=== PATIENT | male | born 1975 | race Caucasian/White ===

== ENCOUNTER 2019-10-22 20:53 | Emergency (ER) | payer MEDICAID, SELFPAY ==
--- NOTE | 2019-10-22 20:59 | XR_ITS ---
WS: [id number] CHEST XRAY TECHNIQUE: Portable chest. CLINICAL INFORMATION: cough COMPARISON: None. FINDINGS: Heart: Normal cardiac silhouette. Lungs: Lungs are clear. No consolidation or pleural effusion. Bones: Normal visualized bony structures. XR/XR chest 1V portable [id number] IMPRESSION: Normal chest
--- NOTE | 2019-10-22 20:59 | ED_ITS ---
Entered by Nabila Sanders, acting as scribe for Juani Maurice HPI - Alcohol General: Chief Complaint: Alcohol Stated Complaint: FAST HEART RATE Time Seen by Provider: 10/22/19 20:59 Source: EMS and police Mode of arrival: EMS History of Present Illness: HPI narrative: 44 y/o male presents to the ED with complaint of ETOH withdrawls. Pt states he has a hx of DTs ( chest pain, N/V, seizure). He has never been able to successfully quit cold turkey . Pt states he has had rapid HR and chest pain since he was admitted to the nursing home at 1750. Pt states he consumes about a gallon of alcohol a day. His last drink was supposedly, 7 hours ago. MD complaint: alcohol withdrawal Last drink: Hours (ago) (7) Amount of alcohol consumed: 1/2 gallon Chronic alcohol use: Yes Previous visits for alcohol intoxication: Yes Recent trauma: No Associated symptoms: Reports nausea; Deny diaphoresis Treatments prior to arrival: none (francheskafran from EMS) Review of Systems Const: Denies: fever, chills, body aches, fatigue, malaise or diaphoresis Eyes: Denies: change in vision or blurry vision ENMT: Denies: throat pain, painful swallowing, hoarseness, ear pain, ear discharge, Change in hearing or nasal discharge Resp: Denies: shortness of breath, productive cough, non-productive cough, wheezing, coughing up blood or chest congestion GI: Reports: nausea : Denies: flank pain, difficulty urinating, painful urination, urinary frequency, urinary urgency, decreased urine ouput, urinary incontinence or blood in urine Musc: Denies: neck pain, back pain, extremity pain, extremity swelling, joint pain, joint swelling, joint warmth or joint stiffness Skin/Breast: Denies: rash, skin tenderness or yellow skin Neuro: Denies: headache, numbness in extremities, weakness in extremities, changes in sensation, lack of coordination, difficulty walking, dizziness, vertigo or confusion Endo: Denies: excessive thirst, tired all the time, cold intolerance, excessive sweating, flushing or hot flashes Kyle/Lymph: Denies: easy bruising, easy bleeding, petechiae or enlarged lymph nodes All/Imm: Denies: hives, throat swelling, tongue swelling, facial swelling or acute wheezing PFSH ED PFSH: Statuses (acute, chronic, etc) shown below reflect problem list status as previously entered and may not be historically accurate Medical History COPD (chronic obstructive pulmonary disease) (Acute) Suicidal ideations (Acute) Social History Smoking and tobacco status: current every day smoker Alcohol intake: current Physical Exam HENMT: COMMON NORMALS: normocephalic, head/scalp atraumatic, hearing grossly normal bilaterally, external ears normal, EAC's normal, external nose normal and moist oral mucous membranes HEAD & SCALP: normal to inspection, normocephalic and atraumatic FACE & SINUS: normal facial exam and face symmetric NOSE: external nose normal and nares normal EXTERNAL EAR: Yes external ears normal EXTERNAL AUDITORY CANAL: EAC's normal MOUTH: oral and palatal mucosa normal and tongue normal Eye: COMMON NORMALS: PERRL, EOMs intact bilaterally, conjunctivae normal and no scleral icterus GENERAL EYE: normal appearance of both eyes and normal light reflex CONJUNCTIVA: Yes conjunctivae normal SCLERA: sclerae normal CORNEA: Yes corneas normal PUPIL: Yes PERRL DIRECT OPHTHALMOSCOPY: Yes normal light reflex Neck/C-Spine: COMMON NORMALS: full ROM, no lymphadenopathy, supple, no meningeal signs and no JVD GENERAL: Yes normal visual inspection and Yes trachea midline CERVICAL SPINE: Yes cervical ROM normal Chest: COMMONS NORMALS: inspection of chest normal and palpation of chest normal Resp: COMMON NORMALS: normal respiratory effort, no retractions, no use of accessory muscles and clear to auscultation bilaterally EFFORT & INSPECTION: Yes able to speak in complete sentences AUSCULTATION: clear to auscultation bilaterally Cardio: COMMON NORMALS: no JVD GI: COMMON NORMALS: soft to palpation, non-tender, no hepatosplenomegaly and no masses INSPECTION: Yes normal to inspection PALPATION: Yes soft and Yes no hepatosplenomegaly : COMMON NORMALS: Yes no CVA tenderness BLADDER/KIDNEY EXAM: Yes no CVA tenderness Back/Pelvis: COMMON NORMALS: no CVA tenderness, thoracic and lumbar spine normal to inspection, no thoracic nor lumbar tenderness and thoraco-lumbar ROM normal Extremity: COMMON NORMALS: normal to inspection, full ROM, normal capillary refill, no joint enlargement, no clubbing, cyanosis or edema and no calf tender ness Neuro: COMMON NORMALS: CN's II-XII intact bilaterally, moves all extremities, no focal motor deficits and no sensory deficits noted MENINGEAL SIGNS: Yes no meningeal signs Skin: COMMON NORMALS: no rashes or lesions noted, skin turgor normal, no jaundice, no petechiae and no mottling GENERAL SKIN EXAM: no rashes or lesions noted and turgor normal Course Vital Signs: Vital signs: Vital Signs Temperature 98.3 F 10/22/19 21:02 Pulse Rate 96 10/23/19 02:05 Respiratory Rate 16 10/23/19 02:05 Blood Pressure 105/59 10/23/19 02:05 Pulse Oximetry 92 10/23/19 02:05 MDM - Alcohol MDM Narrative: Medical decision making narrative: The case was reviewed with Dr. Franco, he believes the patient will need ICU as he has had hallucinations, uncontrollable tremors and seizures in the past with his withdrawal. We have no ICU beds here. I reviewed the case in full with Dr. Good and he will accept the Pt. in transfer. Currently the patient is resting comfortably after 2 of Ativan. He is not tachycardic and shows no sign of withdrawal at this time. Lab Data: Labs: Lab Results 10/22/19 10/22/19 10/22/19 Range/Units 20:43 20:43 20:43 WBC 5.5 (4.0-10.0) 10^3/ uL RBC 4.45 (4.1-5.3) 10^6/u L Hgb 14.8 (11.7-16.6) g/dL Hct 42.6 (42.0-52.0) % MCV 95.7 H (80-94) fL MCH 33.3 (28.0-34.0) pg MCHC 34.7 (30.0-36.0) g/dL RDW 11.8 L (12.1-15.1) % Plt Count 168 (130-400) 10^3/c mm MPV 9.5 (7.4-10.4) fL Neut % (Auto) 42.1 % Lymph % (Auto) 47.0 % Coos % (Auto) 7.6 % Eos % (Auto) 2.2 % Baso % (Auto) 0.9 % Neut # (Auto) 2.3 (1.8-7.7) 10^3/u L Lymph # (Auto) 2.6 (0.8-4.8) 10^3/u L Coos # (Auto) 0.4 (0.2-0.9) 10^3/u L Eos # (Auto) 0.1 (0.0-0.8) 10^3/u L Baso # (Auto) 0.1 (0.0-0.1) 10^3/u L Nucleated RBC % (a uto) 0 % Nucleated RBCs # 0.0 /100WBC PT 13.90 H (10.5-13.3) SECO NDS INR 1.04 (0.8-1.2) Sodium 136 (136-145) mmol/L Potassium 3.6 (3.5-5.1) mmol/L Chloride 97 L (98-107) mmol/L Carbon Dioxide 22 (22-29) mmol/L Anion Gap 20.6 H (5-19) BUN 16 (6-20) mg/dL Creatinine 0.8 (0.7-1.2) mg/dL GFR Calculation 104.1 (90-130) mL/min Glucose 238 H (74-109) mg/dL Calcium 8.9 (8.6-10.0) mg/Dl Magnesium 1.8 (1.7-2.3) mg/dL Total Bilirubin 0.4 (0.15-1.2) mg/dL AST 36 (0-40) U/L ALT 22 (0-41) U/L Alkaline Phosphata se 71 (40-130) IU/L Creatine Kinase 94 (39-308) U/L Total Protein 7.2 (6.6-8.7) g/dL Albumin 4.1 (3.5-5.2) g/dL Globulin 3.1 (1.3-4.6) g/dL Lipase 35 (13-60) U/L Urine Color (Yellow) Urine Appearance (CLEAR) Urine pH (5-7) Ur Specific Gravit y (1.005-1.030) Urine Protein (Negative) Urine Glucose (UA) (Normal) Urine Ketones (Negative) Urine Occult Blood (Negative) Urine Nitrate (Negative) Urine Bilirubin (NEGATIVE) Urine Urobilinogen (Negative) mg/dL Ur Leukocyte Madie ase (Negative) Urine RBC (0-2) /hpf Urine WBC (0-5) /hpf Ur Squamous Epith Cells (0-5) Amorphous Sediment Urine Bacteria (NONE) Urine Mucus Urine Opiates Scre en (Negative) ng/mL Ur Barbiturates Sc reen (Negative) ng/mL Ur Phencyclidine S crn (Negative) ng/mL Ur Amphetamines Sc reen (Negative) ng/mL U Benzodiazepines Scrn (Negative) ng/mL Urine Cocaine Scre en (Negative) ng/mL U Marijuana (THC) Screen (Negative) ng/mL Ethyl Alcohol 249 H (0-10) mg/dL Serum Ketones (Negative) 10/22/19 10/22/19 10/22/19 Range/Units 20:43 22:22 22:22 WBC (4.0-10.0) 10^3/ uL RBC (4.1-5.3) 10^6/u L Hgb (11.7-16.6) g/dL Hct (42.0-52.0) % MCV (80-94) fL MCH (28.0-34.0) pg MCHC (30.0-36.0) g/dL RDW (12.1-15.1) % Plt Count (130-400) 10^3/c mm MPV (7.4-10.4) fL Neut % (Auto) % Lymph % (Auto) % Coos % (Auto) % Eos % (Auto) % Baso % (Auto) % Neut # (Auto) (1.8-7.7) 10^3/u L Lymph # (Auto) (0.8-4.8) 10^3/u L Coos # (Auto) (0.2-0.9) 10^3/u L Eos # (Auto) (0.0-0.8) 10^3/u L Baso # (Auto) (0.0-0.1) 10^3/u L Nucleated RBC % (a uto) % Nucleated RBCs # /100WBC PT (10.5-13.3) SECO NDS INR (0.8-1.2) Sodium (136-145) mmol/L Potassium (3.5-5.1) mmol/L Chloride (98-107) mmol/L Carbon Dioxide (22-29) mmol/L Anion Gap (5-19) BUN (6-20) mg/dL Creatinine (0.7-1.2) mg/dL GFR Calculation (90-130) mL/min Glucose (74-109) mg/dL Calcium (8.6-10.0) mg/Dl Magnesium (1.7-2.3) mg/dL Total Bilirubin (0.15-1.2) mg/dL AST (0-40) U/L ALT (0-41) U/L Alkaline Phosphata se (40-130) IU/L Creatine Kinase (39-308) U/L Total Protein (6.6-8.7) g/dL Albumin (3.5-5.2) g/dL Globulin (1.3-4.6) g/dL Lipase (13-60) U/L Urine Color Yellow (Yellow) Urine Appearance Clear (CLEAR) Urine pH 5 (5-7) Ur Specific Gravit y 1.025 (1.005-1.030) Urine Protein 1+ H (Negative) Urine Glucose (UA) 2+ (Normal) Urine Ketones 1+ H (Negative) Urine Occult Blood 2+ H (Negative) Urine Nitrate Negative (Negative) Urine Bilirubin Neg (NEGATIVE) Urine Urobilinogen Norm (Negative) mg/dL Ur Leukocyte Madie ase Negative (Negative) Urine RBC Rare (0-2) /hpf Urine WBC None (0-5) /hpf Ur Squamous Epith Cells None (0-5) Amorphous Sediment Trace Urine Bacteria Trace (NONE) Urine Mucus 2+ Urine Opiates Scre en Negative (Negative) ng/mL Ur Barbiturates Sc reen Negative (Negative) ng/mL Ur Phencyclidine S crn Negative (Negative) ng/mL Ur Amphetamines Sc reen Negative (Negative) ng/mL U Benzodiazepines Scrn Negative (Negative) ng/mL Urine Cocaine Scre en Negative (Negative) ng/mL U Marijuana (THC) Screen Negative (Negative) ng/mL Ethyl Alcohol (0-10) mg/dL Serum Ketones Negative (Negative) EKG Data^: EKG 1: EKG interpretation date: 10/22/19 EKG interpretation time: 21:07 Interpretation: Sinus tach at 110 beats a minute, normal CT interval, normal QRS duration, normal QTC, no acute ST or T wave changes. Discharge Plan Discharge Patient Disposition: Xfer Short-Term Hosp Clinical Impression: Alcoholic intoxication Qualifiers: Complication of substance-induced condition: with unspecified complication Qualified Code(s): F10.929 - Alcohol use, unspecified with intoxication, unspecified Alcohol withdrawal syndrome Qualifiers: Complication of substance-induced condition: with unspecified complication Qualified Code(s): F10.239 - Alcohol dependence with withdrawal, unspecified Condition: Stable Referrals: Ruddy Quach DO [Primary Care Provider] - Coding Level of Care Code ED Campus Recruiting Coordinator for g Fwd The documentation recorded by the Tommy polk Ashley, accurately reflects the service I personally performed and the decisions made by Kaylene estrada Eli N
[2019-10-22 21:02] VITALS: BP 107/91; PULSE 116; RESP 16; TEMP 36.8; O2SAT 93; BMI 25.0
[2019-10-22 21:27] LABS: Basophils # 0.1 10^3/uL (0.0-0.1); Basophils % 0.9 %; Eosinophils # 0.1 10^3/uL (0.0-0.8); Eosinophils % 2.2 %; Hematocrit 42.6 % (42.0-52.0); Hemoglobin 14.8 g/dL (11.7-16.6); Lymphocytes # 2.6 10^3/uL (0.8-4.8); Mean Corpuscular HGB Conc 34.7 g/dL (30.0-36.0); Mean Corpuscular Hemoglobin 33.3 pg (28.0-34.0); Mean Corpuscular Volume 95.7 fL (80-94); Mean Platelet Volume 9.5 fL (7.4-10.4); Monocytes # 0.4 10^3/uL (0.2-0.9); Monocytes % 7.6 %; Neutrophils # 2.3 10^3/uL (1.8-7.7); Neutrophils % 42.1 %; Nucleated Red Blood Cells % 0 %; Platelet Count 168 10^3/cmm (130-400); Red Blood Count 4.45 10^6/uL (4.1-5.3); Red Cell Distribution Width 11.8 % (12.1-15.1); White Blood Count 5.5 10^3/uL (4.0-10.0)
[2019-10-22 21:32] LABS: INR 1.04 (0.8-1.2)
[2019-10-22 21:37] LABS: Alanine Aminotransferase 22 U/L (0-41); Albumin Level 4.1 g/dL (3.5-5.2); Alcohol Level 249 mg/dL (0-10); Alkaline Phosphatase 71 IU/L (40-130); Anion Gap 20.6 (5-19); Aspartate Amino Transferase 36 U/L (0-40); Blood Urea Nitrogen 16 mg/dL (6-20); Calcium 8.9 mg/Dl (8.6-10.0); Carbon Dioxide 22 mmol/L (22-29); Chloride 97 mmol/L (98-107); Creatine Phosphokinase 94 U/L (39-308); Globulin 3.1 g/dL (1.3-4.6); Glomerular Filtration Rate 104.1 mL/min (90-130); Glucose 238 mg/dL (74-109); Lipase 35 U/L (13-60); Magnesium 1.8 mg/dL (1.7-2.3); Potassium 3.6 mmol/L (3.5-5.1); Sodium 136 mmol/L (136-145); Total Bilirubin 0.4 mg/dL (0.15-1.2); Total Protein 7.2 g/dL (6.6-8.7)
[2019-10-22 21:42] LABS: Ketone (Acetest) Serum Negative (Negative)
[2019-10-22 22:17] VITALS: BP 111/85; PULSE 109; RESP 17; O2SAT 95
[2019-10-22] MEDS: pantoprazole 40 mg SDV 80 MG IVP (22:19)
[2019-10-22] MEDS: sodium chloride 0.9% 1,000 ML 999 ML IV (22:20)
[2019-10-22] MEDS: ondansetron 2 mg/ML SDV 2 mL 4 MG IVP (22:20)
[2019-10-22] MEDS: LORazepam 2 mg/mL INJ 1 mL 1 MG IVP ×2 (22:21→23:12)
[2019-10-22 22:35] LABS: Amphetamines Screen Urine Negative (Negative); Barbiturates Screen Urine Negative (Negative); Benzodiazepines Screen Urine Negative (Negative); Cocaine Screen Urine Negative (Negative); Opiate Screen Urine Negative (Negative); PCP Screen Urine Negative (Negative); THC Screen Urine Negative (Negative)
[2019-10-22 22:40] LABS: Bacteria Urine TRACE; Bilirubin Urine Neg (NEGATIVE); Blood Urine 2+ (Negative); Glucose Urine UA 2+ (Normal); Ketones Urine 1+ (Negative); Leukocyte Esterase Urine Negative (Negative); Mucus Urine 2+; Nitrate Urine Negative (Negative); Protein Urine 1+ (Negative); RBC Urine RARE /hpf (0-2); Specific Gravity, Urine 1.025 (1.005-1.030); Urine Appearance Clear (CLEAR); Urine Color Yellow (Yellow); Urobilinogen Urine Norm (Negative); pH Urine 5 (5-7)
[2019-10-22 22:41] LABS: Add Urine Culture? No; Amorphous Sediment Urine TRACE
[2019-10-23] VITALS (68 sets, daily range): BP systolic 105–121; BP diastolic 58–94; PULSE 92–109; RESP 14–24; O2SAT 89–96
--- NOTE | 2019-10-23 01:06 | ECG_ITS ---
Measurements Intervals Solomon Rate: 110 P: 72 RI: 148 QRS: 73 QRSD: 84 T: 62 QT: 324 QTc: 440 SINUS TACHYCARDIA NONSPECIFIC T-WAVE ABNORMALITY ABNORMAL RHYTHM ECG Compared to ECG 09/22/2018 19:50:59 T-wave abnormality now present Sinus rhythm no longer present Electronically Signed On 10-23-2019 20:32:52 VALIDATION ENGINEER by Collin Briggs M.D. [email or web address]
[2019-10-23] MEDS: LORazepam 2 mg/mL INJ 1 mL IVP (05:48)
--- NOTE | 2019-10-23 06:00 | PC.NURSE ---
patient awake calling for nurse. patient states he is having some tremors and would like medication to help keep him calm. ed physician notified and orders put in for medication patient stating that he is hungry and would like something to drink at this time. ed physician approval for food and drink. sack lunch and coke brought to patient by this nurse.
== END 2019-10-23 07:47 | disposition short-term general hospital (02) ==
PROVIDERS: Emergency Provider Emergency Medicine; Family Provider Family Medicine; PCP Family Medicine
DX: R00.0 Tachycardia, unspecified (principal); F10.230 Alcohol dependence with withdrawal, uncomplicated; F10.220 Alcohol dependence with intoxication, uncomplicated; Y90.9 Presence of alcohol in blood, level not specified; J44.9 Chronic obstructive pulmonary disease, unspecified; F17.210 Nicotine dependence, cigarettes, uncomplicated
CPT/HCPCS: 71045; 80053; 80307; 81001; 82009; 82550; 83690; 83735; 85025; 85610; 93005; 96360; 96361; 96374; 99284; C9113; J2060; J2405; J7030

== ENCOUNTER 2019-11-07 19:14 | Emergency (ER) | payer MEDICAID, SELFPAY ==
[2019-11-07] VITALS (24 sets, daily range): BP systolic 113–192; BP diastolic 74–161; PULSE 87–96; RESP 18; TEMP 36.4; O2SAT 92–98; BMI 24.3
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
[2019-11-07 21:05] LABS: Basophils % 0.5 %; Eosinophils % 0.2 %; Hemoglobin 14.8 g/dL (11.7-16.6); Lymphocytes # 1.1 10^3/uL (0.8-4.8); Lymphocytes % 25.9 %; Mean Corpuscular HGB Conc 35.2 g/dL (30.0-36.0); Mean Corpuscular Volume 93.5 fL (80-94); Mean Platelet Volume 10.2 fL (7.4-10.4); Monocytes # 0.4 10^3/uL (0.2-0.9); Monocytes % 9.6 %; Neutrophils # 2.7 10^3/uL (1.8-7.7); Neutrophils % 63.3 %; Nucleated Red Blood Cells % 0 %; Platelet Count 86 10^3/cmm (130-400); Red Blood Count 4.49 10^6/uL (4.1-5.3); Red Cell Distribution Width 12.3 % (12.1-15.1); White Blood Count 4.3 10^3/uL (4.0-10.0)
[2019-11-07 21:12] LABS: INR 0.95 (0.8-1.2)
[2019-11-07 21:17] LABS: Alanine Aminotransferase 56 U/L (0-41); Albumin Level 4.5 g/dL (3.5-5.2); Alcohol Level 222 mg/dL (0-10); Alkaline Phosphatase 79 IU/L (40-130); Anion Gap 20.9 (5-19); Aspartate Amino Transferase 107 U/L (0-40); Blood Urea Nitrogen 7 mg/dL (6-20); Calcium 9.5 mg/dL (8.5-10.5); Carbon Dioxide 24 mmol/L (22-29); Chloride 93 mmol/L (98-107); Globulin 3.3 g/dL (1.3-4.6); Glucose 105 mg/dL (65-115); Potassium 2.9 mmol/L (3.5-5.1); Sodium 135 mmol/L (136-145); Total Bilirubin 0.9 mg/dL (0.15-1.2); Total Protein 7.8 g/dL (6.6-8.7)
[2019-11-07] MEDS: LORazepam 2 mg/mL INJ 1 mL 1 MG IVP (21:20)
--- NOTE | 2019-11-07 22:47 | PC.NURSE ---
EMS on site to assume care and transport patient.
== END 2019-11-07 23:00 | disposition other institution (70) ==
PROVIDERS: Emergency Provider Emergency Medicine; Family Provider Family Medicine; PCP Family Medicine
DX: S06.6X9A Traumatic subarachnoid hemorrhage with loss of consciousness of unspecified duration, initial encounter (principal); Y08.02XA Assault by strike by baseball bat, initial encounter; J44.9 Chronic obstructive pulmonary disease, unspecified; F17.210 Nicotine dependence, cigarettes, uncomplicated
CPT/HCPCS: 36415; 70450; 80053; 80307; 85025; 85610; 96374; 99283; J2060

== ENCOUNTER 2019-12-27 14:18 | Emergency (ER) | payer SELFPAY ==
[2019-12-27 14:30] VITALS: BP 123/104; PULSE 117; RESP 20; TEMP 36.8; O2SAT 96; BMI 23.6
--- NOTE | 2019-12-27 14:36 | ED_ITS ---
Entered by Velma Tapia, acting as scribe for Juani Maurice HPI - Alcohol General: Chief Complaint: General Medical Stated Complaint: ALCOHOL DTS Time Seen by Provider: 12/27/19 14:36 Source: patient Mode of arrival: ambulatory Limitations: no limitations History of Present Illness: HPI narrative: 44 yo male presents to ED with complaints of alcohol withdrawal. He said he had seizures but his last drink was early this morning, having had a couple of shots . He said he woke this morning and had a seizure so he decided to get some alcohol. He said he drinks every day. The last time he drank was last night prior to having a seizure this morning. He said he wants to stop drinking but he needs help to do so. MD complaint: alcohol intoxication, alcohol withdrawal and alcohol dependence Last drink: Hours (ago) Amount of alcohol consumed: 2 shots , otherwise unknown Chronic alcohol use: Yes Previous visits for alcohol intoxication: Yes Recent trauma: Yes Associated symptoms: Reports no associated symptoms; Deny abdominal pain, diaphoresis, hematemesis, melena, nausea, syncope or vomiting Treatments prior to arrival: none Review of Systems General: Reports: other (negative unless marked) Const: Denies: fever, chills, body aches, fatigue, malaise or diaphoresis Eyes: Denies: change in vision or blurry vision ENMT: Denies: throat pain, painful swallowing, hoarseness, ear pain, ear d ischarge, Change in hearing or nasal discharge Card: Denies: chest pain, palpitations, irregular heart rhythm, syncope, pre- syncope, shortness of breath on exertion or shortness of breath when lying down Resp: Denies: shortness of breath, productive cough, non-productive cough, wheezing, coughing up blood or chest congestion GI: Denies: abdominal pain, nausea, vomiting, vomiting blood, coffee grounds in vomit, diarrhea, constipation, cramping, blood in stool or black tarry stool : Denies: flank pain, difficulty urinating, painful urination, urinary frequency, urinary urgency, decreased urine ouput, urinary incontinence or blood in urine Musc: Denies: neck pain, back pain, extremity pain, extremity swelling, joint pain, joint swelling, joint warmth or joint stiffness Skin/Breast: Denies: rash, skin tenderness or yellow skin Neuro: Denies: headache, numbness in extremities, weakness in extremities, changes in sensation, lack of coordination, difficulty walking, dizziness, vertigo or confusion Endo: Denies: excessive thirst, tired all the time, cold intolerance, excessive sweating, flushing or hot flashes Kyle/Lymph: Denies: easy bruising, easy bleeding, petechiae or enlarged lymph nodes All/Imm: Denies: hives, throat swelling, tongue swelling, facial swelling or acute wheezing PFSH ED PFSH: Social History Smoking and tobacco status: current every day smoker Alcohol intake: current Physical Exam Const: COMMON NORMALS: no apparent distress, oriented x3, no limitations, healthy appearing and well nourished EXAM LIMITATIONS: no altered mental status GENERAL APPEARANCE: cooperative, well kempt and well developed ORIENTATION/CONSCIOUSNESS: Yes awake HENMT: COMMON NORMALS: normocephalic, head/scalp atraumatic, hearing grossly normal bilaterally, external ears normal, EAC's normal, external nose normal and moist oral mucous membranes HEAD & SCALP: normal to inspection, normocephalic and atraumatic FACE & SINUS: normal facial exam and face symmetric NOSE: external nose normal and nares normal EXTERNAL EAR: Yes external ears normal EXTERNAL AUDITORY CANAL: EAC's normal MOUTH: oral and palatal mucosa normal and tongue normal Eye: COMMON NORMALS: PERRL, EOMs intact bilaterally, conjunctivae normal and no scleral icterus GENERAL EYE: normal appearance of both eyes and normal light reflex CONJUNCTIVA: Yes conjunctivae normal SCLERA: sclerae normal CORNEA: Yes corneas normal PUPIL: Yes PERRL DIRECT OPHTHALMOSCOPY: Yes normal light reflex Neck/C-Spine: COMMON NORMALS: full ROM, no lymphadenopathy, supple, no meningeal signs and no JVD GENERAL: Yes normal visual inspection and Yes trachea midline CERVICAL SPINE: Yes cervical ROM normal Chest: COMMONS NORMALS: inspection of chest normal and palpation of chest normal Resp: COMMON NORMALS: normal respiratory effort, no retractions, no use of accessory muscles and clear to auscultation bilaterally EFFORT & INSPECTION: Yes able to speak in complete sentences AUSCULTATION: clear to auscultation bilaterally Cardio: COMMON NORMALS: no JVD, regular rate, regular rhythm, S1 normal heart sound, S2 normal heart sound, no gallops, no clicks, no murmurs and no rub JUGULAR VENOUS DISTENTION: no JVD RATE: regular rate RHYTHM: regular rhythm HEART SOUNDS: S1 normal and S2 normal GI: COMMON NORMALS: soft to palpation, non-tender, no hepatosplenomegaly and no masses INSPECTION: Yes normal to inspection PALPATION: Yes soft and Yes no hepatosplenomegaly : COMMON NORMALS: Yes no CVA tenderness BLADDER/KIDNEY EXAM: Yes no CVA tenderness Back/Pelvis: COMMON NORMALS: no CVA tenderness, thoracic and lumbar spine normal to inspection, no thoracic nor lumbar tenderness and thoraco-lumbar ROM normal Extremity: COMMON NORMALS: normal to inspection, full ROM, normal capillary refill, no joint enlargement, no clubbing, cyanosis or edema and no calf tenderness Neuro: COMMON NORMALS: oriented x3, CN's II-XII intact bilaterally, moves all extremities, no focal motor deficits and no sensory deficits noted MENINGEAL SIGNS: Yes no meningeal signs Psych: COMMON NORMALS: mental status grossly normal, thought process normal, cooperative, affect normal, speech normal and activity/motor behavior normal APPEARANCE: Yes well kempt SPEECH: Yes normal speech THOUGHT PROCESS: normal thought process Skin: COMMON NORMALS: no rashes or lesions noted, skin turgor normal, no jaundice, no petechiae and no mottling GENERAL SKIN EXAM: no rashes or lesions noted and turgor normal Course Vital Signs: Vital signs: Vital Signs Temperature 98.3 F 12/27/19 14:30 Pulse Rate 117 H 12/27/19 14:30 Respiratory Rate 20 H 12/27/19 14:30 Blood Pressure 123/104 12/27/19 14:30 Pulse Oximetry 96 12/27/19 14:30 MDM - Alcohol MDM Narrative: Medical decision making narrative: Discharge -Cameron is been asking for pain medicine primarily here in the ER. When asked where he has pain he claims his head. CT scan is normal. The seizures that the patient was describing were witnessed by nursing and they were not generalized tonic-clonic seizures and there was no postictal period. I believe the patient is seeking benzodiazepines and pain medications. When confronted with this he states that he really is here to get tested for the coronavirus. I have informed him that he has no indications of a coronavirus infection and I do not believe testing is necessary. He now wants to be discharged. He is calling for a friend to come pick him up and take him home. I do not believe he plans to stop drinking. The patient is alert to person, place, time and situation. He is aware of the risks of long-term alcoholism including ultimately or severe permanent disability. I see no sign of acute injury or life-threatening problem at this time. The patient does not appear clinically intoxicated. He has been up and able to ambulate without any difficulties or signs of ataxia. I believe he is competent and has the capacity to make his own decisions. He shows no signs of impairment. He has made multiple decisions based upon the information I have given him and been able to process this and merna this over in his mind. He does understand that he can return at any time and I have made certain to welcome to do so if he wanted further treatment. Lab Data: Labs: Lab Results 12/27/19 12/27/19 12/27/19 Range/Units 15:16 15:16 15:16 WBC 4.7 (4.0-10.0) 10^3/ uL RBC 4.33 (4.1-5.3) 10^6/u L Hgb 14.8 (11.7-16.6) g/dL Hct 42.6 (42.0-52.0) % MCV 98.4 H (80-94) fL MCH 34.2 H (28.0-34.0) pg MCHC 34.7 (30.0-36.0) g/dL RDW 13.5 (12.1-15.1) % Plt Count 74 L (130-400) 10^3/c mm MPV 10.2 (7.4-10.4) fL Neut % (Auto) 46.6 % Lymph % (Auto) 39.7 % Gaines % (Auto) 10.9 % Eos % (Auto) 1.7 % Baso % (Auto) 0.9 % Neut # (Auto) 2.2 (1.8-7.7) 10^3/u L Lymph # (Auto) 1.9 (0.8-4.8) 10^3/u L Gaines # (Auto) 0.5 (0.2-0.9) 10^3/u L Eos # (Auto) 0.1 (0.0-0.8) 10^3/u L Baso # (Auto) 0.0 (0.0-0.1) 10^3/u L Nucleated RBC % (a uto) 0 % Nucleated RBCs # 0.0 /100WBC PT (10.5-13.3) SECO NDS INR (0.8-1.2) Sodium 140 (136-145) mmol/L Potassium 3.2 L (3.5-5.1) mmol/L Chloride 97 L (98-107) mmol/L Carbon Dioxide 24 (22-29) mmol/L Anion Gap 22.2 H (5-19) BUN 14 (6-20) mg/dL Creatinine 0.7 (0.7-1.2) mg/dL GFR Calculation 121.4 (90-130) mL/min Glucose 105 (65-115) mg/dL Calculated Osmolal ity 287 (285-295) mOsm/k g Calcium 9.4 (8.5-10.5) mg/dL Magnesium 1.9 (1.7-2.3) mg/dL Total Bilirubin 1.0 (0.15-1.2) mg/dL AST 163 H (0-40) U/L ALT 74 H (0-41) U/L Alkaline Phosphata se 70 (40-130) IU/L Total Protein 7.4 (6.6-8.7) g/dL Albumin 4.4 (3.5-5.2) g/dL Globulin 3.0 (1.3-4.6) g/dL Ethyl Alcohol 279 H (0-10) mg/dL Serum Ketones Negative (Negative) 12/27/19 Range/Units 15:16 WBC (4.0-10.0) 10^3/ uL RBC (4.1-5.3) 10^6/u L Hgb (11.7-16.6) g/dL Hct (42.0-52.0) % MCV (80-94) fL MCH (28.0-34.0) pg MCHC (30.0-36.0) g/dL RDW (12.1-15.1) % Plt Count (130-400) 10^3/c mm MPV (7.4-10.4) fL Neut % (Auto) % Lymph % (Auto) % Gaines % (Auto) % Eos % (Auto) % Baso % (Auto) % Neut # (Auto) (1.8-7.7) 10^3/u L Lymph # (Auto) (0.8-4.8) 10^3/u L Gaines # (Auto) (0.2-0.9) 10^3/u L Eos # (Auto) (0.0-0.8) 10^3/u L Baso # (Auto) (0.0-0.1) 10^3/u L Nucleated RBC % (a uto) % Nucleated RBCs # /100WBC PT 13.10 (10.5-13.3) SECO NDS INR 0.96 (0.8-1.2) Sodium (136-145) mmol/L Potassium (3.5-5.1) mmol/L Chloride (98-107) mmol/L Carbon Dioxide (22-29) mmol/L Anion Gap (5-19) BUN (6-20) mg/dL Creatinine (0.7-1.2) mg/dL GFR Calculation (90-130) mL/min Glucose (65-115) mg/dL Calculated Osmolal ity (285-295) mOsm/k g Calcium (8.5-10.5) mg/dL Magnesium (1.7-2.3) mg/dL Total Bilirubin (0.15-1.2) mg/dL AST (0-40) U/L ALT (0-41) U/L Alkaline Phosphata se (40-130) IU/L Total Protein (6.6-8.7) g/dL Albumin (3.5-5.2) g/dL Globulin (1.3-4.6) g/dL Ethyl Alcohol (0-10) mg/dL Serum Ketones (Negative) Imaging Data^: CXR: My impression: No acute cardiopulmonary findings. Radiologist's impression: [address] [address] XRay Report Signed Patient: Balbir Smallwood #: [id number] : 1975Acct#:[id number] Age/Sex: 44 / MADM Date: 12/27/19 Loc: ERRoom/Bed: Attending Dr: Ordering Provider/Ordering MD: Jauni Maurice DO Date of Service: 12/27/19 Procedure(s): XR chest 1V portable [id number] Accession Number(s): [id number] Report Number: [id number] WS: [id number] PORTABLE CHEST HISTORY: cough COMPARISON: 10/22/2019 Lungs are clear and well expanded. No pleural effusion or pneumothorax. Cardiac size: Normal. Mediastinum/Aorta: Normal mediastinum. No osseous abnormality seen. XR/XR chest 1V portable [id number] IMPRESSION: Unremarkable portable chest. Dictated By:Niyah Phillips DO Signed By:Niyah Phillips DOSigned Date/Time:12/27/19 CT Head: Radiologist's impression: [place] [address] CT Scan Report Signed Patient: Balbir Smallwood #: [id number] : 1975Acct#:[id number] Age/Sex: 44 / MADM Date: 12/27/19 Loc: ERRoom/Bed: Attending Dr: Ordering Provider/Ordering MD: Juani Maurice DO Date of Service: 12/27/19 Procedure(s): CT head wo con* [id number] Accession Number(s): [id number] Report Number: [id number] WS: [id number] CT HEAD NONCONTRAST HISTORY: HOLLIDAY/AMS TECHNIQUE: Contiguous axial imaging performed through the brain in 2.5 mm imaging. Bone and soft tissue windows. Sagittal and coronal reformats reviewed. All CT scans at [facility] use at least one of these dose optimization techniques: automated exposure control; mA and/or kV adjustment per patient size (includes targeted exams where dose is matched to clinical indica tion); or iterative reconstruction. DLP: 797.92 mGy.cm COMPARISON: 11/07/2019 No acute intracranial hemorrhage, midline shift or mass effect. Previously described hemorrhage in the ambient cistern is no longer evident. No acute blood products. Mild atrophy and mild chronic microvascular ischemic disease. Ventricles: Normal size with no hydrocephalus. Paranasal sinuses: Mild mucoperiosteal thickening in the maxillary sinuses and ethmoid air cells. No air-fluid levels. Mastoid air cells: Well pneumatized. Calvarium and scalp: Skull is intact with no soft tissue edema or swelling. Rounded calcification in the soft tissues of the LEFT lateral skull base. This is along the course of the carotid artery. Calcification measures 12 mm. This has been present since 06/18/2018. Could potentially represent an aneurysm. No progression. CT/CT head wo con* [id number] IMPRESSION: 1. No acute intracranial hemorrhage. Previously described hemorrhage in the LEFT ambient cistern has resolved. 2. Curvilinear calcification in the soft tissues at the LEFT skull base. Present since 06/18/2018 without increase in size. Could be a calcified or thrombosed aneurysm. Etiology cannot be determined nor can the significance on this examination. No acute hemorrhage. Dictated By:Niyah Phillips DO Signed By:Niyah Phillips DOSigned Date/Time:12/27/19 EKG Data^: EKG 1: Attestation: I personally reviewed and interpreted this EKG as follows: EKG interpretation date: 12/27/19 EKG interpretation time: 15:10 Interpretation: Normal sinus rhythm at 101 beats a minute, normal axis, no blocks, normal intervals. No acute ST or T wave changes. Discharge Plan Discharge Patient Disposition: Home, Self-Care Clinical Impression: Alcohol intoxication in active alcoholic Qualifiers: Complication of substance-induced condition: uncomplicated Qualified Code(s): F10.220 - Alcohol dependence with intoxication, uncomplicated Condition: Stable Prescriptions: New Zofran 4 mg tablet 4 mg PO Q6H PRN (Reason: nausea and vomiting) Qty: 20 RF: 0 Discharge Orders: Discharge Order (Routine); Ordered 12/27/19 Ordered By: Juani Maurice Referrals: Ruddy Quach DO [Primary Care Provider] - Discharge Diet: Advance as tolerated Discharge Activity: Increase activity as tolerated Patient Instructions: Alcoholism, Alcohol Intoxication (ED), Acute Nausea and Vomiting (ED), Alcohol Withdrawal (ED) Activity Restrictions/Additional Instructions: Please return to the ER immediately for any of the signs or symptoms listed on your discharge instruction sheets, worsening/changing of your symptoms, you are not getting better as quickly as expected, or for ANY other cause or concerns. Be certain to stay with a responsible adult. You are welcome to return anytime should you change your mind and want further evaluation and care. Coding Level of Care Code ED Char House Supervisor for Chg Fwd Exam Comprehensive The documentation recorded by the kirillibRegina schwarz Valerie R, accurately reflects the service I personally performed and the decisions made by me, Juani Maurice Dec 27, 2019 14:18
--- NOTE | 2019-12-27 14:44 | ECG_ITS ---
Measurements Intervals [place] Rate: 101 P: 72 NE: 167 QRS: 76 QRSD: 89 T: 76 QT: 335 QTc: 436 SINUS TACHYCARDIA ABNORMAL RHYTHM ECG Compared to ECG 10/22/2019 21:04:22 T-wave abnormality no longer present Electronically Signed On 12-28-2019 9:38:27 CDT by Tiffanie Paris M.D. [id number]
--- NOTE | 2019-12-27 14:44 | CT_ITS ---
WS: [id number] CT HEAD NONCONTRAST HISTORY: HOLLIDAY/AMS TECHNIQUE: Contiguous axial imaging performed through the brain in 2.5 mm imaging. Bone and soft tiss ue windows. Sagittal and coronal reformats reviewed. All CT scans at [facility] use at ast one of these dose optimization techniques: automated exposure control; mA and/or kV adjustment pe r patient size (includes targeted exams where dose is matched to clinical indication); or iterative r econstruction. DLP: 797.92 mGy.cm COMPARISON: 11/07/2019 No acute intracranial hemorrhage, midline shift or mass effect. Previously described hemorrhage in th e ambient cistern is no longer evident. No acute blood products. Mild atrophy and mild chronic microvascular ischemic disease. Ventricles: Normal size with no hydrocephalus. Paranasal sinuses: Mild mucoperiosteal thickening in the maxillary sinuses and ethmoid air cells. No air-fluid levels. Mastoid air cells: Well pneumatized. Calvarium and scalp: Skull is intact with no soft tissue edema or swelling. Rounded calcification in the soft tissues of the LEFT lateral skull base. This is along the course of the carotid artery. Calcification measures 12 mm. This has been present since 06/18/2018. Could poten tially represent an aneurysm. No progression. CT/CT head wo con* [id number] IMPRESSION: 1. No acute intracranial hemorrhage. Previously described hemorrhage in the LE FT ambient cistern has resolved. 2. Curvilinear calcification in the soft tissues at the LEFT skull base. Prese nt since 06/18/2018 without increase in size. Could be a calcified or thrombosed aneurysm. Etiology cannot be determined nor can the significance on this exami nation. No acute hemorrhage.
--- NOTE | 2019-12-27 14:44 | XR_ITS ---
WS: [id number] PORTABLE CHEST HISTORY: cough COMPARISON: 10/22/2019 Lungs are clear and well expanded. No pleural effusion or pneumothorax. Cardiac size: Normal. Mediastinum/Aorta: Normal mediastinum. No osseous abnormality seen. XR/XR chest 1V portable [id number] IMPRESSION: Unremarkable portable chest.
[2019-12-27] MEDS: LORazepam 2 mg/mL INJ 1 mL 1 MG IVP (15:15)
[2019-12-27] MEDS: folic acid 1 MG, multivitamin inj 10 ML, thiamine 100 MG in sodium chloride 0.9% 1,000 ML 252.8 MG IV (15:15)
--- NOTE | 2019-12-27 15:20 | PC.NURSE ---
pt to ct scan with stretcher by tech
[2019-12-27 15:26] LABS: Basophils % 0.9 %; Eosinophils # 0.1 10^3/uL (0.0-0.8); Eosinophils % 1.7 %; Hematocrit 42.6 % (42.0-52.0); Hemoglobin 14.8 g/dL (11.7-16.6); Lymphocytes # 1.9 10^3/uL (0.8-4.8); Lymphocytes % 39.7 %; Mean Corpuscular HGB Conc 34.7 g/dL (30.0-36.0); Mean Corpuscular Hemoglobin 34.2 pg (28.0-34.0); Mean Corpuscular Volume 98.4 fL (80-94); Mean Platelet Volume 10.2 fL (7.4-10.4); Monocytes # 0.5 10^3/uL (0.2-0.9); Monocytes % 10.9 %; Neutrophils # 2.2 10^3/uL (1.8-7.7); Neutrophils % 46.6 %; Nucleated Red Blood Cells % 0 %; Platelet Count 74 10^3/cmm (130-400); Red Blood Count 4.33 10^6/uL (4.1-5.3); Red Cell Distribution Width 13.5 % (12.1-15.1); White Blood Count 4.7 10^3/uL (4.0-10.0)
[2019-12-27 15:36] LABS: INR 0.96 (0.8-1.2)
[2019-12-27 15:37] LABS: Ketone (Acetest) Serum Negative (Negative)
[2019-12-27 15:44] LABS: Alanine Aminotransferase 74 U/L (0-41); Albumin Level 4.4 g/dL (3.5-5.2); Alcohol Level 279 mg/dL (0-10); Alkaline Phosphatase 70 IU/L (40-130); Anion Gap 22.2 (5-19); Aspartate Amino Transferase 163 U/L (0-40); Blood Urea Nitrogen 14 mg/dL (6-20); Calcium 9.4 mg/dL (8.5-10.5); Carbon Dioxide 24 mmol/L (22-29); Chloride 97 mmol/L (98-107); Glomerular Filtration Rate 121.4 mL/min (90-130); Glucose 105 mg/dL (65-115); Magnesium 1.9 mg/dL (1.7-2.3); Osmolality Calculated 287 mOsm/kg (285-295); Potassium 3.2 mmol/L (3.5-5.1); Sodium 140 mmol/L (136-145); Total Protein 7.4 g/dL (6.6-8.7)
[2019-12-27 16:44] VITALS: BP 127/88; PULSE 110; O2SAT 95
[2019-12-27 17:06] LABS: Bilirubin Urine Neg (NEGATIVE); Blood Urine 2+ (Negative); Glucose Urine UA Norm (Normal); Ketones Urine 1+ (Negative); Nitrate Urine Negative (Negative); Protein Urine 1+ (Negative); Urine Appearance Clear (CLEAR); Urine Color Amber (Yellow); pH Urine 6 (5-7)
[2019-12-27 17:07] LABS: Amphetamines Screen Urine Negative (Negative); Barbiturates Screen Urine Negative (Negative); Benzodiazepines Screen Urine Positive (Negative); Cocaine Screen Urine Negative (Negative); Leukocyte Esterase Urine Negative (Negative); Opiate Screen Urine Negative (Negative); PCP Screen Urine Negative (Negative); THC Screen Urine Positive (Negative); Urobilinogen Urine 4 mg/dL (Negative)
[2019-12-27 17:19] LABS: WBC Urine 0-4 /hpf (0-5)
[2019-12-27 17:20] LABS: Add Urine Culture? No; Bacteria Urine 1+
== END 2019-12-27 16:44 | disposition home or self-care (01) ==
PROVIDERS: Emergency Provider Emergency Medicine; Family Provider Family Medicine; PCP Family Medicine
DX: F10.229 Alcohol dependence with intoxication, unspecified (principal); F17.200 Nicotine dependence, unspecified, uncomplicated
CPT/HCPCS: 12345; 70450; 71045; 80053; 80306; 80307; 81001; 82009; 83735; 85025; 85610; 93005; 96365; 96366; 96375; 99283; 99284; J2060; J3411; J3490; J7030

== ENCOUNTER 2023-07-01 15:25 | Emergency (ER) | payer OTHER, MEDICAID, SELFPAY ==
[2023-07-01 15:27] VITALS: BP 118/72; PULSE 105; RESP 18; TEMP 37; O2SAT 90; BMI 24.3
--- NOTE | 2023-07-01 15:53 | ED_ITS ---
HPI - Syncope General: Chief Complaint: Syncope Stated Complaint: SYNCOPE; CHEST PAIN Time Seen by Provider: 07/01/23 15:28 Source: patient Mode of arrival: ambulatory History of Present Illness: 48-year-old male presents emergency room states he was walking and passed out. He admits to regular use of alcohol. He is been homeless lately denies any fever sweats or chills no any chest pain or abdominal pain specifically. He d oes state he has just general aches and throughout his body. This been going on for a while. No shortness of breath. MD complaint: loss of consciousness Prodromal symptoms: none and lightheaded Context: during exertion Injuries sustained associated with event: none Associated symptoms: Deny abdominal pain, chest pain, fever(s) or nausea Treatments prior to arrival: none Review of Systems Const: Denies: fever(s), chills, fatigue or malaise ENMT: Denies: throat pain, ear or mastoid pain, nasal discharge or nasal congestion Card: Denies: chest pain, palpitations, irregular heart rhythm, edema, dyspnea on exertion or orthopnea Resp: Denies: dyspnea, productive cough or non-productive cough GI: Denies: abdominal pain, nausea, vomiting, hematemesis, coffee ground emesis, diarrhea, constipation, bloating, hematochezia or melena : Denies: flank pain, dysuria, urinary frequency or urinary urgency Skin/Breast: Denies: rash or pruritus [facility] ED PFSH: Medical History (Updated 07/01/23 @ 16:26 by Ruddy Quach DO) COPD (chronic obstructive pulmonary disease) Suicidal ideations Social History Smoking and tobacco status: current every day smoker Alcohol intake: current Physical Exam Const: GENERAL APPEARANCE: cooperative and comfortable ORIENTATION/CONSCIOUSNESS: Yes awake, Yes oriented to person, Yes oriented to place and Yes oriented to time HENMT: COMMON NORMALS: normocephalic, atraumatic and hearing grossly normal bilaterally HEAD & SCALP: normocephalic and atraumatic Resp: COMMON NORMALS: normal respiratory effort, No retractions, No use of accessory muscles and clear to auscultation bilaterally AUSCULTATION: clear to auscultation bilaterally Cardio: COMMON NORMALS: regular rate, regular rhythm and No murmurs present (Cardio) RATE: regular rate RHYTHM: regular rhythm GI: COMMON NORMALS: Soft to palpation and No hepatosplenomegaly present AUSCULTATION: Yes normoactive bowel sounds PALPATION: Yes Soft to palpation, No Tenderness to palpation present (GI), No Guarding due to palpation present (GI) and Yes No hepatosplenomegaly present Extremity: COMMON NORMALS: normal to inspection, capillary refill normal, no clubbing, cyanosis or edema, no calf tenderness and no pedal edema Neuro: SENSORIUM/ORIENTATION: Yes oriented to person, Yes oriented to place and Yes oriented to time Skin: COMMON NORMALS: no rashes or lesions noted GENERAL SKIN EXAM: no rashes or lesions noted Course Vital Signs: Vital signs: Vital Signs Temperature 98.6 F 07/01/23 15:27 Pulse Rate 105 H 07/01/23 15:27 Respiratory Rate 18 07/01/23 15:27 Blood Pressure 118/72 07/01/23 15:27 Pulse Oximetry 90 07/01/23 15:27 Oxygen Delivery Me thod Room Air 07/01/23 15:27 MDM - Syncope Medical Decision Making Shortly after seeing the patient he tried to leave the department when he found that the door was locked he became very aggravated. The charge nurse and I both separately tried to convince him to stay he is aggravated 1 cigarette. He is advised he can return at any point we will check him back in and reevaluate him. I did encourage him to stay told him he is already here it was easy for us to just complete the work-up that was started he does not wish to do that and wants to leave patient signed out AMA Medical Records I reviewed the patient's medical records. Lab Data I reviewed the patient's lab results. 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
--- NOTE | 2023-07-01 15:54 | XRR_ITS ---
PROCEDURE INFORMATION: Exam: XR Chest Exam date and time: 07/01/2023 4:05 PM Age: 48 years old Clinical indication: Pain; Chest pressure; Additional info: Dyspnea/cough TECHNIQUE: Imaging protocol: Radiologic exam of the chest. Views: 1 view. COMPARISON: CR XR chest 1V portable [id number] 12/27/2019 2:53 PM FINDINGS: Lungs: Unremarkable. No consolidation. Pleural spaces: Unremarkable. No pleural effusion. No pneumothorax. Heart/Mediastinum: Unremarkable. No cardiomegaly. Bones/joints: Unremarkable. XR/XR chest 1V portable [id number] IMPRESSION: No acute findings.
--- NOTE | 2023-07-01 15:54 | ECG_ITS ---
[facility] Test Date: 2023-07-01 Pat Name: Cameron Smallwood Department: Room: Gender: Male Service Coordinator: : 1975 Requested By: Ruddy Potter Order Number: [id number] Sofie MD: Santino Lopez M.D. Measurements Intervals [place] Rate: 106 P: 66 NH: 152 QRS: 64 QRSD: 83 T: 66 QT: 320 QTc: 426 Interpretive Statements SINUS TACHYCARDIA Compared to ECG 12/27/2019 15:10:42 No significant changes Electronically Signed On 07-02-2023 11:11:05 CDT by Santino Lopez M.D. [email or web address] medical [email or web address] township [email or web address]/[id number]
[2023-07-01 16:37] LABS: Basophils # 0.1 10^3/uL (0.0-0.1); Basophils % 1.1 %; Eosinophils # 0.2 10^3/uL (0.0-0.8); Eosinophils % 1.8 %; Hematocrit 51.3 % (37-53); Lymphocytes # 3.2 10^3/uL (0.8-4.8); Lymphocytes % 34.5 %; Mean Corpuscular HGB Conc 34.9 g/dL (30-55); Mean Corpuscular Hemoglobin 32.5 pg (27-33); Mean Corpuscular Volume 93.1 fl (82-101); Mean Platelet Volume 9.7 fL (7.4-10.4); Monocytes # 0.5 10^3/uL (0.2-0.9); Monocytes % 5.9 %; Neutrophils # 5.17 10^3/uL (1.8-7.7); Neutrophils % 55.9 %; Nucleated Red Blood Cells % 0 %; Platelet Count 265 10^3/cmm (157-399); Red Blood Count 5.51 10^6/uL (3.85-5.65); Red Cell Distribution Width 14.1 % (12.1-15.1); White Blood Count 9.23 10^3/uL (3.29-11.43)
[2023-07-01 17:09] LABS: Alanine Aminotransferase 16 U/L (0-41); Albumin Level 4.6 g/dL (3.5-5.2); Alkaline Phosphatase 77 U/L (40-130); Anion Gap 20.6 (5-19); Aspartate Amino Transferase 20 U/L (0-40); Blood Urea Nitrogen 16 mg/dL (6-20); Carbon Dioxide 19 mmol/L (22-29); Chloride 109 mmol/L (98-107); Creatine Phosphokinase 63 U/L (39-308); Globulin 3.4 g/dL (1.3-4.6); Glomerular Filtration Rate 89.3 mL/min (90-130); Glucose 91 mg/dL (65-115); Lipase 28 U/L (13-60); Osmolality Calculated 301 mOsm/kg (285-295); Potassium 3.6 mmol/L (3.5-5.1); Sodium 145 mmol/L (136-145); Total Bilirubin 0.3 mg/dL (0.15-1.2)
== END 2023-07-01 16:22 | disposition left against medical advice (07) ==
PROVIDERS: Emergency Provider Family Medicine
DX: R55 Syncope and collapse (principal); Z53.21 Procedure and treatment not carried out due to patient leaving prior to being seen by health care provider; J44.9 Chronic obstructive pulmonary disease, unspecified; F17.210 Nicotine dependence, cigarettes, uncomplicated
CPT/HCPCS: 71045; 80053; 82550; 83690; 85025; 93005; 99285

== ENCOUNTER 2023-07-04 09:50 | Emergency (ER) | payer MEDICAID, SELFPAY ==
[2023-07-04 10:24] VITALS: BP 133/85; PULSE 89; RESP 18; TEMP 36.4; O2SAT 96; BMI 25.1
[2023-07-04 10:28] VITALS: PULSE 88; RESP 18; TEMP 36.6; O2SAT 99
--- NOTE | 2023-07-04 11:33 | PC.NURSE ---
Patient wanting treatment for HEP C sent from health unit. Patient states hes had HEP C for around 4 years.
[2023-07-04 11:43] LABS: Basophils # 0.1 10^3/uL (0.0-0.1); Basophils % 1.1 %; Eosinophils # 0.2 10^3/uL (0.0-0.8); Eosinophils % 2.9 %; Hematocrit 44.3 % (37-53); Lymphocytes # 1.9 10^3/uL (0.8-4.8); Lymphocytes % 29.6 %; Mean Corpuscular HGB Conc 34.8 g/dL (30-55); Mean Corpuscular Hemoglobin 32.4 pg (27-33); Mean Corpuscular Volume 93.1 fl (82-101); Mean Platelet Volume 9.6 fL (7.4-10.4); Monocytes # 0.5 10^3/uL (0.2-0.9); Monocytes % 7.6 %; Neutrophils # 3.69 10^3/uL (1.8-7.7); Neutrophils % 58.5 %; Nucleated Red Blood Cells % 0 %; Platelet Count 182 10^3/cmm (157-399); Red Blood Count 4.76 10^6/uL (3.85-5.65); Red Cell Distribution Width 13.4 % (12.1-15.1); White Blood Count 6.31 10^3/uL (3.29-11.43)
[2023-07-04 11:54] LABS: INR 0.99 (0.8-1.2)
[2023-07-04 11:55] LABS: Partial Thromboplastin Time 29.1 SECONDS (23.9-36.7)
[2023-07-04 11:57] LABS: Glucose Point of Care 100 mg/dL (70-110)
[2023-07-04 12:01] LABS: Alanine Aminotransferase 16 U/L (0-41); Albumin Level 4.1 g/dL (3.5-5.2); Alkaline Phosphatase 67 U/L (40-130); Anion Gap 13.8 (5-19); Aspartate Amino Transferase 19 U/L (0-40); Blood Urea Nitrogen 11 mg/dL (6-20); Calcium 8.8 mg/dL (8.5-10.5); Carbon Dioxide 22 mmol/L (22-29); Chloride 104 mmol/L (98-107); Globulin 2.7 g/dL (1.3-4.6); Glomerular Filtration Rate 119.4 mL/min (90-130); Glucose 95 mg/dL (65-115); Osmolality Calculated 281 mOsm/kg (285-295); Potassium 3.8 mmol/L (3.5-5.1); Sodium 136 mmol/L (136-145); Total Bilirubin 0.6 mg/dL (0.15-1.2); Total Protein 6.8 g/dL (6.6-8.7)
--- NOTE | 2023-07-04 12:27 | ED_ITS ---
HPI - General Adult General: Chief complaint: General Medical Stated complaint: possible Hep C, would like treatment Time Seen by Provider: 07/04/23 11:16 History of Present Illness: 48-year-old male presents to the emergency department stating that he has had hepatitis C for the previous 4 to 5 years and that he was seen at the health care department to receive treatment and was advised to come to the emergency department to be evaluated for treatment. Patient states that he does not have abdominal pain and has not noticed his skin that have changed colors. He states that he cannot recall who told him he was positive for hepatitis C 5 years ago but does feel like he needs to receive treatment. He denies abdominal pain at present. He states he does drink occasionally. Associated symptoms: Deny chest pain, nausea, palpitations or vomiting Review of Systems General: Reports: 10 or more systems reviewed and unremarkable except in HPI and below Card: Denies: chest pain or palpitations GI: Reports: other (Positive for hepatitis C); Denies: abdominal pain, nausea or vomiting [facility] ED PFSH: Medical History (Updated 07/04/23 @ 12:35 by Yobani Ahumada MD) COPD (chronic obstructive pulmonary disease) Suicidal ideations Social History Smoking and tobacco status: current every day smoker Alcohol intake: current Physical Exam Const: COMMON NORMALS: no acute distress, patient oriented x3, alert and well nourished HENMT: COMMON NORMALS: normocephalic, atraumatic and hearing grossly normal bilaterally HEAD & SCALP: normocephalic and atraumatic Eye: COMMON NORMALS: Equal, round and reactive pupils present, EOMs intact bilaterally and no scleral icterus PUPIL: Yes Equal, round and reactive pupils present Neck/C-Spine: COMMON NORMALS: full ROM, no lymphadenopathy, supple, no meningeal signs and no JVD Chest: COMMONS NORMALS: normal inspection of the chest and normal palpation of entire chest wall Resp: COMMON NORMALS: normal respiratory effort, No retractions and No use of accessory muscles Cardio: COMMON NORMALS: no JVD, regular rate, regular rhythm, S1 normal heart sound present, S2 normal heart sound present and Peripheral pulses 2+ throughout RATE: regular rate RHYTHM: regular rhythm HEART SOUNDS: S1 normal heart sound present and S2 normal heart sound present PERIPHERAL PULSES: Peripheral pulses 2+ throughout GI: COMMON NORMALS: Normal to inspection, nondistended, normoactive bowel sounds present, Soft to palpation, non-tender and No hepatosplenomegaly present PALPATION: Yes Soft to palpation and Yes No hepatosplenomegaly present : COMMON NORMALS: Yes no CVA tenderness BLADDER/KIDNEY EXAM: Yes no CVA tenderness Back/Pelvis: COMMON NORMALS: no CVA tenderness and thoracic and lumbar spine normal to inspection Extremity: COMMON NORMALS: normal to inspection, full ROM and capillary refill normal Neuro: COMMON NORMALS: patient oriented x3, moves all extremities, no focal motor deficits and no sensory deficits noted SENSORIUM/ORIENTATION: Yes alert MENINGEAL SIGNS: Yes no meningeal signs Psych: COMMON NORMALS: mental status grossly normal, Normal thought process present, cooperative, normal affect, speech normal and activity/motor behavior normal SPEECH: Yes normal speech THOUGHT PROCESS: Normal thought process present Skin: COMMON NORMALS: no rashes or lesions noted, no wounds and turgor normal GENERAL SKIN EXAM: no rashes or lesions noted and turgor normal Course Vital Signs: Vital signs: Vital Signs Temperature 98 F 07/04/23 12:39 Pulse Rate 88 07/04/23 12:39 Respiratory Rate 18 07/04/23 12:39 Blood Pressure 128/76 07/04/23 12:39 Pulse Oximetry 99 07/04/23 12:39 Oxygen Delivery Me thod Room Air 07/04/23 10:28 MDM - General Adult Medical Decision Making I will obtain laboratory evaluation for initial baseline evaluation of the patient's laboratories and have discussed with him the importance of follow-up with a primary care and infectious disease physician patient verbalized understanding all information provided and states [facility] and after referred infectious disease. Differential Diagnosis Jaundice, hepatitis, liver dysfunction Medical Records I reviewed the patient's medical records. Lab Data I reviewed the patient's lab results. I reviewed all the patient's laboratory results that were obtained on this presentation 07/04/23 11:36 07/04/23 11:36 Laboratory Results WBC 6.31 10^3/uL (3.29-11.43) 07/04/23 11:36 RBC 4.76 10^6/uL (3.85-5.65) 07/04/23 11:36 Hgb 15.40 g/dL (11.27-16.99) 07/04/23 11:36 Hct 44.3 % (37-53) 07/04/23 11:36 MCV 93.1 fl (82-101) 07/04/23 11:36 MCH 32.4 pg (27-33) 07/04/23 11:36 MCHC 34.8 g/dL (30-55) 07/04/23 11:36 RDW 13.4 % (12.1-15.1) 07/04/23 11:36 Plt Count 182 10^3/cmm (157-399) 07/04/23 11:36 MPV 9.6 fL (7.4-10.4) 07/04/23 11:36 Neut % (Auto) 58.5 % 07/04/23 11:36 Lymph % (Auto) 29.6 % 07/04/23 11:36 [place] % (Auto) 7.6 % 07/04/23 11:36 Eos % (Auto) 2.9 % 07/04/23 11:36 Baso % (Auto) 1.1 % 07/04/23 11:36 Neut # (Auto) 3.69 10^3/uL (1.8-7.7) 07/04/23 11:36 Lymph # (Auto) 1.9 10^3/uL (0.8-4.8) 07/04/23 11:36 [place] # (Auto) 0.5 10^3/uL (0.2-0.9) 07/04/23 11:36 Eos # (Auto) 0.2 10^3/uL (0.0-0.8) 07/04/23 11:36 Baso # (Auto) 0.1 10^3/uL (0.0-0.1) 07/04/23 11:36 Nucleated RBC % (auto) 0 % 07/04/23 11:36 Nucleated RBCs # 0.0 /100WBC 07/04/23 11:36 PT 13.40 SECONDS (12.1-14.9) 07/04/23 11:36 INR 0.99 (0.8-1.2) 07/04/23 11:36 APTT 29.1 SECONDS (23.9-36.7) 07/04/23 11:36 Sodium 136 mmol/L (136-145) 07/04/23 11:36 Potassium 3.8 mmol/L (3.5-5.1) 07/04/23 11:36 Chloride 104 mmol/L (98-107) 07/04/23 11:36 Carbon Dioxide 22 mmol/L (22-29) 07/04/23 11:36 Anion Gap 13.8 (5-19) 07/04/23 11:36 BUN 11 mg/dL (6-20) 07/04/23 11:36 Creatinine 0.7 mg/dL (0.7-1.2) 07/04/23 11:36 GFR Calculation 119.4 mL/min (90-130) 07/04/23 11:36 Glucose 95 mg/dL (65-115) 07/04/23 11:36 POC Glucose 100 mg/dL (70-110) 07/04/23 11:37 Calculated Osmolality 281 mOsm/kg (285-295) L 07/04/23 11:36 Calcium 8.8 mg/dL (8.5-10.5) 07/04/23 11:36 Total Bilirubin 0.6 mg/dL (0.15-1.2) 07/04/23 11:36 AST 19 U/L (0-40) 07/04/23 11:36 ALT 16 U/L (0-41) 07/04/23 11:36 Alkaline Phosphatase 67 U/L (40-130) 07/04/23 11:36 Total Protein 6.8 g/dL (6.6-8.7) 07/04/23 11:36 Albumin 4.1 g/dL (3.5-5.2) 07/04/23 11:36 Globulin 2.7 g/dL (1.3-4.6) 07/04/23 11:36 All radiology interpretation(s) finalized by discharge Discharge Plan Discharge Patient Disposition: Home Clinical Impression: Hepatitis Condition: Stable Prescriptions: No Action ibuprofen 200 mg Tablet 600 mg PO Q6H PRN (Reason: Pain) Discharge Orders: Discharge ED (Routine); Ordered 07/04/23 Ordered By: Yobani Ahumada Referrals: Elizabeth Quick MD [Hospitalist] - (Evaluation for Hepatitis) Patient Instructions: Opioid Safety, Pain Management Coding Level of Care Code ED Knockout Machine Operator for Chg Rich
[2023-07-04 12:39] VITALS: BP 128/76; PULSE 88; RESP 18; TEMP 36.6; O2SAT 99
== END 2023-07-04 12:40 | disposition home or self-care (01) ==
PROVIDERS: Emergency Provider Internal Medicine
DX: B19.20 Unspecified viral hepatitis C without hepatic coma (principal); J44.9 Chronic obstructive pulmonary disease, unspecified; F17.210 Nicotine dependence, cigarettes, uncomplicated
CPT/HCPCS: 36416; 80053; 82962; 85025; 85610; 85730; 99283

== ENCOUNTER 2023-11-11 20:55 | Emergency (ER) | payer MEDICAID, SELFPAY ==
--- NOTE | 2023-11-11 | CTR_ITS ---
[facility] with Addendum Call: [phone] assistance Online chat: [email or web address] Name: ELLEN DELCID Age: 48Years M Date: 11/11/2023 SSN: -- : 1975 Study: CT HEAD WO Requesting Physician: ALLY MAGANA Images: 300 Add?l Studies: Provided Clinical History: Altered MS Addendum created by Kali Glaser MD on 11/13/2023 8:37 PM Central Time ([place] & [place]): Comparison to CT head dated 11/07/2019. Initial Report created on 11/11/2023 7:03 PM Central Time ([place] & [place]): PROCEDURE INFORMATION: Exam: CT Head Without Contrast Exam date and time: 11/11/2023 6:40 PM Age: 41 years old Clinical indication: Altered mental status/memory loss; Confusion or disorientation; Additional info: Altered ms TECHNIQUE: Imaging protocol: Computed tomography of the head without contrast. Radiation optimization: All CT scans at this facility use at least one of these dose optimization techniques: automated exposure control; mA and/or kV adjustment per patient size (includes targeted exams where dose is matched to clinical indication); or iterative reconstruction. COMPARISON: No relevant prior studies available. RADIATION DOSE METRICS: Total DLP (mGy-cm): 1072.64 FINDINGS: Brain: Normal. No hemorrhage. Unremarkable white matter. No mass effect. Cerebral ventricles: No ventriculomegaly. Paranasal sinuses: Visualized sinuses are unremarkable. No fluid levels. Mastoid air cells: Visualized mastoid air cells are well aerated. Bones/joints: Unremarkable. No acute fracture. Soft tissues: Unremarkable. IMPRESSION: No acute intracranial abnormality. Thank you for allowing us to participate in the care of your patient. Dictated and Authenticated by: Kali Glaser MD 11/11/2023 7:03 PM Central Time ([place] & [place]) MTDD
--- NOTE | 2023-11-11 18:06 | ECG_ITS ---
[facility] Test Date: 2023-11-11 Pat Name: Cameron Jimenez Department: Room: Gender: Male Drugless Doctor: : 1982-04-19 Requested By: Manish Prieto Order Number: [id number] Sofie MD: Heath Rizvi M.D. Measurements Intervals [place] Rate: 116 P: 79 UT: 160 QRS: 86 QRSD: 86 T: 65 QT: 323 QTc: 450 Interpretive Statements SINUS TACHYCARDIA ABNORMAL RHYTHM ECG No previous ECG available for comparison Electronically Signed On 11-12-2023 8:21:17 HYDROGRAPHIC ENGINEER by Heath Rizvi M.D. [id number]
[2023-11-11 18:15] LABS: Basophils # 0.1 10^3/uL (0.0-0.1); Basophils % 1.4 %; Eosinophils # 0.1 10^3/uL (0.0-0.8); Eosinophils % 0.7 %; Hematocrit 54.9 % (37-53); Lymphocytes # 3.2 10^3/uL (0.8-4.8); Lymphocytes % 44.7 %; Mean Corpuscular HGB Conc 35.3 g/dL (30-55); Mean Corpuscular Hemoglobin 33.7 pg (27-33); Mean Corpuscular Volume 95.5 fl (82-101); Mean Platelet Volume 9.4 fL (7.4-10.4); Monocytes # 0.6 10^3/uL (0.2-0.9); Monocytes % 8.1 %; Neutrophils # 3.23 10^3/uL (1.8-7.7); Neutrophils % 44.8 %; Nucleated Red Blood Cells % 0 %; Platelet Count 145 10^3/cmm (157-399); Red Blood Count 5.75 10^6/uL (3.85-5.65); Red Cell Distribution Width 12.4 % (12.1-15.1)
[2023-11-11 18:32] LABS: Alanine Aminotransferase 125 U/L (0-41); Albumin Level 4.7 g/dL (3.5-5.2); Alkaline Phosphatase 98 U/L (40-130); Anion Gap 28.9 (5-19); Aspartate Amino Transferase 204 U/L (0-40); Blood Urea Nitrogen 14 mg/dL (6-20); Calcium 8.7 mg/dL (8.5-10.5); Carbon Dioxide 22 mmol/L (22-29); Chloride 94 mmol/L (98-107); Globulin 3.8 g/dL (1.3-4.6); Glomerular Filtration Rate 105.5 mL/min (90-130); Glucose 71 mg/dL (65-115); Osmolality Calculated 291 mOsm/kg (285-295); Potassium 3.9 mmol/L (3.5-5.1); Sodium 141 mmol/L (136-145); Total Bilirubin 1.1 mg/dL (0.15-1.2); Total Protein 8.5 g/dL (6.6-8.7)
[2023-11-11 18:37] LABS: Alcohol Level 417 mg/dL (0-10)
[2023-11-11 21:07] LABS: Urine Color Orange (Yellow)
[2023-11-11 21:08] LABS: Add Urine Microscopic? YES; Bilirubin Urine Neg (Negative); Blood Urine 3+ (Negative); Glucose Urine UA Norm (Normal); Ketones Urine 2+ (Negative); Leukocyte Esterase Urine Negative (Negative); Nitrate Urine Negative (Negative); Protein Urine 1+ (Negative); Urine Appearance Hazy (CLEAR); Urobilinogen Urine 1 mg/dL (Negative); pH Urine 5 (5-7)
[2023-11-11 21:14] LABS: Amphetamines Screen Urine Negative (Negative); Bacteria Urine TRACE /hpf; Barbiturates Screen Urine Negative (Negative); Benzodiazepines Screen Urine Negative (Negative); Cocaine Screen Urine Negative (Negative); Mucus Urine 2+ /hpf; Opiate Screen Urine Positive (Negative); PCP Screen Urine Negative (Negative); Squamous Epithelial Cell Urine 0-4 /hpf (0-5); THC Screen Urine Positive (Negative); WBC Urine 0-4 /hpf (0-5)
[2023-11-11 21:15] LABS: Coarse Granular Casts Urine 0-4 /lpf
[2023-11-11 21:30] VITALS: BP 131/81; PULSE 115; RESP 18; O2SAT 90
--- NOTE | 2023-11-11 21:41 | W.ED.AMS ---
HPI - Altered Mental Status General: Chief Complaint: Altered Mental Status Stated Complaint: AMS Time Seen by Provider: 11/11/23 21:02 History of Present Illness: This patient is a 48-year-old white male brought in by his niece. His niece states that the patient had passed out at [facility] a few days ago. He was very intoxicated so they did not bring him into the emergency department at that time according to her. Today she has noticed that he has been altered. She does not think that he has been drinking that much today. He is an alcoholic and typically drinks hard liquor. The patient states he is worried about having a stroke. He has no numbness weakness or tingling in the extremities. Niece is also concerned that he may have gotten into some drugs causing his unusual mental status. Patient is on methadone. Review of Systems General: Reports: 10 or more systems reviewed and unremarkable except in HPI and below PFSH ED PFSH: Medical History (Updated 07/12/23 @ 00:01 by RANDALL Kaba) Suicidal ideations COPD (chronic obstructive pulmonary disease) Social History Smoking and tobacco/nicotine status: current every day tobacco/nicotine user Alcohol intake: current Physical Exam Const: COMMON NORMALS: patient oriented x3 GENERAL APPEARANCE: cooperative and disheveled OTHER: Smells of alcohol. HENMT: COMMON NORMALS: normocephalic, atraumatic, Normal nasal mucous membranes and turbinates present, moist oral mucous membranes and oropharynx normal HEAD & SCALP: normal to inspection, normocephalic and atraumatic FACE & SINUS: normal facial exam NOSE: Normal nasal mucous membranes and turbinates present Eye: COMMON NORMALS: Equal, round and reactive pupils present, EOMs intact bilaterally and conjunctivae normal GENERAL EYE: appearance normal, both eyes and all related structures CONJUNCTIVA: Yes conjunctivae normal PUPIL: Yes Equal, round and reactive pupils present Neck/C-Spine: COMMON NORMALS: supple and no JVD Chest: COMMONS NORMALS: normal inspection of the chest Resp: COMMON NORMALS: normal respiratory effort and clear to auscultation bilaterally AUSCULTATION: clear to auscultation bilaterally Cardio: COMMON NORMALS: no JVD, regular rate, regular rhythm, No gallops present (Cardio), No murmurs present (Cardio) and No rub (Cardio) RATE: regular rate RHYTHM: regular rhythm GI: COMMON NORMALS: Normal to inspection, nondistended, normoactive bowel sounds present, Soft to palpation and non-tender AUSCULTATION: Yes normoactive bowel sounds PALPATION: Yes Soft to palpation : COMMON NORMALS: Yes no CVA tenderness BLADDER/KIDNEY EXAM: Yes no CVA tenderness Back/Pelvis: COMMON NORMALS: no CVA tenderness and thoracic and lumbar spine normal to inspection Extremity: COMMON NORMALS: normal to inspection Neuro: COMMON NORMALS: patient oriented x3 and CN's II-XII intact bilaterally Psych: COMMON NORMALS: mental status grossly normal, Normal thought process present and cooperative THOUGHT PROCESS: Normal thought process present Skin: COMMON NORMALS: no rashes or lesions noted, turgor normal and no jaundice GENERAL SKIN EXAM: no rashes or lesions noted and turgor normal Course Vital Signs: Vital signs: Vital Signs Pulse Rate 115 H 11/11/23 21:30 Respiratory Rate 18 11/11/23 21:30 Blood Pressure 131/81 11/11/23 21:30 Pulse Oximetry 90 11/11/23 21:30 Oxygen Delivery Me thod Room Air 11/11/23 21:30 MDM - Altered Mental Status Medical Decision Making Head CT was read by the radiologist as normal. EKG revealed sinus tachycardia at 116. No ST segment abnormalities. CBC was normal. CMP revealed an elevated AST of 204 and ALT of 125. Blood alcohol level was 417. Urine drug screen was positive for opiates and marijuana. Patient was given 2 L of normal saline. Patient will be discharged. Follow-up with primary care physician. Lab Data Laboratory Results Urine Color [place] (Yellow) A 11/11/23 20:30 Urine Appearance Hazy (CLEAR) A 11/11/23 20:30 Urine pH 5 (5-7) 11/11/23 20:30 Ur Specific [place] 1.020 (1.005-1.030) 11/11/23 20:30 Urine Protein 1+ (Negative) H 11/11/23 20:30 Urine Glucose (UA) Norm (Normal) 11/11/23 20:30 Urine Ketones 2+ (Negative) H 11/11/23 20:30 Urine Blood 3+ (Negative) H 11/11/23 20:30 Urine Nitrate Negative (Negative) 11/11/23 20:30 Urine Bilirubin Neg (Negative) 11/11/23 20:30 Urine Urobilinogen 1 mg/dL (Negative) H 11/11/23 20:30 Ur Leukocyte Esterase Negative (Negative) 11/11/23 20:30 Urine RBC 5-10 /hpf (0-2) H 11/11/23 20:30 Urine WBC 0-4 /hpf (0-5) H 11/11/23 20:30 Ur Squamous Epith Cells 0-4 /hpf (0-5) H 11/11/23 20:30 Amorphous Sediment Not Reportable 11/11/23 20:30 Urine Bacteria Trace /hpf (NONE) 11/11/23 20:30 Hyaline Casts 5-10 /lpf H 11/11/23 20:30 Coarse Granular Casts 0-4 /lpf H 11/11/23 20:30 Urine Mucus 2+ /hpf 11/11/23 20:30 Urine Opiates Screen Positive ng/mL (Negative) H 11/11/23 20:30 Ur Barbiturates Screen Negative ng/mL (Negative) 11/11/23 20:30 Ur Phencyclidine Scrn Negative ng/mL (Negative) 11/11/23 20:30 Ur Amphetamines Screen Negative ng/mL (Negative) 11/11/23 20:30 U Benzodiazepines Scrn Negative ng/mL (Negative) 11/11/23 20:30 Urine Cocaine Screen Negative ng/mL (Negative) 11/11/23 20:30 U Marijuana (THC) Screen Positive ng/mL (Negative) H 11/11/23 20:30 All radiology interpretation(s) finalized by discharge Discharge Plan Discharge Prescriptions: No Action ibuprofen 200 mg Tablet 600 mg PO Q6H PRN (Reason: Pain) Discharge Orders: Discharge ED (Routine); Ordered 11/11/23 Ordered By: Manish Prieto Coding Level of Care Code ED Welder Apprentice Combination for Santy Villanueva
--- NOTE | 2023-11-11 21:55 | PC.NURSE ---
Pt's assessment done by day shift nurse charted on the wrong chart.
[2023-11-11 22:01] VITALS: PULSE 107; RESP 15; O2SAT 91
[2023-11-11 22:04] LABS: Sodium 141 mmol/L (136-145)
[2023-11-11 22:05] LABS: Alanine Aminotransferase 125 U/L (0-41); Albumin Level 4.7 g/dL (3.5-5.2); Alkaline Phosphatase 98 U/L (40-130); Anion Gap 28.9 (5-19); Aspartate Amino Transferase 204 U/L (0-40); Blood Urea Nitrogen 14 mg/dL (6-20); Calcium 8.7 mg/dL (8.5-10.5); Carbon Dioxide 22 mmol/L (22-29); Chloride 94 mmol/L (98-107); Globulin 3.8 g/dL (1.3-4.6); Glomerular Filtration Rate 102.3 mL/min (90-130); Glucose 71 mg/dL (65-115); Osmolality Calculated 291 mOsm/kg (285-295); Potassium 3.9 mmol/L (3.5-5.1); Total Bilirubin 1.1 mg/dL (0.15-1.2); Total Protein 8.5 g/dL (6.6-8.7)
[2023-11-11 22:09] LABS: Basophils # 0.1 10^3/uL (0.0-0.1); Basophils % 1.3 %; Eosinophils # 0.1 10^3/uL (0.0-0.8); Eosinophils % 0.8 %; Hematocrit 55.8 % (37-53); Lymphocytes # 3.3 10^3/uL (0.8-4.8); Lymphocytes % 46.1 %; Mean Corpuscular HGB Conc 34.6 g/dL (30-55); Mean Corpuscular Hemoglobin 33.2 pg (27-33); Mean Platelet Volume 9.7 fL (7.4-10.4); Monocytes # 0.6 10^3/uL (0.2-0.9); Neutrophils % 43.5 %; Nucleated Red Blood Cells % 0 %; Platelet Count 148 10^3/cmm (157-399); Red Blood Count 5.81 10^6/uL (3.85-5.65); Red Cell Distribution Width 12.6 % (12.1-15.1); White Blood Count 7.13 10^3/uL (3.29-11.43)
[2023-11-11 22:28] LABS: Alcohol Level 331 mg/dL (0-10)
[2023-11-11 22:38] VITALS: BP 131/81; PULSE 107; RESP 15; O2SAT 91
== END 2023-11-11 22:39 | disposition home or self-care (01) ==
PROVIDERS: Emergency Provider Emergency Medicine
DX: R41.82 Altered mental status, unspecified (principal); J44.9 Chronic obstructive pulmonary disease, unspecified; Z72.0 Tobacco use
CPT/HCPCS: 36415; 70450; 80053; 80306; 80307; 81001; 85025; 93005; 99284; J7030

== ENCOUNTER 2024-02-28 14:11 | Emergency (ER) | payer MEDICAID, SELFPAY ==
--- NOTE | 2024-02-28 14:19 | ED_ITS ---
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 They called EMS when EMS got to the scene he was adamantly denying it and they were able to talk him into coming I spoke to him he does admit that he did say that he said that he was just mad and was just saying things and is not truly suicidal he adamantly denies suicidal or homicidal history states he was angry any regrets that he said those words. Associated symptoms: Deny chest pain, dyspnea, headache(s), nausea, rash or vomiting Review of Systems Const: Denies: fever(s), chills, body aches or change in appetite ENMT: Denies: throat pain or dental pain Card: Denies: chest pain Resp: Denies: dyspnea GI: Denies: abdominal pain, nausea, vomiting or diarrhea : Denies: dysuria Musc: Denies: neck pain or back pain Skin/Breast: Denies: rash Neuro: Denies: headache(s) [facility] ED PFSH: Medical History Suicidal ideations COPD (chronic obstructive pulmonary disease) Social History Smoking and tobacco/nicotine status: current every day tobacco/nicotine user Alcohol intake: current Physical Exam Const: COMMON NORMALS: no acute distress, patient oriented x3 and healthy appearing HENMT: COMMON NORMALS: normocephalic and atraumatic HEAD & SCALP: normocephalic and atraumatic Eye: COMMON NORMALS: Equal, round and reactive pupils present PUPIL: Yes Equal, round and reactive pupils present Neck/C-Spine: COMMON NORMALS: full ROM and supple Chest: COMMONS NORMALS: normal inspection of the chest Resp: COMMON NORMALS: normal respiratory effort Cardio: COMMON NORMALS: regular rate RATE: regular rate Extremity: COMMON NORMALS: normal to inspection and full ROM Neuro: COMMON NORMALS: patient oriented x3, moves all extremities and no focal motor deficits Psych: COMMON NORMALS: mental status grossly normal, Normal thought process present and cooperative THOUGHT PROCESS: Normal thought process present Skin: COMMON NORMALS: no rashes or lesions noted and no wounds GENERAL SKIN EXAM: no rashes or lesions noted MDM - General Adult Medical Decision Making Patient presents here with alcohol intoxication he is not suicidal I do believe that he was just angry and saying that his statement not as being true suicidal I did speak to Dr. Lynch of psychiatry who agrees patient stable for discharge follow-up PCP return if worsening All radiology interpretation(s) finalized by discharge Discharge Plan Discharge Patient Disposition: Home Clinical Impression: Acute alcohol intoxication Condition: Stable Prescriptions: No Action ibuprofen 200 mg Tablet 600 mg PO Q6H PRN (Reason: Pain) Discharge Orders: Discharge ED (Routine); Ordered 02/28/24 Ordered By: Christofer Hung Discharge Diet: Advance as tolerated Discharge Activity: Resume usual activity Patient Instructions: Alcohol Intoxication (ED) Coding Level of Care Code ED Kinder Teacher for Santy Villanueva
== END 2024-02-28 14:27 | disposition home or self-care (01) ==
PROVIDERS: Emergency Provider Emergency Medicine
DX: F10.129 Alcohol abuse with intoxication, unspecified (principal); Y90.9 Presence of alcohol in blood, level not specified; J44.9 Chronic obstructive pulmonary disease, unspecified; Z72.0 Tobacco use
CPT/HCPCS: 99281

== ENCOUNTER 2024-06-15 15:11 | Emergency (ER) | payer MEDICAID, SELFPAY ==
[2024-06-15 15:12] VITALS: BP 126/75; PULSE 81; RESP 21; TEMP 36.9; O2SAT 94; BMI 23.6
--- NOTE | 2024-06-15 15:25 | XRR_ITS ---
PROCEDURE INFORMATION: Exam: XR Chest Exam date and time: 06/15/2024 4:00 PM Age: 49 years old Clinical indication: Cough TECHNIQUE: Imaging protocol: Radiologic exam of the chest. Views: 1 view. COMPARISON: CR XR chest 1V portable [id number] 07/01/2023 4:05 PM FINDINGS: Lungs: Unremarkable. No consolidation. Pleural spaces: Unremarkable. No pleural effusion. No pneumothorax. Heart/Mediastinum: Unremarkable. No cardiomegaly. Bones/joints: Unremarkable. XR/XR chest 1V portable [id number] IMPRESSION: No acute findings.
--- NOTE | 2024-06-15 15:29 | W.ED.OVERDOS ---
HPI - Overdose General: Chief Complaint: Overdose Stated Complaint: methadone ingestion Time Seen by Provider: 06/15/24 15:16 Source: patient and EMS Mode of arrival: EMS Limitations: no limitations History of Present Illness: Patient is a 49-year-old male brought into the emergency department by ambulance due to methadone ingestion prior to arrival. Patient has been on methadone for greater than a year, states he noticed after a nap that 2 of his 90 mg pills were gone, and he is worried that if he goes to sleep he will not wake up due to toxic ingestion. He has never had this happen before, and ultimately he is unsure if he took 2 pills as at this time he states he feels significantly tired and groggy. He also regularly drinks while taking methadone and so far has had 1 pint of hard liquor today. Patient is also homeless. He is not reporting any chest pain, shortness of breath, syncope, or other symptoms other than a minor cough, reports history of asthma and COPD. Currently Poison control is being consulted for further recommendation, patient's vitals do appear unremarkable at this time. He also is denying to me any intentional overdose, suicidal or homicidal ideations, or hallucinations of any kind. complaint: accidental overdose Onset (ago): hour(s) Related Data Home Medications Medication Instructions Recorded Confirmed ibuprofen 200 mg tablet 600 mg PO Q6H PRN Pain 07/04/23 07/04/23 Allergies Allergy/AdvReac Type Severity Reaction Status Date / Time tetanus immune globulin Allergy Mild ALGY-Anaphy Verified 10/23/19 05:54 laxis azithromycin Allergy ADR-Gastrointestinal Verified 10/23/19 05:54 Upset Tetanus Vaccines and Toxoid Allergy Unknown Unverified 11/11/23 18:07 Review of Systems General: Reports: 10 or more systems reviewed and unremarkable except in HPI and below Const: Reports: fatigue, malaise and other (accidental ingestion); Denies: fever(s) or chills Eyes: Denies: change in vision ENMT: Denies: throat pain, ear or mastoid pain or nasal discharge Card: Denies: chest pain, palpitations, swelling of feet/ankles or lightheadedness Resp: Reports: productive cough; Denies: dyspnea or wheezing GI: Denies: abdominal pain, nausea, vomiting, diarrhea or constipation : Denies: flank pain, difficulty urinating, dysuria or urinary frequency Musc: Denies: neck pain, back pain or joint pain Skin/Breast: Denies: rash Neuro: Denies: headache(s), numbness in extremities or weakness in extremities Psych: Denies: visual hallucinations, auditory hallucinations, tactile hallucinations, suicidal ideation or homicidal ideation PFS ED PFSH: Medical History (Updated 06/15/24 @ 18:03 by BREONNA Chairez) Suicidal ideations COPD (chronic obstructive pulmonary disease) Social History Smoking and tobacco/nicotine status: current every day tobacco/nicotine user Alcohol intake: current Physical Exam Const: COMMON NORMALS: patient oriented x3, no limitations and alert GENERAL APPEARANCE: cooperative ORIENTATION/CONSCIOUSNESS: Yes awake OTHER: Somewhat tired appearing, disheveled, smell of alcohol detected HENMT: COMMON NORMALS: normocephalic, atraumatic and moist oral mucous membranes HEAD & SCALP: normocephalic and atraumatic Eye: COMMON NORMALS: Equal, round and reactive pupils present and EOMs intact bilaterally SCLERA: scleral abnormal Laterality of scleral abnormality: positive bilateral scleral icterus PUPIL: Yes Equal, round and reactive pupils present Neck/C-Spine: COMMON NORMALS: full ROM and no meningeal signs GENERAL: Yes normal visual inspection Chest: COMMONS NORMALS: normal inspection of the chest Resp: COMMON NORMALS: normal respiratory effort, No retractions and No use of accessory muscles AUSCULTATION: no crackles, no rhonchi and wheezes scattered wheezes Cardio: COMMON NORMALS: regular rate, regular rhythm, S1 normal heart sound present, S2 normal heart sound present, No gallops present (Cardio), No murmurs present (Cardio) and No rub (Cardio) RATE: regular rate RHYTHM: regular rhythm HEART SOUNDS: S1 normal heart sound present and S2 normal heart sound present GI: COMMON NORMALS: Normal to inspection, nondistended, normoactive bowel sounds present, Soft to palpation and non-tender PALPATION: Yes Soft to palpation Extremity: COMMON NORMALS: normal to inspection and full ROM Neuro: COMMON NORMALS: patient oriented x3, moves all extremities, no focal motor deficits and no sensory deficits noted SENSORIUM/ORIENTATION: Yes alert MENINGEAL SIGNS: Yes no meningeal signs Psych: COMMON NORMALS: mental status grossly normal and Normal thought process present APPEARANCE: Yes unkempt ATTITUDE: Yes paranoid SPEECH: Yes slow MOOD & AFFECT: Yes anxious THOUGHT PROCESS: Normal thought process present THOUGHT CONTENT: Yes Normal thought content present Skin: COMMON NORMALS: no rashes or lesions noted GENERAL SKIN EXAM: no rashes or lesions noted Course Vital Signs: Vital signs: Vital Signs Temperature 98.5 F 06/15/24 15:12 Pulse Rate 76 06/15/24 17:00 Respiratory Rate 21 H 06/15/24 15:12 Blood Pressure 188/86 06/15/24 17:00 Pulse Oximetry 100 06/15/24 17:56 Oxygen Delivery Me thod Room Air 06/15/24 17:56 MDM - Overdose Medical Decision Making Patient brought in by ambulance for accidental doubling of his methadone from 90 mg to 100 mg, although this was not confirmed and patient was only going off of the fact that he was missing his Monday dose of methadone. He is homeless. Vitals normal on arrival, overall his physical exam unremarkable aside from being noticeably tired appearing and disheveled. He is a chronic alcoholic and noted to have some scleral icterus and smell of alcohol, states that he had 1 pint today. Poison control initially was called, and did recommend a monitoring. Due to the combination of methadone and alcohol, though after reviewing his labs and alcohol level states that they are not very concerned about this as his dose of methadone was not considered a lethal or toxic dose. On top of this, patient has become notably more irritable and states that he is no longer tired and wants to leave as he has to take care of his animals. Alcohol level noted to be 124, and he will leave at this time with proper return precautions given. Did discuss this patient with Dr. Thomas. Lab Data 06/15/24 17:18 06/15/24 17:18 Radiology Impressions Chest X-Ray 06/15/24 15:25 IMPRESSION: No acute findings. Laboratory Results WBC 5.13 10^3/uL (3.29-11.43) 06/15/24 17:18 RBC 4.36 10^6/uL (3.85-5.65) 06/15/24 17:18 Hgb 14.80 g/dL (11.27-16.99) 06/15/24 17:18 Hct 43.7 % (37-53) 06/15/24 17:18 MCV 100.2 fl (82-101) 06/15/24 17:18 MCH 33.9 pg (27-33) H 06/15/24 17:18 MCHC 33.9 g/dL (30-55) 06/15/24 17:18 RDW 12.9 % (12.1-15.1) 06/15/24 17:18 Plt Count 135 10^3/cmm (157-399) L 06/15/24 17:18 MPV 9.0 fL (7.4-10.4) 06/15/24 17:18 Neut % (Auto) 52.9 % 06/15/24 17:18 Lymph % (Auto) 35.7 % 06/15/24 17:18 [place] % (Auto) 8.2 % 06/15/24 17:18 Eos % (Auto) 1.4 % 06/15/24 17:18 Baso % (Auto) 1.2 % 06/15/24 17:18 Neut # (Auto) 2.72 10^3/uL (1.8-7.7) 06/15/24 17:18 Lymph # (Auto) 1.8 10^3/uL (0.8-4.8) 06/15/24 17:18 [place] # (Auto) 0.4 10^3/uL (0.2-0.9) 06/15/24 17:18 Eos # (Auto) 0.1 10^3/uL (0.0-0.8) 06/15/24 17:18 Baso # (Auto) 0.1 10^3/uL (0.0-0.1) 06/15/24 17:18 Nucleated RBC % (auto) 0 % 06/15/24 17:18 Nucleated RBCs # 0.0 /100WBC 06/15/24 17:18 Sodium 139 mmol/L (136-145) 06/15/24 17:18 Potassium 3.9 mmol/L (3.5-5.1) 06/15/24 17:18 Chloride 101 mmol/L (98-107) 06/15/24 17:18 Carbon Dioxide 25 mmol/L (22-29) 06/15/24 17:18 Anion Gap 16.9 (5-19) 06/15/24 17:18 BUN 13 mg/dL (6-20) 06/15/24 17:18 Creatinine 0.6 mg/dL (0.7-1.2) L 06/15/24 17:18 GFR Calculation 142.0 mL/min (90-130) H 06/15/24 17:18 Glucose 71 mg/dL (65-115) 06/15/24 17:18 Calculated Osmolality 287 mOsm/kg (285-295) 06/15/24 17:18 Calcium 8.0 mg/dL (8.5-10.5) L 06/15/24 17:18 Total Bilirubin 0.3 mg/dL (0.15-1.2) 06/15/24 17:18 AST 31 U/L (0-40) 06/15/24 17:18 ALT 15 U/L (0-41) 06/15/24 17:18 Alkaline Phosphatase 73 U/L (40-130) 06/15/24 17:18 Total Protein 6.9 g/dL (6.6-8.7) 06/15/24 17:18 Albumin 4.2 g/dL (3.5-5.2) 06/15/24 17:18 Globulin 2.7 g/dL (1.3-4.6) 06/15/24 17:18 Ethyl Alcohol 124 mg/dL (0-10) H 06/15/24 17:18 All radiology interpretation(s) finalized by discharge Discharge Plan Discharge Patient Disposition: Home Clinical Impression: Accidental drug ingestion Qualifiers: Encounter type: initial encounter Qualified Code(s): T50.901A - Poisoning by unspecified drugs, medicaments and biological substances, accidental (unintentional), initial encounter Condition: Stable Prescriptions: No Action ibuprofen 200 mg Tablet 600 mg PO Q6H PRN (Reason: Pain) Discharge Orders: Discharge ED (Routine); Ordered 06/15/24 Ordered By: Brian Horton Discharge Diet: Usual diet Discharge Activity: Increase activity as tolerated Patient Instructions: Opioid Safety, Pain Management Activity Restrictions/Additional Instructions: Please go back to taking your 90 mg of methadone once a day as provided. Follow-up with primary care and return with any new or worsening. Coding Level of Care Code ED Inventory Control/Shipping Receiving for Santy Villanueva
--- NOTE | 2024-06-15 15:32 | PC.NURSE ---
Poison ControlSocorro (pharmacist) states: Typically, two doses not taken at the same time would be advised to watch at home, but given the situation with alcohol intake they would recommend at least 8 hours of supportive care to watch for BEAD TRIMMER and respiratory depression. Peak: 1-7.5 hours Half life: 25 hours
[2024-06-15 15:41] VITALS: BP 118/74; PULSE 77; O2SAT 95
[2024-06-15 17:00] VITALS: BP 188/86; PULSE 76; O2SAT 98
[2024-06-15 17:24] LABS: Basophils # 0.1 10^3/uL (0.0-0.1); Basophils % 1.2 %; Eosinophils # 0.1 10^3/uL (0.0-0.8); Eosinophils % 1.4 %; Hematocrit 43.7 % (37-53); Lymphocytes # 1.8 10^3/uL (0.8-4.8); Lymphocytes % 35.7 %; Mean Corpuscular HGB Conc 33.9 g/dL (30-55); Mean Corpuscular Hemoglobin 33.9 pg (27-33); Mean Corpuscular Volume 100.2 fl (82-101); Monocytes # 0.4 10^3/uL (0.2-0.9); Monocytes % 8.2 %; Neutrophils # 2.72 10^3/uL (1.8-7.7); Neutrophils % 52.9 %; Nucleated Red Blood Cells % 0 %; Platelet Count 135 10^3/cmm (157-399); Red Blood Count 4.36 10^6/uL (3.85-5.65); Red Cell Distribution Width 12.9 % (12.1-15.1); White Blood Count 5.13 10^3/uL (3.29-11.43)
[2024-06-15 17:40] LABS: Alanine Aminotransferase 15 U/L (0-41); Albumin Level 4.2 g/dL (3.5-5.2); Alcohol Level 124 mg/dL (0-10); Alkaline Phosphatase 73 U/L (40-130); Anion Gap 16.9 (5-19); Aspartate Amino Transferase 31 U/L (0-40); Blood Urea Nitrogen 13 mg/dL (6-20); Carbon Dioxide 25 mmol/L (22-29); Chloride 101 mmol/L (98-107); Globulin 2.7 g/dL (1.3-4.6); Glucose 71 mg/dL (65-115); Osmolality Calculated 287 mOsm/kg (285-295); Potassium 3.9 mmol/L (3.5-5.1); Sodium 139 mmol/L (136-145); Total Bilirubin 0.3 mg/dL (0.15-1.2); Total Protein 6.9 g/dL (6.6-8.7)
[2024-06-15 17:56] VITALS: O2SAT 100
[2024-06-15 17:58] LABS: Creatinine Clr Calc Pharmacy 147.2002
--- NOTE | 2024-06-15 18:12 | PC.NURSE ---
pt asking to leave Sol DUARTE PA notified. ED provider at bedside to speak with pt.
--- NOTE | 2024-06-15 18:13 | PC.NURSE ---
pt ambulated to ED exit, ride set up for pt through registration.
== END 2024-06-15 18:13 | disposition home or self-care (01) ==
PROVIDERS: Emergency Provider Physician Assistant
DX: T40.3X1A Poisoning by methadone, accidental (unintentional), initial encounter (principal); J44.9 Chronic obstructive pulmonary disease, unspecified; Z72.0 Tobacco use
CPT/HCPCS: 71045; 80053; 80307; 85025; 99284

== ENCOUNTER 2024-06-20 02:50 | Emergency (ER) | payer MEDICAID, SELFPAY ==
[2024-06-20 02:51] VITALS: BP 138/104; PULSE 105; RESP 20; TEMP 37.2; O2SAT 91; BMI 23.6
--- NOTE | 2024-06-20 02:52 | ECG_ITS ---
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 Measurements Intervals [place] Rate: 97 P: 65 ID: [id number] QRS: 76 QRSD: 89 T: 49 QT: 302 QTc: 385 Interpretive Statements SINUS RHYTHM NONSPECIFIC T-WAVE ABNORMALITY Compared to ECG 11/11/2023 18:03:25 T-wave abnormality now present Sinus tachycardia no longer present Electronically Signed On 06-20-2024 14:02:47 CDT by Collin Briggs M.D. [id number]
--- NOTE | 2024-06-20 02:54 | XRR_ITS ---
PROCEDURE INFORMATION: Exam: XR Chest Exam date and time: 06/20/2024 3:33 AM Age: 49 years old Clinical indication: Shortness of breath; Additional info: Dyspnea TECHNIQUE: Imaging protocol: Radiologic exam of the chest. Views: 1 view. COMPARISON: CR (CHEST, ) 06/15/2024 4:00 PM FINDINGS: Lungs: Unremarkable. No consolidation. Pleural spaces: Unremarkable. No pleural effusion. No pneumothorax. Heart/Mediastinum: Unremarkable. No cardiomegaly. Bones/joints: Unremarkable. XR/XR chest 1V portable [id number] IMPRESSION: No acute findings.
--- NOTE | 2024-06-20 03:11 | W.ED.SOB ---
Documented by User: Jeevan Thomas DO 06/20/24 03:14 HPI - SOB/Dyspnea General: Chief Complaint: Shortness of Breath/Dyspnea Stated Complaint: sob Time Seen by Provider: 06/20/24 02:51 History of Present Illness: HPI Narrative: Patient presents to the ER by EMS from half-way complaining shortness of breath. Patient also states he been out of his methadone for several days and the last drink yesterday and is going through withdrawals. Patient has had the shakes. Patient was here couple days ago for methadone overdose. Patient also complains of cough congestion for couple weeks. Patient does smoke. Does not use home oxygen. Has some tremors at this time. However EMS administered albuterol on the way here. Related Data Home Medications Medication Instructions Recorded Confirmed ibuprofen 200 mg tablet 600 mg PO Q6H PRN Pain 07/04/23 07/04/23 Previous Rx's Medication Instructions Recorded hydroxyzine HCl 25 mg tablet 25 mg PO Q8H PRN withdrawal 06/20/24 symptoms #30 tabs Allergies Allergy/AdvReac Type Severity Reaction Status Date / Time tetanus immune globulin Allergy Mild ALGY-Anaphy Verified 10/23/19 05:54 laxis azithromycin Allergy ADR-Gastrointestinal Verified 10/23/19 05:54 Upset Tetanus Vaccines and Toxoid Allergy Unknown Unverified 11/11/23 18:07 Review of Systems General: Reports: 10 or more systems reviewed and unremarkable except in HPI and below PFSH ED PFSH: Medical History (Updated 06/20/24 @ 06:17 by Naina Macias MD) Suicidal ideations COPD (chronic obstructive pulmonary disease) Social History Smoking and tobacco/nicotine status: current every day tobacco/nicotine user Alcohol intake: current Physical Exam Const: COMMON NORMALS: no acute distress, average body habitus, patient oriented x3, no limitations, healthy appearing, alert and well nourished HENMT: COMMON NORMALS: normocephalic, atraumatic, hearing grossly normal bilaterally, external ears normal, Normal external nose present and moist oral mucous membranes HEAD & SCALP: normocephalic and atraumatic NOSE: Normal external nose present EXTERNAL EAR: Yes external ears normal Neck/C-Spine: COMMON NORMALS: full ROM, no lymphadenopathy, supple, no meningeal signs and no JVD Chest: COMMONS NORMALS: normal inspection of the chest and normal palpation of entire chest wall Resp: COMMON NORMALS: normal respiratory effort, No retractions and No use of accessory muscles; negative for clear to auscultation bilaterally (Minimal diffuse rhonchi and wheezing) AUSCULTATION: not clear to auscultation bilaterally (Minimal diffuse rhonchi and wheezing) Cardio: COMMON NORMALS: no JVD, regular rate, regular rhythm, S1 normal heart sound present, S2 normal heart sound present, No gallops present (Cardio), No clicks present (Cardio), No murmurs present (Cardio) and No rub (Cardio) RATE: regular rate RHYTHM: regular rhythm HEART SOUNDS: S1 normal heart sound present and S2 normal heart sound present GI: COMMON NORMALS: Normal to inspection, nondistended, normoactive bowel sounds present, Soft to palpation, non-tender, No hepatosplenomegaly present and no masses PALPATION: Yes Soft to palpation and Yes No hepatosplenomegaly present Neuro: COMMON NORMALS: patient oriented x3 SENSORIUM/ORIENTATION: Yes alert MENINGEAL SIGNS: Yes no meningeal signs Course Vital Signs: Vital signs: Vital Signs Temperature 98.9 F 06/20/24 02:51 Pulse Rate 102 H 06/20/24 04:30 Respiratory Rate 16 06/20/24 04:30 Blood Pressure 139/90 06/20/24 04:30 Pulse Oximetry 97 06/20/24 04:30 Oxygen Delivery Me thod Room Air 06/20/24 04:30 MDM - SOB/Dyspnea Medical Records I reviewed the patient's medical records. Lab Data I reviewed the patient's lab results. 06/20/24 03:30 06/20/24 05:37 Labs/Radiology: Radiology Impressions Chest X-Ray 06/20/24 02:54 IMPRESSION: No acute findings. Laboratory Results WBC 6.28 10^3/uL (3.29-11.43) 06/20/24 03:30 RBC 5.28 10^6/uL (3.85-5.65) 06/20/24 03:30 Hgb 18.10 g/dL (11.27-16.99) H 06/20/24 03:30 Hct 51.4 % (37-53) 06/20/24 03:30 MCV 97.3 fl (82-101) 06/20/24 03:30 MCH 34.3 pg (27-33) H 06/20/24 03:30 MCHC 35.2 g/dL (30-55) 06/20/24 03:30 RDW 13.2 % (12.1-15.1) 06/20/24 03:30 Plt Count 126 10^3/cmm (157-399) L 06/20/24 03:30 MPV 8.9 fL (7.4-10.4) 06/20/24 03:30 Neut % (Auto) 54.8 % 06/20/24 03:30 Lymph % (Auto) 29.5 % 06/20/24 03:30 [place] % (Auto) 14.2 % 06/20/24 03:30 Eos % (Auto) 0.2 % 06/20/24 03:30 Baso % (Auto) 1.0 % 06/20/24 03:30 Neut # (Auto) 3.45 10^3/uL (1.8-7.7) 06/20/24 03:30 Lymph # (Auto) 1.9 10^3/uL (0.8-4.8) 06/20/24 03:30 [place] # (Auto) 0.9 10^3/uL (0.2-0.9) 06/20/24 03:30 Eos # (Auto) 0.0 10^3/uL (0.0-0.8) 06/20/24 03:30 Baso # (Auto) 0.1 10^3/uL (0.0-0.1) 06/20/24 03:30 Nucleated RBC % (auto) 0 % 06/20/24 03:30 Nucleated RBCs # 0.0 /100WBC 06/20/24 03:30 Sodium 142 mmol/L (136-145) 06/20/24 05:37 Potassium 4.0 mmol/L (3.5-5.1) 06/20/24 05:37 Chloride 102 mmol/L (98-107) 06/20/24 05:37 Carbon Dioxide 27 mmol/L (22-29) 06/20/24 05:37 Anion Gap 17.0 (5-19) 06/20/24 05:37 BUN 14 mg/dL (6-20) 06/20/24 05:37 Creatinine 0.6 mg/dL (0.7-1.2) L 06/20/24 05:37 GFR Calculation 142.0 mL/min (90-130) H 06/20/24 05:37 Glucose 148 mg/dL (65-115) H 06/20/24 05:37 Calculated Osmolality 297 mOsm/kg (285-295) H 06/20/24 05:37 Calcium 8.6 mg/dL (8.5-10.5) 06/20/24 05:37 Phosphorus 2.2 mg/dL (2.5-4.5) L 06/20/24 05:37 Magnesium 2.0 mg/dL (1.7-2.3) 06/20/24 05:37 Total Bilirubin 0.5 mg/dL (0.15-1.2) 06/20/24 05:37 AST 54 U/L (0-40) H 06/20/24 05:37 ALT 22 U/L (0-41) 06/20/24 05:37 Alkaline Phosphatase 74 U/L (40-130) 06/20/24 05:37 Troponin T Baseline 7 ng/L (0-15) 06/20/24 05:37 Total Protein 6.9 g/dL (6.6-8.7) 06/20/24 05:37 Albumin 4.3 g/dL (3.5-5.2) 06/20/24 05:37 Globulin 2.6 g/dL (1.3-4.6) 06/20/24 05:37 Ethyl Alcohol 84 mg/dL (0-10) H 06/20/24 05:37 All radiology interpretation(s) finalized by discharge Discharge Plan Discharge Patient Disposition: Home Clinical Impression: Alcohol abuse, Opiate dependence Condition: Stable Prescriptions: New hydroxyzine HCl 25 mg tablet 25 mg PO Q8H PRN (Reason: withdrawal symptoms) Qty: 30 0RF No Action ibuprofen 200 mg Tablet 600 mg PO Q6H PRN (Reason: Pain) Discharge Orders: Discharge ED (Routine); Ordered 06/20/24 Ordered By: Naina Macias Discharge Diet: Usual diet Discharge Activity: Resume usual activity Patient Instructions: Opioid Safety, Pain Management Activity Restrictions/Additional Instructions: Thank you for choosing [facility] for your healthcare needs today. Please realize this is an emergency room and that we are providing you with a medical screening exam and this may not be complete and all inclusive of all the testing and or work up that you may need to determine your ailment or severity of your illness. You have been screened and evaluated and felt safe for discharge. Health conditions do change or evolve sometimes and as such it is important that you follow up with your Primary Doctor to be re checked, 3-5 days is a general good time frame for follow up. You are always welcome to return to the ED for re assessment if your symptoms are worsening or you have new concerns Coding Level of Care Code ED Online Marketer for Chg Fwd Documented by User: Naina Macias MD 06/20/24 06:19 HPI - SOB/Dyspnea General: Chief Complaint: Shortness of Breath/Dyspnea Stated Complaint: sob Time Seen by Provider: 06/20/24 02:51 Related Data Home Medications Medication Instructions Recorded Confirmed ibuprofen 200 mg tablet 600 mg PO Q6H PRN Pain 07/04/23 07/04/23 Previous Rx's Medication Instructions Recorded hydroxyzine HCl 25 mg tablet 25 mg PO Q8H PRN withdrawal 06/20/24 symptoms #30 tabs Allergies Allergy/AdvReac Type Severity Reaction Status Date / Time tetanus immune globulin Allergy Mild ALGY-Anaphy Verified 10/23/19 05:54 laxis azithromycin Allergy ADR-Gastrointestinal Verified 10/23/19 05:54 Upset Tetanus Vaccines and Toxoid Allergy Unknown Unverified 11/11/23 18:07 [facility] ED PFSH: Medical History (Updated 06/20/24 @ 06:17 by Naina Macias MD) Suicidal ideations COPD (chronic obstructive pulmonary disease) Social History Smoking and tobacco/nicotine status: current every day tobacco/nicotine user Alcohol intake: current Course Vital Signs: Vital signs: Vital Signs Temperature 98.9 F 06/20/24 02:51 Pulse Rate 102 H 06/20/24 04:30 Respiratory Rate 16 06/20/24 04:30 Blood Pressure 139/90 06/20/24 04:30 Pulse Oximetry 97 06/20/24 04:30 Oxygen Delivery Me thod Room Air 06/20/24 04:30 MDM - SOB/Dyspnea Medical Decision Making Patient transferred. Shift change awaiting lab work. Lab work is fairly unremarkable. Patient does have a blood alcohol level of 84. No signs of life-threatening withdrawal at this point. Lab Data 06/20/24 03:30 06/20/24 05:37 Labs/Radiology: Radiology Impressions Chest X-Ray 06/20/24 02:54 IMPRESSION: No acute findings. Laboratory Results WBC 6.28 10^3/uL (3.29-11.43) 06/20/24 03:30 RBC 5.28 10^6/uL (3.85-5.65) 06/20/24 03:30 Hgb 18.10 g/dL (11.27-16.99) H 06/20/24 03:30 Hct 51.4 % (37-53) 06/20/24 03:30 MCV 97.3 fl (82-101) 06/20/24 03:30 MCH 34.3 pg (27-33) H 06/20/24 03:30 MCHC 35.2 g/dL (30-55) 06/20/24 03:30 RDW 13.2 % (12.1-15.1) 06/20/24 03:30 Plt Count 126 10^3/cmm (157-399) L 06/20/24 03:30 MPV 8.9 fL (7.4-10.4) 06/20/24 03:30 Neut % (Auto) 54.8 % 06/20/24 03:30 Lymph % (Auto) 29.5 % 06/20/24 03:30 [place] % (Auto) 14.2 % 06/20/24 03:30 Eos % (Auto) 0.2 % 06/20/24 03:30 Baso % (Auto) 1.0 % 06/20/24 03:30 Neut # (Auto) 3.45 10^3/uL (1.8-7.7) 06/20/24 03:30 Lymph # (Auto) 1.9 10^3/uL (0.8-4.8) 06/20/24 03:30 [place] # (Auto) 0.9 10^3/uL (0.2-0.9) 06/20/24 03:30 Eos # (Auto) 0.0 10^3/uL (0.0-0.8) 06/20/24 03:30 Baso # (Auto) 0.1 10^3/uL (0.0-0.1) 06/20/24 03:30 Nucleated RBC % (auto) 0 % 06/20/24 03:30 Nucleated RBCs # 0.0 /100WBC 06/20/24 03:30 Sodium 142 mmol/L (136-145) 06/20/24 05:37 Potassium 4.0 mmol/L (3.5-5.1) 06/20/24 05:37 Chloride 102 mmol/L (98-107) 06/20/24 05:37 Carbon Dioxide 27 mmol/L (22-29) 06/20/24 05:37 Anion Gap 17.0 (5-19) 06/20/24 05:37 BUN 14 mg/dL (6-20) 06/20/24 05:37 Creatinine 0.6 mg/dL (0.7-1.2) L 06/20/24 05:37 GFR Calculation 142.0 mL/min (90-130) H 06/20/24 05:37 Glucose 148 mg/dL (65-115) H 06/20/24 05:37 Calculated Osmolality 297 mOsm/kg (285-295) H 06/20/24 05:37 Calcium 8.6 mg/dL (8.5-10.5) 06/20/24 05:37 Phosphorus 2.2 mg/dL (2.5-4.5) L 06/20/24 05:37 Magnesium 2.0 mg/dL (1.7-2.3) 06/20/24 05:37 Total Bilirubin 0.5 mg/dL (0.15-1.2) 06/20/24 05:37 AST 54 U/L (0-40) H 06/20/24 05:37 ALT 22 U/L (0-41) 06/20/24 05:37 Alkaline Phosphatase 74 U/L (40-130) 06/20/24 05:37 Troponin T Baseline 7 ng/L (0-15) 06/20/24 05:37 Total Protein 6.9 g/dL (6.6-8.7) 06/20/24 05:37 Albumin 4.3 g/dL (3.5-5.2) 06/20/24 05:37 Globulin 2.6 g/dL (1.3-4.6) 06/20/24 05:37 Ethyl Alcohol 84 mg/dL (0-10) H 06/20/24 05:37 Discharge Plan Discharge Patient Disposition: Home Clinical Impression: Alcohol abuse, Opiate dependence Condition: Stable Prescriptions: New hydroxyzine HCl 25 mg tablet 25 mg PO Q8H PRN (Reason: withdrawal symptoms) Qty: 30 0RF No Action ibuprofen 200 mg Tablet 600 mg PO Q6H PRN (Reason: Pain) Discharge Orders: Discharge ED (Routine); Ordered 06/20/24 Ordered By: Naina Macias Discharge Diet: Usual diet Discharge Activity: Resume usual activity Patient Instructions: Opioid Safety, Pain Management Activity Restrictions/Additional Instructions: Thank you for choosing [facility] for your healthcare needs today. Please realize this is an emergency room and that we are providing you with a medical screening exam and this may not be complete and all inclusive of all the testing and or work up that you may need to determine your ailment or severity of your illness. You have been screened and evaluated and felt safe for discharge. Health conditions do change or evolve sometimes and as such it is important that you follow up with your Primary Doctor to be re checked, 3-5 days is a general good time frame for follow up. You are always welcome to return to the ED for re assessment if your symptoms are worsening or you have new concerns Coding Level of Care Code ED Online Marketer for Santy Villanueva
[2024-06-20] MEDS: LORazepam 2 mg/mL INJ 1 mL IVP (03:29)
[2024-06-20 03:38] LABS: Basophils # 0.1 10^3/uL (0.0-0.1); Eosinophils % 0.2 %; Hematocrit 51.4 % (37-53); Lymphocytes # 1.9 10^3/uL (0.8-4.8); Lymphocytes % 29.5 %; Mean Corpuscular HGB Conc 35.2 g/dL (30-55); Mean Corpuscular Hemoglobin 34.3 pg (27-33); Mean Corpuscular Volume 97.3 fl (82-101); Mean Platelet Volume 8.9 fL (7.4-10.4); Monocytes # 0.9 10^3/uL (0.2-0.9); Monocytes % 14.2 %; Neutrophils # 3.45 10^3/uL (1.8-7.7); Neutrophils % 54.8 %; Nucleated Red Blood Cells % 0 %; Platelet Count 126 10^3/cmm (157-399); Red Blood Count 5.28 10^6/uL (3.85-5.65); Red Cell Distribution Width 13.2 % (12.1-15.1); White Blood Count 6.28 10^3/uL (3.29-11.43)
[2024-06-20 03:46] VITALS: PULSE 105; RESP 18; O2SAT 96
[2024-06-20 04:00] VITALS: BP 130/84; PULSE 101; RESP 16; O2SAT 93
[2024-06-20 04:30] VITALS: BP 139/90; PULSE 102; RESP 16; O2SAT 97
--- NOTE | 2024-06-20 04:56 | ECG_ITS ---
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 Measurements Intervals [place] Rate: 100 P: 73 ND: 163 QRS: 83 QRSD: 81 T: 65 QT: 353 QTc: 456 Interpretive Statements SINUS TACHYCARDIA NONSPECIFIC T-WAVE ABNORMALITY ABNORMAL RHYTHM ECG Compared to ECG 06/20/2024 02:52:42 Sinus rhythm no longer present T-wave abnormality still present Electronically Signed On 06-20-2024 22:27:32 CDT by Collin Briggs M.D. [id number]
[2024-06-20 06:13] LABS: Alanine Aminotransferase 22 U/L (0-41); Albumin Level 4.3 g/dL (3.5-5.2); Alcohol Level 84 mg/dL (0-10); Alkaline Phosphatase 74 U/L (40-130); Aspartate Amino Transferase 54 U/L (0-40); Blood Urea Nitrogen 14 mg/dL (6-20); Calcium 8.6 mg/dL (8.5-10.5); Carbon Dioxide 27 mmol/L (22-29); Chloride 102 mmol/L (98-107); Creatinine Clr Calc Pharmacy 151.9123; Globulin 2.6 g/dL (1.3-4.6); Glucose 148 mg/dL (65-115); Osmolality Calculated 297 mOsm/kg (285-295); Phosphorus 2.2 mg/dL (2.5-4.5); Sodium 142 mmol/L (136-145); Total Bilirubin 0.5 mg/dL (0.15-1.2); Total Protein 6.9 g/dL (6.6-8.7); Troponin(5th) Baseline 7 ng/L (0-15)
[2024-06-20] MEDS: folic acid 1 MG, multivitamin inj 10 ML, thiamine 100 MG in sodium chloride 0.9% 1,000 ML 252.8 MG IV (06:59)
--- NOTE | 2024-06-20 07:06 | PC.NURSE ---
Fluids delayed due to no pharmacy available during the night to mix bag.
[2024-06-20 08:06] LABS: Troponin 5 2HR 7.13 ng/L (0-15); Troponin 5 2HR Delta 0.13 ABS# (0-10)
--- NOTE | 2024-06-20 09:22 | ECG_ITS ---
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 Measurements Intervals [place] Rate: 104 P: 66 DC: 157 QRS: 78 QRSD: 81 T: -7 QT: 329 QTc: 434 Interpretive Statements SINUS TACHYCARDIA NONSPECIFIC ST & T-WAVE ABNORMALITY Compared to ECG 06/20/2024 05:44:15 No significant changes Electronically Signed On 06-20-2024 22:26:17 CDT by Collin Briggs M.D. [id number]
[2024-06-20 11:18] VITALS: BP 150/90; PULSE 91; O2SAT 92
== END 2024-06-20 11:21 | disposition home or self-care (01) ==
PROVIDERS: Emergency Medicine; Emergency Provider Emergency Medicine
DX: F10.10 Alcohol abuse, uncomplicated (principal); Y90.4 Blood alcohol level of 80-99 mg/100 ml; F11.20 Opioid dependence, uncomplicated; J44.9 Chronic obstructive pulmonary disease, unspecified; Z72.0 Tobacco use
CPT/HCPCS: 36415; 71045; 80053; 80307; 83735; 84100; 84484; 85025; 93005; 96374; 99285; J2060; J3411; J3490; J7030

== ENCOUNTER 2024-09-15 16:34 | Emergency (ER) | payer MEDICAID, SELFPAY ==
[2024-09-15 16:57] VITALS: BP 123/70; PULSE 106; RESP 16; TEMP 37.1; O2SAT 92
--- NOTE | 2024-09-15 17:05 | ECG_ITS ---
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 Measurements Intervals [place] Rate: 103 P: 61 [place]: 153 QRS: 81 QRSD: 86 T: 99 QT: 346 QTc: 454 Interpretive Statements SINUS TACHYCARDIA NONSPECIFIC T-WAVE ABNORMALITY ABNORMAL RHYTHM ECG Compared to ECG 06/20/2024 09:22:46 No significant changes Electronically Signed On 09-15-2024 22:29:45 HEAD OF STORE OPERATIONS by Collin Briggs M.D. [id number]
[2024-09-15 17:37] LABS: Basophils # 0.1 10^3/uL (0.0-0.1); Basophils % 1.4 %; Eosinophils % 0.2 %; Hematocrit 44.6 % (37-53); Lymphocytes # 1.5 10^3/uL (0.8-4.8); Lymphocytes % 29.7 %; Mean Corpuscular HGB Conc 34.1 g/dL (30-55); Mean Corpuscular Hemoglobin 35.8 pg (27-33); Mean Corpuscular Volume 104.9 fl (82-101); Mean Platelet Volume 9.5 fL (7.4-10.4); Monocytes # 0.7 10^3/uL (0.2-0.9); Monocytes % 13.2 %; Neutrophils # 2.72 10^3/uL (1.8-7.7); Neutrophils % 55.3 %; Nucleated Red Blood Cells % 0 %; Platelet Count 82 10^3/cmm (157-399); Red Blood Count 4.25 10^6/uL (3.85-5.65); Red Cell Distribution Width 12.3 % (12.1-15.1); White Blood Count 4.92 10^3/uL (3.29-11.43)
[2024-09-15 17:52] LABS: Alanine Aminotransferase 96 U/L (0-41); Albumin Level 4.2 g/dL (3.5-5.2); Alkaline Phosphatase 69 U/L (40-130); Anion Gap 22.9 (5-19); Aspartate Amino Transferase 224 U/L (0-40); Blood Urea Nitrogen 8 mg/dL (6-20); Calcium 8.7 mg/dL (8.5-10.5); Carbon Dioxide 22 mmol/L (22-29); Chloride 102 mmol/L (98-107); Creatinine Clr Calc Pharmacy 159.3883; Globulin 3.2 g/dL (1.3-4.6); Glucose 102 mg/dL (65-115); Osmolality Calculated 295 mOsm/kg (285-295); Potassium 3.9 mmol/L (3.5-5.1); Sodium 143 mmol/L (136-145); Total Bilirubin 0.9 mg/dL (0.15-1.2); Total Protein 7.4 g/dL (6.6-8.7)
== END 2024-09-15 22:35 | disposition left against medical advice (07) ==
PROVIDERS: Emergency Medicine; Emergency Provider Family Medicine
DX: Z53.21 Procedure and treatment not carried out due to patient leaving prior to being seen by health care provider (principal)
CPT/HCPCS: 80053; 85025; 93005

== ENCOUNTER 2024-09-16 11:27 | Emergency (ER) | payer MEDICAID, SELFPAY ==
[2024-09-16 12:17] VITALS: BP 129/86; PULSE 116; RESP 18; TEMP 36.9; O2SAT 95; BMI 24.3
[2024-09-16 13:34] LABS: Glucose Point of Care 125 mg/dL (70-110)
[2024-09-16 13:45] LABS: Basophils # 0.1 10^3/uL (0.0-0.1); Basophils % 0.8 %; Eosinophils % 0.2 %; Hematocrit 43.2 % (37-53); Lymphocytes # 0.9 10^3/uL (0.8-4.8); Lymphocytes % 14.6 %; Mean Corpuscular HGB Conc 34.3 g/dL (30-55); Mean Corpuscular Hemoglobin 35.8 pg (27-33); Mean Corpuscular Volume 104.6 fl (82-101); Mean Platelet Volume 10.3 fL (7.4-10.4); Monocytes # 0.6 10^3/uL (0.2-0.9); Monocytes % 9.8 %; Neutrophils # 4.49 10^3/uL (1.8-7.7); Neutrophils % 74.4 %; Nucleated Red Blood Cells % 0 %; Platelet Count 69 10^3/cmm (157-399); Red Blood Count 4.13 10^6/uL (3.85-5.65); Red Cell Distribution Width 12.2 % (12.1-15.1); White Blood Count 6.03 10^3/uL (3.29-11.43)
[2024-09-16 14:06] LABS: Alanine Aminotransferase 97 U/L (0-41); Albumin Level 4.1 g/dL (3.5-5.2); Alkaline Phosphatase 70 U/L (40-130); Aspartate Amino Transferase 231 U/L (0-40); Blood Urea Nitrogen 10 mg/dL (6-20); Calcium 8.8 mg/dL (8.5-10.5); Carbon Dioxide 21 mmol/L (22-29); Chloride 99 mmol/L (98-107); Creatinine Clr Calc Pharmacy 149.0692; Globulin 2.8 g/dL (1.3-4.6); Glucose 101 mg/dL (65-115); Lipase 51 U/L (13-60); Osmolality Calculated 281 mOsm/kg (285-295); Sodium 136 mmol/L (136-145); Total Bilirubin 1.5 mg/dL (0.15-1.2); Total Protein 6.9 g/dL (6.6-8.7)
--- NOTE | 2024-09-16 14:13 | CTR_ITS ---
PROCEDURE INFORMATION: Exam: CT Abdomen And Pelvis Without Contrast Exam date and time: 09/16/2024 5:58 PM Age: 49 years old Clinical indication: Pain; Other: Bilat flank; Additional info: Flank pain TECHNIQUE: Imaging protocol: Computed tomography of the abdomen and pelvis without contrast. Radiation optimization: All CT scans at this facility use at least one of these dose optimization techniques: automated exposure control; mA and/or kV adjustment per patient size (includes targeted exams where dose is matched to clinical indication); or iterative reconstruction. COMPARISON: [place] [id number] 06/18/2018 9:01 PM RADIATION DOSE METRICS: Total DLP (mGy-cm): 421.19 FINDINGS: Lungs: New bibasilar pulmonary nodules measuring up to 7 mm in the right lower lobe and 9 mm in the left lower lobe. There is also a new 6 mm nodule in the posterior aspect of the left lower lobe. The right lower lobe pulmonary nodule has an area of central lucency, as well as distal lung lucency. There is new focal bronchiectasis within the posterolateral left lower lobe. Scattered areas of bronchiolitis in the visualized right middle lobe. Liver: There is a diffuse decrease in hepatic parenchymal density, consistent with severe fatty infiltration. Gallbladder and biliary ducts: The gallbladder is unremarkable. No biliary dilation. Pancreas: The pancreas is unremarkable. Spleen: The spleen is unremarkable. Adrenal glands: The adrenal glands are unremarkable. Kidneys and ureters: The kidneys are unremarkable. Stomach and bowel: There is no bowel wall thickening. No bowel obstruction. Diffuse submucosal fatty infiltration of the hope of the colon, which may be due to chronic/prior inflammation. Appendix: A normal appendix is identified. Intraperitoneal space: No significant peritoneal free fluid. No free peritoneal air. Vasculature: The vasculature demonstrates diffuse moderate atherosclerotic calcification. No aneurysm. Lymph nodes: No enlarged lymph nodes by size criteria. Urinary bladder: The bladder is unremarkable. Reproductive: The prostate demonstrates nonspecific parenchymal calcifications. Bones/joints: The spine demonstrates mild degenerative changes at multiple levels. Stigmata of prior bilateral femoral hardware is noted. Soft tissues: Soft tissues are unremarkable as visualized. CT/CT kidney stone [id number] IMPRESSION: 1. No acute findings. 2. New bibasilar pulmonary nodules measuring up 9 mm in the left lower lobe with scattered areas of central cavitation or bronchiolectasis. For patients at low risk (minimal or absent history of smoking and of other known risk factors), recommend CT Chest at 3-6 months, then consider CT Chest at 18-24 months. For patients at high risk (history of smoking or of other known risk factors), recommend CT Chest at 3-6 months, then CT Chest at 18-24 months. (Reference: Daya) 3. Scattered areas of bronchiolitis in the visualized right middle lobe. 4. Diffuse severe fatty infiltration of the liver. 5. Diffuse submucosal fatty infiltration of the hope of the colon, which may be due to chronic/prior inflammation. REFERENCES: Daya Valentino, et al. Guidelines for Management of Incidental Pulmonary Nodules Detected on CT Images: From the Fleischner Society 2017. Radiology. 2017;284(1):228-243.
--- NOTE | 2024-09-16 14:16 | W.ED.MALEGU ---
Documented by User: Ruddy Quach DO 09/17/24 06:10 HPI - Male Genitourinary General: Chief complaint: Urogenital-Male Stated complaint: kidney pain Time Seen by Provider: 09/16/24 14:01 History of Present Illness: 49-year-old male presents to the emergency room with complaints of flank pain. He states he has not been urinating regularly for the last 2 days he is also noticed he has had hematuria. Patient is tremulous. He states they cut him off of from his methadone because he tested positive for alcohol at a clinic visit. He admits to drinking 1/5 of alcohol per day but states he is not drinking for at least a day or 2 now. He has had problems with withdrawal in the past and tells me he had seizures at 1 point in the past. He denies any fever sweats or chills at this time. Associated symptoms: Reports dysuria and hematuria Related Data Home Medications Medication Instructions Recorded Confirmed ibuprofen 200 mg tablet 600 mg PO Q6H PRN Pain 07/04/23 06/20/24 Previous Rx's Medication Instructions Recorded hydroxyzine HCl 25 mg tablet 25 mg PO Q8H PRN withdrawal 06/20/24 symptoms #30 tabs cephalexin 500 mg capsule 500 mg PO BID 5 days #10 caps 09/16/24 Allergies Allergy/AdvReac Type Severity Reaction Status Date / Time tetanus immune globulin Allergy Mild ALGY-Anaphy Verified 09/15/24 17:02 laxis azithromycin Allergy ADR-Gastrointestinal Verified 09/15/24 17:02 Upset Tetanus Vaccines and Toxoid Allergy Unknown Verified 09/15/24 17:02 Review of Systems Const: Denies: fever(s) or chills Card: Denies: chest pain Resp: Denies: dyspnea GI: Denies: abdominal pain : Reports: flank pain, dysuria, urinary frequency, urinary urgency and hematuria Musc: Denies: neck pain or back pain Skin/Breast: Denies: rash PFSH ED PFSH: Medical History (Updated 09/16/24 @ 19:55 by Naina Macias MD) Suicidal ideations COPD (chronic obstructive pulmonary disease) Social History Smoking and tobacco/nicotine status: current every day tobacco/nicotine user Alcohol intake: current Physical Exam Const: ORIENTATION/CONSCIOUSNESS: Yes awake, Yes oriented to person, Yes oriented to place and Yes oriented to time HENMT: COMMON NORMALS: normocephalic, atraumatic and hearing grossly normal bilaterally HEAD & SCALP: normocephalic and atraumatic Resp: COMMON NORMALS: normal respiratory effort, No retractions, No use of accessory muscles and clear to auscultation bilaterally AUSCULTATION: clear to auscultation bilaterally Cardio: COMMON NORMALS: regular rate, regular rhythm and No murmurs present (Cardio) RATE: regular rate RHYTHM: regular rhythm GI: COMMON NORMALS: Soft to palpation and No hepatosplenomegaly present AUSCULTATION: Yes normoactive bowel sounds PALPATION: Yes Soft to palpation, No Tenderness to palpation present (GI), No Guarding due to palpation present (GI) and Yes No hepatosplenomegaly present Extremity: COMMON NORMALS: normal to inspection, capillary refill normal, no clubbing, cyanosis or edema, no calf tenderness and no pedal edema Neuro: SENSORIUM/ORIENTATION: Yes oriented to person, Yes oriented to place and Yes oriented to time OTHER: Tremulous Skin: COMMON NORMALS: no rashes or lesions noted GENERAL SKIN EXAM: no rashes or lesions noted Course Vital Signs: Vital signs: Vital Signs Temperature 98.4 F 09/16/24 12:17 Pulse Rate 120 H 09/16/24 20:21 Respiratory Rate 20 H 09/16/24 20:21 Blood Pressure 150/86 09/16/24 20:21 Pulse Oximetry 97 09/16/24 20:21 Oxygen Delivery Ms thod Room Air 09/16/24 19:00 MDM - Male Medical Decision Making Care signed out to Dr. Macias at change of shift. See final notes for diagnosis and disposition. Patient care was transitioned to vt at shift change. Awaiting CT scan results. Patient has some hematuria. Possibly some mild alcohol withdrawal. I have given him Ativan and Rocephin. CT shows no acute findings. He does have pulmonary nodules. He is instructed to follow-up with his PCP concerning these. Lab Data 09/16/24 13:18 09/16/24 13:18 Radiology Impressions Abdomen/Pelvis CT 09/16/24 14:13 IMPRESSION: 1. No acute findings. 2. New bibasilar pulmonary nodules measuring up 9 mm in the left lower lobe with scattered areas of central cavitation or bronchiolectasis. For patients at low risk (minimal or absent history of smoking and of other known risk factors), recommend CT Chest at 3-6 months, then consider CT Chest at 18-24 months. For patients at high risk (history of smoking or of other known risk factors), recommend CT Chest at 3-6 months, then CT Chest at 18-24 months. (Reference: Daya) 3. Scattered areas of bronchiolitis in the visualized right middle lobe. 4. Diffuse severe fatty infiltration of the liver. 5. Diffuse submucosal fatty infiltration of the hope of the colon, which may be due to chronic/prior inflammation. REFERENCES: Daya Valentino, et al. Guidelines for Management of Incidental Pulmonary Nodules Detected on CT Images: From the Fleischner Society 2017. Radiology. 2017;284(1):228-243. Laboratory Results WBC 6.03 10^3/uL (3.29-11.43) 09/16/24 13:18 RBC 4.13 10^6/uL (3.85-5.65) 09/16/24 13:18 Hgb 14.80 g/dL (11.27-16.99) 09/16/24 13:18 Hct 43.2 % (37-53) 09/16/24 13:18 MCV 104.6 fl (82-101) H 09/16/24 13:18 MCH 35.8 pg (27-33) H 09/16/24 13:18 MCHC 34.3 g/dL (30-55) 09/16/24 13:18 RDW 12.2 % (12.1-15.1) 09/16/24 13:18 Plt Count 69 10^3/cmm (157-399) L 09/16/24 13:18 MPV 10.3 fL (7.4-10.4) 09/16/24 13:18 Neut % (Auto) 74.4 % 09/16/24 13:18 Lymph % (Auto) 14.6 % 09/16/24 13:18 Barron % (Auto) 9.8 % 09/16/24 13:18 Eos % (Auto) 0.2 % 09/16/24 13:18 Baso % (Auto) 0.8 % 09/16/24 13:18 Neut # (Auto) 4.49 10^3/uL (1.8-7.7) 09/16/24 13:18 Lymph # (Auto) 0.9 10^3/uL (0.8-4.8) 09/16/24 13:18 Barron # (Auto) 0.6 10^3/uL (0.2-0.9) 09/16/24 13:18 Eos # (Auto) 0.0 10^3/uL (0.0-0.8) 09/16/24 13:18 Baso # (Auto) 0.1 10^3/uL (0.0-0.1) 09/16/24 13:18 Nucleated RBC % (auto) 0 % 09/16/24 13:18 Nucleated RBCs # 0.0 /100WBC 09/16/24 13:18 Sodium 136 mmol/L (136-145) 09/16/24 13:18 Potassium 4.0 mmol/L (3.5-5.1) 09/16/24 13:18 Chloride 99 mmol/L (98-107) 09/16/24 13:18 Carbon Dioxide 21 mmol/L (22-29) L 09/16/24 13:18 Anion Gap 20.0 (5-19) H 09/16/24 13:18 BUN 10 mg/dL (6-20) 09/16/24 13:18 Creatinine 0.6 mg/dL (0.7-1.2) L 09/16/24 13:18 GFR Calculation 142.0 mL/min (90-130) H 09/16/24 13:18 Glucose 101 mg/dL (65-115) 09/16/24 13:18 POC Glucose 125 mg/dL (70-110) H 09/16/24 13:31 Calculated Osmolality 281 mOsm/kg (285-295) L 09/16/24 13:18 Calcium 8.8 mg/dL (8.5-10.5) 09/16/24 13:18 Total Bilirubin 1.5 mg/dL (0.15-1.2) H 09/16/24 13:18 AST 231 U/L (0-40) H 09/16/24 13:18 ALT 97 U/L (0-41) H 09/16/24 13:18 Alkaline Phosphatase 70 U/L (40-130) 09/16/24 13:18 Total Protein 6.9 g/dL (6.6-8.7) 09/16/24 13:18 Albumin 4.1 g/dL (3.5-5.2) 09/16/24 13:18 Globulin 2.8 g/dL (1.3-4.6) 09/16/24 13:18 Lipase 51 U/L (13-60) 09/16/24 13:18 Urine Color [place] (Yellow) A 09/16/24 14: Urine Appearance Clear (CLEAR) 09/16/24 14:28 Urine pH 6.0 (5-7) 09/16/24 14:28 Ur Specific [place] 1.027 (1.005-1.030) 09/16/24 14: Urine Protein 2+ (Negative) A 09/16/24 14: Urine Glucose (UA) Negative (Normal) 09/16/24 14: Urine Ketones Trace (Negative) 09/16/24 14: Urine Blood 2+ (Negative) A 09/16/24 14: Urine Nitrate Negative (Negative) 09/16/24 14: Urine Bilirubin 1+ (Negative) H 09/16/24 14:28 Urine Urobilinogen 1.0 mg/dL (Negative) 09/16/24 14:28 Ur Leukocyte Esterase Trace (Negative) A 09/16/24 14: Urine RBC 11-20 /hpf (0-2) H 09/16/24 14:28 Urine WBC 6-10 /hpf (0-5) 09/16/24 14:28 Ur Squamous Epith Cells 0-5 /hpf (0-5) 09/16/24 14:28 Amorphous Sediment Not Reportable 09/16/24 14:28 Urine Bacteria None seen /hpf (NONE) 09/16/24 14:28 Hyaline Casts 4.52 /lpf 09/16/24 14:28 Urine Sperm 2+ /hpf 09/16/24 14:28 Urine Opiates Screen Negative ng/mL (Negative) 09/16/24 14:28 Ur Barbiturates Screen Negative ng/mL (Negative) 09/16/24 14:28 Ur Phencyclidine Scrn Negative ng/mL (Negative) 09/16/24 14:28 Ur Amphetamines Screen Negative ng/mL (Negative) 09/16/24 14:28 U Benzodiazepines Scrn Negative ng/mL (Negative) 09/16/24 14:28 Urine Cocaine Screen Negative ng/mL (Negative) 09/16/24 14:28 U Marijuana (THC) Screen Positive ng/mL (Negative) H 09/16/24 14:28 Ethyl Alcohol 121 mg/dL (0-10) H 09/16/24 13:18 Discharge Plan Discharge Patient Disposition: Home Clinical Impression: Hematuria, Incidental pulmonary nodule, Alcohol intoxication Condition: Stable Prescriptions: New cephalexin 500 mg capsule 500 mg PO BID 5 Days Qty: 10 0RF No Action ibuprofen 200 mg Tablet 600 mg PO Q6H PRN (Reason: Pain) hydroxyzine HCl 25 mg tablet 25 mg PO Q8H PRN (Reason: withdrawal symptoms) Qty: 30 0RF Discharge Orders: Discharge ED (Routine); Ordered 09/16/24 Ordered By: Naina Macias Discharge Diet: Usual diet Discharge Activity: Increase activity as tolerated Patient Instructions: Hematuria (ED), Pulmonary Nodules (ED), Opioid Safety, Pain Management Activity Restrictions/Additional Instructions: A pulmonary nodule was seen on imaging. This will need follow up imaging with your primary provider. Please schedule an appointment concerning this. Thank you for choosing [facility] for your healthcare needs today. Please realize this is an emergency room and that we are providing you with a medical screening exam and this may not be complete and all inclusive of all the testing and or work up that you may need to determine your ailment or severity of your illness. You have been screened and evaluated and felt safe for discharge. Health conditions do change or evolve sometimes and as such it is important that you follow up with your Primary Doctor to be re checked, 3-5 days is a general good time frame for follow up. You are always welcome to return to the ED for re assessment if your symptoms are worsening or you have new concerns Coding Level of Care Code ED Air Quality Manager for Chg Fwd Documented by User: Naina Macias MD 09/16/24 19:58 HPI - Male Genitourinary General: Chief complaint: Urogenital-Male Stated complaint: kidney pain Time Seen by Provider: 09/16/24 14:01 Related Data Home Medications Medication Instructions Recorded Confirmed ibuprofen 200 mg tablet 600 mg PO Q6H PRN Pain 07/04/23 06/20/24 Previous Rx's Medication Instructions Recorded hydroxyzine HCl 25 mg tablet 25 mg PO Q8H PRN withdrawal 06/20/24 symptoms #30 tabs cephalexin 500 mg capsule 500 mg PO BID 5 days #10 caps 09/16/24 Allergies Allergy/AdvReac Type Severity Reaction Status Date / Time tetanus immune globulin Allergy Mild ALGY-Anaphy Verified 09/15/24 17:02 laxis azithromycin Allergy ADR-Gastrointestinal Verified 09/15/24 17:02 Upset Tetanus Vaccines and Toxoid Allergy Unknown Verified 09/15/24 17:02 [facility] ED PFS: Medical History (Updated 09/16/24 @ 19:55 by Naina Macias MD) Suicidal ideations COPD (chronic obstructive pulmonary disease) Social History Smoking and tobacco/nicotine status: current every day tobacco/nicotine user Alcohol intake: current Course Vital Signs: Vital signs: Vital Signs Temperature 98.4 F 09/16/24 12:17 Pulse Rate 120 H 09/16/24 20:21 Respiratory Rate 20 H 09/16/24 20:21 Blood Pressure 150/86 09/16/24 20:21 Pulse Oximetry 97 09/16/24 20:21 Oxygen Delivery Ms thod Room Air 09/16/24 19:00 MDM - Male Medical Decision Making Patient care was transitioned to vt at shift change. Awaiting CT scan results. Patient has some hematuria. Possibly some mild alcohol withdrawal. I have given him Ativan and Rocephin. CT shows no acute findings. He does have pulmonary nodules. He is instructed to follow-up with his PCP concerning these. Lab Data 09/16/24 13:18 09/16/24 13:18 Radiology Impressions Abdomen/Pelvis CT 09/16/24 14:13 IMPRESSION: 1. No acute findings. 2. New bibasilar pulmonary nodules measuring up 9 mm in the left lower lobe with scattered areas of central cavitation or bronchiolectasis. For patients at low risk (minimal or absent history of smoking and of other known risk factors), recommend CT Chest at 3-6 months, then consider CT Chest at 18-24 months. For patients at high risk (history of smoking or of other known risk factors), recommend CT Chest at 3-6 months, then CT Chest at 18-24 months. (Reference: Daya) 3. Scattered areas of bronchiolitis in the visualized right middle lobe. 4. Diffuse severe fatty infiltration of the liver. 5. Diffuse submucosal fatty infiltration of the hope of the colon, which may be due to chronic/prior inflammation. REFERENCES: Daya Valentino et al. Guidelines for Management of Incidental Pulmonary Nodules Detected on CT Images: From the Fleischner Society 2017. Radiology. 2017;284(1):228-243. Laboratory Results WBC 6.03 10^3/uL (3.29-11.43) 09/16/24 13:18 RBC 4.13 10^6/uL (3.85-5.65) 09/16/24 13:18 Hgb 14.80 g/dL (11.27-16.99) 09/16/24 13:18 Hct 43.2 % (37-53) 09/16/24 13:18 MCV 104.6 fl (82-101) H 09/16/24 13:18 MCH 35.8 pg (27-33) H 09/16/24 13:18 MCHC 34.3 g/dL (30-55) 09/16/24 13:18 RDW 12.2 % (12.1-15.1) 09/16/24 13:18 Plt Count 69 10^3/cmm (157-399) L 09/16/24 13:18 MPV 10.3 fL (7.4-10.4) 09/16/24 13:18 Neut % (Auto) 74.4 % 09/16/24 13:18 Lymph % (Auto) 14.6 % 09/16/24 13:18 Barron % (Auto) 9.8 % 09/16/24 13:18 Eos % (Auto) 0.2 % 09/16/24 13:18 Baso % (Auto) 0.8 % 09/16/24 13:18 Neut # (Auto) 4.49 10^3/uL (1.8-7.7) 09/16/24 13:18 Lymph # (Auto) 0.9 10^3/uL (0.8-4.8) 09/16/24 13:18 [place] # (Auto) 0.6 10^3/uL (0.2-0.9) 09/16/24 13:18 Eos # (Auto) 0.0 10^3/uL (0.0-0.8) 09/16/24 13:18 Baso # (Auto) 0.1 10^3/uL (0.0-0.1) 09/16/24 13:18 Nucleated RBC % (auto) 0 % 09/16/24 13:18 Nucleated RBCs # 0.0 /100WBC 09/16/24 13:18 Sodium 136 mmol/L (136-145) 09/16/24 13:18 Potassium 4.0 mmol/L (3.5-5.1) 09/16/24 13:18 Chloride 99 mmol/L (98-107) 09/16/24 13:18 Carbon Dioxide 21 mmol/L (22-29) L 09/16/24 13:18 Anion Gap 20.0 (5-19) H 09/16/24 13:18 BUN 10 mg/dL (6-20) 09/16/24 13:18 Creatinine 0.6 mg/dL (0.7-1.2) L 09/16/24 13:18 GFR Calculation 142.0 mL/min (90-130) H 09/16/24 13:18 Glucose 101 mg/dL (65-115) 09/16/24 13:18 POC Glucose 125 mg/dL (70-110) H 09/16/24 13:31 Calculated Osmolality 281 mOsm/kg (285-295) L 09/16/24 13:18 Calcium 8.8 mg/dL (8.5-10.5) 09/16/24 13:18 Total Bilirubin 1.5 mg/dL (0.15-1.2) H 09/16/24 13:18 AST 231 U/L (0-40) H 09/16/24 13:18 ALT 97 U/L (0-41) H 09/16/24 13:18 Alkaline Phosphatase 70 U/L (40-130) 09/16/24 13:18 Total Protein 6.9 g/dL (6.6-8.7) 09/16/24 13:18 Albumin 4.1 g/dL (3.5-5.2) 09/16/24 13:18 Globulin 2.8 g/dL (1.3-4.6) 09/16/24 13:18 Lipase 51 U/L (13-60) 09/16/24 13:18 Urine Color [place] (Yellow) A 09/16/24 14: Urine Appearance Clear (CLEAR) 09/16/24 14:28 Urine pH 6.0 (5-7) 09/16/24 14:28 Ur Specific [place] 1.027 (1.005-1.030) 09/16/24 14: Urine Protein 2+ (Negative) A 09/16/24 14: Urine Glucose (UA) Negative (Normal) 09/16/24 14: Urine Ketones Trace (Negative) 09/16/24 14: Urine Blood 2+ (Negative) A 09/16/24 14: Urine Nitrate Negative (Negative) 09/16/24 14: Urine Bilirubin 1+ (Negative) H 09/16/24 14:28 Urine Urobilinogen 1.0 mg/dL (Negative) 09/16/24 14:28 Ur Leukocyte Esterase Trace (Negative) A 09/16/24 14: Urine RBC 11-20 /hpf (0-2) H 09/16/24 14:28 Urine WBC 6-10 /hpf (0-5) 09/16/24 14:28 Ur Squamous Epith Cells 0-5 /hpf (0-5) 09/16/24 14: Amorphous Sediment Not Reportable 09/16/24 14:28 Urine Bacteria None seen /hpf (NONE) 09/16/24 14:28 Hyaline Casts 4.52 /lpf 09/16/24 14:28 Urine Sperm 2+ /hpf 09/16/24 14:28 Urine Opiates Screen Negative ng/mL (Negative) 09/16/24 14:28 Ur Barbiturates Screen Negative ng/mL (Negative) 09/16/24 14:28 Ur Phencyclidine Scrn Negative ng/mL (Negative) 09/16/24 14:28 Ur Amphetamines Screen Negative ng/mL (Negative) 09/16/24 14:28 U Benzodiazepines Scrn Negative ng/mL (Negative) 09/16/24 14:28 Urine Cocaine Screen Negative ng/mL (Negative) 09/16/24 14:28 U Marijuana (THC) Screen Positive ng/mL (Negative) H 09/16/24 14:28 Ethyl Alcohol 121 mg/dL (0-10) H 09/16/24 13:18 All radiology interpretation(s) finalized by discharge Discharge Plan Discharge Patient Disposition: Home Clinical Impression: Hematuria, Incidental pulmonary nodule, Alcohol intoxication Condition: Stable Prescriptions: New cephalexin 500 mg capsule 500 mg PO BID 5 Days Qty: 10 0RF No Action ibuprofen 200 mg Tablet 600 mg PO Q6H PRN (Reason: Pain) hydroxyzine HCl 25 mg tablet 25 mg PO Q8H PRN (Reason: withdrawal symptoms) Qty: 30 0RF Discharge Orders: Discharge ED (Routine); Ordered 09/16/24 Ordered By: Naina Macias Discharge Diet: Usual diet Discharge Activity: Increase activity as tolerated Patient Instructions: Hematuria (ED), Pulmonary Nodules (ED), Opioid Safety, Pain Management Activity Restrictions/Additional Instructions: A pulmonary nodule was seen on imaging. This will need follow up imaging with your primary provider. Please schedule an appointment concerning this. Thank you for choosing [facility] for your healthcare needs today. Please realize this is an emergency room and that we are providing you with a medical screening exam and this may not be complete and all inclusive of all the testing and or work up that you may need to determine your ailment or severity of your illness. You have been screened and evaluated and felt safe for discharge. Health conditions do change or evolve sometimes and as such it is important that you follow up with your Primary Doctor to be re checked, 3-5 days is a general good time frame for follow up. You are always welcome to return to the ED for re assessment if your symptoms are worsening or you have new concerns Coding Level of Care Code ED Air Quality Manager for Santy Villanueva
[2024-09-16] MEDS: ketorolac 30 mg/mL INJ IVP (14:32)
[2024-09-16] MEDS: LORazepam 2 mg Tablet PO (14:32)
[2024-09-16 14:40] LABS: Bilirubin Urine 1+ (Negative); Blood Urine 2+ (Negative); Glucose Urine UA Negative (Normal); Ketones Urine Trace (Negative); Leukocyte Esterase Urine Trace (Negative); Nitrate Urine Negative (Negative); Protein Urine 2+ (Negative); Specific Gravity, Urine 1.027 (1.005-1.030); Urine Appearance Clear (CLEAR)
[2024-09-16 14:43] LABS: Add Urine Microscopic? YES; Bacteria Urine None Seen /hpf; Hyaline Casts Urine 4.52 /lpf; Squamous Epithelial Cell Urine 0-5 /hpf (0-5)
[2024-09-16 14:48] LABS: Amphetamines Screen Urine Negative (Negative); Barbiturates Screen Urine Negative (Negative); Benzodiazepines Screen Urine Negative (Negative); Cocaine Screen Urine Negative (Negative); Opiate Screen Urine Negative (Negative); PCP Screen Urine Negative (Negative); THC Screen Urine Positive (Negative)
[2024-09-16 14:53] LABS: Alcohol Level 121 mg/dL (0-10)
[2024-09-16 15:03] LABS: Urine Color Orange (Yellow)
[2024-09-16 15:09] LABS: Add Urine Culture? Yes; Sperm Urine 2+ /hpf
[2024-09-16 19:00] VITALS: BP 131/76; PULSE 115; RESP 18; O2SAT 98
[2024-09-16] MEDS: LORazepam 2 mg/mL INJ 1 mL 1 MG IVP (20:19)
[2024-09-16] MEDS: cefTRIAXone 1,000 mg SDV 1000 MG IVP (20:19)
[2024-09-16 20:21] VITALS: BP 150/86; PULSE 120; RESP 20; O2SAT 97
== END 2024-09-16 20:22 | disposition home or self-care (01) ==
PROVIDERS: Emergency Medicine; Family Medicine; Emergency Provider Emergency Medicine
DX: R31.9 Hematuria, unspecified (principal); R91.1 Solitary pulmonary nodule; F10.129 Alcohol abuse with intoxication, unspecified; Y90.6 Blood alcohol level of 120-199 mg/100 ml; J44.9 Chronic obstructive pulmonary disease, unspecified; Z72.0 Tobacco use
CPT/HCPCS: 36415; 36416; 74176; 80053; 80306; 80307; 81001; 82962; 83690; 85025; 87040; 87086; 96374; 96375; 99285; J0696; J1885; J2060

== ENCOUNTER 2024-10-31 23:04 | Inpatient (IN) | payer MEDICAID, SELFPAY ==
[2024-10-31 23:06] VITALS: BP 115/81; PULSE 103; RESP 18; TEMP 37; O2SAT 90; BMI 25.4
--- NOTE | 2024-10-31 23:13 | W.ED.GENADLT ---
Documented by User: Jeevan Thomas DO 11/01/24 04:03 HPI - General Adult General: Chief complaint: Altered Mental Status Stated complaint: Found in Ditch Passed out Time Seen by Provider: 10/31/24 23:08 History of Present Illness: Patient brought in by EMS after patient was found drunk passed out in a ditch. Patient is soaking wet cold and complaining of going through alcohol withdrawals and aching pain all over. Patient does admit to drinking today. Patient is alert oriented can answer all questions coherently. Related Data Home Medications Medication Instructions Recorded Confirmed methadone 10 mg tablet 50 mg PO DAILY 11/01/24 11/01/24 Allergies Allergy/AdvReac Type Severity Reaction Status Date / Time tetanus immune globulin Allergy Mild ALGY-Anaphy Verified 09/19/24 18:53 laxis azithromycin Allergy ADR-Gastrointestinal Verified 09/19/24 18:53 Upset Tetanus Vaccines and Toxoid Allergy Unknown Verified 09/19/24 18:53 Review of Systems General: Reports: 10 or more systems reviewed and unremarkable except in HPI and below PFSH ED PFSH: Medical History (Updated 11/01/24 @ 04:01 by Jeevan Thomas DO) Suicidal ideations COPD (chronic obstructive pulmonary disease) Social History Smoking and tobacco/nicotine status: heavy tobacco/nicotine user (no) Alcohol intake: current Physical Exam Const: COMMON NORMALS: no acute distress, average body habitus, patient oriented x3, no limitations, healthy appearing, alert and well nourished HENMT: COMMON NORMALS: normocephalic, atraumatic, hearing grossly normal bilaterally, external ears normal, Normal external nose present and moist oral mucous membranes HEAD & SCALP: normocephalic and atraumatic NOSE: Normal external nose present EXTERNAL EAR: Yes external ears normal Eye: COMMON NORMALS: Equal, round and reactive pupils present, EOMs intact bilaterally, conjunctivae normal and no scleral icterus CONJUNCTIVA: Yes conjunctivae normal PUPIL: Yes Equal, round and reactive pupils present Neck/C-Spine: COMMON NORMALS: full ROM, no lymphadenopathy, supple, no meningeal signs, no JVD and Thyroid normal THYROID: Thyroid normal Chest: COMMONS NORMALS: normal inspection of the chest and normal palpation of entire chest wall Resp: COMMON NORMALS: normal respiratory effort, No retractions, No use of accessory muscles and clear to auscultation bilaterally AUSCULTATION: clear to auscultation bilaterally Cardio: COMMON NORMALS: no JVD, regular rate, regular rhythm, S1 normal heart sound present, S2 normal heart sound present, No gallops present (Cardio), No clicks present (Cardio), No murmurs present (Cardio) and No rub (Cardio) RATE: regular rate RHYTHM: regular rhythm HEART SOUNDS: S1 normal heart sound present and S2 normal heart sound present GI: COMMON NORMALS: Normal to inspection, nondistended, normoactive bowel sounds present, Soft to palpation, non-tender, No hepatosplenomegaly present and no masses PALPATION: Yes Soft to palpation and Yes No hepatosplenomegaly present Neuro: COMMON NORMALS: patient oriented x3 SENSORIUM/ORIENTATION: Yes alert MENINGEAL SIGNS: Yes no meningeal signs Course Vital Signs: Vital signs: Vital Signs Temperature 98.8 F 11/01/24 16:12 Pulse Rate 113 H 11/01/24 16:12 Respiratory Rate 20 H 11/01/24 16:12 Blood Pressure 149/98 11/01/24 16:12 Pulse Oximetry 94 11/01/24 16:12 Oxygen Delivery Me thod Room Air 11/01/24 16:12 MDM - General Adult Medical Decision Making Lab work was obtained. Alcohol was rechecked it is decreasing. Patient still continues to coherent as well as belligerent. Patient be discharged to the waiting room. Patient is being discharged to the waiting room he made multiple comments they did not want to leave and that he was going to walk out of traffic and kill himself. He was given multiple opportunities to resend these comments and told we will put him on a 96-hour hold for these comments if he did not resend them. He said he has nowhere else to go, he is homeless and he has nothing to live for and when he leaves here he is got a walk on for a traffic. Patient be placed on 96-hour hold. Medical Records I reviewed the patient's medical records. Lab Data I reviewed the patient's lab results. 10/31/24 23:45 10/31/24 23:45 Laboratory Results WBC 4.76 10^3/uL (3.29-11.43) 10/31/24 23:45 RBC 5.11 10^6/uL (3.85-5.65) 10/31/24 23:45 Hgb 18.20 g/dL (11.27-16.99) H 10/31/24 23:45 Hct 52.3 % (37-53) 10/31/24 23:45 MCV 102.3 fl (82-101) H 10/31/24 23:45 MCH 35.6 pg (27-33) H 10/31/24 23:45 MCHC 34.8 g/dL (30-55) 10/31/24 23:45 RDW 12.9 % (12.1-15.1) 10/31/24 23:45 Plt Count 103 10^3/cmm (157-399) L 10/31/24 23:45 MPV 10.1 fL (7.4-10.4) 10/31/24 23:45 Neut % (Auto) 54.6 % 10/31/24 23:45 Lymph % (Auto) 30.9 % 10/31/24 23:45 [place] % (Auto) 10.5 % 10/31/24 23:45 Eos % (Auto) 2.1 % 10/31/24 23:45 Baso % (Auto) 1.5 % 10/31/24 23:45 Neut # (Auto) 2.60 10^3/uL (1.8-7.7) 10/31/24 23:45 Lymph # (Auto) 1.5 10^3/uL (0.8-4.8) 10/31/24 23:45 [place] # (Auto) 0.5 10^3/uL (0.2-0.9) 10/31/24 23:45 Eos # (Auto) 0.1 10^3/uL (0.0-0.8) 10/31/24 23:45 Baso # (Auto) 0.1 10^3/uL (0.0-0.1) 10/31/24 23:45 Nucleated RBC % (auto) 0 % 10/31/24 23:45 Nucleated RBCs # 0.0 /100WBC 10/31/24 23:45 PT 12.60 SECONDS (12.1-14.9) 10/31/24 23:45 INR 0.88 (0.8-1.2) 10/31/24 23:45 Sodium 141 mmol/L (136-145) 10/31/24 23:45 Potassium 4.4 mmol/L (3.5-5.1) 10/31/24 23:45 Chloride 95 mmol/L (98-107) L 10/31/24 23:45 Carbon Dioxide 23 mmol/L (22-29) 10/31/24 23:45 Anion Gap 27.4 (5-19) H 10/31/24 23:45 BUN 16 mg/dL (6-20) 10/31/24 23:45 Creatinine 0.7 mg/dL (0.7-1.2) 10/31/24 23:45 GFR Calculation 118.9 mL/min (90-130) 10/31/24 23:45 Glucose 100 mg/dL (65-115) 10/31/24 23:45 Calculated Osmolality 293 mOsm/kg (285-295) 10/31/24 23:45 Calcium 8.4 mg/dL (8.5-10.5) L 10/31/24 23:45 Total Bilirubin 1.1 mg/dL (0.15-1.2) 10/31/24 23:45 AST 598 U/L (0-40) H 10/31/24 23:45 ALT 179 U/L (0-41) H 10/31/24 23:45 Alkaline Phosphatase 90 U/L (40-130) 10/31/24 23:45 Total Protein 7.9 g/dL (6.6-8.7) 10/31/24 23:45 Albumin 4.7 g/dL (3.5-5.2) 10/31/24 23:45 Globulin 3.2 g/dL (1.3-4.6) 10/31/24 23:45 Urine Color Yellow (Yellow) 10/31/24:31 Urine Appearance Clear (CLEAR) 10/31/24: Urine pH 5.5 (5-7) 10/31/24: Ur Specific [place] 1.014 (1.005-1.030) 10/31/24: Urine Protein 2+ (Negative) A 10/31/24: Urine Glucose (UA) Negative (Normal) 10/31/24 Urine Ketones Trace (Negative) 01/30/25 23:31 Urine Blood 1+ (Negative) A 10/31/24 23:31 Urine Nitrate Negative (Negative) 10/31/24 23:31 Urine Bilirubin Negative (Negative) 10/31/24 23:31 Urine Urobilinogen 1.0 mg/dL (Negative) 10/31/24 23:31 Ur Leukocyte Esterase Negative (Negative) 10/31/24 23:31 Urine RBC 0-2 /hpf (0-2) 10/31/24 23:31 Urine WBC 0-5 /hpf (0-5) 10/31/24 23:31 Ur Squamous Epith Cells 0-5 /hpf (0-5) 10/31/24 23:31 Amorphous Sediment Not Reportable 10/31/24 23: Urine Bacteria None seen /hpf (NONE) 10/31/24 23: Hyaline Casts 11.16 /lpf 10/31/24 23:31 Salicylates < 0.3 mg/dL (3-10) L 11/01/24 02:58 Urine Opiates Screen Negative ng/mL (Negative) 10/31/24 23: Acetaminophen < 5.0 ug/mL (10-30) L 11/01/24 02:58 Ur Barbiturates Screen Negative ng/mL (Negative) 10/31/24 23:31 Ur Phencyclidine Scrn Negative ng/mL (Negative) 10/31/24 23:31 Ur Amphetamines Screen Negative ng/mL (Negative) 10/31/24 23:31 U Benzodiazepines Scrn Negative ng/mL (Negative) 10/31/24 23:31 Urine Cocaine Screen Negative ng/mL (Negative) 10/31/24 23:31 U Marijuana (THC) Screen Positive ng/mL (Negative) H 10/31/24 23:31 Ethyl Alcohol 371 mg/dL (0-10) H* 11/01/24 02:58 No radiology studies performed this visit Discharge Plan Discharge Admit Provider: Tobin Lynch Clinical Impression: Alcohol intoxication, Suicidal ideation Condition: Stable Coding Level of Care Code ED Health And Wellness Advisor for Santy Fwd Documented by User: Christofer Hung MD 11/01/24 17:31 HPI - General Adult General: Chief complaint: Altered Mental Status Stated complaint: Found in Ditch Passed out Time Seen by Provider: 10/31/24 23:08 Related Data Home Medications Medication Instructions Recorded Confirmed methadone 10 mg tablet 50 mg PO DAILY 11/01/24 11/01/24 Allergies Allergy/AdvReac Type Severity Reaction Status Date / Time tetanus immune globulin Allergy Mild ALGY-Anaphy Verified 09/19/24 18:53 laxis azithromycin Allergy ADR-Gastrointestinal Verified 09/19/24 18:53 Upset Tetanus Vaccines and Toxoid Allergy Unknown Verified 09/19/24 18:53 [facility] ED PFSH: Medical History (Updated 11/01/24 @ 04:01 by Jeevan Thomas DO) Suicidal ideations COPD (chronic obstructive pulmonary disease) Social History Smoking and tobacco/nicotine status: heavy tobacco/nicotine user (no) Alcohol intake: current Course Vital Signs: Vital signs: Vital Signs Temperature 98.8 F 11/01/24 16:12 Pulse Rate 113 H 11/01/24 16:12 Respiratory Rate 20 H 11/01/24 16:12 Blood Pressure 149/98 11/01/24 16:12 Pulse Oximetry 94 11/01/24 16:12 Oxygen Delivery Me thod Room Air 11/01/24 16:12 MDM - General Adult Medical Decision Making Lab work was obtained. Alcohol was rechecked it is decreasing. Patient still continues to coherent as well as belligerent. Patient be discharged to the waiting room. Patient is being discharged to the waiting room he made multiple comments they did not want to leave and that he was going to walk out of traffic and kill himself. He was given multiple opportunities to resend these comments and told we will put him on a 96-hour hold for these comments if he did not resend them. He said he has nowhere else to go, he is homeless and he has nothing to live for and when he leaves here he is got a walk on for a traffic. Patient be placed on 96-hour hold. Patient is medically cleared he has been on the CIWA protocol here will be admitted to the psych morris here. Lab Data 10/31/24 23:45 10/31/24 23:45 Laboratory Results WBC 4.76 10^3/uL (3.29-11.43) 10/31/24 23:45 RBC 5.11 10^6/uL (3.85-5.65) 10/31/24 23:45 Hgb 18.20 g/dL (11.27-16.99) H 10/31/24 23:45 Hct 52.3 % (37-53) 10/31/24 23:45 MCV 102.3 fl (82-101) H 10/31/24 23:45 MCH 35.6 pg (27-33) H 10/31/24 23:45 MCHC 34.8 g/dL (30-55) 10/31/24 23:45 RDW 12.9 % (12.1-15.1) 10/31/24 23:45 Plt Count 103 10^3/cmm (157-399) L 10/31/24 23:45 MPV 10.1 fL (7.4-10.4) 10/31/24 23:45 Neut % (Auto) 54.6 % 10/31/24 23:45 Lymph % (Auto) 30.9 % 10/31/24 23:45 [place] % (Auto) 10.5 % 10/31/24 23:45 Eos % (Auto) 2.1 % 10/31/24 23:45 Baso % (Auto) 1.5 % 10/31/24 23:45 Neut # (Auto) 2.60 10^3/uL (1.8-7.7) 10/31/24 23:45 Lymph # (Auto) 1.5 10^3/uL (0.8-4.8) 10/31/24 23:45 [place] # (Auto) 0.5 10^3/uL (0.2-0.9) 10/31/24 23:45 Eos # (Auto) 0.1 10^3/uL (0.0-0.8) 10/31/24 23:45 Baso # (Auto) 0.1 10^3/uL (0.0-0.1) 10/31/24 23:45 Nucleated RBC % (auto) 0 % 10/31/24 23:45 Nucleated RBCs # 0.0 /100WBC 10/31/24 23:45 PT 12.60 SECONDS (12.1-14.9) 10/31/24 23:45 INR 0.88 (0.8-1.2) 10/31/24 23:45 Sodium 141 mmol/L (136-145) 10/31/24 23:45 Potassium 4.4 mmol/L (3.5-5.1) 10/31/24 23:45 Chloride 95 mmol/L (98-107) L 10/31/24 23:45 Carbon Dioxide 23 mmol/L (22-29) 10/31/24 23:45 Anion Gap 27.4 (5-19) H 10/31/24 23:45 BUN 16 mg/dL (6-20) 10/31/24 23:45 Creatinine 0.7 mg/dL (0.7-1.2) 10/31/24 23:45 GFR Calculation 118.9 mL/min (90-130) 10/31/24 23:45 Glucose 100 mg/dL (65-115) 10/31/24 23:45 Calculated Osmolality 293 mOsm/kg (285-295) 10/31/24 23:45 Calcium 8.4 mg/dL (8.5-10.5) L 10/31/24 23:45 Total Bilirubin 1.1 mg/dL (0.15-1.2) 10/31/24 23:45 AST 598 U/L (0-40) H 10/31/24 23:45 ALT 179 U/L (0-41) H 10/31/24 23:45 Alkaline Phosphatase 90 U/L (40-130) 10/31/24 23:45 Total Protein 7.9 g/dL (6.6-8.7) 10/31/24 23:45 Albumin 4.7 g/dL (3.5-5.2) 10/31/24 23:45 Globulin 3.2 g/dL (1.3-4.6) 10/31/24 23:45 Urine Color Yellow (Yellow) 10/31/24 23:31 Urine Appearance Clear (CLEAR) 10/31/24 23:31 Urine pH 5.5 (5-7) 10/31/24 23:31 Ur Specific [place] 1.014 (1.005-1.030) 10/31/24 23:31 Urine Protein 2+ (Negative) A 10/31/24 23:31 Urine Glucose (UA) Negative (Normal) 10/31/24 23: Urine Ketones Trace (Negative) 10/31/24 23: Urine Blood 1+ (Negative) A 10/31/24 23:31 Urine Nitrate Negative (Negative) 10/31/24 23:31 Urine Bilirubin Negative (Negative) 10/31/24 23: Urine Urobilinogen 1.0 mg/dL (Negative) 10/31/24 23:31 Ur Leukocyte Esterase Negative (Negative) 10/31/24 23: Urine RBC 0-2 /hpf (0-2) 10/31/24 23: Urine WBC 0-5 /hpf (0-5) 10/31/24 23: Ur Squamous Epith Cells 0-5 /hpf (0-5) 10/31/24 23: Amorphous Sediment Not Reportable 10/31/24 23: Urine Bacteria None seen /hpf (NONE) 10/31/24 23: Hyaline Casts 11.16 /lpf 10/31/24 23: Salicylates < 0.3 mg/dL (3-10) L 11/01/24 02:58 Urine Opiates Screen Negative ng/mL (Negative) 10/31/24 23: Acetaminophen < 5.0 ug/mL (10-30) L 11/01/24 02:58 Ur Barbiturates Screen Negative ng/mL (Negative) 10/31/24 23:31 Ur Phencyclidine Scrn Negative ng/mL (Negative) 10/31/24 23:31 Ur Amphetamines Screen Negative ng/mL (Negative) 10/31/24 23:31 U Benzodiazepines Scrn Negative ng/mL (Negative) 10/31/24 23:31 Urine Cocaine Screen Negative ng/mL (Negative) 10/31/24 23:31 U Marijuana (THC) Screen Positive ng/mL (Negative) H 10/31/24 23:31 Ethyl Alcohol 371 mg/dL (0-10) H* 11/01/24 02:58 Discharge Plan Discharge Admit Provider: Tobin Lynch Clinical Impression: Alcohol intoxication, Suicidal ideation Condition: Stable Coding Level of Care Code ED Health And Wellness Advisor for Santy Villanueva
[2024-10-31 23:39] LABS: Bilirubin Urine Negative (Negative); Blood Urine 1+ (Negative); Glucose Urine UA Negative (Normal); Ketones Urine Trace (Negative); Leukocyte Esterase Urine Negative (Negative); Nitrate Urine Negative (Negative); Protein Urine 2+ (Negative); Specific Gravity, Urine 1.014 (1.005-1.030); Urine Appearance Clear (CLEAR); Urine Color Yellow (Yellow); pH Urine 5.5 (5-7)
[2024-10-31 23:45] LABS: Add Urine Microscopic? YES; Bacteria Urine None Seen /hpf; Hyaline Casts Urine 11.16 /lpf; RBC Urine 0-2 /hpf (0-2); Squamous Epithelial Cell Urine 0-5 /hpf (0-5); WBC Urine 0-5 /hpf (0-5)
[2024-10-31 23:49] LABS: Amphetamines Screen Urine Negative (Negative); Barbiturates Screen Urine Negative (Negative); Benzodiazepines Screen Urine Negative (Negative); Cocaine Screen Urine Negative (Negative); Opiate Screen Urine Negative (Negative); PCP Screen Urine Negative (Negative); THC Screen Urine Positive (Negative)
[2024-10-31 23:55] LABS: Basophils # 0.1 10^3/uL (0.0-0.1); Basophils % 1.5 %; Eosinophils # 0.1 10^3/uL (0.0-0.8); Eosinophils % 2.1 %; Hematocrit 52.3 % (37-53); Lymphocytes # 1.5 10^3/uL (0.8-4.8); Lymphocytes % 30.9 %; Mean Corpuscular HGB Conc 34.8 g/dL (30-55); Mean Corpuscular Hemoglobin 35.6 pg (27-33); Mean Corpuscular Volume 102.3 fl (82-101); Mean Platelet Volume 10.1 fL (7.4-10.4); Monocytes # 0.5 10^3/uL (0.2-0.9); Monocytes % 10.5 %; Neutrophils % 54.6 %; Nucleated Red Blood Cells % 0 %; Platelet Count 103 10^3/cmm (157-399); Red Blood Count 5.11 10^6/uL (3.85-5.65); Red Cell Distribution Width 12.9 % (12.1-15.1); White Blood Count 4.76 10^3/uL (3.29-11.43)
[2024-10-31] MEDS: ketorolac 30 mg/mL INJ IVP (23:57)
--- NOTE | 2024-10-31 23:59 | PC.NURSE ---
PT IS REFUSING VS AT THIS TIME AND WILL NOT KEEP ON BP CUFF AND PULSE OX
[2024-11-01] VITALS (12 sets, daily range): BP systolic 125–153; BP diastolic 76–99; PULSE 90–137; RESP 16–20; TEMP 36.5–37.3; O2SAT 92–99
[2024-11-01] LABS: UA Slide Review UA Slide Review Perf
[2024-11-01 00:19] LABS: Alanine Aminotransferase 179 U/L (0-41); Albumin Level 4.7 g/dL (3.5-5.2); Alkaline Phosphatase 90 U/L (40-130); Anion Gap 27.4 (5-19); Aspartate Amino Transferase 598 U/L (0-40); Blood Urea Nitrogen 16 mg/dL (6-20); Calcium 8.4 mg/dL (8.5-10.5); Carbon Dioxide 23 mmol/L (22-29); Chloride 95 mmol/L (98-107); Creatinine Clr Calc Pharmacy 138.0941; Globulin 3.2 g/dL (1.3-4.6); Glomerular Filtration Rate 118.9 mL/min (90-130); Glucose 100 mg/dL (65-115); Osmolality Calculated 293 mOsm/kg (285-295); Potassium 4.4 mmol/L (3.5-5.1); Sodium 141 mmol/L (136-145); Total Bilirubin 1.1 mg/dL (0.15-1.2); Total Protein 7.9 g/dL (6.6-8.7)
[2024-11-01 00:21] LABS: Alcohol Level 478 mg/dL (0-10)
[2024-11-01 00:42] LABS: INR 0.88 (0.8-1.2)
--- NOTE | 2024-11-01 03:07 | PC.NURSE ---
Pt. given 3 sandwiches and 3 glasses of water. Pt. asked to have breakfast tray ordered in the morning. I told patient that i would if he was still here but was likely to get discharged before then. pt. states that he will go into withdraw from alcohol soon. I have explained to the patient that his alcohol level is still high.
--- NOTE | 2024-11-01 03:18 | PC.NURSE ---
Pt. able to walk to the restroom with no assistance , but has asked the female nurses to hold his urinal.
[2024-11-01 03:30] LABS: Alcohol Level 371 mg/dL (0-10)
--- NOTE | 2024-11-01 04:11 | PC.NURSE ---
Discharge orders given for patient. When I went in the room to discharge the patient , he started yelling that would just jump in front of a car or something , because he did not have long anyway. He then yelled do you hear me , I am going to kill myself . I spoke with Dr. Thomas who then spoke to the patient and then placed him on suicide precautions.
--- NOTE | 2024-11-01 04:15 | PC.NURSE ---
Pt. placed in paper scrubs and belongings placed in locker outside of the room. Pt. moved from room 13 to room 7, Sitter placed outside the door.
[2024-11-01 04:23] LABS: Acetaminophen < 5.0 ug/mL (10-30); Salicylate < 0.3 mg/dL (3-10)
--- NOTE | 2024-11-01 05:46 | PC.NURSE ---
This RN and private security guard Sriram Garcia read 96 hr rights to pt at [id number]. copy of rights handed to pt. no further questions from pt at this time. pt verbalized understanding, calm and cooperative.
[2024-11-01] MEDS: nicotine 14 mg Patch 1 PATCH TRANSDERMA (05:51)
[2024-11-01] MEDS: albuterol 2.5 mg/3 mL Neb INHALATION (06:02)
[2024-11-01] MEDS: LORazepam 2 mg/mL INJ 1 mL IM ×6 (06:40→23:37)
--- NOTE | 2024-11-01 07:35 | PC.PHAR ---
Addendum entered by Ines Marin 11/01/24 08:10: [facility] would like updates on patient if possible to update their charts Original Note: patient states he gets methadone daily from [facility], waiting for them to open up in order to confirm
--- NOTE | 2024-11-01 08:14 | PC.PHAR ---
patient is from [facility], called them and confirmed dosing. Patient is to go daily to get 50mg of methadone. patient has missed last 4 doses and the doctor would like future updates on the patient if at all possible to keep the records up to date
--- NOTE | 2024-11-01 10:59 | PC.NURSE ---
PER [facility] WILL ADMINISTER ATIVAN 2MG IVP ONCE. PROVIDER NOTIFIED.
[2024-11-01] MEDS: methadone 10 mg Tablet PO ×2 (13:28→16:11)
[2024-11-01] MEDS: acetaminophen 325 mg Tablet 650 MG PO (21:39)
[2024-11-01] MEDS: methadone 10 mg Tablet 20 MG PO (21:39)
[2024-11-01] MEDS: trazodone 50 mg Tablet PO ×2 (21:40→23:37)
[2024-11-01] MEDS: hyDROXYzine 25 mg Capsule 50 MG PO (21:40)
[2024-11-01] MEDS: ondansetron 4 MG Tablet PO (21:41)
[2024-11-01] MEDS: nicotine 4 mg lozenge MUCOUS MEM (21:41)
[2024-11-01] MEDS: OLANZapine 5 mg ODT PO (23:37)
--- NOTE | 2024-11-01 23:43 | PC.NURSE ---
2mg Ativan IM given for CIWA score of 15.
[2024-11-02] VITALS (7 sets, daily range): BP systolic 119–160; BP diastolic 84–106; PULSE 97–131; RESP 16–20; TEMP 36.6–37.1; O2SAT 92–97
[2024-11-02] MEDS: acetaminophen 325 mg Tablet 650 MG PO ×3 (05:41→22:25)
[2024-11-02] MEDS: ondansetron 4 MG Tablet PO (05:42)
--- NOTE | 2024-11-02 06:11 | PC.NURSE ---
Patient sitting on side of bed with head in hands rocking back and forth. Offered Ativan but patient refused. He was C/O a head ache (03/11)and nausea. Tylenol and Zofran given. Will reassess shortly.
[2024-11-02] MEDS: flu vacc pf 24-25 (6 mos+) SYRINGE 45 MCG IM (08:59)
[2024-11-02] MEDS: thiamine 100 mg Tablet PO (09:01)
[2024-11-02] MEDS: folic acid 1 mg Tablet PO (09:01)
[2024-11-02] MEDS: multivitamin therapeutic Tablet 1 TAB PO (09:01)
--- NOTE | 2024-11-02 09:19 | PC.NURSE ---
Patient scored 11 on CIWA scale. Per protocol, administered 2mg ativan PO.
[2024-11-02] MEDS: nicotine 2 mg Gum BUCCAL ×3 (09:20→22:27)
[2024-11-02] MEDS: LORazepam 2 mg Tablet PO ×2 (09:20→22:27)
--- NOTE | 2024-11-02 10:11 | PC.NURSE ---
This nurse talked with the on-call staff from [facility]. Per staff, patient is on methadone, 50mg PO daily.
[2024-11-02] MEDS: methadone 10 mg Tablet 50 MG PO (10:24)
[2024-11-02] MEDS: nicotine 21 mg Patch 1 PATCH TRANSDERMA (12:43)
--- NOTE | 2024-11-02 14:25 | PC.NURSE ---
Hematuria This nurse notified that patient is urinating blood. This nurse observes orange-red colored urine in and around patient's toilet. Patient said that this has been happening intermittently for the past month and that he has dysuria. Patient given a cup for a urinalysis. Dr. Lynch notified in person.
--- NOTE | 2024-11-02 14:33 | PC.NURSE ---
Patient is visibly tremulous, patient endorses auditory, visual, and tactile hallucinations. Per CIWA protocol, administered ativan 2mg PO. Will continue to monitor.
--- NOTE | 2024-11-02 15:43 | PC.NURSE ---
Recheck of VS approximately one hour after adminstration of ativan, and follow-up CIWA scoring: patient scored 8.
--- NOTE | 2024-11-02 16:23 | P.NPUHP_ITS ---
Providers/Chief Complaint 2 Admitting Physician: Tobin Lynch MD Chief Complaint: Found in Ditch Passed out HPI NPU History of Present Illness Cameron Smallwood is a 49 year old male who presented to the emergency department with the following report: Chief complaint: Altered Mental Status Stated complaint: Found in Ditch Passed out Time Seen by Provider: 10/31/24 23:08 History of Present Illness: Patient brought in by EMS after patient was found drunk passed out in a ditch. Patient is soaking wet cold and complaining of going through alcohol withdrawals and aching pain all over. Patient does admit to drinking today. Patient is alert oriented can answer all questions coherently. He was admitted to the neuropsychiatric unit for definitive treatment of those issues. He is known to [facility] through inpatient and outpatient services though most of his inpatient services were [id number] with none since then. There have been multiple emergency room and hospital visits and admissions that have been alcohol-related/drug related he presented to the emergency department after being found in a ditch and his blood alcohol was 478. They report he continued to be communicative even in those times that his numbers were high. He had altered mental status and concerns for safety including suicidal concerns. 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 He presented today reporting that he is doing okay. He was a limited historian as he at times nodded off during the interview. We discussed the fact that we had information on his overall story from records suggesting that he has had challenges with his drinking going way back. He acknowledges that drinking has been a problem off and on. He reports that he has had a couple of stents in rehab 1 fairly recently. He endorsed that he has had a couple DUIs. He reports that his drinking has been significant recently and denied any clear sense of why. We discussed the fact that he has had withdrawal seizures in the past and so we wanted to make sure he was acknowledging to the staff that he was feeling significant withdrawal symptoms. We discussed him being on the CIWA protocol and how that worked. We discussed his opioid addiction and the fact that he is on the methadone but he reports that ultimately he is trying to get off the methadone. We discussed having to do this with caution because this creative writer has never seen an individual who was not stable on 30 mg of methadone or less that was able to safely detox outside of a controlled environment like intermediate. We discussed that his blood alcohol 478 was close to the number where 50% of people who get that number . 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 Then he went to a place called [employer] where he was working but that he has not been working for the last couple months and during that time his drinking had escalated again. He endorses that he has dealt with some depression and suicidal ideation. We discussed considering a medication for depression prior to discharge. He endorses that he has been homeless recently. We reviewed some of the psychosocial history as best we could while he was only capable at times of yes no answers. He denies any current legal challenges. He denies any current or significant medical problems. We discussed the risks, benefits and alternatives of making sure he makes it through the withdrawal process and then introducing antidepressant and he understood and agreed to proceed as documented in this note. Meds NPU Home Medications Medication Instructions Recorded Confirmed Last Taken Type methadone 10 mg tablet 50 mg PO DAILY 11/01/24 11/01/24 10/27/24 History Allergies Allergy/AdvReac Type Severity Reaction Status Date / Time tetanus immune globulin Allergy Mild ALGY-Anaphy Verified 09/19/24 18:53 laxis azithromycin Allergy ADR-Gastrointestinal Verified 09/19/24 18:53 Upset Tetanus Vaccines and Toxoid Allergy Unknown Verified 09/19/24 18:53 PFS NPU 2 PFSH: Medical History (Updated 11/02/24 @ 18:03 by Tobin Lynch MD) Suicidal ideations COPD (chronic obstructive pulmonary disease) Social History Smoking and tobacco/nicotine status: heavy tobacco/nicotine user (no) Alcohol intake: current Mental Status Exam 2 MSE Comments: This is a well-nourished well-developed white male in hospital scrubs with poor grooming and intermittent eye contact looking much older than his stated age. No abnormal movements were appreciated except for moderate psychomotor agitation and tremulousness. He was mostly cooperative with exam in mild to moderate distress. Speech was decreased rate and volume. Mood described as depressed. His affect was flat and mood congruent. Thought process was linear and organized. Thought contact: Patient denied suicidal or homicidal ideation, there were no delusions reported or noted, patient denied auditory or visual hallucinations. Attention and concentration appeared intact and memory appeared mostly reliable but none were formally tested. Patient is alert and oriented to person, place time and situation. Insight was poor. Judgment and impulse control appears impaired. Vitals/I&O/Wt Last Vital Signs Temp 98 F 11/02/24 12:00 Pulse 110 H 11/02/24 12:00 Resp 18 11/02/24 12:00 BP 160/103 11/02/24 12:00 Pulse Ox 97 11/02/24 12:00 O2 Del Method Room Air 11/02/24 04:00 Weight last 48 hrs Weight 82.554 kg Data NPU 10/31/24 23:45 10/31/24 23:45 A&P Assessment and plan (1) Suicidal ideations: (2) Alcohol intoxication: Qualifiers: Complication of substance-induced condition: uncomplicated Qualified Code(s): F10.920 - Alcohol use, unspecified with intoxication, uncomplicated (3) History of seizure due to alcohol withdrawal: (4) Alcohol withdrawal syndrome: Qualifiers: Complication of substance-induced condition: with unspecified complication Qualified Code(s): F10.239 - Alcohol dependence with withdrawal, unspecified (5) Opioid dependence on maintenance agonist therapy, no symptoms: (6) Depression: Plan This is a 3-year-old male known through past hospitalizations with depression, anxiety, and significant addiction with opioid and alcohol dependence admitted for the first time in many years on methadone maintenance with an initial blood alcohol of 478 and a history of withdrawal seizures. 1. Review his medication and consider which ones to restart at what doses versus consider a new medication. We discussed considering acamprosate or other medication to assist with alcohol use. 2. Continue every 15 minute checks for safety. 3. Encourage individual, group and milieu therapies. 4. Encourage sober living treatment after discharge at the highest level of care to which he is willing to commit. 5. CIWA protocol with significant attention to the fact that he has a history of withdrawal seizures. Involuntary Hold Information 2 96 Hour Hold: 96 Hour Involuntary Admission: Yes 96 Hour Hold Ending Date: 11/07/24 96 Hour Hold Ending Time: 05:58 Other Hold: Hold End Date: 11/07/24 Attestations NPU 2 Medical Necessity Statement*: Inpatient hospitalization is medically necessary and?the clinically appropriate intervention at this time.? We will monitor/initiate medications and make changes as indicated.? The patient will be in the hospital for over 2 midnights.? The patient?s likely length of stay is 4-6 days. Coding Level of Care Code Acute Code for [facility] Fwd Diagnoses Suicidal ideations R45.851 Alcohol intoxication F10.920 Complication of substance-induced condition: uncomplicated History of seizure due to alcohol withdrawal Z87.898; Z86.59 Alcohol withdrawal syndrome F10.239 Complication of substance-induced condition: with unspecified complication Opioid dependence on maintenance agonist therapy, no symptoms F11.20 Depression F32.A
[2024-11-02] MEDS: nicotine 4 mg lozenge MUCOUS MEM (18:45)
[2024-11-02] MEDS: trazodone 50 mg Tablet PO (22:27)
[2024-11-02] MEDS: OLANZapine 5 mg ODT PO (22:27)
[2024-11-03 03:51] VITALS: RESP 18
--- NOTE | 2024-11-03 03:52 | PC.NURSE ---
Patient refused vital signs.
[2024-11-03 06:00] VITALS: BMI 20.5
[2024-11-03 08:00] VITALS: BP 134/83; PULSE 103; RESP 20; O2SAT 95
--- NOTE | 2024-11-03 08:09 | P.NPUPN_ITS ---
Subjective NPU 2 Subjective: Patient presented today reporting that things were going okay. We discussed his hematuria and the risks, benefits and alternatives of getting a hospitalist consult and he understood and agreed to proceed as is documented in this note. Additionally we had a long discussion about what comes next and how he was going to avoid staying in his right. He had endorsed being on a heavy drinking binge for the past couple of months and had no clear plan for how this was going to change. Additionally we discussed him being found in a ditch and ultimately having a 478 BAL and how this pattern is not conducive with life getting that close to the toxic level of alcohol. Mental Status Exam 2 MSE Comments: This is a well-nourished well-developed white male in hospital scrubs with poor grooming and improving eye contact looking much older than his stated age. No abnormal movements were appreciated except for moderate psychomotor agitation and tremulousness. He was mostly cooperative with exam in mild distress. Speech was decreased rate and volume. Mood described as depressed. His affect was flat and mood congruent. Thought process was linear and organized. Thought contact: Patient denied suicidal or homicidal ideation, there were no delusions reported or noted, patient denied auditory or visual hallucinations. Attention and concentration appeared intact and memory appeared mostly reliable but none were formally tested. Patient is alert and oriented to person, place time and situation. Insight was poor. Judgment and impulse control appears impaired. Vitals/I&O/Wt Last Vital Signs Temp 98 F 11/02/24 23:58 Pulse 99 11/02/24 23:58 Resp 18 11/03/24 03:51 BP 125/84 11/02/24 23:58 Pulse Ox 96 11/02/24 23:58 O2 Del Method Room Air 11/02/24 23:58 Weight last 48 hrs Weight 66.905 kg Data NPU 10/31/24 23:45 10/31/24 23:45 A&P Assessment and plan (1) Suicidal ideations: (2) Alcohol intoxication: Qualifiers: Complication of substance-induced condition: uncomplicated Qualified Code(s): F10.920 - Alcohol use, unspecified with intoxication, uncomplicated (3) History of seizure due to alcohol withdrawal: (4) Alcohol withdrawal syndrome: Qualifiers: Complication of substance-induced condition: with unspecified complication Qualified Code(s): F10.239 - Alcohol dependence with withdrawal, unspecified (5) Opioid dependence on maintenance agonist therapy, no symptoms: (6) Depression: Plan This is a 3-year-old male known through past hospitalizations with depression, anxiety, and significant addiction with opioid and alcohol dependence admitted for the first time in many years on methadone maintenance with an initial blood alcohol of 478 and a history of withdrawal seizures. 1. Review his medication and consider which ones to restart at what doses versus consider a new medication. We discussed considering acamprosate or other medication to assist with alcohol use. 2. Continue every 15 minute checks for safety. 3. Encourage individual, group and milieu therapies. 4. Encourage sober living treatment after discharge at the highest level of care to which he is willing to commit. 5. CIWA protocol with significant attention to the fact that he has a history of withdrawal seizures. 6. Obtain hospitalist consult for the hematuria and will follow recommendations as indicated. Involuntary Hold Information 2 96 Hour Hold: 96 Hour Involuntary Admission: Yes 96 Hour Hold Ending Date: 11/07/24 96 Hour Hold Ending Time: 05:58 Other Hold: Hold End Date: 11/07/24 Attestations NPU 2 Medical Necessity Statement*: Inpatient hospitalization is medically necessary and?the clinically appropriate intervention at this time.? We will monitor/initiate medications and make changes as indicated.? The patient?s likely length of stay is 3-5 days. Coding Level of Care Code Acute Code for [facility] Fwd Diagnoses Suicidal ideations R45.851 Alcohol intoxication F10.920 Complication of substance-induced condition: uncomplicated History of seizure due to alcohol withdrawal Z87.898; Z86.59 Alcohol withdrawal syndrome F10.239 Complication of substance-induced condition: with unspecified complication Opioid dependence on maintenance agonist therapy, no symptoms F11.20 Depression F32.A
[2024-11-03 08:21] VITALS: RESP 16
[2024-11-03] MEDS: methadone 10 mg Tablet 50 MG PO (08:21)
[2024-11-03] MEDS: LORazepam 2 mg Tablet PO ×2 (08:21→23:54)
[2024-11-03] MEDS: folic acid 1 mg Tablet PO (08:21)
[2024-11-03] MEDS: multivitamin therapeutic Tablet 1 TAB PO (08:22)
[2024-11-03] MEDS: thiamine 100 mg Tablet PO (08:22)
[2024-11-03] MEDS: nicotine 21 mg Patch 1 PATCH TRANSDERMA (08:48)
--- NOTE | 2024-11-03 09:31 | PC.NURSE ---
morning assessment During morning assessment, patient reports that he feels like crap . This nurse scored patient 10 on CIWA scale and administered ativan 2mg PO. Patient tremulous with an abundance of sweat. Patient has an unsteady gait. Patient said that his urine is currently normal colored, no longer reddish. Patient understands that we still need a urine sample.
[2024-11-03 11:11] LABS: Bilirubin Urine 1+ (Negative); Blood Urine Non-haemolysed trace (Negative); Glucose Urine UA Negative (Normal); Ketones Urine Trace (Negative); Leukocyte Esterase Urine Trace (Negative); Nitrate Urine Negative (Negative); Protein Urine 1+ (Negative); Specific Gravity, Urine 1.025 (1.005-1.030); Urine Appearance Clear (CLEAR)
[2024-11-03 11:14] LABS: Bacteria Urine None Seen /hpf; Squamous Epithelial Cell Urine 0-5 /hpf (0-5); WBC Urine 0-5 /hpf (0-5)
[2024-11-03 11:15] LABS: Urine Color Orange (Yellow)
[2024-11-03 11:41] VITALS: BP 103/78; PULSE 116; RESP 18; TEMP 36.4; O2SAT 94
[2024-11-03] MEDS: acetaminophen 325 mg Tablet 650 MG PO (11:50)
[2024-11-03 16:00] VITALS: BP 148/96; PULSE 114; RESP 20; O2SAT 96
--- NOTE | 2024-11-03 17:05 | P.CONIM_ITS ---
Providers/Reason For Consult 2 Consulting Physician/Specialty*: Internal medicine Reason for Consult*: Evaluate for hematuria Attending Physician: Tobin Lynch MD History of Present Illness History of Present Illness Cameron Smallwood is a 49 year old male with a past medical history significant for alcohol use disorder with abuse, untreated hepatitis C virus, opioid use disorder on methadone, tobacco use disorder, COPD, and multiple other comorbidities who is currently admitted to the neuropsychiatric unit for suicide ideation and alcohol intoxication. He initially presented emergency department on October 31 and was subsequently admitted. Patient reports gross hematuria since admission. He reports a prior history of kidney stones but states he has had no flank or inguinal pain like he did when he had his kidney stone previously. States he showed the staff his urine and they took a sample today. Urinalysis from earlier today showed orange-colored urine clear neck appearance. Normal pH and specific gravity. 1+ protein. No glucose and trace ketones. There was only trace microscopic evidence of blood with RBCs 3-5. This would not produce color changes to the naked eye. Urine was +1 bilirubin as well as 2.0 urobilinogen. There are no bacteria seen. No significant squamous or WBCs. Patient reports a history of alcohol use with abuse. He endorses tremors and alcohol withdrawal currently. States he is trying to get healthier. He endorses anxiety regarding his urine color. Reports that he has been trying to drink but notes he has not drinking a whole lot today. States that he did usually drinks tea and soda. He also endorses anxiety over his general health. He states he does not have a primary care physician. He discussed he really like to get 1. I did discuss that case management can likely help with these resources tomorrow. He expresses concern about his incidentally found pulmonary nodule. Discussed appropriate outpatient follow-up for his pulmonary nodule. Discussed recommendation for alcohol and tobacco cessation. He understands that he will get treated for hepatitis C until his alcoholism is under control. We discussed his CT scan results from September showing diffuse and severe fatty infiltrate of his liver consistent with underlying liver disease. Review of Systems 2 Narrative: A complete review of systems was obtained and is negative except as stated in HPI. Medications/Allergies Home Medications Medication Instructions Recorded Confirmed Last Taken Type methadone 10 mg tablet 50 mg PO DAILY 11/01/24 11/01/24 10/27/24 History Allergies Allergy/AdvReac Type Severity Reaction Status Date / Time tetanus immune globulin Allergy Mild ALGY-Anaphy Verified 09/19/24 18:53 laxis azithromycin Allergy ADR-Gastrointestinal Verified 09/19/24 18:53 Upset Tetanus Vaccines and Toxoid Allergy Unknown Verified 09/19/24 18:53 Current Medications Generic Name Dose Route Start Last Admin Trade Name Freq PRN Reason Stop Dose Admin Acetaminophen 650 mg 11/01/24 10:54 11/03/24 11:50 Acetaminophen 325 Mg Tablet PO 650 mg Q4H PRN Administration MILD PAIN Folic Acid 1 mg 11/02/24 09:00 11/03/24 08:21 Folic Acid 1 Mg Tablet PO 1 mg DAILY GALA Administration Hydroxyzine Pamoate 50 mg 11/01/24 10:54 11/01/24 21:40 Hydroxyzine 25 Mg Capsule PO 50 mg Q6H PRN Administration ANXIETY Lorazepam 2 mg 11/01/24 10:54 11/01/24 23:37 Lorazepam 2 Mg/Ml Inj 1 Ml IM 2 mg Q4H PRN Administration Severe Aggression Lorazepam 2 mg 11/01/24 20:22 11/03/24 08:21 Lorazepam 2 Mg Tablet PO 2 mg PROTOCOL PRN Administration WITHDRAWAL Protocol Methadone HCl 50 mg 11/02/24 10:10 11/03/24 08:21 Methadone 10 Mg Tablet PO 50 mg DAILY GALA Administration Multivitamins Therapeutic 1 tab 11/02/24 09:00 11/03/24 08:22 Multivitamin Therapeutic Tablet PO 1 tab DAILY GALA Administration Nicotine 1 patch 11/01/24 10:54 11/03/24 08:48 Nicotine 21 Mg Patch TRANSDERMA 1 patch DAILY PRN Administration NICOTINE WITHDRAWAL Nicotine Polacrilex 2 mg 11/01/24 10:54 11/02/24 22:27 Nicotine 2 Mg Gum BUCCAL 2 mg Q2H PRN Administration NICOTINE WITHDRAWAL Nicotine Polacrilex 4 mg 11/01/24 20:44 11/02/24 18:45 Nicotine 4 Mg Lozenge MUCOUS MEM 4 mg Q2H PRN Administration NICOTINE CRAVINGS Olanzapine 5 mg 11/01/24 10:54 11/02/24 22:27 Olanzapine 5 Mg Odt PO 5 mg Q4H PRN Administration Agitation/Psychosis Ondansetron HCl 4 mg 11/01/24 10:54 11/02/24 05:42 Ondansetron 4 Mg Tablet PO 4 mg Q6H PRN Administration NAUSEA AND VOMITING Thiamine Mononitrate 100 mg 02/01/25 09:00 11/03/24 08:22 Thiamine 100 Mg Tablet PO 100 mg DAILY GALA Administration Trazodone HCl 50 mg 11/01/24 10:54 11/02/24 22:27 Trazodone 50 Mg Tablet PO 50 mg BEDTIME PRN Administration SLEEP PFSH Acute 2 PFSH: Medical History (Updated 11/03/24 @ 17:48 by Young Low MD) Suicidal ideations COPD (chronic obstructive pulmonary disease) Social History Smoking and tobacco/nicotine status: heavy tobacco/nicotine user (no) Alcohol intake: current Vitals/I&O/Wt Last Vital Signs Temp 97.6 F 11/03/24 11:41 Pulse 116 H 11/03/24 11:41 Resp 18 11/03/24 11:41 BP 103/78 11/03/24 11:41 Pulse Ox 94 11/03/24 11:41 O2 Del Method Room Air 11/03/24 11:41 Weight last 48 hrs Weight 66.905 kg Physical Exam 2 Narrative: General: Patient is awake. Very tremulous. Appears to be in withdrawals. Head: Normocephalic. Neck: No JVD. Cardiovascular: No gallops. No murmurs. Tachycardic. Rhythm is regular. Lungs: Clear to auscultation, no use of accessory muscles, no crackles or wheezes. Skin: No jaundice. No rashes. Abdomen: Normal bowel sounds, abdomen soft and nontender. Extremities: No cyanosis or clubbing. Musculoskeletal:No swollen or erythematous joints. Neurological: Moves all 4 extremities. No myoclonus. Data 10/31/24 23:45 10/31/24 23:45 A&P Assessment and plan (1) [place]-colored urine: Urinalysis from today reviewed, notable for urine color orange, 1+ protein, 1+ bilirubin, and 2 urobilinogen, trace LE Chart reviewed Labs reviewed, notable for transaminitis consistent with alcoholism Imaging reviewed, CAT scan from September shows severe diffuse fatty infiltrates of the liver consistent with underlying liver disease Urinalysis likely sequela from underlying liver disease compounded by dehydration Recommend increasing fluid intake which is expected to improve urinalysis findings No further inpatient workup is recommended at this time for this finding If there is further concern for gross hematuria, could again repeat urinalysis Encourage increased fluid intake and avoidance of caffeine (2) Case management patient: Patient reports he has no PCP, would like assistance Hopefully case management can assist with this tomorrow or least prior to discharge (3) History of kidney stones: Patient endorses history of kidney stones He has no flank or inguinal pain There is no RBCs in the urinalysis to suggest nephrolithiasis currently Encourage fluid intake (4) Liver disease: Patient has underlying liver disease likely secondary to 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 Consult Attestations 2 Medical Necessity Statement: Per primary Coding Level of Care Code Acute Code for [facility] Fwd Diagnoses [place]-colored urine R82.998 Case management patient History of kidney stones Z87.442 Liver disease K76.9 Hepatitis C B19.20 Pulmonary nodule R91.1 Suicidal ideations R45.851 Opioid dependence on maintenance agonist therapy, no symptoms F11.20
[2024-11-03] MEDS: OLANZapine 5 mg ODT PO (17:09)
[2024-11-03] MEDS: nicotine 4 mg lozenge MUCOUS MEM ×2 (19:23→23:27)
[2024-11-03 20:00] VITALS: BP 128/85; PULSE 108; RESP 18; TEMP 36.3; O2SAT 96
[2024-11-04] VITALS (7 sets, daily range): BP systolic 107–153; BP diastolic 72–88; PULSE 103–116; RESP 17–19; TEMP 36.3–36.9; O2SAT 94–98
[2024-11-04] MEDS: nicotine 21 mg Patch 1 PATCH TRANSDERMA (08:44)
[2024-11-04] MEDS: methadone 10 mg Tablet 50 MG PO (08:44)
[2024-11-04] MEDS: hyDROXYzine 25 mg Capsule 50 MG PO ×2 (08:45→21:15)
[2024-11-04] MEDS: thiamine 100 mg Tablet PO (08:45)
[2024-11-04] MEDS: multivitamin therapeutic Tablet 1 TAB PO (08:45)
[2024-11-04] MEDS: folic acid 1 mg Tablet PO (08:45)
[2024-11-04] MEDS: nicotine 4 mg lozenge MUCOUS MEM ×3 (11:39→21:15)
--- NOTE | 2024-11-04 15:55 | W.PM.NPUPNS ---
Subjective NPU Subjective: Patient presented today reporting that things were going fine. He identified that he was feeling better and discussed being hopeful that he would be able to maintain his sobriety. We discussed importance of us having appropriate aftercare to support this plan. He denied any side effects to the medication at this point. Mental Status Exam MSE Comments: This is a well-nourished well-developed white male in hospital scrubs with poor grooming and improving eye contact looking much older than his stated age. No abnormal movements were appreciated except for moderate psychomotor agitation and tremulousness. He was mostly cooperative with exam in mild distress. Speech was decreased rate and volume. Mood described as better. His affect was congruent but slightly subdued and still tremulous. Thought process was linear and organized. Thought contact: Patient denied suicidal or homicidal ideation, there were no delusions reported or noted, patient denied auditory or visual hallucinations. Attention and concentration appeared intact and memory appeared mostly reliable but none were formally tested. Patient is alert and oriented to person, place time and situation. Insight was poor. Judgment and impulse control appears impaired. Vitals/I&O/Wt Last Vital Signs Temp 98.0 F 11/04/24 12:00 Pulse 107 H 11/04/24 12:00 Resp 19 H 11/04/24 12:00 BP 153/72 11/04/24 12:00 Pulse Ox 94 11/04/24 12:00 O2 Del Method Room Air 11/04/24 12:00 Weight last 48 hrs Weight 66.905 kg Data NPU 10/31/24 23:45 10/31/24 23:45 A&P Assessment and plan (1) Suicidal ideations: (2) Alcohol intoxication: Qualifiers: Complication of substance-induced condition: uncomplicated Qualified Code(s): F10.920 - Alcohol use, unspecified with intoxication, uncomplicated (3) History of seizure due to alcohol withdrawal: (4) Alcohol withdrawal syndrome: Qualifiers: Complication of substance-induced condition: with unspecified complication Qualified Code(s): F10.239 - Alcohol dependence with withdrawal, unspecified (5) Opioid dependence on maintenance agonist therapy, no symptoms: (6) Depression: Plan This is a 3-year-old male known through past hospitalizations with depression, anxiety, and significant addiction with opioid and alcohol dependence admitted for the first time in many years on methadone maintenance with an initial blood alcohol of 478 and a history of withdrawal seizures. 1. Review his medication and consider which ones to restart at what doses versus consider a new medication. We discussed considering acamprosate or other medication to assist with alcohol use. 2. Continue every 15 minute checks for safety. 3. Encourage individual, group and milieu therapies. 4. Encourage sober living treatment after discharge at the highest level of care to which he is willing to commit. 5. CIWA protocol with significant attention to the fact that he has a history of withdrawal seizures. 6. Appreciate hospitalist consult for the hematuria and will follow recommendations as indicated. Involuntary Hold Information 96 Hour Hold: 96 Hour Involuntary Admission: Yes 96 Hour Hold Ending Date: 11/07/24 96 Hour Hold Ending Time: 05:58 Other Hold: Hold End Date: 11/07/24 Attestations NPU Medical Necessity Statement*: Inpatient hospitalization is medically necessary and?the clinically appropriate intervention at this time.? We will monitor/initiate medications and make changes as indicated.? The patient?s likely length of stay is 3-5 days. Coding Level [facility] Suicidal ideations R45.851 Alcohol intoxication F10.920 Complication of substance-induced condition: uncomplicated History of seizure due to alcohol withdrawal Z87.898; Z86.59 Alcohol withdrawal syndrome F10.239 Complication of substance-induced condition: with unspecified complication Opioid dependence on maintenance agonist therapy, no symptoms F11.20 Depression F32.A
[2024-11-04] MEDS: cetylpyridinium Lozenge 1 EACH MUCOUS MEM (16:24)
[2024-11-04] MEDS: nicotine 2 mg Gum BUCCAL ×2 (18:33→22:05)
[2024-11-04] MEDS: acetaminophen 325 mg Tablet 650 MG PO (21:18)
[2024-11-04] MEDS: diphenhydrAMINE 50 mg Capsule PO (21:24)
[2024-11-04] MEDS: cetirizine 10 mg Tablet PO (23:38)
[2024-11-04] MEDS: trazodone 50 mg Tablet PO (23:38)
[2024-11-05] VITALS (7 sets, daily range): BP systolic 121–155; BP diastolic 80–95; PULSE 93–113; RESP 16–18; TEMP 36.5–36.9; O2SAT 94–96
--- NOTE | 2024-11-05 00:20 | PC.NURSE ---
patient refused nurse notified.
[2024-11-05] MEDS: nicotine 4 mg lozenge MUCOUS MEM ×4 (04:54→23:56)
[2024-11-05] MEDS: methadone 10 mg Tablet 50 MG PO (08:03)
[2024-11-05] MEDS: multivitamin therapeutic Tablet 1 TAB PO (08:04)
[2024-11-05] MEDS: folic acid 1 mg Tablet PO (08:04)
[2024-11-05] MEDS: nicotine 21 mg Patch 1 PATCH TRANSDERMA (08:04)
[2024-11-05] MEDS: hyDROXYzine 25 mg Capsule 50 MG PO ×2 (08:04→23:47)
[2024-11-05] MEDS: thiamine 100 mg Tablet PO (08:04)
[2024-11-05] MEDS: cetirizine 10 mg Tablet PO (08:04)
[2024-11-05] MEDS: diphenhydrAMINE 50 mg Capsule PO (16:11)
--- NOTE | 2024-11-05 16:15 | P.NPUPN_ITS ---
Subjective NPU 2 Subjective: Patient presents today reporting that he is interested in leaving soon because he thinks he is better. He was not happy when we discussed the fact that he continue to seem in withdrawal and likely needed some more time with the medication. We discussed the possibility of a Librium taper for few days but wanted to still see him be more functional and less unstable and tremulous prior to discharge. He denied any side effects to medications. Mental Status Exam 2 MSE Comments: This is a well-nourished well-developed white male in hospital scrubs with poor grooming and improving eye contact looking much older than his stated age. No abnormal movements were appreciated except for moderate psychomotor agitation and tremulousness. He was mostly cooperative with exam in mild distress. Speech was decreased rate and volume. Mood described as better. His affect was congruent but slightly subdued and still tremulous. Thought process was linear and organized. Thought contact: Patient denied suicidal or homicidal ideation, there were no delusions reported or noted, patient denied auditory or visual hallucinations. Attention and concentration appeared intact and memory appeared mostly reliable but none were formally tested. Patient is alert and oriented to person, place time and situation. Insight was poor. Judgment and impulse control appears impaired. Vitals/I&O/Wt Last Vital Signs Temp 97.7 F 11/05/24 08:00 Pulse 99 11/05/24 12:00 Resp 17 11/05/24 12:00 BP 155/91 11/05/24 12:00 Pulse Ox 94 11/05/24 12:00 O2 Del Method Room Air 11/05/24 04:00 Data NPU 10/31/24 23:45 10/31/24 23:45 A&P Assessment and plan (1) Suicidal ideations: (2) Alcohol intoxication: Qualifiers: Complication of substance-induced condition: uncomplicated Qualified Code(s): F10.920 - Alcohol use, unspecified with intoxication, uncomplicated (3) History of seizure due to alcohol withdrawal: (4) Alcohol withdrawal syndrome: Qualifiers: Complication of substance-induced condition: with unspecified complication Qualified Code(s): F10.239 - Alcohol dependence with withdrawal, unspecified (5) Opioid dependence on maintenance agonist therapy, no symptoms: (6) Depression: Plan This is a 3-year-old male known through past hospitalizations with depression, anxiety, and significant addiction with opioid and alcohol dependence admitted for the first time in many years on methadone maintenance with an initial blood alcohol of 478 and a history of withdrawal seizures. 1. Review his medication and consider which ones to restart at what doses versus consider a new medication. We discussed considering acamprosate or other medication to assist with alcohol use. 2. Continue every 15 minute checks for safety. 3. Encourage individual, group and milieu therapies. 4. Encourage sober living treatment after discharge at the highest level of care to which he is willing to commit. 5. CIWA protocol with significant attention to the fact that he has a history of withdrawal seizures. 6. Appreciate hospitalist consult for the hematuria and will follow recommendations as indicated. 7. Patient on a 96-hour hold and will consider an extension given his continued withdrawal issues and poor insight regarding safety for discharge. PDMP PDMP Reviewed: Not Reviewed Involuntary Hold Information 2 96 Hour Hold: 96 Hour Involuntary Admission: Yes 96 Hour Hold Ending Date: 11/07/24 96 Hour Hold Ending Time: 05:58 Other Hold: Hold End Date: 11/07/24 Attestations NPU 2 Medical Necessity Statement*: Inpatient hospitalization is medically necessary and?the clinically appropriate intervention at this time.? We will monitor/initiate medications and make changes as indicated.? The patient?s likely length of stay is 3-5 days. Coding Level of Care Code Acute Code for [facility] Fwd Diagnoses Suicidal ideations R45.851 Alcohol intoxication F10.920 Complication of substance-induced condition: uncomplicated History of seizure due to alcohol withdrawal Z87.898; Z86.59 Alcohol withdrawal syndrome F10.239 Complication of substance-induced condition: with unspecified complication Opioid dependence on maintenance agonist therapy, no symptoms F11.20 Depression F32.A
[2024-11-05 18:00] LABS: Glucose Point of Care 128 mg/dL (70-110)
[2024-11-05] MEDS: LORazepam 2 mg/mL INJ 1 mL IM (18:20)
--- NOTE | 2024-11-05 19:14 | PC.NURSE ---
At approximately 1738, this nurse was alerted by patients that another nurse was needed down in the dayroom. This nurse alerted Aracely Dahl while rushing to the dayroom. RACHAEL Warren was holding a patient up against the wall. Patient was seizing. Patient was helped to the floor while this nurse ran to notify Dr. Lynch and pull 2mg IM. Rapid response was called at 1740. Patient was provided with pillow for underneath his head while laying on the floor. Patient's VS were quickly obtained: 98.4, HR 113, RR 17, BP 149/95. BG was 128. The seizure last approximately 2.5 minutes. During the episode, staff was present. Patient did not hit his head. Patient was not alert and oriented, initially. Patient's pupils were assessed by ARACELY salgado. This sql report writer administered 2mg ativan IM into patient's right deltoid muscle. Staff from the hospital, including assistant warehouse manager ARACELY Hopper were present Dr. Lynch present. Patient was wheeled to his room and aided to his bed. Patient's VS were obtained again. Patient tearful and confused. Patient able to state his name, , and year at this time. Patient unable to name current president. Shortly thereafter, staff decided to move patient to 150 so that he will be in site of the nurses' station. Patient was wheeled to his room, fall mat placed, and patient assisted to his bed. At 1902, patient alert and oriented times 4. Patient states that he doesn't remember what had occurred. Patient does not appear to be in any distress. RACHAEL Warren stated that prior to seizing, the patient was spinning around in a hughes with a look of fear on his face. Patient was looking up in the air, like something was swooping down. Briana states that she kept yelling Cameron! but patient did not respond to verbal stimuli. Dr. Lynch was aware of the situation because he was present. ARACELY [place] traffic manager was notified of rapid response via telephone at 1743.
[2024-11-05] MEDS: guaiFENesin 600 mg Tablet PO (23:47)
[2024-11-05] MEDS: trazodone 50 mg Tablet PO (23:47)
[2024-11-06] VITALS (8 sets, daily range): BP systolic 89–151; BP diastolic 59–90; PULSE 82–100; RESP 15–19; TEMP 36.6–37.1; O2SAT 93–98
[2024-11-06] MEDS: multivitamin therapeutic Tablet 1 TAB PO (08:49)
[2024-11-06] MEDS: LORazepam 2 mg Tablet PO ×2 (08:49→11:59)
[2024-11-06] MEDS: methadone 10 mg Tablet 50 MG PO (08:49)
[2024-11-06] MEDS: folic acid 1 mg Tablet PO (08:49)
[2024-11-06] MEDS: cetirizine 10 mg Tablet PO (08:49)
[2024-11-06] MEDS: thiamine 100 mg Tablet PO (08:49)
[2024-11-06] MEDS: nicotine 2 mg Gum BUCCAL ×3 (08:53→22:17)
[2024-11-06] MEDS: acetaminophen 325 mg Tablet 650 MG PO (11:58)
[2024-11-06] MEDS: nicotine 4 mg lozenge MUCOUS MEM ×2 (13:55→16:16)
--- NOTE | 2024-11-06 18:07 | P.NPUPN_ITS ---
Subjective NPU 2 Subjective: Patient presented today reporting that he is doing okay. He continues to be somewhat frustrated with the fact that he is still here but also cannot articulate a reason why it is not the correct choice given his continued physiologic instability and lack of safe discharge plan. We discussed the importance of him considering possibly Campral given that naltrexone would be problematic with his methadone. Otherwise we continue to discuss the possibility of an antidepressant as well as drug and alcohol treatment after discharge today. Mental Status Exam 2 MSE Comments: This is a well-nourished well-developed white male in hospital scrubs with poor grooming and improving eye contact looking much older than his stated age. No abnormal movements were appreciated except for moderate psychomotor agitation and tremulousness. He was mostly cooperative with exam in mild distress. Speech was decreased rate and volume. Mood described as better. His affect was congruent but slightly subdued and still tremulous. Thought process was linear and organized. Thought contact: Patient denied suicidal or homicidal ideation, there were no delusions reported or noted, patient denied auditory or visual hallucinations. Attention and concentration appeared intact and memory appeared mostly reliable but none were formally tested. Patient is alert and oriented to person, place time and situation. Insight was poor. Judgment and impulse control appears impaired. Vitals/I&O/Wt Last Vital Signs Temp 98.1 F 11/06/24 16:00 Pulse 82 11/06/24 16:00 Resp 18 11/06/24 16:00 BP 89/59 11/06/24 16:00 Pulse Ox 93 11/06/24 16:00 O2 Del Method Room Air 11/06/24 16:00 Data NPU 10/31/24 23:45 10/31/24 23:45 A&P Assessment and plan (1) Suicidal ideations: (2) Alcohol intoxication: Qualifiers: Complication of substance-induced condition: uncomplicated Qualified Code(s): F10.920 - Alcohol use, unspecified with intoxication, uncomplicated (3) History of seizure due to alcohol withdrawal: (4) Alcohol withdrawal syndrome: Qualifiers: Complication of substance-induced condition: with unspecified complication Qualified Code(s): F10.239 - Alcohol dependence with withdrawal, unspecified (5) Opioid dependence on maintenance agonist therapy, no symptoms: (6) Depression: Plan This is a 3-year-old male known through past hospitalizations with depression, anxiety, and significant addiction with opioid and alcohol dependence admitted for the first time in many years on methadone maintenance with an initial blood alcohol of 478 and a history of withdrawal seizures. 1. Review his medication and consider which ones to restart at what doses versus consider a new medication. We discussed considering acamprosate or other medication to assist with alcohol use. 2. Continue every 15 minute checks for safety. 3. Encourage individual, group and milieu therapies. 4. Encourage sober living treatment after discharge at the highest level of care to which he is willing to commit. 5. CIWA protocol with significant attention to the fact that he has a history of withdrawal seizures. 6. Appreciate hospitalist consult for the hematuria and will follow recommendations as indicated. 7. Patient on a 96-hour hold and will consider an extension given his continued withdrawal issues and poor insight regarding safety for discharge. After seizure and continued instability file for 21-day hold. PDMP PDMP Reviewed: Not Reviewed Involuntary Hold Information 2 96 Hour Hold: 96 Hour Involuntary Admission: Yes 96 Hour Hold Ending Date: 11/07/24 96 Hour Hold Ending Time: 05:58 Other Hold: Hold End Date: 11/07/24 Attestations NPU 2 Medical Necessity Statement*: Inpatient hospitalization is medically necessary and?the clinically appropriate intervention at this time.? We will monitor/initiate medications and make changes as indicated.? The patient?s likely length of stay is 3-5 days. Coding Level of Care Code Acute Code for [facility] Fwd Diagnoses Suicidal ideations R45.851 Alcohol intoxication F10.920 Complication of substance-induced condition: uncomplicated History of seizure due to alcohol withdrawal Z87.898; Z86.59 Alcohol withdrawal syndrome F10.239 Complication of substance-induced condition: with unspecified complication Opioid dependence on maintenance agonist therapy, no symptoms F11.20 Depression F32.A
[2024-11-06] MEDS: nicotine 21 mg Patch 1 PATCH TRANSDERMA (18:32)
--- NOTE | 2024-11-06 18:57 | PC.NURSE ---
NEW ORDER RECEIVED FROM DR. BARTLETT THAT PT CAN HAVE DOUBLE NICOTINE, MAY WEAR PATCH AND TAKE GUM 2 MG Q 2 HOURS.
[2024-11-06] MEDS: ibuprofen 600 mg Tablet PO (22:02)
[2024-11-07] MEDS: trazodone 50 mg Tablet PO ×2 (00:05→21:36)
[2024-11-07] MEDS: hyDROXYzine 25 mg Capsule 50 MG PO ×2 (00:05→13:11)
[2024-11-07 04:00] VITALS: BP 126/86; PULSE 92; RESP 17; TEMP 36.4; O2SAT 96
[2024-11-07 07:22] VITALS: BP 130/82; PULSE 84; RESP 18; TEMP 36.7; O2SAT 97
[2024-11-07 08:25] VITALS: RESP 18; O2SAT 97
[2024-11-07] MEDS: OLANZapine 5 mg ODT PO ×2 (08:25→21:36)
[2024-11-07] MEDS: cetirizine 10 mg Tablet PO (08:25)
[2024-11-07] MEDS: methadone 10 mg Tablet 50 MG PO (08:25)
[2024-11-07] MEDS: folic acid 1 mg Tablet PO (08:25)
[2024-11-07] MEDS: nicotine 2 mg Gum BUCCAL ×3 (08:25→21:38)
[2024-11-07] MEDS: multivitamin therapeutic Tablet 1 TAB PO (08:25)
[2024-11-07] MEDS: thiamine 100 mg Tablet PO (08:26)
[2024-11-07 12:00] VITALS: BP 126/80; PULSE 96; RESP 18; TEMP 36.6; O2SAT 94
[2024-11-07] MEDS: nicotine 21 mg Patch 1 PATCH TRANSDERMA (12:49)
[2024-11-07] MEDS: ibuprofen 600 mg Tablet PO (13:11)
[2024-11-07] MEDS: guaiFENesin 600 mg Tablet PO (13:11)
[2024-11-07 15:55] VITALS: BP 122/80; PULSE 86; RESP 18; TEMP 36.9; O2SAT 98
--- NOTE | 2024-11-07 17:50 | P.NPUPN_ITS ---
Subjective NPU 2 Subjective: Patient presented today reporting that he is not happy. He received his notice of the 21-day hold petition and is reporting that the things on the ayala lives. We went through each item one by one and he ultimately had technologies that there were no discrepancies in the paperwork. We continue to discussed the importance of him being actually well enough to discharge and not in a position that he would have another seizure. He continues to be quite ambivalent about active sober living treatment. Mental Status Exam 2 MSE Comments: This is a well-nourished well-developed white male in hospital scrubs with poor grooming and improving eye contact looking much older than his stated age. No abnormal movements were appreciated except for moderate psychomotor agitation and tremulousness. He was mostly cooperative with exam in mild distress. Speech was decreased rate and volume. Mood described as better. His affect was congruent but slightly subdued and still tremulous. Thought process was linear and organized. Thought contact: Patient denied suicidal or homicidal ideation, there were no delusions reported or noted, patient denied auditory or visual hallucinations. Attention and concentration appeared intact and memory appeared mostly reliable but none were formally tested. Patient is alert and oriented to person, place time and situation. Insight was poor. Judgment and impulse control appears impaired. Vitals/I&O/Wt Last Vital Signs Temp 98.3 F 11/07/24 20:00 Pulse 98 11/07/24 20:00 Resp 18 11/07/24 20:00 BP 159/93 11/07/24 20:00 Pulse Ox 98 11/07/24 20:00 O2 Del Method Room Air 11/07/24 20:00 Data NPU 10/31/24 23:45 10/31/24 23:45 A&P Assessment and plan (1) Suicidal ideations: (2) Alcohol intoxication: Qualifiers: Complication of substance-induced condition: uncomplicated Qualified Code(s): F10.920 - Alcohol use, unspecified with intoxication, uncomplicated (3) History of seizure due to alcohol withdrawal: (4) Alcohol withdrawal syndrome: Qualifiers: Complication of substance-induced condition: with unspecified complication Qualified Code(s): F10.239 - Alcohol dependence with withdrawal, unspecified (5) Opioid dependence on maintenance agonist therapy, no symptoms: (6) Depression: Plan This is a 3-year-old male known through past hospitalizations with depression, anxiety, and significant addiction with opioid and alcohol dependence admitted for the first time in many years on methadone maintenance with an initial blood alcohol of 478 and a history of withdrawal seizures. 1. Review his medication and consider which ones to restart at what doses versus consider a new medication. We discussed considering acamprosate or other medication to assist with alcohol use. 2. Continue every 15 minute checks for safety. 3. Encourage individual, group and milieu therapies. 4. Encourage sober living treatment after discharge at the highest level of care to which he is willing to commit. 5. CIWA protocol with significant attention to the fact that he has a history of withdrawal seizures. 6. Appreciate hospitalist consult for the hematuria and will follow recommendations as indicated. 7. Patient on a 96-hour hold and will consider an extension given his continued withdrawal issues and poor insight regarding safety for discharge. After seizure and continued instability file for 21-day hold. 21-day hold paperwork filed hearing likely on 11/11/2024 PDMP PDMP Reviewed: Not Reviewed Involuntary Hold Information 2 96 Hour Hold: 96 Hour Involuntary Admission: Yes 96 Hour Hold Ending Date: 11/07/24 96 Hour Hold Ending Time: 05:58 Other Hold: Hold End Date: 11/07/24 Attestations NPU 2 Medical Necessity Statement*: Inpatient hospitalization is medically necessary and?the clinically appropriate intervention at this time.? We will monitor/initiate medications and make changes as indicated.? The patient?s likely length of stay is 3-5 days. Coding Level of Care Code Acute Code for [facility] Fwd Diagnoses Suicidal ideations R45.851 Alcohol intoxication F10.920 Complication of substance-induced condition: uncomplicated History of seizure due to alcohol withdrawal Z87.898; Z86.59 Alcohol withdrawal syndrome F10.239 Complication of substance-induced condition: with unspecified complication Opioid dependence on maintenance agonist therapy, no symptoms F11.20 Depression F32.A
[2024-11-07] MEDS: nicotine 4 mg lozenge MUCOUS MEM (19:24)
[2024-11-07 20:00] VITALS: BP 159/93; PULSE 98; RESP 18; TEMP 36.8; O2SAT 98
[2024-11-07] MEDS: diphenhydrAMINE 50 mg Capsule PO (21:36)
--- NOTE | 2024-11-08 01:20 | PC.NURSE ---
Patient just fell asleep and refused vs, resp 17
[2024-11-08 04:00] VITALS: BP 120/74; PULSE 85; RESP 16; TEMP 37.2; O2SAT 95
[2024-11-08 07:36] VITALS: BP 125/75; PULSE 79; RESP 18; TEMP 37.2; O2SAT 95
[2024-11-08] MEDS: multivitamin therapeutic Tablet 1 TAB PO (08:31)
[2024-11-08] MEDS: folic acid 1 mg Tablet PO (08:32)
[2024-11-08] MEDS: thiamine 100 mg Tablet PO (08:32)
[2024-11-08] MEDS: methadone 10 mg Tablet 50 MG PO (08:32)
[2024-11-08] MEDS: nicotine 4 mg lozenge MUCOUS MEM ×5 (11:16→22:01)
[2024-11-08 12:00] VITALS: BP 95/48; PULSE 86; RESP 18; TEMP 36.6; O2SAT 98
--- NOTE | 2024-11-08 13:23 | P.NPUPN_ITS ---
Subjective NPU 2 Subjective: Patient presented today reporting that he is trying to manage here. We continue to have discussions about concerns of his lack of willingness to address his addiction and the impact that we will have given how significant his drinking has become. He continues to be resistant to being completely honest and transparent about his living situation which is essentially homeless but he is speaking to the fact that he has somewhat of a structure and access to electricity. He denied any side effects to medication and we continue to discuss the need for an antidepressant. Mental Status Exam 2 MSE Comments: This is a well-nourished well-developed white male in hospital scrubs with poor grooming and improving eye contact looking much older than his stated age. No abnormal movements were appreciated except for mild psychomotor agitation and decreasing tremulousness. He was mostly cooperative with exam in mild distress. Speech was decreased rate and volume. Mood described as better. His affect was congruent but slightly subdued and still tremulous. Thought process was linear and organized. Thought contact: Patient denied suicidal or homicidal ideation, there were no delusions reported or noted, patient denied auditory or visual hallucinations. Attention and concentration appeared intact and memory appeared mostly reliable but none were formally tested. Patient is alert and oriented to person, place time and situation. Insight was poor. Judgment and impulse control appears impaired. Vitals/I&O/Wt Last Vital Signs Temp 99 F 11/08/24 07:36 Pulse 79 11/08/24 07:36 Resp 18 11/08/24 07:36 BP 125/75 11/08/24 07:36 Pulse Ox 95 11/08/24 07:36 O2 Del Method Room Air 11/08/24 04:00 Data NPU 10/31/24 23:45 10/31/24 23:45 A&P Assessment and plan (1) Suicidal ideations: (2) Alcohol intoxication: Qualifiers: Complication of substance-induced condition: uncomplicated Qualified Code(s): F10.920 - Alcohol use, unspecified with intoxication, uncomplicated (3) History of seizure due to alcohol withdrawal: (4) Alcohol withdrawal syndrome: Qualifiers: Complication of substance-induced condition: with unspecified complication Qualified Code(s): F10.239 - Alcohol dependence with withdrawal, unspecified (5) Opioid dependence on maintenance agonist therapy, no symptoms: (6) Depression: Plan This is a 3-year-old male known through past hospitalizations with depression, anxiety, and significant addiction with opioid and alcohol dependence admitted for the first time in many years on methadone maintenance with an initial blood alcohol of 478 and a history of withdrawal seizures. 1. Review his medication and consider which ones to restart at what doses versus consider a new medication. We discussed considering acamprosate or other medication to assist with alcohol use. 2. Continue every 15 minute checks for safety. 3. Encourage individual, group and milieu therapies. 4. Encourage sober living treatment after discharge at the highest level of care to which he is willing to commit. 5. CIWA protocol with significant attention to the fact that he has a history of withdrawal seizures. 6. Appreciate hospitalist consult for the hematuria and will follow recommendations as indicated. 7. Patient on a 96-hour hold and will consider an extension given his continued withdrawal issues and poor insight regarding safety for discharge. After seizure and continued instability file for 21-day hold. 21-day hold paperwork filed hearing on 11/11/2024 PDMP PDMP Reviewed: Not Reviewed Involuntary Hold Information 2 96 Hour Hold: 96 Hour Involuntary Admission: Yes 96 Hour Hold Ending Date: 11/07/24 96 Hour Hold Ending Time: 05:58 Other Hold: Hold End Date: 11/07/24 Attestations NPU 2 Medical Necessity Statement*: Inpatient hospitalization is medically necessary and?the clinically appropriate intervention at this time.? We will monitor/initiate medications and make changes as indicated.? The patient?s likely length of stay is 3-5 days. Coding Level of Care Code Acute Code for [facility] Fwd Diagnoses Suicidal ideations R45.851 Alcohol intoxication F10.920 Complication of substance-induced condition: uncomplicated History of seizure due to alcohol withdrawal Z87.898; Z86.59 Alcohol withdrawal syndrome F10.239 Complication of substance-induced condition: with unspecified complication Opioid dependence on maintenance agonist therapy, no symptoms F11.20 Depression F32.A
[2024-11-08] MEDS: nicotine 2 mg Gum BUCCAL (14:41)
[2024-11-08 16:00] VITALS: BP 106/69; PULSE 98; RESP 18; TEMP 36.6; O2SAT 95
[2024-11-08] MEDS: nicotine 21 mg Patch 1 PATCH TRANSDERMA (19:30)
[2024-11-08 20:00] VITALS: BP 119/77; PULSE 81; RESP 18; TEMP 36.7; O2SAT 97
[2024-11-09] VITALS (8 sets, daily range): BP systolic 110–152; BP diastolic 75–95; PULSE 79–96; RESP 16–18; TEMP 36.5–37.1; O2SAT 93–99
[2024-11-09] MEDS: acetaminophen 325 mg Tablet 650 MG PO ×2 (00:07→19:49)
[2024-11-09] MEDS: LORazepam 2 mg Tablet PO (00:08)
[2024-11-09] MEDS: diphenhydrAMINE 50 mg Capsule PO ×2 (00:08→22:17)
[2024-11-09] MEDS: ondansetron 4 MG Tablet PO (00:09)
[2024-11-09] MEDS: OLANZapine 5 mg ODT PO ×2 (00:09→22:17)
[2024-11-09] MEDS: nicotine 2 mg Gum BUCCAL ×3 (00:10→16:35)
--- NOTE | 2024-11-09 07:52 | P.NPUPN_ITS ---
Subjective NPU 2 Subjective: Patient presented today reporting that he is doing okay but continues to focus on discharge. We continue to discussed the fact that he seems depressed as well. We discussed the risks, benefits and alternatives of considering a trial of an antidepressant and he understood and agreed to proceed as is documented in this note. We agreed that this sba underwriter will look through his chart and see what medications he has been on before. We also discussed that any problems with medications probably were impacted by his significant alcohol addiction and regular use. Mental Status Exam 2 MSE Comments: This is a well-nourished well-developed white male in hospital scrubs with poor grooming and improving eye contact looking much older than his stated age. No abnormal movements were appreciated except for mild psychomotor agitation and decreasing tremulousness. He was mostly cooperative with exam in mild distress. Speech was decreased rate and volume. Mood described as better. His affect was congruent but slightly subdued and still tremulous. Thought process was linear and organized. Thought contact: Patient denied suicidal or homicidal ideation, there were no delusions reported or noted, patient denied auditory or visual hallucinations. Attention and concentration appeared intact and memory appeared mostly reliable but none were formally tested. Patient is alert and oriented to person, place time and situation. Insight was poor. Judgment and impulse control appears impaired. Vitals/I&O/Wt Last Vital Signs Temp 97.7 F 11/09/24 04:00 Pulse 85 11/09/24 04:00 Resp 17 11/09/24 04:00 BP 152/95 11/09/24 04:00 Pulse Ox 97 11/09/24 04:00 O2 Del Method Room Air 11/08/24 04:00 Data NPU 10/31/24 23:45 10/31/24 23:45 A&P Assessment and plan (1) Suicidal ideations: (2) Alcohol intoxication: Qualifiers: Complication of substance-induced condition: uncomplicated Qualified Code(s): F10.920 - Alcohol use, unspecified with intoxication, uncomplicated (3) History of seizure due to alcohol withdrawal: (4) Alcohol withdrawal syndrome: Qualifiers: Complication of substance-induced condition: with unspecified complication Qualified Code(s): F10.239 - Alcohol dependence with withdrawal, unspecified (5) Opioid dependence on maintenance agonist therapy, no symptoms: (6) Depression: Plan This is a 49-year-old male known through past hospitalizations with depression, anxiety, and significant addiction with opioid and alcohol dependence admitted for the first time in many years on methadone maintenance with an initial blood alcohol of 478 and a history of withdrawal seizures. 1. Review his medication and consider which ones to restart at what doses versus consider a new medication. We discussed considering acamprosate or other medication to assist with alcohol use. Consider starting Prozac 20 mg p.o. daily. 2. Continue every 15 minute checks for safety. 3. Encourage individual, group and milieu therapies. 4. Encourage sober living treatment after discharge at the highest level of care to which he is willing to commit. 5. CIWA protocol with significant attention to the fact that he has a history of withdrawal seizures. 6. Appreciate hospitalist consult for the hematuria and will follow recommendations as indicated. 7. Patient on a 96-hour hold and will consider an extension given his continued withdrawal issues and poor insight regarding safety for discharge. After seizure and continued instability file for 21-day hold. 21-day hold paperwork filed hearing on 11/11/2024 PDMP PDMP Reviewed: Not Reviewed Involuntary Hold Information 2 96 Hour Hold: 96 Hour Involuntary Admission: Yes 96 Hour Hold Ending Date: 11/07/24 96 Hour Hold Ending Time: 05:58 Other Hold: Hold End Date: 11/07/24 Attestations NPU 2 Medical Necessity Statement*: Inpatient hospitalization is medically necessary and?the clinically appropriate intervention at this time.? We will monitor/initiate medications and make changes as indicated.? The patient?s likely length of stay is 3-5 days. Coding Level of Care Code Acute Code for [facility] Diagnoses Suicidal ideations R45.851 Alcohol intoxication F10.920 Complication of substance-induced condition: uncomplicated History of seizure due to alcohol withdrawal Z87.898; Z86.59 Alcohol withdrawal syndrome F10.239 Complication of substance-induced condition: with unspecified complication Opioid dependence on maintenance agonist therapy, no symptoms F11.20 Depression F32.A
[2024-11-09] MEDS: folic acid 1 mg Tablet PO (09:31)
[2024-11-09] MEDS: thiamine 100 mg Tablet PO (09:31)
[2024-11-09] MEDS: methadone 10 mg Tablet 50 MG PO (09:31)
[2024-11-09] MEDS: multivitamin therapeutic Tablet 1 TAB PO (09:31)
[2024-11-09] MEDS: nicotine 4 mg lozenge MUCOUS MEM ×3 (11:55→21:42)
[2024-11-09] MEDS: nicotine 21 mg Patch 1 PATCH TRANSDERMA (13:41)
[2024-11-09] MEDS: trazodone 50 mg Tablet PO (22:17)
[2024-11-10] VITALS (7 sets, daily range): BP systolic 101–134; BP diastolic 69–84; PULSE 80–101; RESP 16–18; TEMP 36.6–36.7; O2SAT 96–98; BMI 22.6
[2024-11-10] MEDS: cetirizine 10 mg Tablet PO ×2 (00:15→08:42)
[2024-11-10] MEDS: trazodone 50 mg Tablet PO ×2 (00:15→21:30)
[2024-11-10] MEDS: nicotine 4 mg lozenge MUCOUS MEM ×5 (00:45→23:49)
[2024-11-10] MEDS: methadone 10 mg Tablet 50 MG PO (08:37)
[2024-11-10] MEDS: thiamine 100 mg Tablet PO (08:38)
[2024-11-10] MEDS: folic acid 1 mg Tablet PO (08:38)
[2024-11-10] MEDS: multivitamin therapeutic Tablet 1 TAB PO (08:38)
[2024-11-10] MEDS: nicotine 21 mg Patch 1 PATCH TRANSDERMA (08:41)
[2024-11-10] MEDS: fluoxetine 20 mg Capsule PO (10:58)
--- NOTE | 2024-11-10 13:34 | PC.NURSE ---
Invega 234mg/1.5ml Administered invega sustena into patient's right deltoid muscle. No issues. EXP: Nov 2025 Lot: [id number]
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
[2024-11-10] MEDS: OLANZapine 5 mg ODT PO (21:30)
[2024-11-11 04:00] VITALS: BP 137/88; PULSE 108; RESP 18; TEMP 36.6; O2SAT 97
[2024-11-11 08:00] VITALS: BP 118/83; PULSE 99; RESP 17; O2SAT 98
[2024-11-11 08:41] VITALS: RESP 16; O2SAT 98
[2024-11-11] MEDS: cetirizine 10 mg Tablet PO (08:41)
[2024-11-11] MEDS: fluoxetine 20 mg Capsule PO (08:41)
[2024-11-11] MEDS: folic acid 1 mg Tablet PO (08:41)
[2024-11-11] MEDS: methadone 10 mg Tablet 50 MG PO (08:41)
[2024-11-11] MEDS: thiamine 100 mg Tablet PO (08:42)
[2024-11-11] MEDS: nicotine 21 mg Patch 1 PATCH TRANSDERMA (08:42)
[2024-11-11] MEDS: OLANZapine 5 mg ODT PO (08:42)
[2024-11-11] MEDS: multivitamin therapeutic Tablet 1 TAB PO (08:42)
[2024-11-11] MEDS: nicotine 4 mg lozenge MUCOUS MEM ×4 (08:42→22:46)
--- NOTE | 2024-11-11 09:20 | PC.NURSE ---
PT CONTINUES TO MAKE STATEMENTS ABOUT I'M DISCHARGING TODAY SO THAT BETTER GET HERE AND RELEASE ME. PT WAS EDUCATED ON 21 DAY HOLD PROCESS. PT DISMISSED WHAT THIS RN INFORMED HIM OF AND BECAME AGITATED. WAS ABLE TO BE REDIRECTED. ZYDIS 5 MG GIVEN ORDERED FOR INCREASED ANXIETY. DENIES PAIN. DENIES SI/HI AND AVH AT THIS TIME. SUPPORT VOICED.
[2024-11-11 12:54] VITALS: RESP 17
[2024-11-11] MEDS: bisacodyl 5 mg Tablet 10 MG PO (13:08)
[2024-11-11 14:00] VITALS: BP 104/69; PULSE 80; RESP 16; TEMP 36.3; O2SAT 95
--- NOTE | 2024-11-11 16:32 | P.NPUPN_ITS ---
Subjective NPU 2 Subjective: 49-year-old male with a history of opiat e dependence and alcohol dependence along with hepatitis C currently admitted after presenting with a blood alcohol level of 478. The patient had continued to report depression. He had been informed that he was not a candidate for Vivitrol given the fact that he was on methadone for opiate dependence. He had reported limited desire to consider inpatient substance abuse treatment despite adverse consequences associated with his drinking including medical issues. He was compliant on the milieu but appeared minimally engaged in treatment. Mental Status Exam 2 MSE Comments: This is a well-nourished well-developed white male in hospital scrubs with poor grooming and improving eye contact looking much older than his stated age. No abnormal movements were appreciated except for mild psychomotor agitation and no tremulousness. He was mostly cooperative with exam in mild distress. Speech was normal in rate and volume. Mood described as okay. His affect was restricted in range and mood incongruent. Thought process was linear and organized. Thought contact: Patient denied suicidal or homicidal ideation, there were no delusions reported or noted, patient denied auditory or visual hallucinations. Attention and concentration appeared intact and memory appeared mostly reliable but none were formally tested. Patient is alert and oriented to person, place,time and situation. Insight remained feeble. Judgment and impulse control appears limited. Vitals/I&O/Wt Last Vital Signs Temp 97.4 F L 11/11/24 14:00 Pulse 80 11/11/24 14:00 Resp 16 11/11/24 14:00 BP 104/69 11/11/24 14:00 Pulse Ox 95 11/11/24 14:00 O2 Del Method Room Air 11/11/24 04:00 Weight last 48 hrs Weight 73.652 kg Data NPU 10/31/24 23:45 10/31/24 23:45 A&P Assessment and plan (1) Suicidal ideations: (2) Alcohol intoxication: Qualifiers: Complication of substance-induced condition: uncomplicated Qualified Code(s): F10.920 - Alcohol use, unspecified with intoxication, uncomplicated (3) History of seizure due to alcohol withdrawal: (4) Alcohol withdrawal syndrome: Qualifiers: Complication of substance-induced condition: with unspecified complication Qualified Code(s): F10.239 - Alcohol dependence with withdrawal, unspecified (5) Opioid dependence on maintenance agonist therapy, no symptoms: (6) Depression: Plan This is a 49-year-old male known through past hospitalizations with depression, anxiety, and significant addiction with opioid and alcohol dependence admitted for the first time in many years on methadone maintenance with an initial blood alcohol of 478 and a history of withdrawal seizures. 1. Review his medication and consider which ones to restart at what doses versus consider a new medication. We discussed considering acamprosate or other medication to assist with alcohol use. Increase prozac 30mg in am. 2. Continue every 15 minute checks for safety. 3. Encourage individual, group and milieu therapies. 4. Encourage sober living treatment after discharge at the highest level of care to which he is willing to commit. 5. CIWA protocol with significant attention to the fact that he has a history of withdrawal seizures. 6. Appreciate hospitalist consult for the hematuria and will follow recommendations as indicated. 7. Patient on a 96-hour hold and will consider an extension given his continued withdrawal issues and poor insight regarding safety for discharge. After seizure and continued instability file for 21-day hold. 21-day hold paperwork filed hearing on 11/11/2024 PDMP PDMP Reviewed: Not Reviewed Involuntary Hold Information 2 96 Hour Hold: 96 Hour Involuntary Admission: Yes 96 Hour Hold Ending Date: 11/07/24 96 Hour Hold Ending Time: 05:58 Attestations NPU 2 Medical Necessity Statement*: Inpatient hospitalization is medically necessary and?the clinically appropriate intervention at this time.? We will monitor/initiate medications and make changes as indicated.? The patient?s likely length of stay is 3-5 days. Coding Level of Care Code Acute Code for [facility] Diagnoses Suicidal ideations R45.851 Alcohol intoxication F10.920 Complication of substance-induced condition: uncomplicated History of seizure due to alcohol withdrawal Z87.898; Z86.59 Alcohol withdrawal syndrome F10.239 Complication of substance-induced condition: with unspecified complication Opioid dependence on maintenance agonist therapy, no symptoms F11.20 Depression F32.A
[2024-11-11 19:53] VITALS: BP 109/74; PULSE 81; RESP 18; TEMP 36.3; O2SAT 95
[2024-11-11] MEDS: trazodone 50 mg Tablet PO (21:39)
[2024-11-11] MEDS: hyDROXYzine 25 mg Capsule 50 MG PO (21:39)
[2024-11-12] MEDS: OLANZapine 5 mg ODT PO (00:21)
[2024-11-12] MEDS: trazodone 50 mg Tablet PO (00:21)
[2024-11-12] MEDS: nicotine 4 mg lozenge MUCOUS MEM ×3 (01:06→15:15)
[2024-11-12 06:00] VITALS: BP 131/85; PULSE 89; RESP 16; TEMP 36.8; O2SAT 93
[2024-11-12 09:14] VITALS: RESP 16
[2024-11-12] MEDS: methadone 10 mg Tablet 50 MG PO (09:14)
[2024-11-12] MEDS: fluoxetine 10 mg Capsule 30 MG PO (09:15)
[2024-11-12] MEDS: folic acid 1 mg Tablet PO (09:15)
[2024-11-12] MEDS: multivitamin therapeutic Tablet 1 TAB PO (09:15)
[2024-11-12] MEDS: thiamine 100 mg Tablet PO (09:15)
[2024-11-12] MEDS: nicotine 21 mg Patch 1 PATCH TRANSDERMA (09:17)
--- NOTE | 2024-11-12 14:00 | P.NPUDS_ITS ---
Diagnoses at Discharge Discharge Diagnosis (1) Suicidal ideations: Status: Acute (2) Alcohol intoxication: Status: Acute Qualifiers: Complication of substance-induced condition: uncomplicated Qualified Code(s): F10.920 - Alcohol use, unspecified with intoxication, uncomplicated (3) History of seizure due to alcohol withdrawal: Status: Acute (4) Alcohol withdrawal syndrome: Status: Inactive Qualifiers: Complication of substance-induced condition: with unspecified complication Qualified Code(s): F10.239 - Alcohol dependence with withdrawal, unspecified (5) Opioid dependence on maintenance agonist therapy, no symptoms: Status: Acute (6) Depression: Status: Acute Reason for Visit Reason for Visit: Found in Ditch Passed out Brief History: History of Present Illness Cameron Smallwood is a 49 year old male who presented to the emergency department with the following report: Chief complaint: Altered Mental Status Stated complaint: Found in Ditch Passed out Time Seen by Provider: 10/31/24 23:08 History of Present Illness: Patient brought in by EMS after patient was found drunk passed out in a ditch. Patient is soaking wet cold and complaining of going through alcohol withdrawals and aching pain all over. Patient does admit to drinking today. Patient is alert oriented can answer all questions coherently. He was admitted to the neuropsychiatric unit for definitive treatment of those issues. He is known to [facility] through inpatient and outpatient services though most of his inpatient services were [id number] with none since then. There have been multiple emergency room and hospital visits and admissions that have been alcohol-related/drug related he presented to the emergency department after being found in a ditch and his blood alcohol was 478. They report he continued to be communicative even in those times that his numbers were high. He had altered mental status and concerns for safety including suicidal concerns. He is unknown to this medical underwriter specifically. He presented today reporting that he is doing okay. He was a limited historian as he at times nodded off during the interview. We discussed the fact that we had information on his overall story from records suggesting that he has had challenges with his drinking going way back. He acknowledges that drinking has been a problem off and on. He reports that he has had a couple of stents in rehab 1 fairly recently. He endorsed that he has had a couple DUIs. He reports that his drinking has been significant recently and denied any clear sense of why. We discussed the fact that he has had withdrawal seizures in the past and so we wanted to make sure he was acknowledging to the staff that he was feeling significant withdrawal symptoms. We discussed him being on the CIWA protocol and how that worked. We discussed his opioid addiction and the fact that he is on the methadone but he reports that ultimately he is trying to get off the methadone. We discussed having to do this with caution because this medical underwriter has never seen an individual who was not stable on 30 mg of methadone or less that was able to safely detox outside of a controlled environment like shelter. We discussed that his blood alcohol 478 was close to the number where 50% of people who get that number . He reported that he had been working for [employer] at a [employer] but then lost his job. Then he went to a place called [employer] where he was working but that he has not been working for the last couple months and during that time his drinking had escalated again. He endorses that he has dealt with some depression and suicidal ideation. We discussed considering a medication for depression prior to discharge. He endorses that he has been homeless recently. We reviewed some of the psychosocial history as best we could while he was only capable at times of yes no answers. He denies any current legal challenges. He denies any current or significant medical problems. We discussed the risks, benefits and alternatives of making sure he makes it through the withdrawal process and then introducing antidepressant and he understood and agreed to proceed as documented in this note. Hospital Course Hospital Course The patient presented with a blood alcohol level of 478. He did appear to have a withdrawal seizure during his hospital stay here. He had eventually required as needed Ativan to help with his alcohol withdrawal symptoms. He had continued to minimize the severity of his alcohol use and refused any inpatient substance abuse treatment. He was agreeable to initiation of Prozac to target depression and this medication was titrated to 40 mg daily to target his anxiety and depression. He was ultimately agreeable to outpatient substance abuse treatment despite the necessity of him needing inpatient substance abuse treatment. He a ppeared minimally invested in treatment. Additionally, there was a general medical evaluation which was also within normal limits and revealed no new acute processes.? At the time of discharge, lethality was denied and psychosis was resolving.? Mood and anxiety were well managed.? The patient endorsed a plan to avoid all drugs of abuse and follow up with the aftercare recommendations of the treatment team.? The patient was evaluated and deemed to be absent credible lethality and had achieved the maximum benefit from an inpatient hospitalization, and so was discharged. ? Involuntary Hold Information 96 Hour Hold: 96 Hour Involuntary Admission: Yes 96 Hour Hold Ending Date: 11/07/24 96 Hour Hold Ending Time: 05:58 Mental Status Exam MSE Comments: This is a well-nourished well-developed white male in hospital scrubs with poor grooming and improving eye contact looking much older than his stated age. No abnormal movements were appreciated except for mild psychomotor retardation and no tremulousness. He was mostly cooperative with exam in mild distress. Speech was normal in rate and volume. Mood described as okay. His affect was restri cted in range and mood incongruent. Thought process was linear and organized. Thought contact: Patient denied suicidal or homicidal ideation, there were no delusions reported or noted, patient denied auditory or visual hallucinations. Attention and concentration appeared intact and memory appeared mostly reliable but none were formally tested. Patient is alert and oriented to person, place,time and situation. Insight remained poor. Judgment was limited and impulse control appears limited. Discharge Data Studies Completed and Pending: Laboratory Results WBC 4.76 10^3/uL (3.2 9-11.43) 10/31/24 23:45 RBC 5.11 10^6/uL (3.8 5-5.65) 10/31/24 23:45 Hgb 18.20 g/dL (11.27 -16.99) H 10/31/24 23:45 Hct 52.3 % (37-53) 10/31/24 23:45 MCV 102.3 fl (82-101) H 10/31/24 23:45 MCH 35.6 pg (27-33) H 10/31/24 23:45 MCHC 34.8 g/dL (30-55) 10/31/24 23:45 RDW 12.9 % (12.1-15.1 ) 10/31/24 23:45 Plt Count 103 10^3/cmm (157 -399) L 10/31/24 23:45 MPV 10.1 fL (7.4-10.4 ) 10/31/24 23:45 Neut % (Auto) 54.6 % 10/31/24 23:45 Lymph % (Auto) 30.9 % 10/31/24 23:45 Meriwether % (Auto) 10.5 % 10/31/24 23:45 Eos % (Auto) 2.1 % 10/31/24 23:45 Baso % (Auto) 1.5 % 10/31/24 23:45 Neut # (Auto) 2.60 10^3/uL (1.8 -7.7) 10/31/24 23:45 Lymph # (Auto) 1.5 10^3/uL (0.8- 4.8) 10/31/24 23:45 Meriwether # (Auto) 0.5 10^3/uL (0.2- 0.9) 10/31/24 23:45 Eos # (Auto) 0.1 10^3/uL (0.0- 0.8) 10/31/24 23:45 Baso # (Auto) 0.1 10^3/uL (0.0- 0.1) 10/31/24 23:45 Nucleated RBC % (a uto) 0 % 10/31/24 23:45 Nucleated RBCs # 0.0 /100WBC 10/31/24 23:45 PT 12.60 SECONDS (12 .1-14.9) 10/31/24 23:45 INR 0.88 (0.8-1.2) 10/31/24 23:45 Sodium 141 mmol/L (136-1 45) 10/31/24 23:45 Potassium 4.4 mmol/L (3.5-5 .1) 10/31/24 23:45 Chloride 95 mmol/L (98-107 ) L 10/31/24 23:45 Carbon Dioxide 23 mmol/L (22-29) 10/31/24 23:45 Anion Gap 27.4 (5-19) H 10/31/24 23:45 BUN 16 mg/dL (6-20) 10/31/24 23:45 Creatinine 0.7 mg/dL (0.7-1. 2) 10/31/24 23:45 GFR Calculation 118.9 mL/min (90- 130) 10/31/24 23:45 Glucose 100 mg/dL (65-115 ) 10/31/24 23:45 POC Glucose 128 mg/dL (70-110 ) H 11/05/24 17:47 Calculated Osmolal ity 293 mOsm/kg (285- 295) 10/31/24 23:45 Calcium 8.4 mg/dL (8.5-10 .5) L 10/31/24 23:45 Total Bilirubin 1.1 mg/dL (0.15-1 .2) 10/31/24 23:45 AST 598 U/L (0-40) H 10/31/24 23:45 ALT 179 U/L (0-41) H 10/31/24 23:45 Alkaline Phosphata se 90 U/L (40-130) 10/31/24 23:45 Total Protein 7.9 g/dL (6.6-8.7 ) 10/31/24 23:45 Albumin 4.7 g/dL (3.5-5.2 ) 10/31/24 23:45 Globulin 3.2 g/dL (1.3-4.6 ) 10/31/24 23:45 Urine Color [place] (Yellow) A 11/03/24 11:02 Urine Appearance Clear (CLEAR) 11/03/24 11:02 Urine pH 6.0 (5-7) 11/03/24 11:02 Ur Specific Gravit y 1.025 (1.005-1.0 30) 11/03/24 11:02 Urine Protein 1+ (Negative) A 11/03/24 11:02 Urine Glucose (UA) Negative (Normal ) 11/03/24 11:02 Urine Ketones Trace (Negative) 11/03/24 11:02 Urine Blood Non-haemolysed tr ravin (Negative) 11/03/24 11:02 Urine Nitrate Negative (Negati ve) 11/03/24 11:02 Urine Bilirubin 1+ (Negative) H 11/03/24 11:02 Urine Urobilinogen 2.0 mg/dL (Negati ve) H 11/03/24 11:02 Ur Leukocyte Madie ase Trace (Negative) A 11/03/24 11:02 Urine RBC 3-5 /hpf (0-2) 11/03/24 11:02 Urine WBC 0-5 /hpf (0-5) 11/03/24 11:02 Ur Squamous Epith Cells 0-5 /hpf (0-5) 11/03/24 11:02 Amorphous Sediment Not Reportable 11/03/24 11:02 Urine Bacteria None seen /hpf (N ONE) 11/03/24 11:02 Hyaline Casts 0.40 /lpf 11/03/24 11:02 Salicylates < 0.3 mg/dL (3-10 ) L 11/01/24 02:58 Urine Opiates Scre en Negative ng/mL (N egative) 10/31/24 23:31 Acetaminophen < 5.0 ug/mL (10-3 0) L 11/01/24 02:58 Ur Barbiturates Sc reen Negative ng/mL (N egative) 10/31/24 23:31 Ur Phencyclidine S crn Negative ng/mL (N egative) 10/31/24 23:31 Ur Amphetamines Sc reen Negative ng/mL (N egative) 10/31/24 23:31 U Benzodiazepines Scrn Negative ng/mL (N egative) 10/31/24 23:31 Urine Cocaine Scre en Negative ng/mL (N egative) 10/31/24 23:31 U Marijuana (THC) Screen Positive ng/mL (N egative) H 10/31/24 23:31 Ethyl Alcohol 371 mg/dL (0-10) H* 11/01/24 02:58 Vitals: Last Vital Signs Temp 98.2 F 11/12/24 06:00 Pulse 89 11/12/24 06:00 Resp 16 11/12/24 09:14 BP 131/85 11/12/24 06:00 Pulse Ox 93 11/12/24 06:00 O2 Del Method Room Air 11/12/24 06:00 Discharge Plan Discharge Patient Disposition: Home Condition: Stable Prescriptions: New thiamine mononitrate (vit B1) [Vitamin B-1 (mononitrate)] 100 mg Tablet 100 mg PO DAILY 30 Days Qty: 30 1RF nicotine 21 mg/24 hr Patch 24 Hour 1 patch transdermal DAILY PRN (Reason: Nicotine Withdrawal) 30 Days Qty: 30 0RF folic acid 1 mg Tablet 1 mg PO DAILY 30 Days Qty: 30 1RF fluoxetine 20 mg Capsule 40 mg PO DAILY Qty: 60 1RF bisacodyl 5 mg Tablet,Delayed Release (Dr/Ec) 10 mg PO DAILY PRN (Reason: Constipation) 15 Days Qty: 30 1RF hydroxyzine pamoate 25 mg Capsule 50 mg PO Q6H PRN (Reason: Anxiety) 30 Days Qty: 60 1RF Continued methadone 10 mg Tablet 50 mg PO DAILY Rx Instructions: take 1 tablet by mouth daily (goes to [facility] to recieve dose) Discharge Orders: Discharge Order (Routine); Ordered 11/12/24 Ordered By: Van Dalal Referrals: [facility] [Other] - 11/14/24 8:00 am (Between 6:00 am to 12:00 pm. ) [facility] [Other] [facility] [Outside] - 11/14/24 12:30 pm (Inital appointment with Laura Mattson in office telehealth. ) Joe Charles MD [Physician] - 11/27/24 1:15 pm Discharge Diet: Usual diet Discharge Activity: Resume usual activity Patient Instructions: Fluoxetine (By mouth), Hydroxyzine (By mouth), Bisacodyl (By mouth), Depression (DC), Alcohol Intoxication (DC), Anxiety (DC), Suicide Prevention (DC), Opioid Safety Discharge Attestations NPU Time Spent in Discharge Care*: less than 30 min Specific Discharge Activities: Specific discharge activities: educating patient, discussing with hospice case manager/social workers/dc planners and documenting/other paperwork Coding Level of Care Code Acute Code for [facility] Fwd Diagnoses Suicidal ideations R45.851 Alcohol intoxication F10.920 Complication of substance-induced condition: uncomplicated History of seizure due to alcohol withdrawal Z87.898; Z86.59 Alcohol withdrawal syndrome F10.239 Complication of substance-induced condition: with unspecified complication Opioid dependence on maintenance agonist therapy, no symptoms F11.20 Depression F32.A
[2024-11-12 14:08] VITALS: BP 131/85; PULSE 89; RESP 16; TEMP 36.8; O2SAT 93
== END 2024-11-12 15:23 | disposition home or self-care (01) | DRG 881 ==
LOC: ER 11-01 06:42 → NP 11-01 16:31
PROVIDERS: Emergency Medicine; Admitting Provider Psychiatry & Neurology Psychiatry; Emergency Provider Emergency Medicine; Visit Provider Psychiatry & Neurology Psychiatry
DX: F32.A Depression, unspecified (principal); F10.239 Alcohol dependence with withdrawal, unspecified; F11.20 Opioid dependence, uncomplicated; R45.851 Suicidal ideations; Z59.01 Sheltered homelessness; Y90.8 Blood alcohol level of 240 mg/100 ml or more; F06.4 Anxiety disorder due to known physiological condition; E86.0 Dehydration; Z87.442 Personal history of urinary calculi; B19.20 Unspecified viral hepatitis C without hepatic coma; R91.1 Solitary pulmonary nodule
CPT/HCPCS: 36415; 36416; 80053; 80306; 80307; 81001; 82962; 85025; 85610; 90471; 90686; 94640; 94664; 96372; 96374; 97150; 97165; 99285; J1885; J2060; J7613; Q0162; Q0163

== ENCOUNTER 2024-12-07 03:10 | Inpatient (IN) | payer MEDICAID, SELFPAY ==
[2024-12-07] VITALS (39 sets, daily range): BP systolic 124–175; BP diastolic 84–107; PULSE 72–119; RESP 10–27; TEMP 36.3–37.1; O2SAT 79–98; BMI 23.7
--- NOTE | 2024-12-07 03:49 | W.ED.ALCOHOL ---
Documented by User: Jeevan Thomas DO 12/07/24 03:51 HPI - Alcohol General: Chief Complaint: Alcohol Stated Complaint: withdraw,seizure Time Seen by Provider: 12/07/24 03:34 History of Present Illness: Patient presents to the ER via [place] with his department with complaints of alcohol withdrawal. Patient states he has been in skilled nursing and has not had alcohol for 24 hours and he thinks he going through withdrawals. It is of note that after the patient checked into the ER he went outside to smoke while he was waiting and when he come back and he said he was short of breath having an asthma attack and asked for breathing treatment. Patient denies suicidal or homicidal ideation. Last drink: Hours (ago) (24) Chronic alcohol use: Yes Previous visits for alcohol intoxication: Yes Recent trauma: No Related Data Home Medications ?Medication ?Instructions ?Recorded ?Confirmed methadone 10 mg tablet 50 mg PO DAILY 11/01/24 12/07/24 Previous Rx's ?Medication ?Instructions ?Recorded bisacodyl 5 mg tablet,delayed 10 mg (2 x 5 mg) PO DAILY PRN 11/12/24 release Constipation 15 days #30 tabs fluoxetine 20 mg capsule 40 mg (2 x 20 mg) PO DAILY #60 caps 11/12/24 folic acid 1 mg tablet 1 mg PO DAILY 30 days #30 tabs 11/12/24 hydroxyzine pamoate 25 mg capsule 50 mg (2 x 25 mg) PO Q6H PRN 11/12/24 Anxiety 30 days #60 caps nicotine 21 mg/24 hr daily 1 patch transdermal DAILY PRN 11/12/24 transdermal patch Nicotine Withdrawal 30 days #30 ea thiamine mononitrate (vit B1) 100 100 mg PO DAILY 30 days #30 tabs 11/12/24 mg tablet (Vitamin B-1 (mononitrate)) Allergies Allergy/AdvReac Type Severity Reaction Status Date / Time tetanus immune globulin Allergy Mild ALGY-Anaphy Verified 09/19/24 18:53 laxis azithromycin Allergy ADR-Gastrointestinal Verified 09/19/24 18:53 Upset Tetanus Vaccines and Toxoid Allergy Unknown Verified 09/19/24 18:53 Review of Systems General: Reports: 10 or more systems reviewed and unremarkable except in HPI and below PFSH ED PFSH: Medical History (Updated 12/07/24 @ 16:22 by Ruddy Quach DO) Case management patient History of kidney stones Liver disease Pulmonary nodule History of seizure due to alcohol withdrawal Suicidal ideations COPD (chronic obstructive pulmonary disease) Social History Smoking and tobacco/nicotine status: heavy tobacco/nicotine user (no) Alcohol intake: current Physical Exam Const: COMMON NORMALS: no acute distress, average body habitus, patient oriented x3, no limitations, healthy appearing, alert and well nourished HENMT: COMMON NORMALS: normocephalic, atraumatic, hearing grossly normal bilaterally, external ears normal, Normal external nose present, moist oral mucous membranes and oropharynx normal HEAD & SCALP: normocephalic and atraumatic NOSE: Normal external nose present EXTERNAL EAR: Yes external ears normal Neck/C-Spine: COMMON NORMALS: no JVD Chest: COMMONS NORMALS: normal inspection of the chest and normal palpation of entire chest wall Resp: COMMON NORMALS: normal respiratory effort, No retractions, No use of accessory muscles and clear to auscultation bilaterally AUSCULTATION: clear to auscultation bilaterally Cardio: COMMON NORMALS: no JVD, regular rate, regular rhythm, S1 normal heart sound present, S2 normal heart sound present, No gallops present (Cardio), No clicks present (Cardio), No murmurs present (Cardio) and No rub (Cardio) RATE: regular rate RHYTHM: regular rhythm HEART SOUNDS: S1 normal heart sound present and S2 normal heart sound present GI: COMMON NORMALS: Normal to inspection, nondistended, normoactive bowel sounds present, Soft to palpation, non-tender, No hepatosplenomegaly present and no masses PALPATION: Yes Soft to palpation and Yes No hepatosplenomegaly present Neuro: COMMON NORMALS: patient oriented x3 SENSORIUM/ORIENTATION: Yes alert Course Vital Signs: Vital signs: Vital Signs Temperature 97.3 F L 12/07/24 07:00 Pulse Rate 82 12/07/24 13:27 Respiratory Rate 17 12/07/24 13:27 Blood Pressure 161/97 12/07/24 13:00 Pulse Oximetry 94 12/07/24 13:27 Oxygen Delivery Me thod Room Air 12/07/24 13:27 MDM - Alcohol Medical Records I reviewed the patient's medical records. Lab Data I reviewed the patient's lab results. 12/07/24 05:33 12/07/24 05:33 Laboratory Results WBC 5.60 10^3/uL (3.29-11.43) 12/07/24 05:33 RBC 4.24 10^6/uL (3.85-5.65) 12/07/24 05:33 Hgb 14.80 g/dL (11.27-16.99) 12/07/24 05:33 Hct 43.6 % (37-53) 12/07/24 05:33 MCV 102.8 fl (82-101) H 12/07/24 05:33 MCH 34.9 pg (27-33) H 12/07/24 05:33 MCHC 33.9 g/dL (30-55) 12/07/24 05:33 RDW 12.0 % (12.1-15.1) L 12/07/24 05:33 Plt Count 93 10^3/cmm (157-399) L 12/07/24 05:33 MPV 9.4 fL (7.4-10.4) 12/07/24 05:33 Neut % (Auto) 67.4 % 12/07/24 05:33 Lymph % (Auto) 20.7 % 12/07/24 05:33 Charl[place] % (Auto) 10.4 % 12/07/24 05:33 Eos % (Auto) 0.2 % 12/07/24 05:33 Baso % (Auto) 1.1 % 12/07/24 05:33 Neut # (Auto) 3.78 10^3/uL (1.8-7.7) 12/07/24 05:33 Lymph # (Auto) 1.2 10^3/uL (0.8-4.8) 12/07/24 05:33 Charlton # (Auto) 0.6 10^3/uL (0.2-0.9) 12/07/24 05:33 Eos # (Auto) 0.0 10^3/uL (0.0-0.8) 12/07/24 05:33 Baso # (Auto) 0.1 10^3/uL (0.0-0.1) 12/07/24 05:33 Nucleated RBC % (auto) 0 % 12/07/24 05:33 Nucleated RBCs # 0.0 /100WBC 12/07/24 05:33 PT 13.60 SECONDS (12.1-14.9) 12/07/24 05:33 INR 0.97 (0.8-1.2) 12/07/24 05:33 Sodium 136 mmol/L (136-145) 12/07/24 05:33 Potassium 4.0 mmol/L (3.5-5.1) 12/07/24 05:33 Chloride 98 mmol/L (98-107) 12/07/24 05:33 Carbon Dioxide 24 mmol/L (22-29) 12/07/24 05:33 Anion Gap 18.0 (5-19) 12/07/24 05:33 BUN 8 mg/dL (6-20) 12/07/24 05:33 Creatinine 0.5 mg/dL (0.7-1.2) L 12/07/24 05:33 GFR Calculation 175.3 mL/min (90-130) H 12/07/24 05:33 Glucose 99 mg/dL (65-115) 12/07/24 05:33 Estimat Average Glucose 100 12/07/24 05:33 Hemoglobin A1c 5.1 % (4.0-6.0) 12/07/24 05:33 Calculated Osmolality 280 mOsm/kg (285-295) L 12/07/24 05:33 Calcium 8.7 mg/dL (8.5-10.5) 12/07/24 05:33 Total Bilirubin 1.1 mg/dL (0.15-1.2) 12/07/24 05:33 AST 68 U/L (0-40) H 12/07/24 05:33 ALT 44 U/L (0-41) H 12/07/24 05:33 Alkaline Phosphatase 64 U/L (40-130) 12/07/24 05:33 Ammonia 48 umol/L (16-60) 12/07/24 05:33 C-Reactive Protein 3.0 mg/L (0.0-4.9) 12/07/24 05:33 Total Protein 6.7 g/dL (6.6-8.7) 12/07/24 05:33 Albumin 4.0 g/dL (3.5-5.2) 12/07/24 05:33 Globulin 2.7 g/dL (1.3-4.6) 12/07/24 05:33 Triglycerides 74 mg/dL (0-150) 12/07/24 05:33 Cholesterol 218 mg/dL (0-200) H 12/07/24 05:33 LDL Cholesterol, Calc 135 mg/dL (50-129) H 12/07/24 05:33 HDL Cholesterol 68 mg/dL (60-100) 12/07/24 05:33 LDL/HDL Ratio 1.99 RATIO (0.00-3.22) 12/07/24 05:33 Cholesterol/HDL Ratio 3.21 mg/dL (1.0-5.00) 12/07/24 05:33 Procalcitonin 0.08 ng/mL (0-0.5) 12/07/24 05:33 TSH 0.81 uIU/mL (0.27-4.20) 12/07/24 05:33 Ethyl Alcohol < 10 mg/dL (0-10) 12/07/24 03:50 Hepatitis A IgM Ab Non-reactive (Nonreactive) 12/07/24 05:33 Hep Bs Antigen Non-reactive (Nonreactive) 12/07/24 05:33 Hep B Core IgM Ab Non-reactive (Nonreactive) 12/07/24 05:33 Hepatitis C Antibody Reactive (Nonreactive) H 12/07/24 05:33 HIV 1&2 Ab & HIV 1 Ag Non-reactive (Non-Reactiv) 12/07/24 05:33 HIV 1&2 Antibody Non-reactive (Non-Reactiv) 12/07/24 05:33 No radiology studies performed this visit Discharge Plan Discharge Patient Disposition: Placed in Observation Admit Provider: Elder Choi Clinical Impression: Alcohol withdrawal syndrome, Alcohol withdrawal delirium, History of seizure due to alcohol withdrawal Sign Out Sign Out Data: Patient Sign Out occurred on 12/07/24 at 05:24. Patient's care was discussed, and care was transferred from Jeevan Thomas DO to Ruddy Quach DO. Coding Level of Care Code ED Health Services Administrator for Chg Fwd Documented by User: Ruddy Quach DO 12/07/24 16:22 HPI - Alcohol General: Chief Complaint: Alcohol Stated Complaint: withdraw,seizure Time Seen by Provider: 12/07/24 03:34 Related Data Home Medications ?Medication ?Instructions ?Recorded ?Confirmed methadone 10 mg tablet 50 mg PO DAILY 11/01/24 12/07/24 Previous Rx's ?Medication ?Instructions ?Recorded bisacodyl 5 mg tablet,delayed 10 mg (2 x 5 mg) PO DAILY PRN 11/12/24 release Constipation 15 days #30 tabs fluoxetine 20 mg capsule 40 mg (2 x 20 mg) PO DAILY #60 caps 11/12/24 folic acid 1 mg tablet 1 mg PO DAILY 30 days #30 tabs 11/12/24 hydroxyzine pamoate 25 mg capsule 50 mg (2 x 25 mg) PO Q6H PRN 11/12/24 Anxiety 30 days #60 caps nicotine 21 mg/24 hr daily 1 patch transdermal DAILY PRN 11/12/24 transdermal patch Nicotine Withdrawal 30 days #30 ea thiamine mononitrate (vit B1) 100 100 mg PO DAILY 30 days #30 tabs 11/12/24 mg tablet (Vitamin B-1 (mononitrate)) Allergies Allergy/AdvReac Type Severity Reaction Status Date / Time tetanus immune globulin Allergy Mild ALGY-Anaphy Verified 09/19/24 18:53 laxis azithromycin Allergy ADR-Gastrointestinal Verified 09/19/24 18:53 Upset Tetanus Vaccines and Toxoid Allergy Unknown Verified 09/19/24 18:53 [facility] ED PFSH: Medical History (Updated 12/07/24 @ 16:22 by Ruddy Quach DO) Case management patient History of kidney stones Liver disease Pulmonary nodule History of seizure due to alcohol withdrawal Suicidal ideations COPD (chronic obstructive pulmonary disease) Social History Smoking and tobacco/nicotine status: heavy tobacco/nicotine user (no) Alcohol intake: current Course Vital Signs: Vital signs: Vital Signs Temperature 97.3 F L 12/07/24 07:00 Pulse Rate 82 12/07/24 13:27 Respiratory Rate 17 12/07/24 13:27 Blood Pressure 161/97 12/07/24 13:00 Pulse Oximetry 94 12/07/24 13:27 Oxygen Delivery Me thod Room Air 12/07/24 13:27 MDM - Alcohol Medical Decision Making Assumed care at change of shift. Patient has shakes had a CIWA score of 14. We observed him for a while given Ativan however that Ativan began to wear off he began having significant shakes again he became more tachycardic and hypertensive. He previously has had seizures related to withdrawal after his last discharge had gone back to drinking 1/5 of whiskey a day. He is now nearly 48 hours from his last drink and is having significant withdrawal symptoms. Will admit for alcohol withdrawal with history of seizures in the past. Discussed with hospitalist orders written Lab Data 12/07/24 05:33 12/07/24 05:33 Laboratory Results WBC 5.60 10^3/uL (3.29-11.43) 12/07/24 05:33 RBC 4.24 10^6/uL (3.85-5.65) 12/07/24 05:33 Hgb 14.80 g/dL (11.27-16.99) 12/07/24 05:33 Hct 43.6 % (37-53) 12/07/24 05:33 MCV 102.8 fl (82-101) H 12/07/24 05:33 MCH 34.9 pg (27-33) H 12/07/24 05:33 MCHC 33.9 g/dL (30-55) 12/07/24 05:33 RDW 12.0 % (12.1-15.1) L 12/07/24 05:33 Plt Count 93 10^3/cmm (157-399) L 12/07/24 05:33 MPV 9.4 fL (7.4-10.4) 12/07/24 05:33 Neut % (Auto) 67.4 % 12/07/24 05:33 Lymph % (Auto) 20.7 % 12/07/24 05:33 Charlton % (Auto) 10.4 % 12/07/24 05:33 Eos % (Auto) 0.2 % 12/07/24 05:33 Baso % (Auto) 1.1 % 12/07/24 05:33 Neut # (Auto) 3.78 10^3/uL (1.8-7.7) 12/07/24 05:33 Lymph # (Auto) 1.2 10^3/uL (0.8-4.8) 12/07/24 05:33 [place] # (Auto) 0.6 10^3/uL (0.2-0.9) 12/07/24 05:33 Eos # (Auto) 0.0 10^3/uL (0.0-0.8) 12/07/24 05:33 Baso # (Auto) 0.1 10^3/uL (0.0-0.1) 12/07/24 05:33 Nucleated RBC % (auto) 0 % 12/07/24 05:33 Nucleated RBCs # 0.0 /100WBC 12/07/24 05:33 PT 13.60 SECONDS (12.1-14.9) 12/07/24 05:33 INR 0.97 (0.8-1.2) 12/07/24 05:33 Sodium 136 mmol/L (136-145) 12/07/24 05:33 Potassium 4.0 mmol/L (3.5-5.1) 12/07/24 05:33 Chloride 98 mmol/L (98-107) 12/07/24 05:33 Carbon Dioxide 24 mmol/L (22-29) 12/07/24 05:33 Anion Gap 18.0 (5-19) 12/07/24 05:33 BUN 8 mg/dL (6-20) 12/07/24 05:33 Creatinine 0.5 mg/dL (0.7-1.2) L 12/07/24 05:33 GFR Calculation 175.3 mL/min (90-130) H 12/07/24 05:33 Glucose 99 mg/dL (65-115) 12/07/24 05:33 Estimat Average Glucose 100 12/07/24 05:33 Hemoglobin A1c 5.1 % (4.0-6.0) 12/07/24 05:33 Calculated Osmolality 280 mOsm/kg (285-295) L 12/07/24 05:33 Calcium 8.7 mg/dL (8.5-10.5) 12/07/24 05:33 Total Bilirubin 1.1 mg/dL (0.15-1.2) 12/07/24 05:33 AST 68 U/L (0-40) H 12/07/24 05:33 ALT 44 U/L (0-41) H 12/07/24 05:33 Alkaline Phosphatase 64 U/L (40-130) 12/07/24 05:33 Ammonia 48 umol/L (16-60) 12/07/24 05:33 C-Reactive Protein 3.0 mg/L (0.0-4.9) 12/07/24 05:33 Total Protein 6.7 g/dL (6.6-8.7) 12/07/24 05:33 Albumin 4.0 g/dL (3.5-5.2) 12/07/24 05:33 Globulin 2.7 g/dL (1.3-4.6) 12/07/24 05:33 Triglycerides 74 mg/dL (0-150) 12/07/24 05:33 Cholesterol 218 mg/dL (0-200) H 12/07/24 05:33 LDL Cholesterol, Calc 135 mg/dL (50-129) H 12/07/24 05:33 HDL Cholesterol 68 mg/dL (60-100) 12/07/24 05:33 LDL/HDL Ratio 1.99 RATIO (0.00-3.22) 12/07/24 05:33 Cholesterol/HDL Ratio 3.21 mg/dL (1.0-5.00) 12/07/24 05:33 Procalcitonin 0.08 ng/mL (0-0.5) 12/07/24 05:33 TSH 0.81 uIU/mL (0.27-4.20) 12/07/24 05:33 Ethyl Alcohol < 10 mg/dL (0-10) 12/07/24 03:50 Hepatitis A IgM Ab Non-reactive (Nonreactive) 12/07/24 05:33 Hep Bs Antigen Non-reactive (Nonreactive) 12/07/24 05:33 Hep B Core IgM Ab Non-reactive (Nonreactive) 12/07/24 05:33 Hepatitis C Antibody Reactive (Nonreactive) H 12/07/24 05:33 HIV 1&2 Ab & HIV 1 Ag Non-reactive (Non-Reactiv) 12/07/24 05:33 HIV 1&2 Antibody Non-reactive (Non-Reactiv) 12/07/24 05:33 Discharge Plan Discharge Patient Disposition: Placed in Observation Admit Provider: Elder Choi Clinical Impression: Alcohol withdrawal syndrome, Alcohol withdrawal delirium, History of seizure due to alcohol withdrawal Sign Out Sign Out Data: Patient Sign Out occurred on 12/07/24 at 05:24. Patient's care was discussed, and care was transferred from Jeevan Thomas DO to Ruddy Quach DO. Coding Level of Care Code ED Health Services Administrator for Santy Villanueva
[2024-12-07 04:24] LABS: Alcohol Level < 10 mg/dL (0-10)
[2024-12-07] MEDS: LORazepam 2 mg/mL INJ 1 mL IM (04:34)
[2024-12-07] MEDS: folic acid 1 mg Tablet PO ×2 (04:36→10:09)
[2024-12-07] MEDS: thiamine 100 mg/mL 2mL SDV IM (04:37)
[2024-12-07 05:41] LABS: Basophils # 0.1 10^3/uL (0.0-0.1); Basophils % 1.1 %; Eosinophils % 0.2 %; Hematocrit 43.6 % (37-53); Lymphocytes # 1.2 10^3/uL (0.8-4.8); Lymphocytes % 20.7 %; Mean Corpuscular HGB Conc 33.9 g/dL (30-55); Mean Corpuscular Hemoglobin 34.9 pg (27-33); Mean Corpuscular Volume 102.8 fl (82-101); Mean Platelet Volume 9.4 fL (7.4-10.4); Monocytes # 0.6 10^3/uL (0.2-0.9); Monocytes % 10.4 %; Neutrophils # 3.78 10^3/uL (1.8-7.7); Neutrophils % 67.4 %; Nucleated Red Blood Cells % 0 %; Platelet Count 93 10^3/cmm (157-399); Red Blood Count 4.24 10^6/uL (3.85-5.65)
[2024-12-07 05:56] LABS: INR 0.97 (0.8-1.2)
[2024-12-07 06:04] LABS: Alanine Aminotransferase 44 U/L (0-41); Alkaline Phosphatase 64 U/L (40-130); Aspartate Amino Transferase 68 U/L (0-40); Blood Urea Nitrogen 8 mg/dL (6-20); Calcium 8.7 mg/dL (8.5-10.5); Carbon Dioxide 24 mmol/L (22-29); Chloride 98 mmol/L (98-107); Creatinine Clr Calc Pharmacy 187.9492; Globulin 2.7 g/dL (1.3-4.6); Glomerular Filtration Rate 175.3 mL/min (90-130); Glucose 99 mg/dL (65-115); Osmolality Calculated 280 mOsm/kg (285-295); Sodium 136 mmol/L (136-145); Total Bilirubin 1.1 mg/dL (0.15-1.2); Total Protein 6.7 g/dL (6.6-8.7)
[2024-12-07 06:05] LABS: Ammonia 48 umol/L (16-60)
--- NOTE | 2024-12-07 07:56 | PC.PHAR ---
[facility] states pt was given last on Monday12/01/24-pt has not been to clinic all week.
[2024-12-07] MEDS: LORazepam 2 mg Tablet PO ×3 (10:09→18:26)
[2024-12-07] MEDS: multivitamin therapeutic Tablet 1 TAB PO (10:09)
[2024-12-07] MEDS: thiamine 100 mg Tablet PO (10:09)
--- NOTE | 2024-12-07 10:22 | PC.NURSE ---
pt admitted from er with withdrawl reports has been in snf for 21 days then released and last drink was 30 hours ago started having episodes and police brought him in this am about 0300
[2024-12-07] MEDS: methadone 10 mg Tablet 50 MG PO (10:56)
[2024-12-07] MEDS: pantoprazole 40 mg SDV IVP (10:57)
[2024-12-07] MEDS: folic acid 1 MG, multivitamin inj 10 ML, thiamine 100 MG in sodium chloride 0.9% 1,000 ML 252.8 MG IV (10:58)
[2024-12-07 11:07] LABS: Procalcitonin 0.08 ng/mL (0-0.5)
[2024-12-07 11:32] LABS: Estmated Average Glucose 100; Hemoglobin A1C 5.1 % (4.0-6.0)
[2024-12-07 11:34] LABS: Lactic Sepsis W/Reflex 1.4 mmol/L (0.5-2.2)
[2024-12-07 11:40] LABS: Chol HDL Ratio 3.21 mg/dL (1.0-5.00); Cholesterol 218 mg/dL (0-200); HDL Cholesterol 68 mg/dL (60-100); LDL Cholesterol Calculated 135 mg/dL (50-129); LDL HDL Ratio 1.99 RATIO (0.00-3.22); Thyroid Stimulating Hormone 0.81 uIU/mL (0.27-4.20); Triglycerides 74 mg/dL (0-150)
[2024-12-07 12:46] LABS: Bilirubin Urine Negative (Negative); Blood Urine Non-haemolysed trace (Negative); Glucose Urine UA Negative (Normal); Ketones Urine Negative (Negative); Leukocyte Esterase Urine Negative (Negative); Nitrate Urine Negative (Negative); Protein Urine 1+ (Negative); Specific Gravity, Urine 1.012 (1.005-1.030); Urine Appearance Clear (CLEAR); Urine Color Yellow (Yellow); pH Urine 8.5 (5-7)
[2024-12-07 12:51] LABS: Add Urine Microscopic? YES; Bacteria Urine None Seen /hpf; Hyaline Casts Urine 4.52 /lpf; Squamous Epithelial Cell Urine 0-5 /hpf (0-5); WBC Urine 0-5 /hpf (0-5)
--- NOTE | 2024-12-07 13:06 | USR_ITS ---
PROCEDURE INFORMATION: Exam: US Abdomen, Limited; Right Upper Quadrant Exam date and time: 12/07/2024 5:41 PM Age: 49 years old Clinical indication: Condition or disease; Liver condition; Cirrhosis; Additional info: Liver cirhosis, nurse to keep npo and will scan this evening. CR TECHNIQUE: Imaging protocol: Real time ultrasound of the abdomen with image documentation. Limited exam focused on the right upper quadrant. COMPARISON: US gall bladder [id number] 03/28/2018 6:15 AM FINDINGS: Liver: Visualized hepatic parenchyma is echogenic. The liver contour is grossly smooth. Gallbladder: No evidence of cholelithiasis. No significant wall thickening or edema to suggest cholecystitis.The wall and floor tiler reports a negative sonographic Beatty's sign. Biliary ducts: The CBD is nondilated, measuring 5-6 mm. No sonographic evidence of intraductal stone. Pancreas: The pancreas is mostly obscured bowel gas. Visualized portions are grossly unremarkable. Right kidney: The right kidney is normal in echotexture and measures 9.2 cm in length. No evidence of hydronephrosis. US/US liver [id number] IMPRESSION: 1. No cholelithiasis or sonographic evidence of acute cholecystitis.
--- NOTE | 2024-12-07 13:07 | P.HP_ITS ---
Providers/Chief Complaint 2 Admitting Physician: Elder Choi MD Chief Complaint: withdraw,seizure from Alcohol History of Present Illness Cameron Smallwood is a 49 year old male with a past medical history of alcohol use disorder with abuse, untreated hepatitis C, opiate disorder on methadone, tobacco use, COPD, who presents [facility] due to concerns for alcohol withdrawal. Currently patient is alert oriented x 3, following all commands does complain of nausea, tachycardia, tremors denies hearing or seeing things are not there, but does report anxiety, denies any suicidal ideation, no homicidal ideation, he reports he was recently incarcerated, he has not had alcohol in 24 hours but drinks daily, no hemoptysis, no blood or black stools, currently he tells me that he is living in a friend's couch. He does report that he had a alcohol withdrawal seizure, and has a history of alcohol withdrawal when he was hospitalized in November Review of Systems 2 Const: Reports: fatigue and malaise; Denies: fever(s) or chills Card: Denies: chest pain Resp: Denies: dyspnea GI: Reports: nausea; Denies: abdominal pain, vomiting or coffee ground emesis : Denies: flank pain Neuro: Denies: headache(s) Medications/Allergies Home Medications ?Medication ?Instructions ?Recorded ?Confirmed ?Last Taken ?Type methadone 10 mg tablet 50 mg PO DAILY 11/01/24/05/2610/27/24 History bisacodyl 5 mg tablet,delayed 10 mg (2 x 5 mg) PO MADELYN Y PRN 11/12/24 12/07/24 Unknown Rx release Constipation 15 days #30 tab s fluoxetine 20 mg capsule 40 mg (2 x 20 mg) PO DAILY # 60 caps 11/12/24 12/07/24 Unknown Rx folic acid 1 mg tablet 1 mg PO DAILY 30 days #30 ta bs 11/12/24 12/07/24 Unknown Rx hydroxyzine pamoate 25 mg capsule 50 mg (2 x 25 mg) PO Q6H PRN 11/12/24 12/07/24 Unknown Rx Anxiety 30 days #60 caps nicotine 21 mg/24 hr daily 1 patch transdermal DAILY P RN 11/12/24 12/07/24 Unknown Rx transdermal patch Nicotine Withdrawal 30 days #30 ea thiamine mononitrate (vit B1) 100 100 mg PO DAILY 30 d ays #30 tabs 11/12/24 12/07/24 Unknown Rx mg tablet (Vitamin B-1 (mononitrate)) Allergies Allergy/AdvReac Type Severity Reaction Status Date / Time tetanus immune globulin Allergy Mild ALGY-Anaphy Verified 09/19/24 18:53 laxis azithromycin Allergy ADR-Gastrointestinal Verified 09/19/24 18:53 Upset Tetanus Vaccines and Toxoid Allergy Unknown Verified 09/19/24 18:53 PFSH Acute 2 PFSH: Medical History Case management patient History of kidney stones Liver disease Pulmonary nodule History of seizure due to alcohol withdrawal Suicidal ideations COPD (chronic obstructive pulmonary disease) Social History Smoking and tobacco/nicotine status: heavy tobacco/nicotine user (no) Alcohol intake: current Vitals/I&O/Wt Last Vital Signs Temp 97.3 F L 12/07/24 07:00 Pulse 84 12/07/24 11:00 Resp 13 12/07/24 11:00 BP 165/93 12/07/24 11:00 Pulse Ox 94 12/07/24 11:00 O2 Del Method Room Air 12/07/24 10:00 12/06/24 12/07/24 12/07/24 22:59 06:59 14:59 Intake Total 0 / 0 Balance 0 / 0 Weight last 48 hrs Weight 77.111 kg Weight 77.111 kg Physical Exam 2 Const: COMMON NORMALS: no acute distress and patient oriented x3 HENMT: COMMON NORMALS: normocephalic HEAD & SCALP: normocephalic Neck/C-Spine: COMMON NORMALS: no JVD Resp: COMMON NORMALS: normal respiratory effort, No retractions, No use of accessory muscles and clear to auscultation bilaterally AUSCULTATION: clear to auscultation bilaterally Cardio: COMMON NORMALS: no JVD, regular rate, regular rhythm, S1 normal heart sound present and S2 normal heart sound present RATE: regular rate RHYTHM: regular rhythm HEART SOUNDS: S1 normal heart sound present and S2 normal heart sound present GI: COMMON NORMALS: Normal to inspection, nondistended, normoactive bowel sounds present, Soft to palpation and non-tender Extremity: COMMON NORMALS: no calf tenderness and no pedal edema Neuro: COMMON NORMALS: patient oriented x3, CN's II-XII intact bilaterally and moves all extremities Psych: COMMON NORMALS: mental status grossly normal Data 12/07/24 05:33 12/07/24 05:33 A&P Assessment and plan (1) Alcohol withdrawal syndrome: Qualifiers: Complication of substance-induced condition: with unspecified complication Qualified Code(s): F10.239 - Alcohol dependence with withdrawal, unspecified Plan Alcohol withdrawal -With reported history of alcohol withdrawal seizure -[facility] protocol -Will place on scheduled Librium -Seizure precautions -Neurochecks -IV fluids -Banana bag -Liver ultrasound -Opiate disorder, continue home methadone PDMP PDMP Reviewed: Last Reviewed 12/07/24 13:12 by Elder Choi MD Attestations 2 Medical Necessity Statement*: Patient requires hospitalization for alcohol withdrawal, inpatient, greater than 2 midnights Diagnoses Alcohol withdrawal syndrome F10.239 Complication of substance-induced condition: with unspecified complication
[2024-12-07 13:41] LABS: HIV 1 & 2 Antibody Non-Reactive (Non-Reactiv); HIV 1 & 2 Antigen Non-Reactive (Non-Reactiv)
[2024-12-07 14:04] LABS: Hepatitis A Antibody IgM Non-Reactive (Nonreactive); Hepatitis B Core IgM Non-Reactive (Nonreactive); Hepatitis B Surface Antigen Non-Reactive (Nonreactive)
[2024-12-07] MEDS: chlordiazePOXIDE 25 mg Capsule 50 MG PO ×2 (14:22→20:24)
[2024-12-07 14:42] LABS: Hepatitis C Virus Antibody Reactive (Nonreactive)
--- NOTE | 2024-12-07 14:57 | PC.NURSE ---
pt restless agitated wanting solid food and may have to leave ama to feed his cats,, up freq in room ect doctor notified ,sister did call and pt will stay if get solid food
[2024-12-07] MEDS: heparin 5,000 unit/mL INJ 1 mL 5000 UNIT SUBCUT (17:32)
[2024-12-08] VITALS (13 sets, daily range): BP systolic 137–170; BP diastolic 90–114; PULSE 76–92; RESP 13–22; TEMP 36.1–36.7; O2SAT 89–96; BMI 23.7
[2024-12-08] MEDS: chlordiazePOXIDE 25 mg Capsule 50 MG PO ×2 (03:24→08:06)
--- NOTE | 2024-12-08 05:31 | PC.NURSE ---
Refusing Meds/Labs at this time: Pt wants to rest and is not agreeable to medications and lab draws at this time. Lab is aware and states they will come back at 0730.
[2024-12-08] MEDS: folic acid 1 mg Tablet PO (08:06)
[2024-12-08] MEDS: methadone 10 mg Tablet 50 MG PO (08:06)
[2024-12-08] MEDS: thiamine 100 mg Tablet PO (08:06)
[2024-12-08] MEDS: fluoxetine 20 mg Capsule 40 MG PO (08:06)
[2024-12-08] MEDS: multivitamin therapeutic Tablet 1 TAB PO (08:07)
[2024-12-08 09:13] LABS: Basophils # 0.1 10^3/uL (0.0-0.1); Basophils % 1.2 %; Eosinophils # 0.2 10^3/uL (0.0-0.8); Eosinophils % 3.3 %; Lymphocytes # 2.3 10^3/uL (0.8-4.8); Lymphocytes % 47.7 %; Mean Corpuscular HGB Conc 33.7 g/dL (30-55); Mean Corpuscular Hemoglobin 34.6 pg (27-33); Mean Corpuscular Volume 102.7 fl (82-101); Mean Platelet Volume 9.6 fL (7.4-10.4); Monocytes # 0.5 10^3/uL (0.2-0.9); Monocytes % 9.7 %; Neutrophils # 1.83 10^3/uL (1.8-7.7); Neutrophils % 37.9 %; Nucleated Red Blood Cells % 0 %; Platelet Count 90 10^3/cmm (157-399); Red Blood Count 4.48 10^6/uL (3.85-5.65); Red Cell Distribution Width 11.9 % (12.1-15.1); White Blood Count 4.84 10^3/uL (3.29-11.43)
[2024-12-08 09:35] LABS: Alanine Aminotransferase 37 U/L (0-41); Albumin Level 3.7 g/dL (3.5-5.2); Alkaline Phosphatase 68 U/L (40-130); Anion Gap 14.2 (5-19); Aspartate Amino Transferase 57 U/L (0-40); Blood Urea Nitrogen 11 mg/dL (6-20); Calcium 8.4 mg/dL (8.5-10.5); Carbon Dioxide 25 mmol/L (22-29); Chloride 103 mmol/L (98-107); Creatinine Clr Calc Pharmacy 156.6243; Globulin 2.7 g/dL (1.3-4.6); Glucose 138 mg/dL (65-115); Osmolality Calculated 290 mOsm/kg (285-295); Potassium 3.2 mmol/L (3.5-5.1); Sodium 139 mmol/L (136-145); Total Protein 6.4 g/dL (6.6-8.7)
--- NOTE | 2024-12-08 10:34 | PC.NURSE ---
pt up in room left ama at this time .. have to take care of my cats
--- NOTE | 2024-12-08 11:44 | PM.DCS ---
Discharge Providers Date of Admission: 12/07/24 08:51 Date of Discharge: December 08, 2024 Attending Provider at Admission: Elder Choi MD Attending Provider at Discharge: Elder Choi MD Diagnoses at Discharge Discharge Diagnosis (1) Alcohol withdrawal syndrome: Status: Inactive Qualifiers: Complication of substance-induced condition: with unspecified complication Qualified Code(s): F10.239 - Alcohol dependence with withdrawal, unspecified Reason for Visit Reason for Visit: withdraw,seizure from Alcohol Hospital Course Hospital Course Cameron Smallwood is a 49 year old male with a past medical history of alcohol use disorder with abuse, untreated hepatitis C, opiate disorder on methadone, tobacco use, COPD, who presents [facility] due to concerns for alcohol withdrawal. Currently patient is alert oriented x 3, following all commands does complain of nausea, tachycardia, tremors denies hearing or seeing things are not there, but does report anxiety, denies any suicidal ideation, no homicidal ideation, he reports he was recently incarcerated, he has not had alcohol in 24 hours but drinks daily, no hemoptysis, no blood or black stools, currently he tells me that he is living in a friend's couch. He does report that he had a alcohol withdrawal seizure, and has a history of alcohol withdrawal when he was hospitalized in November Patient was admitted to [facility] for alcohol withdrawal, monitored on CIWA protocol, placed on scheduled Librium, IV fluids, banana bag, overall patient clinically improved, withdrawal symptoms were minimal. Patient was seen the morning of 12/08/2024, currently having minimal withdrawal symptoms, he was alert oriented x 3, following all commands, no significant tremor, no tachycardia, no visual/auditory/tactile hallucinations. I recommended further inpatient care for monitoring for alcohol withdrawal. Patient was upset about not receiving Ativan, discussed with him that it is based upon the CIWA protocol and I have him on scheduled Librium to prevent him from going into withdrawal and it prevents us from catching up. Discussed with him the morbidity mortality associated with alcohol withdrawal, nonetheless his symptomatology is improving, no alcohol withdrawal seizures while inpatient, recommended continued inpatient monitoring. Discussed with him morbidity and mortality associate with alcoholism, he voiced understanding, all questions answered. However patient became upset according to nursing staff all of a sudden after I had left and left AGAINST MEDICAL ADVICE. For his hepatitis C, hepatitis C RNA PCR is pending, discussed morbidity and mortality associate with hepatitis C, he voiced understanding, all questions answered, patient left AGAINST MEDICAL ADVICE Physical Exam Const: COMMON NORMALS: no acute distress and patient oriented x3 Eye: COMMON NORMALS: Equal, round and reactive pupils present PUPIL: Yes Equal, round and reactive pupils present Resp: COMMON NORMALS: normal respiratory effort, No retractions, No use of accessory muscles and clear to auscultation bilaterally AUSCULTATION: clear to auscultation bilaterally Cardio: COMMON NORMALS: regular rate, regular rhythm, S1 normal heart sound present and S2 normal heart sound present RATE: regular rate RHYTHM: regular rhythm HEART SOUNDS: S1 normal heart sound present and S2 normal heart sound present GI: COMMON NORMALS: Normal to inspection, nondistended, normoactive bowel sounds present and non-tender Extremity: COMMON NORMALS: no pedal edema Neuro: COMMON NORMALS: patient oriented x3, CN's II-XII intact bilaterally and moves all extremities Psych: COMMON NORMALS: mental status grossly normal, Normal thought process present, normal affect, speech normal, denies hallucinations, denies homicidal ideation and denies suicidal ideation SPEECH: Yes normal speech THOUGHT PROCESS: Normal thought process present Discharge Data Studies Completed and Pending Completed Studies During Hospitalization [place] [id number] Routine Ultrasound 12/07/24 13:06 Completed Pending at discharge Category Date Time Status Complete Blood Count w/Auto AM LABS Lab 12/09/24 04:00 Ordered Complete Blood Count w/Auto AM LABS Lab 12/10/24 04:00 Ordered Comprehensive Metabolic Panel AM LABS Lab 12/09/24 04:00 Ordered Comprehensive Metabolic Panel AM LABS Lab 12/10/24 04:00 Ordered Hepatitis C RNA Viral Load Qnt Routine Lab 12/07/24 14:42 Received Magnesium AM LABS Lab 12/09/24 04:00 Ordered Magnesium AM LABS Lab 12/10/24 04:00 Ordered Phosphorus AM LABS Lab 12/09/24 04:00 Ordered Phosphorus AM LABS Lab 12/10/24 04:00 Ordered Radiology Impressions Liver Ultrasound 12/07/24 13:06 IMPRESSION: 1. No cholelithiasis or sonographic evidence of acute cholecystitis. Laboratory Results WBC 4.84 10^3/uL (3.29-11.43) 12/08/24 09:04 RBC 4.48 10^6/uL (3.85-5.65) 12/08/24 09:04 Hgb 15.50 g/dL (11.27-16.99) 12/08/24 09:04 Hct 46.0 % (37-53) 12/08/24 09:04 MCV 102.7 fl (82-101) H 12/08/24 09:04 MCH 34.6 pg (27-33) H 12/08/24 09:04 MCHC 33.7 g/dL (30-55) 12/08/24 09:04 RDW 11.9 % (12.1-15.1) L 12/08/24 09:04 Plt Count 90 10^3/cmm (157-399) L 12/08/24 09:04 MPV 9.6 fL (7.4-10.4) 12/08/24 09:04 Neut % (Auto) 37.9 % 12/08/24 09:04 Lymph % (Auto) 47.7 % 12/08/24 09:04 [place] % (Auto) 9.7 % 12/08/24 09:04 Eos % (Auto) 3.3 % 12/08/24 09:04 Baso % (Auto) 1.2 % 12/08/24 09:04 Neut # (Auto) 1.83 10^3/uL (1.8-7.7) 12/08/24 09:04 Lymph # (Auto) 2.3 10^3/uL (0.8-4.8) 12/08/24 09:04 [place] # (Auto) 0.5 10^3/uL (0.2-0.9) 12/08/24 09:04 Eos # (Auto) 0.2 10^3/uL (0.0-0.8) 12/08/24 09:04 Baso # (Auto) 0.1 10^3/uL (0.0-0.1) 12/08/24 09:04 Nucleated RBC % (auto) 0 % 12/08/24 09:04 Nucleated RBCs # 0.0 /100WBC 12/08/24 09:04 PT 13.60 SECONDS (12.1-14.9) 12/07/24 05:33 INR 0.97 (0.8-1.2) 12/07/24 05:33 Sodium 139 mmol/L (136-145) 12/08/24 09:04 Potassium 3.2 mmol/L (3.5-5.1) L 12/08/24 09:04 Chloride 103 mmol/L (98-107) 12/08/24 09:04 Carbon Dioxide 25 mmol/L (22-29) 12/08/24 09:04 Anion Gap 14.2 (5-19) 12/08/24 09:04 BUN 11 mg/dL (6-20) 12/08/24 09:04 Creatinine 0.6 mg/dL (0.7-1.2) L 12/08/24 09:04 GFR Calculation 142.0 mL/min (90-130) H 12/08/24 09:04 Glucose 138 mg/dL (65-115) H 12/08/24 09:04 Estimat Average Glucose 100 12/07/24 05:33 Hemoglobin A1c 5.1 % (4.0-6.0) 12/07/24 05:33 Calculated Osmolality 290 mOsm/kg (285-295) 12/08/24 09:04 Lactic Acid 1.4 mmol/L (0.5-2.2) 12/07/24 11:04 Calcium 8.4 mg/dL (8.5-10.5) L 12/08/24 09:04 Phosphorus 3.0 mg/dL (2.5-4.5) 12/08/24 09:04 Magnesium 2.0 mg/dL (1.7-2.3) 12/08/24 09:04 Total Bilirubin 1.0 mg/dL (0.15-1.2) 12/08/24 09:04 AST 57 U/L (0-40) H 12/08/24 09:04 ALT 37 U/L (0-41) 12/08/24 09:04 Alkaline Phosphatase 68 U/L (40-130) 12/08/24 09:04 Ammonia 48 umol/L (16-60) 12/07/24 05:33 C-Reactive Protein 3.0 mg/L (0.0-4.9) 12/07/24 05:33 Total Protein 6.4 g/dL (6.6-8.7) L 12/08/24 09:04 Albumin 3.7 g/dL (3.5-5.2) 12/08/24 09:04 Globulin 2.7 g/dL (1.3-4.6) 12/08/24 09:04 Triglycerides 74 mg/dL (0-150) 12/07/24 05:33 Cholesterol 218 mg/dL (0-200) H 12/07/24 05:33 LDL Cholesterol, Calc 135 mg/dL (50-129) H 12/07/24 05: HDL Cholesterol 68 mg/dL (60-100) 12/07/24 05:33 LDL/HDL Ratio 1.99 RATIO (0.00-3.22) 12/07/24 05: Cholesterol/HDL Ratio 3.21 mg/dL (1.0-5.00) 12/07/24 05:33 Procalcitonin 0.08 ng/mL (0-0.5) 12/07/24 05:33 TSH 0.81 uIU/mL (0.27-4.20) 12/07/24 05:33 Urine Color Yellow (Yellow) 12/07/24 12:20 Urine Appearance Clear (CLEAR) 12/07/24 12:20 Urine pH 8.5 (5-7) A 12/07/24 12:20 Ur Specific [place] 1.012 (1.005-1.030) 12/07/24 12:20 Urine Protein 1+ (Negative) A 12/07/24 12:20 Urine Glucose (UA) Negative (Normal) 12/07/24 12:20 Urine Ketones Negative (Negative) 12/07/24 12:20 Urine Blood Non-haemolysed trace (Negative) 12/07/24 12:20 Urine Nitrate Negative (Negative) 12/07/24 12:20 Urine Bilirubin Negative (Negative) 12/07/24 12:20 Urine Urobilinogen 1.0 mg/dL (Negative) 12/07/24 12:20 Ur Leukocyte Esterase Negative (Negative) 12/07/24 12:20 Urine RBC 3-5 /hpf (0-2) 12/07/24 12:20 Urine WBC 0-5 /hpf (0-5) 12/07/24 12:20 Ur Squamous Epith Cells 0-5 /hpf (0-5) 12/07/24 12:20 Amorphous Sediment Not Reportable 12/07/24 12:20 Urine Bacteria None seen /hpf (NONE) 12/07/24 12:20 Hyaline Casts 4.52 /lpf 12/07/24 12:20 Ethyl Alcohol < 10 mg/dL (0-10) 12/07/24 03:50 Hepatitis A IgM Ab Non-reactive (Nonreactive) 12/07/24 05:33 Hep Bs Antigen Non-reactive (Nonreactive) 12/07/24 05:33 Hep B Core IgM Ab Non-reactive (Nonreactive) 12/07/24 05:33 Hepatitis C Antibody Reactive (Nonreactive) H 12/07/24 05:33 HIV 1&2 Ab & HIV 1 Ag Non-reactive (Non-Reactiv) 12/07/24 05:33 HIV 1&2 Antibody Non-reactive (Non-Reactiv) 12/07/24 05:33 Vitals Last Vital Signs Temp 97 F L 12/08/24 09:00 Pulse 83 12/08/24 09:00 Resp 16 12/08/24 09:00 BP 164/114 12/08/24 09:00 Pulse Ox 96 12/08/24 09:00 O2 Del Method Room Air 12/08/24 09:00 Discharge Plan Discharge Patient Disposition: Left Against Medical Advice Condition: Stable Prescriptions: New multivitamin with folic acid [Thera] 400 mcg Tablet 1 tab PO DAILY 30 Days Qty: 30 0RF Continued methadone 10 mg Tablet 50 mg PO DAILY Rx Instructions: (goes to [facility] to recieve dose) nicotine 21 mg/24 hr Patch 24 Hour 1 patch transdermal DAILY PRN (Reason: Nicotine Withdrawal) 30 Days Qty: 30 0RF fluoxetine 20 mg Capsule 40 mg PO DAILY Qty: 60 1RF bisacodyl 5 mg Tablet,Delayed Release (Dr/Ec) 10 mg PO DAILY PRN (Reason: Constipation) 15 Days Qty: 30 1RF hydroxyzine pamoate 25 mg Capsule 50 mg PO Q6H PRN (Reason: Anxiety) 30 Days Qty: 60 1RF thiamine mononitrate (vit B1) [Vitamin B-1 (mononitrate)] 100 mg Tablet 100 mg PO DAILY 30 Days Qty: 30 1RF folic acid 1 mg Tablet 1 mg PO DAILY 30 Days Qty: 30 0RF Discharge Diet: Cardiac Discharge Activity: Resume usual activity Activity Restrictions/Additional Instructions: - Please stop drinking alcohol Discharge Attestations Time Spent in Discharge Care*: greater than 30 min Quality Metrics Clinical Quality Measures [ No reported AMI, CVA or VTE this stay] Coding Level of Care Code 21951 Total time (in minutes) for Discharge: 45 Diagnoses Alcohol withdrawal syndrome F10.239 Complication of substance-induced condition: with unspecified complication
== END 2024-12-08 12:09 | disposition left against medical advice (07) | DRG 894 ==
LOC: ER 05:24 → ICU 12-08 05:04
PROVIDERS: Emergency Medicine; Admitting Provider Family Medicine; Emergency Provider Family Medicine; Visit Provider Family Medicine
DX: F10.239 Alcohol dependence with withdrawal, unspecified (principal); Z59.01 Sheltered homelessness; K70.10 Alcoholic hepatitis without ascites; Y90.0 Blood alcohol level of less than 20 mg/100 ml; R25.1 Tremor, unspecified; F11.90 Opioid use, unspecified, uncomplicated; F17.210 Nicotine dependence, cigarettes, uncomplicated; J44.9 Chronic obstructive pulmonary disease, unspecified; R00.0 Tachycardia, unspecified; F41.9 Anxiety disorder, unspecified; Z53.29 Procedure and treatment not carried out because of patient's decision for other reasons; Z87.442 Personal history of urinary calculi; R91.8 Other nonspecific abnormal finding of lung field
CPT/HCPCS: 36415; 76705; 80053; 80061; 80074; 80307; 81001; 82140; 83036; 83605; 83735; 84100; 84145; 84443; 85025; 85610; 86140; 87522; 87806; 94664; 96372; 99285; J1644; J2060; J2470; J3411; J3490; J7030

== ENCOUNTER 2024-12-16 12:57 | Inpatient (IN) | payer MEDICAID, SELFPAY ==
[2024-12-16] VITALS (8 sets, daily range): BP systolic 124–141; BP diastolic 81–91; PULSE 100–120; RESP 16–20; TEMP 36.4–37.2; O2SAT 93–95; BMI 23.7
--- NOTE | 2024-12-16 13:09 | W.ED.ALCOHOL ---
HPI - Alcohol General: Chief Complaint: Alcohol Stated Complaint: ETOH Time Seen by Provider: 12/16/24 12:58 Source: patient Mode of arrival: other (police) Limitations: no limitations History of Present Illness: Patient is a 49-year-old male known to our emergency department here after he was brought by police. Patient is a longstanding alcoholic. Patient states he was walking to the liquor store to get more alcohol when a bystander witnessed him fall and reportedly contacted police. Upon arrival, police apparently thought patient needed medical evaluation. Patient denies any injury sustained during his fall. He states that he hurts all over because he has not had his methadone in 2 days. Upon arrival patient tells me that he wants his Methadone, Ativan, and admitted to [facility] because he is suicidal and if I were to let him go he would kill himself . States last drink was yesterday evening. MD complaint: alcohol dependence Last drink: Hours (ago) Chronic alcohol use: Yes Previous visits for alcohol intoxication: Yes Recent trauma: Yes (reports fall-denies injuries) Associated symptoms: Deny abdominal pain, seizure-like activity or syncope Treatments prior to arrival: none Related Data Home Medications ?Medication ?Instructions ?Recorded ?Confirmed methadone 10 mg tablet 50 mg PO DAILY 11/01/24 12/16/24 nicotine 21 mg/24 hr daily 1 patch transdermal DAILY PRN 12/16/24 12/16/24 transdermal patch Nicotine Cravings Previous Rx's ?Medication ?Instructions ?Recorded bisacodyl 5 mg tablet,delayed 10 mg (2 x 5 mg) PO DAILY PRN 11/12/24 release Constipation 15 days #30 tabs folic acid 1 mg tablet 1 mg PO DAILY 30 days #30 tabs 11/12/24 hydroxyzine pamoate 25 mg capsule 50 mg (2 x 25 mg) PO Q6H PRN 11/12/24 Anxiety 30 days #60 caps multivitamin with folic acid 400 1 tab PO DAILY 30 days #30 tabs 12/08/24 mcg tablet (Thera) thiamine mononitrate (vit B1) 100 100 mg PO DAILY 30 days #30 tabs 12/08/24 mg tablet (Vitamin B-1 (mononitrate)) Allergies Allergy/AdvReac Type Severity Reaction Status Date / Time tetanus immune globulin Allergy Mild ALGY-Anaphy Verified 09/19/24 18:53 laxis azithromycin Allergy ADR-Gastrointestinal Verified 09/19/24 18:53 Upset Tetanus Vaccines and Toxoid Allergy Unknown Verified 09/19/24 18:53 Review of Systems Const: Denies: fever(s) Eyes: Denies: change in vision Card: Denies: chest pain, palpitations, syncope or pre-syncope Resp: Denies: dyspnea GI: Denies: abdominal pain Musc: Denies: neck pain, back pain, extremity pain, extremity swelling or joint swelling Neuro: Denies: headache(s), dizziness, confusion or seizure-like activity [facility] PFSH: Medical History (Updated 12/16/24 @ 13:33 by BREONNA Trevizo) Case management patient History of kidney stones Liver disease Pulmonary nodule History of seizure due to alcohol withdrawal Suicidal ideations COPD (chronic obstructive pulmonary disease) Social History Smoking and tobacco/nicotine status: heavy tobacco/nicotine user (no) Alcohol intake: current Physical Exam Const: COMMON NORMALS: patient oriented x3, no limitations and alert GENERAL APPEARANCE: cooperative, disheveled and appears older than stated age ORIENTATION/CONSCIOUSNESS: Yes awake, Yes oriented to person, Yes oriented to place and Yes oriented to time HENMT: COMMON NORMALS: normocephalic and atraumatic HEAD & SCALP: normal to inspection, normocephalic and atraumatic FACE & SINUS: normal facial exam Eye: GENERAL EYE: appearance normal, both eyes and all related structures Resp: COMMON NORMALS: normal respiratory effort and clear to auscultation bilaterally AUSCULTATION: clear to auscultation bilaterally Cardio: COMMON NORMALS: regular rate and regular rhythm RATE: regular rate RHYTHM: regular rhythm GI: COMMON NORMALS: Normal to inspection, nondistended, normoactive bowel sounds present, Soft to palpation and non-tender PALPATION: Yes Soft to palpation Back/Pelvis: COMMON NORMALS: thoracic and lumbar spine normal to inspection Extremity: COMMON NORMALS: full ROM GENERAL: Yes normal exam except as noted Neuro: COMMON NORMALS: patient oriented x3, moves all extremities, no focal motor deficits and no sensory deficits noted SENSORIUM/ORIENTATION: Yes alert, Yes oriented to person, Yes oriented to place and Yes oriented to time Course Consultations: Consultation #1: Dr. Dalal-accepts admission to [facility] Vital Signs: Vital signs: Vital Signs Temperature 97.8 F 12/16/24 12:57 Pulse Rate 105 H 12/16/24 12:57 Respiratory Rate 16 12/16/24 12:57 Blood Pressure 124/91 12/16/24 12:57 Pulse Oximetry 93 12/16/24 12:57 Oxygen Delivery Me thod Room Air 12/16/24 12:57 MDM - Alcohol Medical Decision Making Patient placed on 96 hour hold as he stated he was suicidal. Will be admitted to [facility] to Dr. Dalal. Vitals stable. Blood work non-actionable. Blood alcohol 406. He is walking around his room/steady and talkative. There is no reason to keep him further in ED for lowering. He is cleared to go to [facility]. Will need to be on CIWA protocol given his chronic alcohol abuse. Medical Records I reviewed the patient's medical records. Lab Data I reviewed the patient's lab results. 12/16/24 13:26 12/16/24 13:26 Laboratory Results WBC 5.53 10^3/uL (3.29-11.43) 12/16/24 13:26 RBC 4.67 10^6/uL (3.85-5.65) 12/16/24 13:26 Hgb 16.10 g/dL (11.27-16.99) 12/16/24 13:26 Hct 48.3 % (37-53) 12/16/24 13:26 MCV 103.4 fl (82-101) H 12/16/24 13:26 MCH 34.5 pg (27-33) H 12/16/24 13:26 MCHC 33.3 g/dL (30-55) 12/16/24 13:26 RDW 12.2 % (12.1-15.1) 12/16/24 13:26 Plt Count 134 10^3/cmm (157-399) L 12/16/24 13:26 MPV 9.3 fL (7.4-10.4) 12/16/24 13:26 Neut % (Auto) 50.6 % 12/16/24 13:26 Lymph % (Auto) 39.2 % 12/16/24 13:26 [place] % (Auto) 8.0 % 12/16/24 13:26 Eos % (Auto) 0.5 % 12/16/24 13:26 Baso % (Auto) 1.3 % 12/16/24 13:26 Neut # (Auto) 2.80 10^3/uL (1.8-7.7) 12/16/24 13:26 Lymph # (Auto) 2.2 10^3/uL (0.8-4.8) 12/16/24 13:26 [place] # (Auto) 0.4 10^3/uL (0.2-0.9) 12/16/24 13:26 Eos # (Auto) 0.0 10^3/uL (0.0-0.8) 12/16/24 13:26 Baso # (Auto) 0.1 10^3/uL (0.0-0.1) 12/16/24 13:26 Nucleated RBC % (auto) 0 % 12/16/24 13: Nucleated RBCs # 0.0 /100WBC 12/16/24 13:26 Sodium 144 mmol/L (136-145) 12/16/24 13:26 Potassium 3.7 mmol/L (3.5-5.1) 12/16/24 13:26 Chloride 104 mmol/L (98-107) 12/16/24 13:26 Carbon Dioxide 23 mmol/L (22-29) 12/16/24 13:26 Anion Gap 20.7 (5-19) H 12/16/24 13:26 BUN 13 mg/dL (6-20) 12/16/24 13:26 Creatinine 0.7 mg/dL (0.7-1.2) 12/16/24 13:26 GFR Calculation 118.9 mL/min (90-130) 12/16/24 13:26 Glucose 96 mg/dL (65-115) 12/16/24 13:26 Calculated Osmolality 298 mOsm/kg (285-295) H 12/16/24 13:26 Calcium 8.2 mg/dL (8.5-10.5) L 12/16/24 13:26 Total Bilirubin 0.4 mg/dL (0.15-1.2) 12/16/24 13:26 AST 188 U/L (0-40) H 12/16/24 13:26 ALT 84 U/L (0-41) H 12/16/24 13:26 Alkaline Phosphatase 68 U/L (40-130) 12/16/24 13:26 Total Protein 7.2 g/dL (6.6-8.7) 12/16/24 13:26 Albumin 4.2 g/dL (3.5-5.2) 12/16/24 13:26 Globulin 3.0 g/dL (1.3-4.6) 12/16/24 13:26 Salicylates < 0.3 mg/dL (3-10) L 12/16/24 13:26 Acetaminophen < 5.0 ug/mL (10-30) L 12/16/24 13:26 Ethyl Alcohol 406 mg/dL (0-10) H* 12/16/24 13:26 No radiology studies performed this visit Discharge Plan Discharge Patient Disposition: Admitted As Inpatient Clinical Impression: Chronic alcohol abuse, Long-term current use of methadone for opiate dependence Condition: Stable Coding Level of Care Code ED Passenger Rate Clerk for Santy Villanueva
--- NOTE | 2024-12-16 13:23 | PC.PHAR ---
Pt is from [facility]-Verified with [facility] that pt has not picked up Methadone 10mg tablet take 50mg daily-since 12/01/24. 6 discharge medications dispensed 11/12/24
[2024-12-16 13:32] LABS: Basophils # 0.1 10^3/uL (0.0-0.1); Basophils % 1.3 %; Eosinophils % 0.5 %; Hematocrit 48.3 % (37-53); Lymphocytes # 2.2 10^3/uL (0.8-4.8); Lymphocytes % 39.2 %; Mean Corpuscular HGB Conc 33.3 g/dL (30-55); Mean Corpuscular Hemoglobin 34.5 pg (27-33); Mean Corpuscular Volume 103.4 fl (82-101); Mean Platelet Volume 9.3 fL (7.4-10.4); Monocytes # 0.4 10^3/uL (0.2-0.9); Neutrophils % 50.6 %; Nucleated Red Blood Cells % 0 %; Platelet Count 134 10^3/cmm (157-399); Red Blood Count 4.67 10^6/uL (3.85-5.65); Red Cell Distribution Width 12.2 % (12.1-15.1); White Blood Count 5.53 10^3/uL (3.29-11.43)
[2024-12-16 13:47] LABS: Alanine Aminotransferase 84 U/L (0-41); Albumin Level 4.2 g/dL (3.5-5.2); Alkaline Phosphatase 68 U/L (40-130); Anion Gap 20.7 (5-19); Aspartate Amino Transferase 188 U/L (0-40); Blood Urea Nitrogen 13 mg/dL (6-20); Calcium 8.2 mg/dL (8.5-10.5); Carbon Dioxide 23 mmol/L (22-29); Chloride 104 mmol/L (98-107); Creatinine Clr Calc Pharmacy 134.2494; Glomerular Filtration Rate 118.9 mL/min (90-130); Glucose 96 mg/dL (65-115); Osmolality Calculated 298 mOsm/kg (285-295); Potassium 3.7 mmol/L (3.5-5.1); Sodium 144 mmol/L (136-145); Total Bilirubin 0.4 mg/dL (0.15-1.2); Total Protein 7.2 g/dL (6.6-8.7)
[2024-12-16 13:51] LABS: Acetaminophen < 5.0 ug/mL (10-30); Salicylate < 0.3 mg/dL (3-10)
[2024-12-16 13:52] LABS: Alcohol Level 406 mg/dL (0-10)
[2024-12-16] MEDS: nicotine 21 mg Patch 1 PATCH TRANSDERMA (14:03)
--- NOTE | 2024-12-16 14:39 | PC.NURSE ---
96 hr rights reviewed with patient @1400 with assistance of [facility] transport corps officer Renzo. All education reviewed with patient. Pt verbalized understanding to hold. Pt copy was left @bedside with patient. Pt provided with a warm blanket from the blanket warmer. When asked if he would like a snack or drink, pt stated he just wanted to use his phone to call his family so that they could check on his 3 cats. Pt educated that he would be able to use a phone once he made it down to the unit, and admission was complete.
[2024-12-16] MEDS: LORazepam 2 mg Tablet PO ×4 (15:03→22:52)
[2024-12-16] MEDS: nicotine 4 mg lozenge MUCOUS MEM ×2 (15:37→21:57)
--- NOTE | 2024-12-16 16:42 | PM.HP ---
Providers/Chief Complaint Admitting Physician: Van Dalal MD Chief Complaint: ETOH History of Present Illness Cameron Smallwood is a 49 year old male Medications/Allergies Home Medications ?Medication ?Instructions ?Recorded ?Confirmed ?Last Taken ?Type methadone 10 mg tablet 50 mg PO DAILY 11/01/24 12/16/24 10/27/24 History bisacodyl 5 mg tablet,delayed 10 mg (2 x 5 mg) PO DAILY PRN 11/12/24 12/16/24 Unknown Rx release Constipation 15 days #30 tabs folic acid 1 mg tablet 1 mg PO DAILY 30 days #30 tabs 11/12/24 12/16/24 Unknown Rx hydroxyzine pamoate 25 mg capsule 50 mg (2 x 25 mg) PO Q6H PRN 11/12/24 12/16/24 Unknown Rx Anxiety 30 days #60 caps multivitamin with folic acid 400 1 tab PO DAILY 30 days #30 tabs 12/08/24 12/16/24 Unknown Rx mcg tablet (Thera) thiamine mononitrate (vit B1) 100 100 mg PO DAILY 30 days #30 tabs 12/08/24 12/16/24 Unknown Rx mg tablet (Vitamin B-1 (mononitrate)) nicotine 21 mg/24 hr daily 1 patch transdermal DAILY PRN 12/16/24 12/16/24 Unknown History transdermal patch Nicotine Cravings Allergies Allergy/AdvReac Type Severity Reaction Status Date / Time tetanus immune globulin Allergy Mild ALGY-Anaphy Verified 09/19/24 18:53 laxis azithromycin Allergy ADR-Gastrointestinal Verified 09/19/24 18:53 Upset Tetanus Vaccines and Toxoid Allergy Unknown Verified 09/19/24 18:53 PFSH Acute PFSH: Medical History (Updated 12/16/24 @ 17:35 by Kaylee Mayer MD) Case management patient Suicidal ideations Hepatitis C Depression History of kidney stones Pulmonary nodule History of seizure due to alcohol withdrawal COPD (chronic obstructive pulmonary disease) Social History Smoking and tobacco/nicotine status: heavy tobacco/nicotine user (no) Alcohol intake: current Vitals/I&O/Wt Last Vital Signs Temp 97.5 F L 12/16/24 14:31 Pulse 116 H 12/16/24 14:31 Resp 18 12/16/24 14:31 BP 128/84 12/16/24 14:31 Pulse Ox 94 12/16/24 14:31 O2 Del Method Room Air 12/16/24 14:21 Weight last 48 hrs Weight 77.111 kg Data 12/16/24 13:26 12/16/24 13:26 Other Labs: Laboratory Results WBC 5.53 10^3/uL (3.29-11.43) 12/16/24 13: RBC 4.67 10^6/uL (3.85-5.65) 12/16/24 13:26 Hgb 16.10 g/dL (11.27-16.99) 12/16/24 13:26 Hct 48.3 % (37-53) 12/16/24 13:26 MCV 103.4 fl (82-101) H 12/16/24 13:26 MCH 34.5 pg (27-33) H 12/16/24 13: MCHC 33.3 g/dL (30-55) 12/16/24 13:26 RDW 12.2 % (12.1-15.1) 12/16/24 13:26 Plt Count 134 10^3/cmm (157-399) L 12/16/24 13:26 MPV 9.3 fL (7.4-10.4) 12/16/24 13:26 Neut % (Auto) 50.6 % 12/16/24 13:26 Lymph % (Auto) 39.2 % 12/16/24 13:26 [place] % (Auto) 8.0 % 12/16/24 13:26 Eos % (Auto) 0.5 % 12/16/24 13:26 Baso % (Auto) 1.3 % 12/16/24 13:26 Neut # (Auto) 2.80 10^3/uL (1.8-7.7) 12/16/24 13:26 Lymph # (Auto) 2.2 10^3/uL (0.8-4.8) 12/16/24 13:26 [place] # (Auto) 0.4 10^3/uL (0.2-0.9) 12/16/24 13:26 Eos # (Auto) 0.0 10^3/uL (0.0-0.8) 12/16/24 13:26 Baso # (Auto) 0.1 10^3/uL (0.0-0.1) 12/16/24 13:26 Nucleated RBC % (auto) 0 % 12/16/24 13:26 Nucleated RBCs # 0.0 /100WBC 12/16/24 13:26 Sodium 144 mmol/L (136-145) 12/16/24 13:26 Potassium 3.7 mmol/L (3.5-5.1) 12/16/24 13:26 Chloride 104 mmol/L (98-107) 12/16/24 13:26 Carbon Dioxide 23 mmol/L (22-29) 12/16/24 13:26 Anion Gap 20.7 (5-19) H 12/16/24 13:26 BUN 13 mg/dL (6-20) 12/16/24 13:26 Creatinine 0.7 mg/dL (0.7-1.2) 12/16/24 13:26 GFR Calculation 118.9 mL/min (90-130) 12/16/24 13:26 Glucose 96 mg/dL (65-115) 12/16/24 13:26 Calculated Osmolality 298 mOsm/kg (285-295) H 12/16/24 13:26 Calcium 8.2 mg/dL (8.5-10.5) L 12/16/24 13:26 Total Bilirubin 0.4 mg/dL (0.15-1.2) 12/16/24 13:26 AST 188 U/L (0-40) H 12/16/24 13:26 ALT 84 U/L (0-41) H 12/16/24 13:26 Alkaline Phosphatase 68 U/L (40-130) 12/16/24 13:26 Total Protein 7.2 g/dL (6.6-8.7) 12/16/24 13:26 Albumin 4.2 g/dL (3.5-5.2) 12/16/24 13:26 Globulin 3.0 g/dL (1.3-4.6) 12/16/24 13:26 Salicylates < 0.3 mg/dL (3-10) L 12/16/24 13:26 Acetaminophen < 5.0 ug/mL (10-30) L 12/16/24 13:26 Ethyl Alcohol 406 mg/dL (0-10) H* 12/16/24 13:26 Prior Visit Laboratory Tests 12/07/24 12/08/24 05:33 09:04 MCV 102.8 H Plt Count 93 L PT 13.60 INR 0.97 Hemoglobin A1c 5.1 AST 68 H ALT 44 H Ammonia 48 C-Reactive Protein 3.0 Cholesterol 218 H LDL Cholesterol, Calc 135 H HDL Cholesterol 68 LDL/HDL Ratio 1.99 Cholesterol/HDL Ratio 3.21 Procalcitonin 0.08 TSH 0.81 Hepatitis A IgM Ab Non-reactive Hep Bs Antigen Non-reactive Hep B Core IgM Ab Non-reactive Hepatitis C Antibody Reactive H HCV RNA (PCR) IUs/ml Pending HCV RNA (PCR) IU log10 Pending HIV 1&2 Ab & HIV 1 Ag Non-reactive HIV 1&2 Antibody Non-reactive A&P Assessment and plan (1) Suicidal ideations: Reported in the emergency room. 96-hour hold initiated. Has a history of depression in addition to substance use. - Management as per Dr. Dalal (2) Acute alcohol intoxication: With blood alcohol level at presentation 406. He is awake and alert and able to provide history. Has had alcohol levels as high as 478 this year already. Has a long history of alcohol abuse from available records. He says that when he is not able to get methadone he drinks much more heavily. He says his last use was 24 to 30 hours ago though I doubt accuracy based on current findings. He does have a history of alcohol withdrawal seizure in the past. - Initiate [facility] protocol - Monitor for signs and symptoms of worsening alcohol withdrawal currently has mild tachycardia but cooperative, without significant tremor, stable blood pressures and oxygen saturations. - Review of prior records indicates that patient has done okay with combination of methadone and Ativan or methadone and Librium during previous admissions this year but explained to him that just because he has tolerated combinations previously does not mean that he will definitely tolerate them this time as well. - Will ask for acute 4-hour vital signs; if needed more frequently for short duration can probably manage in the NPU but otherwise may have to consider transfer to medical unit for ongoing care. - Have discussed with Dr. Dalal who is comfortable with current plan with hospitalist following along. Qualifiers: Complication of substance-induced condition: uncomplicated Qualified Code(s): F10.920 - Alcohol use, unspecified with intoxication, uncomplicated (3) Long-term current use of methadone for opiate dependence: Currently with some degree of opioid withdrawal with predominantly GI symptoms of nausea and diarrhea along with increase in pain. Reports that he is prescribed 100 mg of methadone daily but only taking 50 mg of methadone daily. I was able to confirm that he received multiple 50 mg doses of methadone during prior to hospital stays in November and in November. - For now we will give him 30 mg of methadone daily as per discussion; he agreed to this dosing while he is receiving Ativan via [facility]WA protocol - Reviewed with patient that he high risk of complications up to and including the possibility of with combining multiple substances such as alcohol and methadone. He expressed understanding and a verbalized desire to get off of methadone. - Also reviewed with patient that coming off of such high doses of methadone abruptly and without assistance can cause significant side effects that can be serious, much more so than what he is currently experiencing, and encouraged him not to miss his appointments to citrus picker methadone for multiple days in a row as he has recently done. He does indicate transportation challenges are contributing factor. (4) Hepatitis C: Chronic, has not been on treatment, has associated elevation in transaminases, mild thrombocytopenia - Hepatitis C RNA PCR is still pending from last hospital stay, collected on 12/07 Qualifiers: Viral hepatitis chronicity: chronic Hepatic coma status: without hepatic coma Qualified Code(s): B18.2 - Chronic viral hepatitis C (5) COPD (chronic obstructive pulmonary disease): Not currently acute - As needed breathing treatments Qualifiers: COPD type: chronic bronchitis Chronic bronchitis type: mixed simple and mucopurulent Qualified Code(s): J41.8 - Mixed simple and mucopurulent chronic bronchitis PDMP PDMP Reviewed: Not Reviewed Attestations Medical Necessity Statement*: As per attending physician Coding Level of Care Code Acute Code for [facility] Fwd Diagnoses Suicidal ideations R45.851 Acute alcoholic intoxication without complication F10.920 Complication of substance-induced condition: uncomplicated Long-term current use of methadone for opiate dependence F11.20 Chronic hepatitis C without hepatic coma B18.2 Viral hepatitis chronicity: chronic Hepatic coma status: without hepatic coma Mixed simple and mucopurulent chronic bronchitis J41.8 COPD type: chronic bronchitis Chronic bronchitis type: mixed simple and mucopurulent
[2024-12-16] MEDS: loperamide 2 mg Capsule PO (16:56)
[2024-12-16] MEDS: methadone 10 mg Tablet 30 MG PO (17:37)
--- NOTE | 2024-12-16 17:43 | P.CONIM_ITS ---
Providers/Reason For Consult 2 Consulting Physician/Specialty*: Frase/Hospitalist Reason for Consult*: Alcohol withdrawal risk, methadone dependence Requesting Physician: Dr Dalal Attending Physician: Van Dalal MD History of Present Illness History of Present Illness Cameron Smallwood is a 49 year old male who presented to the emergency room today with complaint of suicidal ideations. He was evaluated in the emergency room and admitted to the [facility]. Hospitalist were called due to patient having a history of alcohol abuse and chronic methadone use. Blood alcohol level in the emergency room was 406. Heart rate in the low 100s. He reports his last drink was 24 to 30 hours ago but when specifically questioned in light of current blood alcohol level he changes that number to sooner. Last dose of methadone was 3 to 4 days ago. He says he was unable to get to the methadone clinic to get his doses. He has a bad hip from a crush injury when he was younger and reports increasing difficulty walking the distances he needs to. When he does not have his methadone he tends to drink more according to him. He says the police brought him in. He has had some nausea, vomiting and diarrhea along with some abdominal pain the last couple of days. No report of any fever. He is requesting Ativan and methadone currently. He says he is prescribed 200 mg of methadone but usually takes 50 mg a day. He recently received a dose of Ativan by Dr. Dalal and was reminded of this. He expresses desire to quit drinking and quit taking methadone but has mentioned this in the past as well. Primary question for hospitalist was whether patient could be managed in the psychiatric unit or needed transfer to medical floor. Review of prior records shows similar blood alcohol levels at presentations, administrations of methadone 50 mg along with Librium or Ativan which he has tolerated previously. Current vital signs shortly after receiving one 2 mg oral dose of Ativan show mild tachycardia. Patient is not demonstrating other outward signs of acute alcohol withdrawal probably because he remains intoxicated. He does complain of pain in his legs and his abdomen but is able to walk, sit and stand without assistance or holding onto anything and had no demonstrable GI symptoms during my evaluation. Review of Systems 2 General: Reports: Other (ROS as per HPI or as noted here) Const: Denies: fever(s), change in weight or night sweats Eyes: Denies: change in vision ENMT: Reports: nasal congestion Card: Denies: chest pain Resp: Reports: wheezing (sometimes) GI: Reports: abdominal pain, nausea, vomiting and diarrhea; Denies: hematemesis, coffee ground emesis, heartburn, constipation, hematochezia or melena : Denies: difficulty urinating or hematuria Musc: Reports: extremity pain (hip) Skin/Breast: Denies: rash or sores Neuro: Reports: difficulty walking (due to pain); Denies: frequent falls, dizziness or involuntary movements Psych: Reports: anxiety, depression, mood swings, hopelessness, irritability, memory loss (does not recall police picking him up) and suicidal ideation Kyle/Lymph: Denies: easy bruising or easy bleeding Medications/Allergies Home Medications ?Medication ?Instructions ?Recorded ?Confirmed ?Last Taken ?Type methadone 10 mg tablet 50 mg PO DAILY 11/01/2411/3010/27/24 History bisacodyl 5 mg tablet,delayed 10 mg (2 x 5 mg) PO MADELYN Y PRN 11/12/24 12/16/24 Unknown Rx release Constipation 15 days #30 tab s folic acid 1 mg tablet 1 mg PO DAILY 30 days #30 ta bs 11/12/24 12/16/24 Unknown Rx hydroxyzine pamoate 25 mg capsule 50 mg (2 x 25 mg) PO Q6H PRN 11/12/24 12/16/24 Unknown Rx Anxiety 30 days #60 caps multivitamin with folic acid 400 1 tab PO DAILY 30 day s #30 tabs 12/08/24 12/16/24 Unknown Rx mcg tablet (Thera) thiamine mononitrate (vit B1) 100 100 mg PO DAILY 30 d ays #30 tabs 12/08/24 12/16/24 Unknown Rx mg tablet (Vitamin B-1 (mononitrate)) nicotine 21 mg/24 hr daily 1 patch transdermal DAILY P RN 12/16/24 12/16/24 Unknown History transdermal patch Nicotine Cravings Allergies Allergy/AdvReac Type Severity Reaction Status Date / Time tetanus immune globulin Allergy Mild ALGY-Anaphy Verified 09/19/24 18:53 laxis azithromycin Allergy ADR-Gastrointestinal Verified 09/19/24 18:53 Upset Tetanus Vaccines and Toxoid Allergy Unknown Verified 09/19/24 18:53 Current Medications Generic Name Dose Route Start Last Admin Trade Name Freq PRN Reason Stop Dose Admin Loperamide HCl 2 mg 12/16/24 14:31 12/16/24 16:56 Loperamide 2 Mg Capsule PO 2 mg Q6H PRN Administration DIARRHEA Lorazepam 2 mg 12/16/24 14:32 12/16/24 15:03 Lorazepam 2 Mg Tablet PO 2 mg PROTOCOL PRN Administration WITHDRAWAL Protocol Methadone HCl 30 mg 12/16/24 17:20 12/16/24 17:37 Methadone 10 Mg Tablet PO 30 mg DAILY GALA Administration Nicotine Polacrilex 4 mg 12/16/24 14:32 12/16/24 15:37 Nicotine 4 Mg Lozenge MUCOUS MEM 4 mg Q2H PRN Administration NICOTINE CRAVINGS PFSH Acute 2 PFSH: Medical History (Updated 12/16/24 @ 17:50 by Kaylee Mayer MD) Nicotine dependence, cigarettes, with other nicotine-induced disorders History of traumatic injury to musculoskeletal system crush injury to RLE History of pancreatitis History of rhabdomyolysis History of suicidal ideation Chronic alcohol abuse Methadone maintenance therapy patient Hepatitis C Depression History of kidney stones Pulmonary nodule History of seizure due to alcohol withdrawal COPD (chronic obstructive pulmonary disease) Surgical History (Updated 12/16/24 @ 17:47 by Kaylee Mayer MD) History of hip surgery Family History (Updated 12/16/24 @ 17:50 by Kaylee Mayer MD) Other Alcohol dependence Psychiatric illness Social History (Updated 12/16/24 @ 17:52 by Kaylee Mayer MD) Smoking and tobacco/nicotine status: heavy tobacco/nicotine user (no) cigarettes [ Other cigarette details: 2 packs per day] Alcohol intake: current Alcohol use comment: some drink most days, more when misses methadone appointments Substance/Drug Use: former Vitals/I&O/Wt Last Vital Signs Temp 97.5 F L 12/16/24 14:31 Pulse 116 H 12/16/24 14:31 Resp 17 12/16/24 17:37 BP 128/84 12/16/24 14:31 Pulse Ox 94 12/16/24 14:31 O2 Del Method Room Air 12/16/24 14:34 Weight last 48 hrs Weight 77.111 kg Physical Exam 2 Narrative: Patient is awake and alert. Oriented to person, place and situation. Unable to provide history. Thin build. Able to walk in a straight line. Cooperative. Conjunctiva are injected, sclera are pink, some nystagmus noted. Smells of alcohol. Nasopharynx is clear. Oropharynx with moist mucous membranes. Neck is supple. Lungs are remarkable for scattered inspiratory and expiratory wheeze, improved with coughing. Cardiovascular exam reveals a tachycardic but regular rhythm. Abdomen is soft, mildly tender throughout but without rebound or guarding. No flank tenderness. Positive bowel sounds. Extremities no pitting edema. Some clubbing noted. No tremor. Data 12/16/24 13:26 12/16/24 13: Other Labs: Laboratory Results WBC 5.53 10^3/uL (3.29-11.43) 12/16/24 13: RBC 4.67 10^6/uL (3.85-5.65) 12/16/24 13: Hgb 16.10 g/dL (11.27-16.99) 12/16/24 13: Hct 48.3 % (37-53) 12/16/24 13: MCV 103.4 fl (82-101) H 12/16/24 13:26 MCH 34.5 pg (27-33) H 12/16/24 13: MCHC 33.3 g/dL (30-55) 12/16/24 13: RDW 12.2 % (12.1-15.1) 12/16/24 13: Plt Count 134 10^3/cmm (157-399) L 12/16/24 13: MPV 9.3 fL (7.4-10.4) 12/16/24 13: Neut % (Auto) 50.6 % 12/16/24 13: Lymph % (Auto) 39.2 % 12/16/24 13:26 [place] % (Auto) 8.0 % 12/16/24 13:26 Eos % (Auto) 0.5 % 12/16/24 13: Baso % (Auto) 1.3 % 12/16/24 13: Neut # (Auto) 2.80 10^3/uL (1.8-7.7) 12/16/24 13: Lymph # (Auto) 2.2 10^3/uL (0.8-4.8) 12/16/24 13: [place] # (Auto) 0.4 10^3/uL (0.2-0.9) 12/16/24 13:26 Eos # (Auto) 0.0 10^3/uL (0.0-0.8) 12/16/24 13:26 Baso # (Auto) 0.1 10^3/uL (0.0-0.1) 12/16/24 13:26 Nucleated RBC % (auto) 0 % 12/16/24 13:26 Nucleated RBCs # 0.0 /100WBC 12/16/24 13:26 Sodium 144 mmol/L (136-145) 12/16/24 13:26 Potassium 3.7 mmol/L (3.5-5.1) 12/16/24 13:26 Chloride 104 mmol/L (98-107) 12/16/24 13:26 Carbon Dioxide 23 mmol/L (22-29) 12/16/24 13:26 Anion Gap 20.7 (5-19) H 12/16/24 13:26 BUN 13 mg/dL (6-20) 12/16/24 13:26 Creatinine 0.7 mg/dL (0.7-1.2) 12/16/24 13:26 GFR Calculation 118.9 mL/min (90-130) 12/16/24 13:26 Glucose 96 mg/dL (65-115) 12/16/24 13:26 Calculated Osmolality 298 mOsm/kg (285-295) H 12/16/24 13:26 Calcium 8.2 mg/dL (8.5-10.5) L 12/16/24 13:26 Total Bilirubin 0.4 mg/dL (0.15-1.2) 12/16/24 13:26 AST 188 U/L (0-40) H 12/16/24 13:26 ALT 84 U/L (0-41) H 12/16/24 13:26 Alkaline Phosphatase 68 U/L (40-130) 12/16/24 13:26 Total Protein 7.2 g/dL (6.6-8.7) 12/16/24 13:26 Albumin 4.2 g/dL (3.5-5.2) 12/16/24 13:26 Globulin 3.0 g/dL (1.3-4.6) 12/16/24 13:26 Salicylates < 0.3 mg/dL (3-10) L 12/16/24 13:26 Acetaminophen < 5.0 ug/mL (10-30) L 12/16/24 13:26 Ethyl Alcohol 406 mg/dL (0-10) H* 12/16/24 13:26 Prior Visit Laboratory Tests this Month 12/07/24 12/08/24 05:33 09:04 Hemoglobin A1c 5.1 AST 68 H ALT 44 H Ammonia 48 Triglycerides 74 Cholesterol 218 H LDL Cholesterol, Calc 135 H HDL Cholesterol 68 LDL/HDL Ratio 1.99 Cholesterol/HDL Ratio 3.21 Procalcitonin 0.08 TSH 0.81 Hepatitis A IgM Ab Non-reactive Hep Bs Antigen Non-reactive Hep B Core IgM Ab Non-reactive Hepatitis C Antibody Reactive H HCV RNA (PCR) IUs/ml Pending HCV RNA (PCR) IU log10 Pending HIV 1&2 Ab & HIV 1 Ag Non-reactive HIV 1&2 Antibody Non-reactive A&P Assessment and plan (1) Suicidal ideations: Reported in the emergency room. 96-hour hold initiated. Has a history of depression in addition to substance use. - Management as per Dr. Dalal (2) Acute alcohol intoxication: With blood alcohol level at presentation 406. He is awake and alert and able to provide history. Has had alcohol levels as high as 478 this year already. Has a long history of alcohol abuse from available records. He says that when he is not able to get methadone he drinks much more heavily. He says his last use was 24 to 30 hours ago though I doubt accuracy based on current findings. He does have a history of alcohol withdrawal seizure in the past. - Initiate [facility] protocol - Monitor for signs and symptoms of worsening alcohol withdrawal currently has mild tachycardia but cooperative, without significant tremor, stable blood pressures and oxygen saturations. - Review of prior records indicates that patient has done okay with combination of methadone and Ativan or methadone and Librium during previous admissions this year but explained to him that just because he has tolerated combinations previously does not mean that he will definitely tolerate them this time as well. - Will ask for acute 4-hour vital signs; if needed more frequently for short duration can probably manage in the NPU but otherwise may have to consider transfer to medical unit for ongoing care. - Have discussed with Dr. Dalal who is comfortable with current plan with hospitalist following along. - Thiamine, folate and multivitamin - Seizure precautions Qualifiers: Complication of substance-induced condition: uncomplicated Qualified Code(s): F10.920 - Alcohol use, unspecified with intoxication, uncomplicated (3) Long-term current use of methadone for opiate dependence: Currently with some degree of opioid withdrawal with predominantly GI symptoms of nausea and diarrhea along with increase in pain. Reports that he is prescribed 100 mg of methadone daily but only taking 50 mg of methadone daily. I was able to confirm that he received multiple 50 mg doses of methadone during prior to hospital stays in November and in November. - For now we will give him 30 mg of methadone daily as per discussion; he agreed to this dosing while he is receiving Ativan via [facility] protocol - Reviewed with patient that he high risk of complications up to and including the possibility of with combining multiple substances such as alcohol and methadone. He expressed understanding and a verbalized desire to get off of methadone. - Also reviewed with patient that coming off of such high doses of methadone abruptly and without assistance can cause significant side effects that can be serious, much more so than what he is currently experiencing, and encouraged him not to miss his appointments to potato picker methadone for multiple days in a row as he has recently done. He does indicate transportation challenges are contributing factor. (4) Hepatitis C: Chronic, has not been on treatment, has associated elevation in transaminases, mild thrombocytopenia - Hepatitis C RNA PCR is still pending from last hospital stay, collected on 12/07 - Given reports of abdominal pain and prior history of pancreatitis as well will check lipase, was 52 in 09/2024 Qualifiers: Hepatic coma status: without hepatic coma Viral hepatitis chronicity: c hronic Qualified Code(s): B18.2 - Chronic viral hepatitis C (5) COPD (chronic obstructive pulmonary disease): Not currently acute - As needed breathing treatments Qualifiers: COPD type: chronic bronchitis Chronic bronchitis type: mixed simple and mucopurulent Qualified Code(s): J41.8 - Mixed simple and mucopurulent chronic bronchitis (6) Nicotine dependence, cigarettes, with other nicotine-induced disorders: Smokes about 2 packs of cigarettes a day - As needed nicotine replacement Plan As noted above Will follow along and monitor for need to change level of care based on degree of withdrawal symptoms or effects of management As risk for over medicating given his frequent requests for more medication and reported baseline dosing of methadone and alcohol tolerance FULL CODE PDMP PDMP Reviewed: Last Reviewed 12/16/24 17:55 by Kaylee Mayer MD Consult Attestations 2 Medical Necessity Statement: as per attending Diagnoses Suicidal ideations R45.851 Acute alcoholic intoxication without complication F10.920 Complication of substance-induced condition: uncomplicated Long-term current use of methadone for opiate dependence F11.20 Chronic hepatitis C without hepatic coma B18.2 Hepatic coma status: without hepatic coma Viral hepatitis chronicity: chronic Mixed simple and mucopurulent chronic bronchitis J41.8 COPD type: chronic bronchitis Chronic bronchitis type: mixed simple and mucopurulent Nicotine dependence, cigarettes, with other nicotine-induced disorders F17.218
[2024-12-16 18:10] LABS: Amphetamines Screen Urine Negative (Negative); Barbiturates Screen Urine Negative (Negative); Benzodiazepines Screen Urine Positive (Negative); Cocaine Screen Urine Negative (Negative); Opiate Screen Urine Negative (Negative); PCP Screen Urine Negative (Negative); THC Screen Urine Negative (Negative)
[2024-12-16 18:45] LABS: Lipase 50 U/L (13-60)
--- NOTE | 2024-12-16 19:01 | PC.NURSE ---
ATIVAN 2MG PO GIVEN FOR CIWA SCORE OF 19. WILL RESCORE IN 1 HOUR.
--- NOTE | 2024-12-16 20:00 | PC.NURSE ---
PATIENT CONTINUES TO SCORE A 19 ON CIWA SCALE, ATIVAN 2MG PO GIVEN. WILL REEVALUATE IN 1 HOUR.
[2024-12-16] MEDS: nicotine 2 mg Gum BUCCAL (20:19)
--- NOTE | 2024-12-16 22:52 | PC.NURSE ---
PATIENT GIVEN ATIVAN 2MG PO FOR A SCORE OF 13. WILL REEVALUATE IN ONE HOUR.
[2024-12-17 04:00] VITALS: BP 145/87; PULSE 86; RESP 18; TEMP 37.1; O2SAT 93
[2024-12-17 07:32] VITALS: BP 126/81; PULSE 108; RESP 18; TEMP 36.8; O2SAT 98
[2024-12-17 08:02] VITALS: RESP 16
[2024-12-17] MEDS: methadone 10 mg Tablet 30 MG PO (08:02)
[2024-12-17] MEDS: folic acid 1 mg Tablet PO (08:02)
[2024-12-17] MEDS: multivitamin therapeutic Tablet 1 TAB PO (08:02)
[2024-12-17] MEDS: LORazepam 2 mg Tablet PO ×7 (08:02→20:58)
[2024-12-17] MEDS: thiamine 100 mg Tablet PO (08:02)
[2024-12-17] MEDS: nicotine 4 mg lozenge MUCOUS MEM ×6 (08:02→20:57)
[2024-12-17] MEDS: acetaminophen 325 mg Tablet 650 MG PO (09:13)
--- NOTE | 2024-12-17 09:17 | PC.NURSE ---
Patient re-evaluated for CIWA. Per protocol, patient administered ztivan 2mg PO. Patient tremulous with pounding headache.
[2024-12-17 09:28] LABS: Alanine Aminotransferase 73 U/L (0-41); Albumin Level 4.1 g/dL (3.5-5.2); Alkaline Phosphatase 65 U/L (40-130); Anion Gap 15.6 (5-19); Aspartate Amino Transferase 137 U/L (0-40); Blood Urea Nitrogen 15 mg/dL (6-20); Calcium 8.8 mg/dL (8.5-10.5); Carbon Dioxide 28 mmol/L (22-29); Chloride 97 mmol/L (98-107); Creatinine Clr Calc Pharmacy 187.9492; Globulin 2.5 g/dL (1.3-4.6); Glomerular Filtration Rate 175.3 mL/min (90-130); Glucose 134 mg/dL (65-115); Osmolality Calculated 287 mOsm/kg (285-295); Potassium 3.6 mmol/L (3.5-5.1); Sodium 137 mmol/L (136-145); Total Bilirubin 1.5 mg/dL (0.15-1.2); Total Protein 6.6 g/dL (6.6-8.7)
[2024-12-17 09:37] LABS: Alcohol Level < 10 mg/dL (0-10)
[2024-12-17 11:48] VITALS: BP 156/89; PULSE 111; RESP 19; TEMP 37.4; O2SAT 95
--- NOTE | 2024-12-17 13:24 | P.NPUHP_ITS ---
Providers/Chief Complaint 2 Admitting Physician: Van Dalal MD Chief Complaint: ETOH HPI NPU History of Present Illness Cameron Smallwood is a 49 year old male recently discharged from the neuropsychiatric unit with a history of alcohol dependence after a 10-day stay here in November 2024. The patient presented with a blood alcohol level of 406 to the emergency department and reported that he was feeling suicidal. He had reported that he had been without his methadone and stated that he had been feeling extremely depressed and suicidal and stated that he would run into traffic if he were to leave the hospital. The patient had reported that he has had no significant changes currently as he had indicated that he is currently homeless. The patient had reported having significant pain issues. He reports that he had been noncompliant with outpatient substance abuse treatment and reported that he understands that he needs inpatient substance abuse treatment with continued medical problems associated with alcohol use. He reported no substantial changes since his last hospitalization 1 month ago. He does have a history of significant alcohol withdrawal symptoms including seizures. He was admitted involuntarily to the neuropsychiatric unit for further evaluation and treatment. Current medications: Methadone 50 mg daily Medical history: Hepatitis C, COPD, history of kidney stones, elevated liver enzymes, Allergies: azithromycin, tetanus, Excerpt from NPU Discharge Summary from 11/12/24 Discharge Diagnosis (1) Suicidal ideations: Status: Acute (2) Alcohol intoxication: Status: Acute Qualifiers: Complication of substance-induced condition: uncomplicated Qualified Code(s): F10.920 - Alcohol use, unspecified with intoxication, uncomplicated (3) History of seizure due to alcohol withdrawal: Status: Acute (4) Alcohol withdrawal syndrome: Status: Inactive Qualifiers: Complication of substance-induced condition: with unspecified complication Qualified Code(s): F10.239 - Alcohol dependence with withdrawal, unspecified (5) Opioid dependence on maintenance agonist therapy, no symptoms: Status: Acute (6) Depression: Status: Acute Reason for Visit Found in Ditch Passed out Brief History: History of Present Illness Cameron Smallwood is a 49 year old male who presented to the emergency department with the following report: Chief complaint: Altered Mental Status Stated complaint: Found in Ditch Passed out Time Seen by Provider: 10/31/24 23:08 History of Present Illness: Patient brought in by EMS after patient was found drunk passed out in a ditch. Patient is soaking wet cold and complaining of going through alcohol withdrawals and aching pain all over. Patient does admit to drinking today. Patient is alert oriented can answer all questions coherently. He was admitted to the neuropsychiatric unit for definitive treatment of those issues. He is known to [facility] through inpatient and outpatient services though most of his inpatient services were [id number] with none since then. There have been multiple emergency room and hospital visits and admissions that have been alcohol-related/drug related he presented to the emergency department after being found in a ditch and his blood alcohol was 478. They report he continued to be communicative even in those times that his numbers were high. He had altered mental status and concerns for safety including suicidal concerns. He is unknown to this communications writer specifically. He presented today reporting that he is doing okay. He was a limited historian as he at times nodded off during the interview. We discussed the fact that we had information on his overall story from records suggesting that he has had challenges with his drinking going way back. He acknowledges that drinking has been a problem off and on. He reports that he has had a couple of stents in rehab 1 fairly recently. He endorsed that he has had a couple DUIs. He reports that his drinking has been significant recently and denied any clear sense of why. We discussed the fact that he has had withdrawal seizures in the past and so we wanted to make sure he was acknowledging to the staff that he was feeling significant withdrawal symptoms. We discussed him being on the CIWA protocol and how that worked. We discussed his opioid addiction and the fact that he is on the methadone but he reports that ultimately he is trying to get off the methadone. We discussed having to do this with caution because this communications writer has never seen an individual who was not stable on 30 mg of methadone or less that was able to safely detox outside of a controlled environment like [facility]. We discussed that his blood alcohol 478 was close to the number where 50% of people who get that number . He reported that he had been working for [employer] at a [employer] but then lost his job. Then he went to a place called [employer] where he was working but that he has not been working for the last couple months and during that time his drinking had escalated again. He endorses that he has dealt with some depression and suicidal ideation. We discussed considering a medication for depression prior to discharge. He endorses that he has been homeless recently. We reviewed some of the psychosocial history as best we could while he was only capable at times of yes no answers. He denies any current legal challenges. He denies any current or significant medical problems. We discussed the risks, benefits and alternatives of making sure he makes it through the withdrawal process and then introducing antidepressant and he understood and agreed to proceed as documented in this note. Hospital Course Hospital Course The patient presented with a blood alcohol level of 478. He did appear to have a withdrawal seizure during his hospital stay here. He had eventually required as needed Ativan to help with his alcohol withdrawal symptoms. He had continued to minimize the severity of his alcohol use and refused any inpatient substance abuse treatment. He was agreeable to initiation of Prozac to target depression and this medication was titrated to 40 mg daily to target his anxiety and depression. He was ultimately agreeable to outpatient substance abuse treatment despite the necessity of him needing inpatient substance abuse treatment. He appeared minimally invested in treatment. Additionally, there was a general medical evaluation which was also within normal limits and revealed no new acute processes.? At the time of discharge, lethality was denied and psychosis was resolving.? Mood and anxiety were well managed.? The patient endorsed a plan to avoid all drugs of abuse and follow up with the aftercare recommendations of the treatment team.? The patient was evaluated and deemed to be absent credible lethality and had achieved the maximum benefit from an inpatient hospitalization, and so was discharged. ? Meds NPU Home Medications ?Medication ?Instructions ?Recorded ?Confirmed ?Last Taken ?Type methadone 10 mg tablet 50 mg PO DAILY 11/01/2411/3010/27/24 History bisacodyl 5 mg tablet,delayed 10 mg (2 x 5 mg) PO MADELYN Y PRN 11/12/24 12/16/24 Unknown Rx release Constipation 15 days #30 tab s folic acid 1 mg tablet 1 mg PO DAILY 30 days #30 ta bs 11/12/24 12/16/24 Unknown Rx hydroxyzine pamoate 25 mg capsule 50 mg (2 x 25 mg) PO Q6H PRN 11/12/24 12/16/24 Unknown Rx Anxiety 30 days #60 caps multivitamin with folic acid 400 1 tab PO DAILY 30 day s #30 tabs 12/08/24 12/16/24 Unknown Rx mcg tablet (Thera) thiamine mononitrate (vit B1) 100 100 mg PO DAILY 30 d ays #30 tabs 12/08/24 12/16/24 Unknown Rx mg tablet (Vitamin B-1 (mononitrate)) nicotine 21 mg/24 hr daily 1 patch transdermal DAILY P RN 12/16/24 12/16/24 Unknown History transdermal patch Nicotine Cravings Allergies Allergy/AdvReac Type Severity Reaction Status Date / Time tetanus immune globulin Allergy Mild ALGY-Anaphy Verified 09/19/24 18:53 laxis azithromycin Allergy ADR-Gastrointestinal Verified 09/19/24 18:53 Upset Tetanus Vaccines and Toxoid Allergy Unknown Verified 09/19/24 18:53 PFS NPU 2 PFS: Medical History (Updated 12/17/24 @ 13:39 by Van Dalal MD) Nicotine dependence, cigarettes, with other nicotine-induced disorders History of traumatic injury to musculoskeletal system crush injury to RLE History of pancreatitis History of rhabdomyolysis History of suicidal ideation Chronic alcohol abuse Methadone maintenance therapy patient Hepatitis C Depression History of kidney stones Pulmonary nodule History of seizure due to alcohol withdrawal COPD (chronic obstructive pulmonary disease) Surgical History (Updated 12/16/24 @ 17:47 by Kaylee Mayer MD) History of hip surgery Family History (Updated 12/16/24 @ 17:50 by Kaylee Mayer MD) Other Alcohol dependence Psychiatric illness Social History (Updated 12/16/24 @ 17:52 by Kaylee Mayer MD) Smoking and tobacco/nicotine status: heavy tobacco/nicotine user (no) cigarettes [ Other cigarette details: 2 packs per day] Alcohol intake: current Alcohol use comment: some drink most days, more when misses methadone appointments Substance/Drug Use: former Mental Status Exam 2 MSE Comments: This is a well-nourished well-developed white male in hospital scrubs with poor grooming and intermittent eye contact looking much older than his stated age. No abnormal movements were appreciated except for moderate psychomotor agitation and tremulousness. He was mostly cooperative with exam in mild to moderate distress. Speech was decreased in rate and normal in volume. Mood described as depressed. His affect was restricted in range and mood congruent. Thought process was linear and organized. Thought contact: Patient endorsed suicidal ideation and no homicidal ideation. There were no delusions reported or noted, patient denied auditory or visual hallucinations. Attention and concentration appeared intact and memory appeared mostly reliable but none were formally tested. Patient is alert and oriented to person, place, time and situation. Insight was poor. Judgment and impulse control appears impaired. Vitals/I&O/Wt Last Vital Signs Temp 99.4 F 12/17/24 11:48 Pulse 111 H 12/17/24 11:48 Resp 19 H 12/17/24 11:48 BP 156/89 12/17/24 11:48 Pulse Ox 95 12/17/24 11:48 O2 Del Method Room Air 12/16/24 14:34 Weight last 48 hrs Weight 77.111 kg Data NPU 12/16/24 13:26 12/17/24 08:49 A&P Assessment and plan (1) Suicidal ideations: (2) Alcohol withdrawal syndrome: Qualifiers: Complication of substance-induced condition: with unspecified complication Qualified Code(s): F10.239 - Alcohol dependence with withdrawal, unspecified (3) Alcohol intoxication: Qualifiers: Complication of substance-induced condition: uncomplicated Qualified Code(s): F10.920 - Alcohol use, unspecified with intoxication, uncomplicated (4) History of seizure due to alcohol withdrawal: (5) Opioid dependence on maintenance agonist therapy, no symptoms: (6) Depression: (7) Alcohol use disorder, severe, dependence: Plan This is a 49-year-old male known through past hospitalizations with depression, anxiety, and significant alcohol dependence admitted with blood alcohol of 406 and a history of withdrawal seizures. 1. Review his medication and consider which ones to restart at what doses versus consider a new medication. 2. Continue every 15 minute checks for safety. 3. Encourage individual, group and milieu therapies. 4. Encourage sober living treatment after discharge at the highest level of care to which he is willing to commit. 5. CIWA protocol with significant attention to the fact that he has a history of withdrawal seizures. Restart prozac for depression and continue methadone 30mg daily. 6. Appreciate medical consult given signficant history of alcohol withdrawal seizures. 7. Patient will likely require inpatient substance abuse treatment. PDMP PDMP Reviewed: Not Reviewed Involuntary Hold Information 2 Hold Status: Legal Status: 96 Hour Hold Date/Time Hold Expires: 0 12/20/24@1320 96 Hour Hold: 96 Hour Involuntary Admission: Yes Attestations NPU 2 Medical Necessity Statement*: Inpatient hospitalization is medically necessary and?the clinically appropriate intervention at this time.? We will monitor/initiate medications and make changes as indicated.? The patient will be in the hospital for over 2 midnights.? The patient?s likely length of stay is 4-6 days. Coding Level of Care Code Acute Code for [facility] Fwd Diagnoses Suicidal ideations R45.851 Alcohol withdrawal syndrome F10.239 Complication of substance-induced condition: with unspecified complication Alcohol intoxication F10.920 Complication of substance-induced condition: uncomplicated History of seizure due to alcohol withdrawal Z87.898; Z86.59 Opioid dependence on maintenance agonist therapy, no symptoms F11.20 Depression F32.A Alcohol use disorder, severe, dependence F10.20
[2024-12-17 15:39] VITALS: BP 140/84; PULSE 120; RESP 18; TEMP 36.7; O2SAT 94
[2024-12-17 19:56] VITALS: BP 149/99; PULSE 101; RESP 18; TEMP 36.7; O2SAT 97
[2024-12-17] MEDS: trazodone 50 mg Tablet PO (20:57)
[2024-12-18] VITALS: RESP 16
[2024-12-18 04:00] VITALS: BP 141/97; PULSE 91; RESP 18; O2SAT 94
[2024-12-18] MEDS: LORazepam 2 mg Tablet PO ×5 (07:03→20:26)
[2024-12-18] MEDS: nicotine 4 mg lozenge MUCOUS MEM ×5 (07:03→20:26)
[2024-12-18 08:00] VITALS: BP 133/87; PULSE 108; RESP 17; TEMP 36.8; O2SAT 95
[2024-12-18] MEDS: acetaminophen 325 mg Tablet 650 MG PO (08:17)
[2024-12-18] MEDS: methadone 10 mg Tablet 30 MG PO (08:18)
[2024-12-18] MEDS: multivitamin therapeutic Tablet 1 TAB PO (08:18)
[2024-12-18] MEDS: folic acid 1 mg Tablet PO (08:18)
[2024-12-18] MEDS: fluoxetine 20 mg Capsule PO (08:18)
[2024-12-18] MEDS: thiamine 100 mg Tablet PO (08:18)
[2024-12-18] MEDS: hyDROXYzine 25 mg Capsule 50 MG PO ×2 (08:19→17:06)
[2024-12-18] MEDS: ibuprofen 600 mg Tablet PO (10:14)
[2024-12-18 12:00] VITALS: BP 131/86; PULSE 106; RESP 17; TEMP 36.5; O2SAT 95
--- NOTE | 2024-12-18 14:39 | W.PM.NPUPNS ---
Subjective NPU Subjective: 49-year-old male with a history of opiate dependence and alcohol dependence along with hepatitis C currently admitted after presenting with a blood alcohol level of 478. The patient continued to show evidence of alcohol related withdrawal symptoms. He continued to report depression. He had reported that he remained ambivalent about going to inpatient substance abuse treatment as he stated he was worried about his cats in his home being taken care of at this time. He had reported some sleep disturbance. He had continued to show evidence of significant withdrawal symptoms and required as needed lorazepam throughout the day. He had prior history of significant alcohol related withdrawal symptoms including seizures on the unit previously. Mental Status Exam MSE Comments: This is a well-nourished well-developed white male in hospital scrubs with poor grooming and intermittent eye contact looking much older than his stated age. No abnormal movements were appreciated except for moderate psychomotor agitation and tremulousness. He was mostly cooperative with exam in mild to moderate distress. Speech was decreased in rate and normal in volume. Mood described as depressed. His affect was restricted in range and mood congruent. Thought process was linear and organized. Thought contact: Patient endorsed suicidal ideation and no homicidal ideation. There were no delusions reported or noted, patient denied auditory or visual hallucinations. Attention and concentration appeared intact and memory appeared mostly reliable but none were formally tested. Patient is alert and oriented to person, place, time and situation. Insight was poor. Judgment and impulse control appears impaired. Vitals/I&O/Wt Last Vital Signs Temp 97.7 F 12/18/24 12:00 Pulse 106 H 12/18/24 12:00 Resp 17 12/18/24 12:00 BP 131/86 12/18/24 12:00 Pulse Ox 95 12/18/24 12:00 O2 Del Method Room Air 12/16/24 14:34 Data NPU 12/16/24 13:26 12/17/24 08:49 A&P Assessment and plan (1) Suicidal ideations: (2) Alcohol withdrawal syndrome: Qualifiers: Complication of substance-induced condition: with unspecified complication Qualified Code(s): F10.239 - Alcohol dependence with withdrawal, unspecified (3) Alcohol intoxication: Qualifiers: Complication of substance-induced condition: uncomplicated Qualified Code(s): F10.920 - Alcohol use, unspecified with intoxication, uncomplicated (4) History of seizure due to alcohol withdrawal: (5) Opioid dependence on maintenance agonist therapy, no symptoms: (6) Depression: (7) Alcohol use disorder, severe, dependence: Plan This is a 49-year-old male known through past hospitalizations with depression, anxiety, and significant alcohol dependence admitted with blood alcohol of 406 and a history of withdrawal seizures. 1. Review his medication and consider which ones to restart at what doses versus consider a new medication. 2. Continue every 15 minute checks for safety. 3. Encourage individual, group and milieu therapies. 4. Encourage sober living treatment after discharge at the highest level of care to which he is willing to commit. 5. CIWA protocol with significant attention to the fact that he has a history of withdrawal seizures. Continue Prozac 20mg daily for depression and continue methadone 30mg daily. 6. Appreciate medical consult given signficant history of alcohol withdrawal seizures. 7. Patient will likely require inpatient substance abuse treatment.-Referral for [facility] inpatient treatment PDMP PDMP Reviewed: Not Reviewed Involuntary Hold Information Hold Status: Legal Status: 96 Hour Hold Date/Time Hold Expires: 12/20/24 @ 13:20 96 Hour Hold: 96 Hour Involuntary Admission: Yes Attestations NPU Medical Necessity Statement*: Inpatient hospitalization is medically necessary and?the clinically appropriate intervention at this time.? We will monitor/initiate medications and make changes as indicated.? ? The patient?s likely length of stay is 4-6 days. Coding Level of Care Code Acute Code for [facility] Fwd Diagnoses Suicidal ideations R45.851 Alcohol withdrawal syndrome F10.239 Complication of substance-induced condition: with unspecified complication Alcohol intoxication F10.920 Complication of substance-induced condition: uncomplicated History of seizure due to alcohol withdrawal Z87.898; Z86.59 Opioid dependence on maintenance agonist therapy, no symptoms F11.20 Depression F32.A Alcohol use disorder, severe, dependence F10.20
[2024-12-18 16:00] VITALS: BP 143/94; PULSE 107; RESP 18; O2SAT 95
[2024-12-18 20:00] VITALS: BP 140/90; PULSE 88; RESP 18; O2SAT 95
[2024-12-19] VITALS (7 sets, daily range): BP systolic 124–149; BP diastolic 60–98; PULSE 76–100; RESP 16–18; TEMP 36.6–37.1; O2SAT 94–98
[2024-12-19] MEDS: LORazepam 2 mg Tablet PO (02:00)
--- NOTE | 2024-12-19 07:35 | PC.NURSE ---
pt upset when asked to remove extra mattress from his bed that he had removed from bed one, pt also asked to remove fall mat that he had removed from floor an placed on bed. pt asked why he could not have both mattress because his back hurt from these beds a now you want me to remove the mat, pt at that time picked up the mat threw it across the room saying I do not want it in my room then, this coding file clerk informed pt on the purpose for the fall mat and his seizure precautions. pt stated he did not care he did not want it in there. this coding file clerk explain to pt that each bed required a mattress and it is important not to remove another beds mattress incase we have an admit that would require the bed, pt then stated well then I guess you would have to clean it wouldn't you, what would that take a minute. again explained to pt the importance of only using his mattress while he is at this facility. pt continues to be upset yelling for staff to leave his room which staff did to let pt deescalate the situation.
[2024-12-19] MEDS: nicotine 4 mg lozenge MUCOUS MEM ×4 (08:00→15:46)
[2024-12-19] MEDS: multivitamin therapeutic Tablet 1 TAB PO (08:00)
[2024-12-19] MEDS: folic acid 1 mg Tablet PO (08:00)
[2024-12-19] MEDS: thiamine 100 mg Tablet PO (08:00)
[2024-12-19] MEDS: fluoxetine 20 mg Capsule PO (08:00)
[2024-12-19] MEDS: methadone 10 mg Tablet 30 MG PO (08:01)
--- NOTE | 2024-12-19 12:36 | P.NPUPN_ITS ---
Subjective NPU 2 Subjective: 49-year-old male with a history of opiat e dependence and alcohol dependence along with hepatitis C currently admitted after presenting with a blood alcohol level of 406. The patient had reported that he needed to go home first before going into rehabilitation. He had continued to appear somewhat demanding on the unit. He reported that he continued to feel depressed. Patient had continued to require as needed Ativan to help with alcohol related withdrawal symptoms. He continued to report sleep continuity disruption. Mental Status Exam 2 MSE Comments: This is a well-nourished well-developed white male in hospital scrubs with poor grooming and intermittent eye contact looking much older than his stated age. No abnormal movements were appreciated except for moderate psychomotor agitation and tremulousness. He was mostly cooperative with exam in mild to moderate distress. Speech was decreased in rate and normal in volume. Mood described as depressed. His affect was restricted in range and mood congruent. Thought process was linear and organized. Thought contact: Patient endorsed passive suicidal ideation and no homicidal ideation. There were no delusions reported or noted, patient denied auditory or visual hallucinations. Attention and concentration appeared intact and memory appeared mostly reliable but none were formally tested. Patient is alert and oriented to person, place, time and situation. Insight was poor. Judgment and impulse control appears impaired. Vitals/I&O/Wt Last Vital Signs Temp 98.7 F 12/19/24 07:34 Pulse 80 12/19/24 07:34 Resp 16 12/19/24 07:34 BP 149/74 12/19/24 07:34 Pulse Ox 95 12/19/24 07:34 O2 Del Method Room Air 12/19/24 07:34 Data NPU 12/16/24 13:26 12/17/24 08:49 A&P Assessment and plan (1) Depression: (2) Suicidal ideations: (3) Alcohol withdrawal syndrome: Qualifiers: Complication of substance-induced condition: with unspecified complication Qualified Code(s): F10.239 - Alcohol dependence with withdrawal, unspecified (4) Alcohol intoxication: Qualifiers: Complication of substance-induced condition: uncomplicated Qualified Code(s): F10.920 - Alcohol use, unspecified with intoxication, uncomplicated (5) History of seizure due to alcohol withdrawal: (6) Opioid dependence on maintenance agonist therapy, no symptoms: (7) Alcohol use disorder, severe, dependence: Plan This is a 49-year-old male known through past hospitalizations with depression, anxiety, and significant alcohol dependence admitted with blood alcohol of 406 and a history of withdrawal seizures. 1. Review his medication and consider which ones to restart at what doses versus consider a new medication. 2. Continue every 15 minute checks for safety. 3. Encourage individual, group and milieu therapies. 4. Encourage sober living treatment after discharge at the highest level of care to which he is willing to commit. 5. CIWA protocol with significant attention to the fact that he has a history of withdrawal seizures. Increase prozac to 30mg daily for depression and continue methadone 30mg daily. 6. Appreciate medical consult given signficant history of alcohol withdrawal seizures. 7. Patient will likely require inpatient substance abuse treatment.-Referral for [facility] inpatient treatment PDMP PDMP Reviewed: Not Reviewed Involuntary Hold Information 2 Hold Status: Legal Status: 96 Hour Hold Date/Time Hold Expires: 12/20/24 @ 13:20 96 Hour Hold: 96 Hour Involuntary Admission: Yes Attestations NPU 2 Medical Necessity Statement*: Inpatient hospitalization is medically necessary and?the clinically appropriate intervention at this time.? We will monitor/initiate medications and make changes as indicated.? ? The patient?s likely length of stay is 4-5 days. Coding Level of Care Code Acute Code for [facility] Fwd Diagnoses Depression F32.A Suicidal ideations R45.851 Alcohol withdrawal syndrome F10.239 Complication of substance-induced condition: with unspecified complication Alcohol intoxication F10.920 Complication of substance-induced condition: uncomplicated History of seizure due to alcohol withdrawal Z87.898; Z86.59 Opioid dependence on maintenance agonist therapy, no symptoms F11.20 Alcohol use disorder, severe, dependence F10.20
[2024-12-19] MEDS: OLANZapine 5 mg ODT PO (16:24)
[2024-12-19] MEDS: acetaminophen 325 mg Tablet 650 MG PO (16:24)
[2024-12-20 04:00] VITALS: PULSE 76; RESP 18; O2SAT 96
--- NOTE | 2024-12-20 04:07 | PC.NURSE ---
Patient refused temp and blood pressure. Nurse notified.
[2024-12-20 07:01] VITALS: RESP 18
[2024-12-20] MEDS: methadone 10 mg Tablet 30 MG PO (07:01)
[2024-12-20] MEDS: ibuprofen 600 mg Tablet PO (07:01)
[2024-12-20] MEDS: hyDROXYzine 25 mg Capsule 50 MG PO ×3 (07:02→22:23)
[2024-12-20] MEDS: fluoxetine 10 mg Capsule 30 MG PO (07:02)
[2024-12-20] MEDS: thiamine 100 mg Tablet PO (07:02)
[2024-12-20] MEDS: folic acid 1 mg Tablet PO (07:02)
[2024-12-20] MEDS: multivitamin therapeutic Tablet 1 TAB PO (07:03)
[2024-12-20] MEDS: nicotine 4 mg lozenge MUCOUS MEM ×6 (07:03→22:23)
[2024-12-20 07:51] VITALS: BP 134/88; PULSE 95; RESP 16; TEMP 36.7; O2SAT 93
--- NOTE | 2024-12-20 08:43 | W.PM.NPUPNS ---
Subjective NPU Subjective: Patient presented today reporting that he is doing okay. He was expressing some frustration that he has a court hearing on Monday next week and that is when his bed date at [facility] will be. We discussed the fact that we would not let the bed date be missed. We discussed that if at that point he appears to be ready for discharge we will fact discharge him directly to [facility] and would cancel that hearing. He denied any side effects of his medication. Mental Status Exam MSE Comments: This is a well-nourished well-developed white male in hospital scrubs with poor grooming and intermittent eye contact looking much older than his stated age. No abnormal movements were appreciated except for moderate psychomotor agitation and tremulousness. He was mostly cooperative with exam in mild to moderate distress. Speech was decreased in rate and normal in volume. Mood described as depressed. His affect was restricted in range and mood congruent. Thought process was linear and organized. Thought contact: Patient endorsed passive suicidal ideation and no homicidal ideation. There were no delusions reported or noted, patient denied auditory or visual hallucinations. Attention and concentration appeared intact and memory appeared mostly reliable but none were formally tested. Patient is alert and oriented to person, place, time and situation. Insight was poor. Judgment and impulse control appears impaired. Vitals/I&O/Wt Last Vital Signs Temp 98.1 F 12/20/24 07:51 Pulse 95 12/20/24 07:51 Resp 16 12/20/24 07:51 BP 134/88 12/20/24 07:51 Pulse Ox 93 12/20/24 07:51 O2 Del Method Room Air 12/20/24 07:51 Data NPU 12/16/24 13:26 12/17/24 08:49 A&P Assessment and plan (1) Depression: (2) Suicidal ideations: (3) Alcohol withdrawal syndrome: Qualifiers: Complication of substance-induced condition: with unspecified complication Qualified Code(s): F10.239 - Alcohol dependence with withdrawal, unspecified (4) Alcohol intoxication: Qualifiers: Complication of substance-induced condition: uncomplicated Qualified Code(s): F10.920 - Alcohol use, unspecified with intoxication, uncomplicated (5) History of seizure due to alcohol withdrawal: (6) Opioid dependence on maintenance agonist therapy, no symptoms: (7) Alcohol use disorder, severe, dependence: Plan This is a 49-year-old male known through past hospitalizations with depression, anxiety, and significant alcohol dependence admitted with blood alcohol of 406 and a history of withdrawal seizures. 1. Review his medication and consider which ones to restart at what doses versus consider a new medication. 2. Continue every 15 minute checks for safety. 3. Encourage individual, group and milieu therapies. 4. Encourage sober living treatment after discharge at the highest level of care to which he is willing to commit. 5. CIWA protocol with significant attention to the fact that he has a history of withdrawal seizures. Increase prozac to 30mg daily for depression and continue methadone 30mg daily. 6. Appreciate medical consult given signficant history of alcohol withdrawal seizures. 7. Patient will likely require inpatient substance abuse treatment.-Referral for [facility] inpatient treatment. Bed date appears likely for 12/24/2024 and we will discharge to there. PDMP PDMP Reviewed: Not Reviewed Involuntary Hold Information Hold Status: Legal Status: 96 Hour Hold Date/Time Hold Expires: 12/20/24 @ 13:20 96 Hour Hold: 96 Hour Involuntary Admission: Yes Attestations NPU Medical Necessity Statement*: Inpatient hospitalization is medically necessary and?the clinically appropriate intervention at this time.? We will monitor/initiate medications and make changes as indicated.? ? The patient?s likely length of stay is 3-4 days. Coding Level of Care Code Acute Code for [facility] Fwd Diagnoses Depression F32.A Suicidal ideations R45.851 Alcohol withdrawal syndrome F10.239 Complication of substance-induced condition: with unspecified complication Alcohol intoxication F10.920 Complication of substance-induced condition: uncomplicated History of seizure due to alcohol withdrawal Z87.898; Z86.59 Opioid dependence on maintenance agonist therapy, no symptoms F11.20 Alcohol use disorder, severe, dependence F10.20
[2024-12-20] MEDS: OLANZapine 5 mg ODT PO (09:48)
[2024-12-20] MEDS: LORazepam 2 mg Tablet PO (10:43)
[2024-12-20 12:00] VITALS: BP 119/68; PULSE 93; RESP 20; TEMP 36.9; O2SAT 94
[2024-12-20 16:00] VITALS: BP 113/83; PULSE 92; RESP 16; TEMP 37; O2SAT 95
[2024-12-20 20:00] VITALS: BP 112/81; PULSE 103; RESP 18; TEMP 36.7; O2SAT 94
[2024-12-20] MEDS: trazodone 50 mg Tablet PO (22:23)
[2024-12-21 03:55] VITALS: BP 123/82; PULSE 90; RESP 16; O2SAT 93
[2024-12-21 08:00] VITALS: BP 144/87; PULSE 88; RESP 17; O2SAT 94
[2024-12-21 08:15] VITALS: RESP 16
[2024-12-21] MEDS: nicotine 4 mg lozenge MUCOUS MEM ×6 (08:15→21:17)
[2024-12-21] MEDS: fluoxetine 10 mg Capsule 30 MG PO (08:15)
[2024-12-21] MEDS: multivitamin therapeutic Tablet 1 TAB PO (08:15)
[2024-12-21] MEDS: methadone 10 mg Tablet 30 MG PO (08:15)
[2024-12-21] MEDS: thiamine 100 mg Tablet PO (08:16)
[2024-12-21] MEDS: folic acid 1 mg Tablet PO (08:16)
[2024-12-21 12:00] VITALS: BP 105/82; PULSE 108; RESP 17; TEMP 36.6; O2SAT 92
[2024-12-21] MEDS: haloperidol 5 mg Tablet PO (12:32)
[2024-12-21] MEDS: nicotine 2 mg Gum BUCCAL (13:51)
[2024-12-21 16:00] VITALS: BP 126/81; PULSE 94; RESP 17; TEMP 36.6; O2SAT 94
--- NOTE | 2024-12-21 19:30 | P.NPUPN_ITS ---
Subjective NPU 2 Subjective: Patient presented today reporting that he is doing better and ready to go to rehab. However he spent much of the time trying to lobby to be discharged to go home and wash close and take care of his cats. We discussed the importance of him going from point a to point B and he denied that that would be necessary for him. We discussed looking at his previous patterns here on the unit and lack of treatment follow-up. He reports he has a sister that could go get some stuff but she says the people harassed her when she has gone over there. We discussed a plan to work with her and anyone else to assist him in getting close and what ever else is necessary to allow him to not have a gap in services that would put his sobriety at risk. He denied any side effects to his medications. Mental Status Exam 2 MSE Comments: This is a well-nourished well-developed white male in hospital scrubs with poor grooming and intermittent eye contact looking much older than his stated age. No abnormal movements were appreciated except for moderate psychomotor agitation and tremulousness. He was mostly cooperative with exam in mild to moderate distress. Speech was decreased in rate and normal in volume. Mood described as depressed. His affect was restricted in range and mood congruent. Thought process was linear and organized. Thought contact: Patient endorsed passive suicidal ideation and no homicidal ideation. There were no delusions reported or noted, patient denied auditory or visual hallucinations. Attention and concentration appeared intact and memory appeared mostly reliable but none were formally tested. Patient is alert and oriented to person, place, time and situation. Insight was poor. Judgment and impulse control appears impaired. Vitals/I&O/Wt Last Vital Signs Temp 97.8 F 12/21/24 19:00 Pulse 90 12/21/24 20:00 Resp 16 12/21/24 20:00 BP 131/88 12/21/24 20:00 Pulse Ox 94 12/21/24 20:00 O2 Del Method Room Air 12/20/24 16:00 Weight last 48 hrs Weight 76.657 kg Data NPU 12/16/24 13:26 12/17/24 08:49 A&P Assessment and plan (1) Depression: (2) Suicidal ideations: (3) Alcohol withdrawal syndrome: Qualifiers: Complication of substance-induced condition: with unspecified complication Qualified Code(s): F10.239 - Alcohol dependence with withdrawal, unspecified (4) Alcohol intoxication: Qualifiers: Complication of substance-induced condition: uncomplicated Qualified Code(s): F10.920 - Alcohol use, unspecified with intoxication, uncomplicated (5) History of seizure due to alcohol withdrawal: (6) Opioid dependence on maintenance agonist therapy, no symptoms: (7) Alcohol use disorder, severe, dependence: Plan This is a 49-year-old male known through past hospitalizations with depression, anxiety, and significant alcohol dependence admitted with blood alcohol of 406 and a history of withdrawal seizures. 1. Review his medication and consider which ones to restart at what doses versus consider a new medication. 2. Continue every 15 minute checks for safety. 3. Encourage individual, group and milieu therapies. 4. Encourage sober living treatment after discharge at the highest level of care to which he is willing to commit. 5. CIWA protocol with significant attention to the fact that he has a history of withdrawal seizures. Increase prozac to 30mg daily for depression and continue methadone 30mg daily. 6. Appreciate medical consult given signficant history of alcohol withdrawal seizures. 7. Patient will likely require inpatient substance abuse treatment.-Referral for [facility] inpatient treatment. Bed date appears likely for 12/24/2024 and we will discharge to there. PDMP PDMP Reviewed: Not Reviewed Involuntary Hold Information 2 Hold Status: Legal Status: 96 Hour Hold Date/Time Hold Expires: [address] 12/24/24 96 Hour Hold: 96 Hour Involuntary Admission: Yes Attestations NPU 2 Medical Necessity Statement*: Inpatient hospitalization is medically necessary and?the clinically appropriate intervention at this time.? We will monitor/initiate medications and make changes as indicated.? ? The patient?s likely length of stay is 2-3 days. Coding Level of Care Code Acute Code for [facility] Fwd Diagnoses Depression F32.A Suicidal ideations R45.851 Alcohol withdrawal syndrome F10.239 Complication of substance-induced condition: with unspecified complication Alcohol intoxication F10.920 Complication of substance-induced condition: uncomplicated History of seizure due to alcohol withdrawal Z87.898; Z86.59 Opioid dependence on maintenance agonist therapy, no symptoms F11.20 Alcohol use disorder, severe, dependence F10.20
[2024-12-21 20:00] VITALS: BP 131/88; PULSE 90; RESP 16; O2SAT 94
[2024-12-21] MEDS: ibuprofen 600 mg Tablet PO (20:23)
[2024-12-21] MEDS: hyDROXYzine 25 mg Capsule 50 MG PO (20:24)
[2024-12-21] MEDS: LORazepam 2 mg Tablet PO (20:24)
[2024-12-22] VITALS: BP 141/81; PULSE 87; RESP 16; TEMP 36.6; O2SAT 95
[2024-12-22 08:00] VITALS: BP 143/84; PULSE 74; RESP 18; O2SAT 96
[2024-12-22] MEDS: fluoxetine 10 mg Capsule 30 MG PO (08:34)
[2024-12-22 08:35] VITALS: RESP 16
[2024-12-22] MEDS: multivitamin therapeutic Tablet 1 TAB PO (08:35)
[2024-12-22] MEDS: methadone 10 mg Tablet 30 MG PO (08:35)
[2024-12-22] MEDS: folic acid 1 mg Tablet PO (08:35)
[2024-12-22] MEDS: thiamine 100 mg Tablet PO (08:35)
[2024-12-22] MEDS: nicotine 4 mg lozenge MUCOUS MEM ×7 (08:35→22:37)
[2024-12-22 12:00] VITALS: BP 120/72; PULSE 91; RESP 18; TEMP 36.6; O2SAT 94
[2024-12-22] MEDS: nicotine 2 mg Gum BUCCAL (14:08)
[2024-12-22 16:00] VITALS: BP 131/84; PULSE 84; RESP 17; TEMP 36.3; O2SAT 96
--- NOTE | 2024-12-22 16:41 | W.PM.NPUPNS ---
Subjective NPU Subjective: Patient presented today reporting that things are going fine. She continued to be quite focused on this idea of being discharged prior to Monday so he can go and take care of some different personal matters. These matters seem to be related to washing close and taking care of some pets he reports he has. We continue to discussed the importance of going from a to be of that discharge prior to rehabs is rarely successful. He denied any side effects to his medication. Mental Status Exam MSE Comments: This is a well-nourished well-developed white male in hospital scrubs with poor grooming and intermittent eye contact looking much older than his stated age. No abnormal movements were appreciated except for moderate psychomotor agitation and tremulousness. He was mostly cooperative with exam in mild to moderate distress. Speech was decreased in rate and normal in volume. Mood described as depressed. His affect was restricted in range and mood congruent. Thought process was linear and organized. Thought contact: Patient endorsed passive suicidal ideation and no homicidal ideation. There were no delusions reported or noted, patient denied auditory or visual hallucinations. Attention and concentration appeared intact and memory appeared mostly reliable but none were formally tested. Patient is alert and oriented to person, place, time and situation. Insight was poor. Judgment and impulse control appears impaired. Vitals/I&O/Wt Last Vital Signs Temp 97.4 F L 12/22/24 16:00 Pulse 84 12/22/24 16:00 Resp 17 12/22/24 16:00 BP 131/84 12/22/24 16:00 Pulse Ox 96 12/22/24 16:00 O2 Del Method Room Air 12/20/24 16:00 Weight last 48 hrs Weight 76.657 kg Data NPU 12/16/24 13:26 12/17/24 08:49 A&P Assessment and plan (1) Depression: (2) Suicidal ideations: (3) Alcohol withdrawal syndrome: Qualifiers: Complication of substance-induced condition: with unspecified complication Qualified Code(s): F10.239 - Alcohol dependence with withdrawal, unspecified (4) Alcohol intoxication: Qualifiers: Complication of substance-induced condition: uncomplicated Qualified Code(s): F10.920 - Alcohol use, unspecified with intoxication, uncomplicated (5) History of seizure due to alcohol withdrawal: (6) Opioid dependence on maintenance agonist therapy, no symptoms: (7) Alcohol use disorder, severe, dependence: Plan This is a 49-year-old male known through past hospitalizations with depression, anxiety, and significant alcohol dependence admitted with blood alcohol of 406 and a history of withdrawal seizures. 1. Review his medication and consider which ones to restart at what doses versus consider a new medication. 2. Continue every 15 minute checks for safety. 3. Encourage individual, group and milieu therapies. 4. Encourage sober living treatment after discharge at the highest level of care to which he is willing to commit. 5. CIWA protocol with significant attention to the fact that he has a history of withdrawal seizures. Increase prozac to 30mg daily for depression and continue methadone 30mg daily. 6. Appreciate medical consult given signficant history of alcohol withdrawal seizures. 7. Patient will likely require inpatient substance abuse treatment.-Referral for [facility] inpatient treatment. Bed date appears likely for 12/24/2024 and we will discharge to there. Likely plan for discharge Monday. PDMP PDMP Reviewed: Not Reviewed Involuntary Hold Information Hold Status: Legal Status: 96 Hour Hold Date/Time Hold Expires: [address] court 12/24/24 96 Hour Hold: 96 Hour Involuntary Admission: Yes Attestations NPU Medical Necessity Statement*: Inpatient hospitalization is medically necessary and?the clinically appropriate intervention at this time.? We will monitor/initiate medications and make changes as indicated.? ? The patient?s likely length of stay is 1-2 days. Coding Level of Care Code Acute Code for [facility] Fwd Diagnoses Depression F32.A Suicidal ideations R45.851 Alcohol withdrawal syndrome F10.239 Complication of substance-induced condition: with unspecified complication Alcohol intoxication F10.920 Complication of substance-induced condition: uncomplicated History of seizure due to alcohol withdrawal Z87.898; Z86.59 Opioid dependence on maintenance agonist therapy, no symptoms F11.20 Alcohol use disorder, severe, dependence F10.20
[2024-12-22 20:00] VITALS: BP 128/84; PULSE 81; RESP 18; TEMP 36.8; O2SAT 96
[2024-12-22] MEDS: trazodone 50 mg Tablet PO ×2 (21:22→22:40)
[2024-12-22] MEDS: hyDROXYzine 25 mg Capsule 50 MG PO (21:22)
[2024-12-22] MEDS: artificial tears Op Soln 15 mL Btl 1 DROP EYE-BOTH (22:37)
[2024-12-22] MEDS: acetaminophen 325 mg Tablet 650 MG PO (22:40)
[2024-12-23 04:00] VITALS: BP 90/58; PULSE 66; RESP 16; O2SAT 93
[2024-12-23 08:00] VITALS: BP 135/86; PULSE 77; RESP 16; TEMP 36.4; O2SAT 96
[2024-12-23 08:08] VITALS: RESP 17
[2024-12-23] MEDS: thiamine 100 mg Tablet PO (08:08)
[2024-12-23] MEDS: fluoxetine 10 mg Capsule 30 MG PO (08:08)
[2024-12-23] MEDS: multivitamin therapeutic Tablet 1 TAB PO (08:08)
[2024-12-23] MEDS: methadone 10 mg Tablet 30 MG PO (08:08)
[2024-12-23] MEDS: folic acid 1 mg Tablet PO (08:08)
[2024-12-23] MEDS: nicotine 4 mg lozenge MUCOUS MEM ×8 (08:10→22:03)
[2024-12-23] MEDS: hyDROXYzine 25 mg Capsule 50 MG PO (09:30)
[2024-12-23 12:00] VITALS: RESP 16
[2024-12-23 14:00] VITALS: BP 114/74; PULSE 83; RESP 16; O2SAT 94
[2024-12-23 17:24] LABS: Glucose Point of Care 135 mg/dL (70-110)
--- NOTE | 2024-12-23 18:27 | P.NPUPN_ITS ---
Subjective NPU 2 Subjective: Patient presented today reporting that he is feeling okay. He endorsed the fact that he is going to rehab tomorrow and did not spend any time asking or talking about getting his close still being able to take care of his pets. We discussed the critical need for him to get his sobriety under control so that he can enjoy things like his pets and his life in general. We discussed the importance of him working through his resistance to sobriety and make the best of this Situation. He denied any side effects of the medication. Mental Status Exam 2 MSE Comments: This is a well-nourished well-developed white male in hospital scrubs with poor grooming and intermittent eye contact looking much older than his stated age. No abnormal movements were appreciated except for moderate psychomotor agitation and tremulousness. He was mostly cooperative with exam in mild to moderate distress. Speech was decreased in rate and normal in volume. Mood described as depressed. His affect was restricted in range and mood congruent. Thought process was linear and organized. Thought contact: Patient endorsed passive suicidal ideation and no homicidal ideation. There were no delusions reported or noted, patient denied auditory or visual hallucinations. Attention and concentration appeared intact and memory appeared mostly reliable but none were formally tested. Patient is alert and oriented to person, place, time and situation. Insight was poor. Judgment and impulse control appears impaired. Vitals/I&O/Wt Last Vital Signs Temp 97.6 F 12/23/24 08:00 Pulse 83 12/23/24 14:00 Resp 16 12/23/24 14:00 BP 114/74 12/23/24 14:00 Pulse Ox 94 12/23/24 14:00 O2 Del Method Room Air 12/20/24 16:00 Weight last 48 hrs Weight 76.657 kg Data NPU 12/16/24 13:26 12/17/24 08:49 A&P Assessment and plan (1) Depression: (2) Suicidal ideations: (3) Alcohol withdrawal syndrome: Qualifiers: Complication of substance-induced condition: with unspecified complication Qualified Code(s): F10.239 - Alcohol dependence with withdrawal, unspecified (4) Alcohol intoxication: Qualifiers: Complication of substance-induced condition: uncomplicated Qualified Code(s): F10.920 - Alcohol use, unspecified with intoxication, uncomplicated (5) History of seizure due to alcohol withdrawal: (6) Opioid dependence on maintenance agonist therapy, no symptoms: (7) Alcohol use disorder, severe, dependence: Plan This is a 49-year-old male known through past hospitalizations with depression, anxiety, and significant alcohol dependence admitted with blood alcohol of 406 and a history of withdrawal seizures. 1. Review his medication and consider which ones to restart at what doses versus consider a new medication. 2. Continue every 15 minute checks for safety. 3. Encourage individual, group and milieu therapies. 4. Encourage sober living treatment after discharge at the highest level of care to which he is willing to commit. 5. CIWA protocol with significant attention to the fact that he has a history of withdrawal seizures. Increase prozac to 30mg daily for depression and continue methadone 30mg daily. 6. Appreciate medical consult given signficant history of alcohol withdrawal seizures. 7. Patient will likely require inpatient substance abuse treatment.-Referral for [facility] inpatient treatment. Bed date appears likely for 12/24/2024 and we will discharge to there. Plan to [facility] at [facility] tomorrow by 11 AM. PDMP PDMP Reviewed: Not Reviewed Involuntary Hold Information 2 Hold Status: Legal Status: 96 Hour Hold Date/Time Hold Expires: [address] 12/24/24 96 Hour Hold: 96 Hour Involuntary Admission: Yes Attestations NPU 2 Medical Necessity Statement*: Inpatient hospitalization is medically necessary and?the clinically appropriate intervention at this time.? We will monitor/initiate medications and make changes as indicated.? ? The patient?s likely length of stay is 1 day. Coding Level of Care Code Acute Code for [facility] Fwd Diagnoses Depression F32.A Suicidal ideations R45.851 Alcohol withdrawal syndrome F10.239 Complication of substance-induced condition: with unspecified complication Alcohol intoxication F10.920 Complication of substance-induced condition: uncomplicated History of seizure due to alcohol withdrawal Z87.898; Z86.59 Opioid dependence on maintenance agonist therapy, no symptoms F11.20 Alcohol use disorder, severe, dependence F10.20
[2024-12-23 19:58] VITALS: BP 123/71; PULSE 81; RESP 18; TEMP 36.4; O2SAT 96
[2024-12-23] MEDS: artificial tears Op Soln 15 mL Btl 1 DROP EYE-BOTH (20:49)
[2024-12-23] MEDS: trazodone 50 mg Tablet PO (21:29)
[2024-12-23] MEDS: OLANZapine 5 mg ODT PO (23:02)
[2024-12-24 06:00] VITALS: RESP 18
--- NOTE | 2024-12-24 06:13 | PC.NURSE ---
Patient refused vitals nurse notified.
[2024-12-24] MEDS: folic acid 1 mg Tablet PO (08:08)
[2024-12-24] MEDS: methadone 10 mg Tablet 30 MG PO (08:08)
[2024-12-24] MEDS: multivitamin therapeutic Tablet 1 TAB PO (08:08)
[2024-12-24] MEDS: thiamine 100 mg Tablet PO (08:08)
[2024-12-24] MEDS: fluoxetine 10 mg Capsule 30 MG PO (08:08)
[2024-12-24 10:24] VITALS: BP 135/88; PULSE 66; O2SAT 96
--- NOTE | 2024-12-24 10:30 | P.NPUDS_ITS ---
Diagnoses at Discharge Discharge Diagnosis (1) Depression: Status: Chronic (2) Suicidal ideations: Status: Acute (3) Alcohol withdrawal syndrome: Status: Inactive Qualifiers: Complication of substance-induced condition: with unspecified complication Qualified Code(s): F10.239 - Alcohol dependence with withdrawal, unspecified (4) Alcohol intoxication: Status: Resolved Qualifiers: Complication of substance-induced condition: uncomplicated Qualified Code(s): F10.920 - Alcohol use, unspecified with intoxication, uncomplicated (5) History of seizure due to alcohol withdrawal: Status: Inactive (6) Opioid dependence on maintenance agonist therapy, no symptoms: Status: Inactive (7) Alcohol use disorder, severe, dependence: Status: Acute Reason for Visit Reason for Visit: ETOH Brief History: HPI NPU History of Present Illness Cameron Smallwood is a 49 year old male recently discharged from the neuropsychiatric unit with a history of alcohol dependence after a 10-day stay here in November 2024. The patient presented with a blood alcohol level of 406 to the emergency department and reported that he was feeling suicidal. He had reported that he had been without his methadone and stated that he had been feeling extremely depressed and suicidal and stated that he would run into traffic if he were to leave the hospital. The patient had reported that he has had no significant changes currently as he had indicated that he is currently homeless. The patient had reported having significant pain issues. He reports that he had been noncompliant with outpatient substance abuse treatment and reported that he understands that he needs inpatient substance abuse treatment with continued medical problems associated with alcohol use. He reported no substantial changes since his last hospitalization 1 month ago. He does have a history of significant alcohol withdrawal symptoms including seizures. He was admitted involuntarily to the neuropsychiatric unit for further evaluation and treatment. Current medications: Methadone 50 mg daily Medical history: Hepatitis C, COPD, history of kidney stones, elevated liver enzymes, Allergies: azithromycin, tetanus, Excerpt from NPU Discharge Summary from 11/12/24 Discharge Diagnosis (1) Suicidal ideations: Status: Acute (2) Alcohol intoxication: Status: Acute Qualifiers: Complication of substance-induced condition: uncomplicated Qualified Code(s): F10.920 - Alcohol use, unspecified with intoxication, uncomplicated (3) History of seizure due to alcohol wi thdrawal: Status: Acute (4) Alcohol withdrawal syndrome: Status: Inactive Qualifiers: Complication of substance-induced condition: with unspecified complication Qualified Code(s): F10.239 - Alcohol dependence with withdrawal, unspecified (5) Opioid dependence on maintenance ago nist therapy, no symptoms: Status: Acute (6) Depression: Status: Acute Reason for Visit Found in Ditch Passed out Brief History: History of Present Illness Cameron Smallwood is a 49 year old male who presented to the emergency department with the following report: Chief complaint: Altered Mental Status Stated complaint: Found in Ditch Passed out Time Seen by Provider: 10/31/24 23:08 History of Present Illness: Patient brought in by EMS after patient was found drunk passed out in a ditch. Patient is soaking wet cold and complaining of going through alcohol withdrawals and aching pain all over. Patient does admit to drinking today. Patient is alert oriented can answer all questions coherently. He was admitted to the neuropsychiatric unit for definitive treatment of those issues. He is known to [facility] through inpatient and outpatient services though most of his inpatient services were [id number] with none since then. There have been multiple emergency room and hospital visits and admissions that have been alcohol-related/drug related he presented to the emergency department after being found in a ditch and his blood alcohol was 478. They report he continued to be communicative even in those times that his numbers were high. He had altered mental status and concerns for safety including suicidal concerns. He is unknown to this residential mortgage underwriter specifically. He presented today reporting that he is doing okay. He was a limited historian as he at times nodded off during the interview. We discussed the fact that we had information on his overall story from records suggesting that he has had challenges with his drinking going way back. He acknowledges that drinking has been a problem off and on. He reports that he has had a couple of stents in rehab 1 fairly recently. He endorsed that he has had a couple DUIs. He reports that his drinking has been significant recently and denied any clear sense of why. We discussed the fact that he has had withdrawal seizures in the past and so we wanted to make sure he was acknowledging to the staff that he was feeling significant withdrawal symptoms. We discussed him being on the CIWA protocol and how that worked. We discussed his opioid addiction and the fact that he is on the methadone but he reports that ultimately he is trying to get off the methadone. We discussed having to do this with caution because this residential mortgage underwriter has never seen an individual who was not stable on 30 mg of methadone or less that was able to safely detox outside of a controlled environment like long-term. We discussed that his blood alcohol 478 was close to the number where 50% of people who get that number . He reported that he had been working for [employer] at a [employer] but then lost his job. Then he went to a place called [facility] where he was working but that he has not been working for the last couple months and during that time his drinking had escalated again. He endorses that he has dealt with some depression and suicidal ideation. We discussed considering a medication for depression prior to discharge. He endorses that he has been homeless recently. We reviewed some of the psychosocial history as best we could while he was only capable at times of yes no answers. He denies any current legal challenges. He denies any current or significant medical problems. We discussed the risks, benefits and alternatives of making sure he makes it through the withdrawal process and then introducing antidepressant and he understood and agreed to proceed as documented in this note. Hospital Course Hospital Course He slowly acclimated to the individual, group and milieu therapies provided. He presented much like he did at his previous hospitalization with a greatly e levated blood alcohol level frequently presenting to the emergency department with alcohol levels between 400 and 500. His last hospitalization he had a withdrawal seizure. His medications were continued without issue. He was on a 96-hour hold and we filed for a 21-day hold but the hearing was going to be on the day of his discharge to rehab. He was given Prozac Vistaril and thiamine. He spent much of the last days of his hospitalization trying to lobby to be discharged to go and wash close and take care of his animals and there was significant concern that he would not follow through with rehab. He was placed on the CIWA protocol and received Ativan for management of his withdrawal symptoms. Many days after his active withdrawal was greatly diminished he continued to have tremulousness and seemed at times a little unsteady on his feet. He had continued to minimize the severity of his alcohol use and refused any inpatient substance abuse treatment. He worked with the social work team who was able to obtain a bed for him at [facility] on 12/24/2024. He had significant improvement during the hospitalization but continued to clearly need a higher level of care to continue his improvement. He was able to contract for safety outside the hospital prior to discharge. During the hospitalization, patient had routine laboratory studies which were within normal limits. Addit ionally, there was a general medical evaluation which was also within normal limits and revealed no new acute processes. At the time of discharge, he denied psychosis or lethality. Mood and anxiety were well managed. The patient endorsed a plan to avoid all drugs of abuse and follow up with the aftercare recommendations of the treatment team. The patient was evaluated and deemed to be absent credible lethality and had achieved the maximum benefit from an inpatient hospitalization, and so was discharged. It was noted after discharge that he did not arrive for his at [facility] [place] for rehab. Involuntary Hold Information Hold Status: Legal Status: 96 Hour Hold Date/Time Hold Expires: court 12/24/24 96 Hour Hold: 96 Hour Involuntary Admission: Yes Mental Status Exam MSE Comments: This is a well-nourished well-developed white male in hospital scrubs with poor grooming and intermittent eye contact looking much older than his stated age. No abnormal movements were appreciated except for mild psychomotor agitation and resolving tremulousness. He was mostly cooperative with exam in mild distress. Speech was decreased in rate and normal in volume. Mood described as fine. His affect was restricted in range and continue to be slightly irritable. Thought process was linear and organized. Thought contact: Patient denied suicidal ideation and no homicidal ideation was reported. There were no delusions reported or noted, patient denied auditory or visual hallucinations. Attention and concentration appeared intact and memory appeared mostly reliable but none were formally tested. Patient is alert and oriented to person, place, time and situation. Insight was poor. Judgment and impulse control appears impaired. Discharge Data Studies Completed and Pending: Laboratory Results WBC 5.53 10^3/uL (3.2 9-11.43) 12/16/24 13: RBC 4.67 10^6/uL (3.8 5-5.65) 12/16/24 13: Hgb 16.10 g/dL (11.27 -16.99) 12/16/24 13: Hct 48.3 % (37-53) 12/16/24 13:26 MCV 103.4 fl (82-101) H 12/16/24 13:26 MCH 34.5 pg (27-33) H 12/16/24 13: MCHC 33.3 g/dL (30-55) 12/16/24 13: RDW 12.2 % (12.1-15.1 ) 12/16/24 13:26 Plt Count 134 10^3/cmm (157 -399) L 12/16/24 13:26 MPV 9.3 fL (7.4-10.4) 12/16/24 13:26 Neut % (Auto) 50.6 % 12/16/24 13:26 Lymph % (Auto) 39.2 % 12/16/24 13:26 Loup % (Auto) 8.0 % 12/16/24 13:26 Eos % (Auto) 0.5 % 12/16/24 13:26 Baso % (Auto) 1.3 % 12/16/24 13: Neut # (Auto) 2.80 10^3/uL (1.8 -7.7) 12/16/24 13:26 Lymph # (Auto) 2.2 10^3/uL (0.8- 4.8) 12/16/24 13:26 Loup # (Auto) 0.4 10^3/uL (0.2- 0.9) 12/16/24 13:26 Eos # (Auto) 0.0 10^3/uL (0.0- 0.8) 12/16/24 13:26 Baso # (Auto) 0.1 10^3/uL (0.0- 0.1) 12/16/24 13:26 Nucleated RBC % (a uto) 0 % 12/16/24 13: Nucleated RBCs # 0.0 /100WBC 12/16/24 13:26 Sodium 137 mmol/L (136-1 45) 12/17/24 08:49 Potassium 3.6 mmol/L (3.5-5 .1) 12/17/24 08:49 Chloride 97 mmol/L (98-107 ) L 12/17/24 08:49 Carbon Dioxide 28 mmol/L (22-29) 12/17/24 08:49 Anion Gap 15.6 (5-19) 12/17/24 08:49 BUN 15 mg/dL (6-20) 12/17/24 08:49 Creatinine 0.5 mg/dL (0.7-1. 2) L 12/17/24 08:49 GFR Calculation 175.3 mL/min (90- 130) H 12/17/24 08:49 Glucose 134 mg/dL (65-115 ) H 12/17/24 08:49 POC Glucose 135 mg/dL (70-110 ) H 12/23/24 17:20 Calculated Osmolal ity 287 mOsm/kg (285- 295) 12/17/24 08:49 Calcium 8.8 mg/dL (8.5-10 .5) 12/17/24 08:49 Total Bilirubin 1.5 mg/dL (0.15-1 .2) H 12/17/24 08:49 AST 137 U/L (0-40) H 12/17/24 08:49 ALT 73 U/L (0-41) H 12/17/24 08:49 Alkaline Phosphata se 65 U/L (40-130) 12/17/24 08:49 Total Protein 6.6 g/dL (6.6-8.7 ) 12/17/24 08:49 Albumin 4.1 g/dL (3.5-5.2 ) 12/17/24 08:49 Globulin 2.5 g/dL (1.3-4.6 ) 12/17/24 08:49 Lipase 50 U/L (13-60) 12/16/24 13:26 Salicylates < 0.3 mg/dL (3-10 ) L 12/16/24 13:26 Urine Opiates Scre en Negative ng/mL (N egative) 12/16/24 16:53 Acetaminophen < 5.0 ug/mL (10-3 0) L 12/16/24 13:26 Ur Barbiturates Sc reen Negative ng/mL (N egative) 12/16/24 16:53 Ur Phencyclidine S crn Negative ng/mL (N egative) 12/16/24 16:53 Ur Amphetamines Sc reen Negative ng/mL (N egative) 12/16/24 16:53 U Benzodiazepines Scrn Positive ng/mL (N egative) H 12/16/24 16:53 Urine Cocaine Scre en Negative ng/mL (N egative) 12/16/24 16:53 U Marijuana (THC) Screen Negative ng/mL (N egative) 12/16/24 16:53 Ethyl Alcohol < 10 mg/dL (0-10) 12/17/24 08:49 Vitals: Last Vital Signs Temp 97.5 F L 12/23/24 19:58 Pulse 66 12/24/24 10:24 Resp 18 12/24/24 06:00 BP 135/88 12/24/24 10:24 Pulse Ox 96 12/24/24 10:24 O2 Del Method Room Air 12/23/24 19:58 Discharge Plan Discharge Patient Disposition: Home Condition: Stable Prescriptions: New fluoxetine 10 mg Capsule 30 mg PO DAILY 30 Days Qty: 90 1RF Continued nicotine 21 mg/24 hr patch 24 hour 1 patch transdermal DAILY PRN (Reason: Nicotine Cravings) thiamine mononitrate (vit B1) [Vitamin B-1 (mononitrate)] 100 mg Tablet 100 mg PO DAILY 30 Days Qty: 30 1RF folic acid 1 mg Tablet 1 mg PO DAILY 30 Days Qty: 30 1RF bisacodyl 5 mg Tablet,Delayed Release (Dr/Ec) 10 mg PO DAILY PRN (Reason: Constipation) 15 Days Qty: 30 1RF hydroxyzine pamoate 25 mg Capsule 50 mg PO Q6H PRN (Reason: Anxiety) 30 Days Qty: 60 1RF multivitamin with folic acid [Thera] 400 mcg Tablet 1 tab PO DAILY 30 Days Qty: 30 0RF Discontinued methadone 10 mg Tablet 50 mg PO DAILY Rx Instructions: (goes to [facility] to recieve dose) Discharge Orders: Discharge Order (Routine); Ordered 12/24/24 Ordered By: Tobin Lynch Referrals: [facility] [Other] - 12/24/24 11:00 am [facility] [Other] [facility] [Outside] - 12/26/24 11:30 am (Initial appointment with ) Discharge Diet: Regular Discharge Activity: Resume usual activity Patient Instructions: Opioid Safety Discharge Attestations NPU Time Spent in Discharge Care*: less than 30 min Specific Discharge Activities: Specific discharge activities: educating patient, discussing with case manager/social workers/dc planners, documenting/other paperwork and evaluating patient/reviewing data Coding Level of Care Code Acute Code for Chg Fwd Diagnoses Depression F32.A Suicidal ideations R45.851 Alcohol withdrawal syndrome F10.239 Complication of substance-induced condition: with unspecified complication Alcohol intoxication F10.920 Complication of substance-induced condition: uncomplicated History of seizure due to alcohol withdrawal Z87.898; Z86.59 Opioid dependence on maintenance agonist therapy, no symptoms F11.20 Alcohol use disorder, severe, dependence F10.20
== END 2024-12-24 10:25 | disposition home or self-care (01) | DRG 897 ==
LOC: ER 14:01 → NP 14:15
PROVIDERS: Hospitalist; Admitting Provider Psychiatry & Neurology Psychiatry; Emergency Provider Physician Assistant; Visit Provider Psychiatry & Neurology Psychiatry
DX: F10.220 Alcohol dependence with intoxication, uncomplicated (principal); R45.851 Suicidal ideations; F10.239 Alcohol dependence with withdrawal, unspecified; Y90.8 Blood alcohol level of 240 mg/100 ml or more; F32.A Depression, unspecified; Z79.891 Long term (current) use of opiate analgesic; F17.210 Nicotine dependence, cigarettes, uncomplicated; Z86.19 Personal history of other infectious and parasitic diseases; J41.8 Mixed simple and mucopurulent chronic bronchitis
CPT/HCPCS: 36415; 36416; 80053; 80306; 80307; 82962; 83690; 85025; 97150; 97165; 99285; J9999

== ENCOUNTER 2025-02-17 07:05 | Emergency (ER) | payer MEDICAID, SELFPAY ==
[2025-02-17 07:06] VITALS: BP 124/97; PULSE 101; RESP 18; TEMP 36.9; O2SAT 96; BMI 22.1
--- NOTE | 2025-02-17 07:25 | ED_ITS ---
HPI - Alcohol 2 General: Chief Complaint: Alcohol Stated Complaint: ETOH,Withdraw Time Seen by Provider: 02/17/25 07:11 History of Present Illness: 50-[facility]. Patient states he drinks about 1/5 of hard liquor per day yesterday he drank a pint he denies having drank anything this morning. He also states he supposed to be going to the methadone clinic but has not been going. He states he is not able to walk no trauma or fall. Patient has some tremor this morning no history of seizures in the past. He denies any vomiting. No hematochezia melena hematemesis coffee-ground emesis. Associated symptoms: Deny abdominal pain Related Data Home Medications ?Medication ?Instructions ?Recorded ?Confirmed nicotine 21 mg/24 hr daily 1 patch transdermal DAILY P RN 12/16/24 12/16/24 transdermal patch Nicotine Cravings Previous Rx's ?Medication ?Instructions ?Recorded bisacodyl 5 mg tablet,delayed 10 mg (2 x 5 mg) PO MADELYN Y PRN 11/12/24 release Constipation 15 days #30 tab s folic acid 1 mg tablet 1 mg PO DAILY 30 days #30 ta bs 11/12/24 hydroxyzine pamoate 25 mg capsule 50 mg (2 x 25 mg) PO Q6H PRN 11/12/24 Anxiety 30 days #60 caps fluoxetine 10 mg capsule 30 mg (3 x 10 mg) PO DAILY 3 0 days 12/24/24 #90 caps thiamine mononitrate (vit B1) 100 100 mg PO DAILY 30 d ays #30 tabs 12/24/24 mg tablet (Vitamin B-1 (mononitrate)) promethazine 25 mg tablet 25 mg PO Q6H PRN nausea and 02/17/25 vomiting #15 tabs Allergies Allergy/AdvReac Type Severity Reaction Status Date / Time tetanus immune globulin Allergy Mild ALGY-Anaphy Verified 09/19/24 18:53 laxis azithromycin Allergy ADR-Gastrointestinal Verified 09/19/24 18:53 Upset Tetanus Vaccines and Toxoid Allergy Unknown Verified 09/19/24 18:53 Review of Systems 2 Const: Denies: fever(s) or chills Card: Denies: chest pain Resp: Denies: dyspnea GI: Denies: abdominal pain : Denies: dysuria, urinary frequency or urinary urgency Musc: Denies: neck pain or back pain Skin/Breast: Denies: rash PFSH ED 2 PFSH: Medical History Nicotine dependence, cigarettes, with other nicotine-induced disorders History of traumatic injury to musculoskeletal system crush injury to RLE History of pancreatitis History of rhabdomyolysis History of suicidal ideation Chronic alcohol abuse Methadone maintenance therapy patient Hepatitis C Depression History of kidney stones Pulmonary nodule History of seizure due to alcohol withdrawal COPD (chronic obstructive pulmonary disease) Surgical History History of hip surgery Family History (Reviewed 02/17/25 @ 07: by Ruddy Quach DO) Other Alcohol dependence Psychiatric illness Social History (Reviewed 02/17/25 @ 07: by Ruddy Qucah DO) Smoking and tobacco/nicotine status: heavy tobacco/nicotine user (no) cigarettes [ Other cigarette details: 2 packs per day] Alcohol intake: current Substance/Drug Use: former Physical Exam 2 Const: COMMON NORMALS: no acute distress GENERAL APPEARANCE: cooperative and comfortable ORIENTATION/CONSCIOUSNESS: Yes awake, Yes oriented to person, Yes oriented to place and Yes oriented to time HENMT: COMMON NORMALS: normocephalic, atraumatic and hearing grossly normal bilaterally HEAD & SCALP: normocephalic and atraumatic Resp: COMMON NORMALS: normal respiratory effort, No retractions, No use of accessory muscles and clear to auscultation bilaterally AUSCULTATION: clear to auscultation bilaterally Cardio: COMMON NORMALS: regular rhythm and No murmurs present (Cardio) R ATE: tachycardic RHYTHM: regular rhythm GI: COMMON NORMALS: Soft to palpation and No hepatosplenomegaly present A USCULTATION: Yes normoactive bowel sounds PALPATION: Yes Soft to palpation, No Tenderness to palpation present (GI), No Guarding due to palpation present (GI) and Yes No hepatosplenomegaly present Extremity: COMMON NORMALS: normal to inspection, capillary refill normal, no clubbing, cyanosis or edema, no calf tenderness and no pedal edema Neuro: SENSORIUM/ORIENTATION: Yes oriented to person, Yes oriented to place and Yes oriented to time Skin: COMMON NORMALS: no rashes or lesions noted GENERAL SKIN EXAM: no rashes or lesions noted Course 2 Vital Signs: Vital signs: Vital Signs Temperature 98.5 F 02/17/25 07:06 Pulse Rate 106 H 02/17/25 09:23 Respiratory Rate 18 02/17/25 07:06 Blood Pressure 124/97 02/17/25 09:23 Pulse Oximetry 96 02/17/25 09:23 Oxygen Delivery Me thod Room Air 02/17/25 09:23 MDM - Alcohol Medical Decision Making Patient proved after some Ativan he initially had some tremor. Has a slight anion gap which I believe is due to his alcohol intake. . Patient is most interested in being dosed with his methadone. Discussed and we do not typically dose methadone in the emergency room he should follow-up with his methadone clinic to get reestablished for that. He admits they have not given him his doses at times because of his drinking. Discussed with him that if he is going to state on the methadone he will have to give up drinking. He is not particularly very interested in this. Will discharge home encouraged him to consider going to [facility] for evaluation for assistance with substance abuse. Medical Records I reviewed the patient's medical records. Lab Data I reviewed the patient's lab results. 02/17/25 07:28 02/17/25 07:28 Laboratory Results WBC 5.65 10^3/uL (3.29-11.43) 02/17/25 07:28 RBC 4.55 10^6/uL (3.85-5.65) 02/17/25 07:28 Hgb 15.50 g/dL (11.27-16.99) 02/17/25 07:28 Hct 44.5 % (37-53) 02/17/25 07:28 MCV 97.8 fl (82-101) 02/17/25 07:28 MCH 34.1 pg (27-33) H 02/17/25 07:28 MCHC 34.8 g/dL (30-55) 02/17/25 07:28 RDW 12.8 % (12.1-15.1) 02/17/25 07:28 Plt Count 74 10^3/cmm (157-399) L 02/17/25 07:28 MPV 9.3 fL (7.4-10.4) 02/17/25 07:28 Neut % (Auto) 70.5 % 02/17/25 07:28 Lymph % (Auto) 15.8 % 02/17/25 07:28 Wheeler % (Auto) 10.1 % 02/17/25 07: Eos % (Auto) 2.7 % 02/17/25 07:28 Baso % (Auto) 0.5 % 02/17/25 07:28 Neut # (Auto) 3.99 10^3/uL (1.8-7.7) 02/17/25 07:28 Lymph # (Auto) 0.9 10^3/uL (0.8-4.8) 02/17/25 07:28 Wheeler # (Auto) 0.6 10^3/uL (0.2-0.9) 02/17/25 07: Eos # (Auto) 0.2 10^3/uL (0.0-0.8) 02/17/25 07: Baso # (Auto) 0.0 10^3/uL (0.0-0.1) 02/17/25 07: Nucleated RBC % (auto) 0 % 02/17/25 07: Nucleated RBCs # 0.0 /100WBC 02/17/25 07:28 Sodium 138 mmol/L (136-145) 02/17/25 07: Potassium 4.0 mmol/L (3.5-5.1) 02/17/25 07: Chloride 98 mmol/L (98-107) 02/17/25 07: Carbon Dioxide 22 mmol/L (22-29) 02/17/25 07:28 Anion Gap 22.0 (5-19) H 02/17/25 07:28 BUN 7 mg/dL (6-20) 02/17/25 07:28 Creatinine 0.5 mg/dL (0.7-1.2) L 02/17/25 07:28 GFR Calculation 174.6 mL/min (90-130) H 02/17/25 07:28 Glucose 107 mg/dL (65-115) 02/17/25 07:28 Calculated Osmolality 284 mOsm/kg (285-295) L 02/17/25 07:28 Calcium 8.4 mg/dL (8.5-10.5) L 02/17/25 07:28 Total Bilirubin 1.2 mg/dL (0.15-1.2) 02/17/25 07:28 AST 105 U/L (0-40) H 02/17/25 07:28 ALT 51 U/L (0-41) H 02/17/25 07:28 Alkaline Phosphatase 76 U/L (40-130) 02/17/25 07:28 Total Protein 7.4 g/dL (6.6-8.7) 02/17/25 07:28 Albumin 4.1 g/dL (3.5-5.2) 02/17/25 07:28 Globulin 3.3 g/dL (1.3-4.6) 02/17/25 07:28 Ethyl Alcohol 15 mg/dL (0-10) H 02/17/25 07:28 No radiology studies performed this visit Discharge Plan Discharge Patient Disposition: Home Clinical Impression: Chronic alcohol abuse, Alcohol use disorder, severe, dependence Hepatitis C Qualifiers: Viral hepatitis chronicity: chronic Hepatic coma status: without hepatic coma Q ualified Code(s): B18.2 - Chronic viral hepatitis C Condition: Stable Prescriptions: New promethazine 25 mg tablet 25 mg PO Q6H PRN (Reason: nausea and vomiting) Qty: 15 0RF No Action nicotine 21 mg/24 hr patch 24 hour 1 patch transdermal DAILY PRN (Reason: Nicotine Cravings) fluoxetine 10 mg Capsule 30 mg PO DAILY 30 Days Qty: 90 1RF thiamine mononitrate (vit B1) [Vitamin B-1 (mononitrate)] 100 mg Tablet 100 mg PO DAILY 30 Days Qty: 30 1RF folic acid 1 mg Tablet 1 mg PO DAILY 30 Days Qty: 30 1RF bisacodyl 5 mg Tablet,Delayed Release (Dr/Ec) 10 mg PO DAILY PRN (Reason: Constipation) 15 Days Qty: 30 1RF hydroxyzine pamoate 25 mg Capsule 50 mg PO Q6H PRN (Reason: Anxiety) 30 Days Qty: 60 1RF Discharge Orders: Discharge ED (Routine); Ordered 02/17/25 Ordered By: Ruddy Quach Discharge Diet: Usual diet Discharge Activity: Resume usual activity Patient Instructions: Opioid Safety, Pain Management Activity Restrictions/Additional Instructions: Thank you for choosing [facility] for your healthcare needs today. It is very important that you follow up as instructed or that you return to the Emergency Department should you have concerns or if your condition changes or worsens in any way. Print Language: Moldovan Coding Level of Care Code ED Accounts Collector for Santy Villanueva
[2025-02-17 07:37] LABS: Basophils % 0.5 %; Eosinophils # 0.2 10^3/uL (0.0-0.8); Eosinophils % 2.7 %; Hematocrit 44.5 % (37-53); Lymphocytes # 0.9 10^3/uL (0.8-4.8); Lymphocytes % 15.8 %; Mean Corpuscular HGB Conc 34.8 g/dL (30-55); Mean Corpuscular Hemoglobin 34.1 pg (27-33); Mean Corpuscular Volume 97.8 fl (82-101); Mean Platelet Volume 9.3 fL (7.4-10.4); Monocytes # 0.6 10^3/uL (0.2-0.9); Monocytes % 10.1 %; Neutrophils # 3.99 10^3/uL (1.8-7.7); Neutrophils % 70.5 %; Nucleated Red Blood Cells % 0 %; Platelet Count 74 10^3/cmm (157-399); Red Blood Count 4.55 10^6/uL (3.85-5.65); Red Cell Distribution Width 12.8 % (12.1-15.1); White Blood Count 5.65 10^3/uL (3.29-11.43)
[2025-02-17] MEDS: LORazepam 1 MG/0.5 ML injection IVP (07:37)
[2025-02-17 07:56] LABS: Alanine Aminotransferase 51 U/L (0-41); Albumin Level 4.1 g/dL (3.5-5.2); Alcohol Level 15 mg/dL (0-10); Alkaline Phosphatase 76 U/L (40-130); Aspartate Amino Transferase 105 U/L (0-40); Blood Urea Nitrogen 7 mg/dL (6-20); Calcium 8.4 mg/dL (8.5-10.5); Carbon Dioxide 22 mmol/L (22-29); Chloride 98 mmol/L (98-107); Creatinine Clr Calc Pharmacy 170.2204; Globulin 3.3 g/dL (1.3-4.6); Glomerular Filtration Rate 174.6 mL/min (90-130); Glucose 107 mg/dL (65-115); Osmolality Calculated 284 mOsm/kg (285-295); Sodium 138 mmol/L (136-145); Total Bilirubin 1.2 mg/dL (0.15-1.2); Total Protein 7.4 g/dL (6.6-8.7)
[2025-02-17 09:23] VITALS: BP 124/97; PULSE 106; O2SAT 96
== END 2025-02-17 09:25 | disposition home or self-care (01) ==
PROVIDERS: Emergency Provider Family Medicine
DX: F10.229 Alcohol dependence with intoxication, unspecified (principal); Y90.0 Blood alcohol level of less than 20 mg/100 ml; F17.210 Nicotine dependence, cigarettes, uncomplicated; J44.9 Chronic obstructive pulmonary disease, unspecified
CPT/HCPCS: 80053; 80307; 85025; 96374; 99284; J2060

== ENCOUNTER → 2025-03-12 10:23 | Outpatient (BNVA) | payer MEDICAID, SELFPAY | DX: R06.2 Wheezing (principal); Z76.89 Persons encountering health services in other specified circumstances; J98.4 Other disorders of lung | CPT/HCPCS: 71046; 80053; 80061; 85025 ==

== ENCOUNTER 2025-03-14 06:33 | Outpatient (CLI) | payer MEDICAID, SELFPAY ==
--- NOTE | 2025-03-14 06:39 | CTR_ITS ---
PROCEDURE INFORMATION: Exam: CT Chest With Contrast; Diagnostic Exam date and time: 03/14/2025 6:51 AM Age: 50 years old Clinical indication: Condition or disease; Other: Left lower lung nodule; Additional info: Lll nodule TECHNIQUE: Imaging protocol: Diagnostic computed tomography of the chest with contrast. Radiation optimization: All CT scans at this facility use at least one of these dose optimization techniques: automated exposure control; mA and/or kV adjustment per patient size (includes targeted exams where dose is matched to clinical indication); or iterative reconstruction. Contrast material: OMNI 350; Contrast volume: 100 ml; Contrast route: INTRAVENOUS (IV); COMPARISON: CR XR chest 2V* [id number] 03/12/2025 10:25 AM RADIATION DOSE METRICS: Total DLP (mGy-cm): 300.58 FINDINGS: Lungs: Emphysematous COPD. There are scattered bilateral pulmonary nodules bilaterally, these have a somewhat stellate appearance. The largest is 7 mm in size in the right lower lobe (5:49).. This nodule appears similar to what was seen on 09/16/2024, the other nodules are not seen on that prior study as the area was not included on the previous abdominal study and were not present in chest images from 2018. Pleural spaces: Unremarkable. No pneumothorax. No pleural effusion. Heart: Unremarkable. No cardiomegaly. No pericardial effusion. Lymph nodes: Unremarkable. No enlarged lymph nodes. Vasculature: Unremarkable. No aortic aneurysm. Liver: Severe hepatic steatosis. Bones/joints: Unremarkable. No acute fracture. Soft tissues: Incompletely image 17 mm complex cystic appearing structure in the subcutaneous fat at the base of the neck to the left of the midline probably a sebaceous cyst or similar benign process. CT/CT chest w con* [id number] IMPRESSION: Scattered pulmonary nodules, that in the right lower lobe unchanged since the recent study but additional nodules are seen bilaterally in areas not examined on 09/16/2024. For patients at low risk (minimal or absent history of smoking and of other known risk factors), recommend CT Chest at 3-6 months, then consider CT Chest at 18-24 months. For patients at high risk (history of smoking or of other known risk factors), recommend CT Chest at 3-6 months, then CT Chest at 18-24 months. (Reference: Daya) References: MacMahon H, et al. Guidelines for Management of Incidental Pulmonary Nodules Detected on CT Images: From the Fleischner Society 2017. Radiology. 2017;284(1):228-243. COMMENTS: The presence of pulmonary emphysema on CT is an independent risk factor for lung cancer. In the absence of a history or active diagnosis of lung cancer, it is recommended that this patient with emphysema be evaluated for enrollment in a low dose CT lung cancer screening program.
[2025-03-14] MEDS: iohexol 350 mg/mL 500 mL Btl (per mL) IV (06:42)
== END 2025-03-14 06:34 | disposition home or self-care (01) ==
DX: R06.02 Shortness of breath (principal); R91.8 Other nonspecific abnormal finding of lung field; F17.218 Nicotine dependence, cigarettes, with other nicotine-induced disorders; J44.1 Chronic obstructive pulmonary disease with (acute) exacerbation
CPT/HCPCS: 71260

== ENCOUNTER 2025-04-02 08:42 | Outpatient (CLI) | payer MEDICAID, SELFPAY ==
--- NOTE | 2025-04-02 08:44 | ECG_ITS ---
Cloud.CM Test Date: 2025-04-02 Pat Name: Cameron Smallwood Department: Room: Gender: Male Integration Analyst: : 1975 Requested By: Faby Lynch Order Number: [id number] Carrizales MD: Santino Lopez M.D. Interpretive Statements EXERCISE MIBI EXERCISE DATA: The patient was exercised by Steven protocol. Baseline heart rate was 65 beats per minute. Baseline blood pressure was 148/89 millimeters of mercury. Maximal predicted heart rate was 168 beats per minute. Maximum heart rate achieved was 144, which was 85% of the maximum predicted heart rate. Maximum blood pressure was 196/74 millimeters of mercury. Total exercise time was 9 minutes and 18 seconds. Maximum METs achieved was 10.9. The reason for ending the test was maximal effort achieved. The patient complained of shortness of breath during the stress test, which then resolved at the end of the test. ELECTROCARDIOGRAM: BASELINE: Showed sinus rhythm, normal axis, no significant ST-T changes at the baseline noted. [] EXERCISE: At the peak exercise level, [] No significant ST-T changes suggestive of ischemia noted. [] RECOVERY: During the recovery period, heart rate dropped appropriately. No significant ST-T changes in the recovery suggestive of ischemia noted. [] CONCLUSION: 1. Exercise capacity is excellent 2. Heart rate response was appropriate 3. Blood pressure response was appropriate 4. Symptoms not suggestive of ischemia. 5. Electrocardiogram portion of the stress test was not suggestive of ischemia. 6. Nuclear scan will be documented separately. Electronically Signed On 04-12-2025 12:43:27 CDT by Santino Lopez M.D. [email or web address]
--- NOTE | 2025-04-02 08:45 | NMCV_ITS ---
NM sundar perf SPECT r/s* [id number] Cameron Smallwood Age: 50 Gender: M : 1975 Exam Date: 04/02/2025 09:44 Ordering Phys: Faby Lynch NP Technologist: EDUARDO Laurent Exam Location: [facility] Indications: CP STRESS TEST Please see separate stress test report in [facility] for full findings IMAGE PROTOCOL Rest/Stress 1 Exercise Day Radiopharmaceutical Dose (mCi) Administration Site Administered by Rest: Tc-99m 10.6 IV Marj Deisy, HAZARD MITIGATION OFFICER Sestamibi Stress:Tc-99m 32.9 IV Marj Deisy, HAZARD MITIGATION OFFICER Sestamibi Rest: 02-Apr-2025 60 Discovery 630 Stress: 02-Apr-2025 30 Discovery 630 Radiopharmaceutical was injected at 85 % maximum heart rate. Images obtained in supine and prone position. SPECT RESULTS Technical Quality: Good Raw Data Analysis: Normal Image Corrections: No attenuation or motion correction applied Summed Stress Score: 1 Summed Rest Score: 1 Summed Difference Score: 0 PERFUSION FINDINGS SPECT images demonstrate homogeneous tracer distribution throughout the myocardium. FUNCTIONAL RESULTS (calculated via Gated SPECT) Stress Image LV EF (%): 71 Stress EDV (mL):90 TID: 0.75 Stress ESV (mL):26 FUNCTIONAL FINDINGS: There is normal left ventricular systolic function. IMPRESSIONS 1. Normal myocardial perfusion imaging with no evidence of ischemia. 2. LV systolic function is normal. Santino Lopez MD (Electronically Signed) Final Date: 02 April 2025 12:21 S
[2025-04-02 09:18] VITALS: BMI 22.1
[2025-04-02 10:24] VITALS: BP 160/94; PULSE 94
== END 2025-04-02 08:43 | disposition home or self-care (01) ==
LOC: CDL 08:43
PROVIDERS: Visit Provider Pediatrics
DX: R07.89 Other chest pain (principal)
CPT/HCPCS: 36415; 78452; 93017; A9500

== ENCOUNTER 2025-04-21 16:41 | Inpatient (IN) | payer MEDICAID, SELFPAY ==
[2025-04-21 16:50] VITALS: BP 129/82; PULSE 94; RESP 14; TEMP 36.8; O2SAT 94
--- NOTE | 2025-04-21 16:52 | W.ED.PSYCHS ---
HPI - Psych General: Chief Complaint: Psychiatric Symptoms Stated Complaint: SI Time Seen by Provider: 04/21/25 16:46 Source: patient Mode of arrival: ambulatory Limitations: no limitations History of Present Illness: 50-year-old male states he has been having suicidal thoughts for the last 2 days. He states that he no longer wants to live he is an alcoholic states he has been drinking very heavy. He denies any worse improving factors. Associated symptoms: Reports depression and suicidal ideation Related Data Home Medications ?Medication ?Instructions ?Recorded ?Confirmed methadone 5 mg tablet 5 mg PO DAILY 03/20/25 03/27/25 methadone 40 mg soluble tablet 40 mg PO DAILY 03/27/25 03/27/25 Previous Rx's ?Medication ?Instructions ?Recorded albuterol sulfate 90 mcg/actuation 2 puff inhalation Q4H PRN 03/12/25 aerosol inhaler (Ventolin HFA) shortness of breath or wheezing #8.5 grams Allergies Allergy/AdvReac Type Severity Reaction Status Date / Time tetanus immune globulin Allergy Mild ALGY-Anaphy Verified 03/27/25 08:29 laxis azithromycin Allergy ADR-Gastrointestinal Verified 03/27/25 08:29 Upset Tetanus Vaccines and Toxoid Allergy Unknown Verified 03/27/25 08:29 Review of Systems Const: Denies: fever(s), chills, body aches or change in appetite ENMT: Denies: throat pain or dental pain Card: Denies: chest pain Resp: Denies: dyspnea GI: Denies: abdominal pain, nausea, vomiting or diarrhea Musc: Denies: neck pain or back pain Skin/Breast: Denies: rash Neuro: Denies: headache(s) Psych: Reports: depression and suicidal ideation PFS ED PFSH: Medical History Nicotine dependence, cigarettes, with other nicotine-induced disorders History of traumatic injury to musculoskeletal system crush injury to RLE History of pancreatitis History of rhabdomyolysis History of suicidal ideation Chronic alcohol abuse Methadone maintenance therapy patient Hepatitis C Depression History of kidney stones Pulmonary nodule History of seizure due to alcohol withdrawal COPD (chronic obstructive pulmonary disease) Surgical History History of hip surgery Family History Father Cancer throat Other Alcohol dependence Psychiatric illness Social History Smoking and tobacco/nicotine status: current some day tobacco/nicotine user cigarettes [ Other cigarette details: 2 packs per day] Alcohol intake: current Substance/Drug Use: former Physical Exam Const: COMMON NORMALS: no acute distress, patient oriented x3 and healthy appearing HENMT: COMMON NORMALS: normocephalic and atraumatic HEAD & SCALP: normocephalic and atraumatic Neck/C-Spine: COMMON NORMALS: full ROM and supple Chest: COMMONS NORMALS: normal inspection of the chest Resp: COMMON NORMALS: normal respiratory effort Cardio: COMMON NORMALS: regular rate, regular rhythm and No murmurs present (Cardio) RATE: regular rate RHYTHM: regular rhythm Extremity: COMMON NORMALS: normal to inspection and full ROM Neuro: COMMON NORMALS: patient oriented x3, moves all extremities and no focal motor deficits Psych: COMMON NORMALS: mental status grossly normal, Normal thought process present and cooperative MOOD & AFFECT: Yes depressed mood THOUGHT PROCESS: Normal thought process present THOUGHT CONTENT: Yes Suicidality present Skin: COMMON NORMALS: no rashes or lesions noted and no wounds GENERAL SKIN EXAM: no rashes or lesions noted Course Vital Signs: Vital signs: Vital Signs Temperature 98.2 F 04/21/25 16:50 Pulse Rate 94 04/21/25 16:50 Respiratory Rate 14 04/21/25 16:50 Blood Pressure 129/82 04/21/25 16:50 Pulse Oximetry 94 04/21/25 16:50 Oxygen Delivery Me thod Room Air 04/21/25 16:50 MDM - Psych Medical Decision Making Patient presents for suicidal ideations along with alcohol intoxication he is medically cleared placed on 96-hour hold spoke to psychiatrist will admit. Medical Records I reviewed the patient's medical records. Lab Data I reviewed the patient's lab results. 04/21/25 17:28 04/21/25 17:28 Laboratory Results WBC 4.69 10^3/uL (3.29-11.43) 04/21/25 17:28 RBC 4.27 10^6/uL (3.85-5.65) 04/21/25 17:28 Hgb 14.90 g/dL (11.27-16.99) 04/21/25 17:28 Hct 43.7 % (37-53) 04/21/25 17: MCV 102.3 fl (82-101) H 04/21/25 17: MCH 34.9 pg (27-33) H 04/21/25 17: MCHC 34.1 g/dL (30-55) 04/21/25 17: RDW 13.4 % (12.1-15.1) 04/21/25: Plt Count 97 10^3/cmm (157-399) L 04/21/25 17: MPV 10.3 fL (7.4-10.4) 04/21/25 17: Neut % (Auto) 41.1 % 04/21/25 17: Lymph % (Auto) 49.0 % 04/21/25 17: Whitley % (Auto) 7.5 % 04/21/25: Eos % (Auto) 0.9 % 04/21/25: Baso % (Auto) 1.3 % 04/21/25: Neut # (Auto) 1.93 10^3/uL (1.8-7.7) 04/21/25 17: Lymph # (Auto) 2.3 10^3/uL (0.8-4.8) 04/21/25: Whitley # (Auto) 0.4 10^3/uL (0.2-0.9) 04/21/25 17: Eos # (Auto) 0.0 10^3/uL (0.0-0.8) 04/21/25: Baso # (Auto) 0.1 10^3/uL (0.0-0.1) 04/21/25: Nucleated RBC % (auto) 0 % 04/21/25: Nucleated RBCs # 0.0 /100WBC 04/21/25 17: No radiology studies performed this visit Discharge Plan Discharge Patient Disposition: Admitted As Inpatient Clinical Impression: Suicidal ideation, Alcohol use disorder, severe, dependence Condition: Stable Coding Level of Care Code ED 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
[2025-04-21 17:44] LABS: Hematocrit 43.7 % (37-53); Hemoglobin 14.90 g/dL (11.27-16.99); Mean Corpuscular HGB Conc 34.1 g/dL (30-55); Mean Corpuscular Hemoglobin 34.9 pg (27-33); Mean Corpuscular Volume 102.3 fl (82-101); Nucleated Red Blood Cells % 0 %; Platelet Count 97 10^3/cmm (157-399); Red Blood Count 4.27 10^6/uL (3.85-5.65); White Blood Count 4.69 10^3/uL (3.29-11.43)
--- NOTE | 2025-04-21 17:49 | PC.NURSE ---
Involuntary 96 hour hold rights read and reviewed with patient. Renzo from [employer] present during reading of rights. Patient appears to be intoxicated at this time and stated I have to stay here? You guys wont even let me use the phone to call my sister. I have been here to long already. This nurse gave copy of rights to patient and patient verbalized understandings.
[2025-04-21 18:22] LABS: Alanine Aminotransferase 53 U/L (0-41); Albumin Level 4.4 g/dL (3.5-5.2); Alkaline Phosphatase 77 U/L (40-130); Anion Gap 24.7 (5-19); Aspartate Amino Transferase 144 U/L (0-40); Blood Urea Nitrogen 13 mg/dL (6-20); Calcium 8.7 mg/dL (8.5-10.5); Carbon Dioxide 22 mmol/L (22-29); Chloride 102 mmol/L (98-107); Creatinine Clr Calc Pharmacy 141.8503; Globulin 3.0 g/dL (1.3-4.6); Glucose 93 mg/dL (65-115); Osmolality Calculated 300 mOsm/kg (285-295); Potassium 3.7 mmol/L (3.5-5.1); Sodium 145 mmol/L (136-145); Total Protein 7.4 g/dL (6.6-8.7)
[2025-04-21 18:23] LABS: Acetaminophen < 5.0 ug/mL (10-30); Salicylate < 0.3 mg/dL (3-10)
[2025-04-21 18:24] LABS: Alcohol Level 421 mg/dL (0-10)
[2025-04-21] MEDS: thiamine 100 mg/mL 2mL SDV IM (18:41)
[2025-04-21 22:03] VITALS: BP 124/74; PULSE 67; RESP 16; O2SAT 98
[2025-04-21 22:46] VITALS: BP 164/91; PULSE 107; RESP 20; TEMP 37.3; O2SAT 94
[2025-04-21 22:58] VITALS: BP 124/74; PULSE 67; RESP 16; O2SAT 98
[2025-04-22] VITALS (11 sets, daily range): BP systolic 148–180; BP diastolic 90–114; PULSE 82–117; RESP 15–20; TEMP 37.1; O2SAT 92–95
--- NOTE | 2025-04-22 06:56 | W.PM.NPUH&PS ---
Providers/Chief Complaint Admitting Physician: Tobin Lynch MD Primary Care Provider: Faby Lynch NP Chief Complaint: SI HPI NPU History of Present Illness Cameron Smallwood is a 50 year old male who presented to the emergency department with the following report: Chief Complaint: Psychiatric Symptoms Stated Complaint: SI Time Seen by Provider: 04/21/25 16:46 Source: patient Mode of arrival: ambulatory Limitations: no limitations History of Present Illness: 50-year-old male states he has been having suicidal thoughts for the last 2 days. He states that he no longer wants to live he is an alcoholic states he has been drinking very heavy. He denies any worse improving factors. Associated symptoms: Reports depression and suicidal ideation. He was admitted to the neuropsychiatric unit for definitive treatment of those issues. He is known to [facility] psychiatry through inpatient and outpatient services but his last inpatient hospitalization was in November of this year. An excerpt of that discharge summary is included below for context. It is noteworthy that he was assisted in getting a bed at [facility] at the conclusion of the hospitalization and he did not show up to that intake. He presents today reporting that he has not had sobriety except for maybe a couple weeks since he left in November. We discussed that it is probably unlikely that that is true either. He presented to the emergency department with a blood alcohol of 421 and did not give a UDS. He presents in profound withdrawal and is receiving significant Ativan through the CIWA protocol and does not look well per staff reports and direct observation. He reports that his vision is to get back on his medication. He reports that he knows he did better with that. He reports he also needs to regain his sobriety as his goal is to go back down to [place] to help his son who he reports is suffering from schizophrenia. As he described it situation it is clear that his son has addiction issues and it is unclear whether he has psychosis which is called schizophrenia by some is not a result of his inability to maintain sobriety from those 2 mood altering substances. Nonetheless his plan is to get sober and go down and help his son. We discussed how critical it might be for him to go to some sober living treatment which he seems already ambivalent about. We agreed to restart his medication and assist him in getting through his withdrawal symptoms and taking that a day at a time. He denied any side effects to the medications thus far. Per his 12/24/2024 [facility] inpatient psychiatric discharge summary: Discharge Diagnosis (1) Depression: Status: Chronic (2) Suicidal ideations: Status: Acute (3) Alcohol withdrawal syndrome: Status: Inactive Qualifiers: Complication of substance-induced condition: with unspecified complication Qualified Code(s): F10.239 - Alcohol dependence with withdrawal, unspecified (4) Alcohol intoxication: Status: Resolved Qualifiers: Complication of substance-induced condition: uncomplicated Qualified Code(s): F10.920 - Alcohol use, unspecified with intoxication, uncomplicated (5) History of seizure due to alcohol withdrawal: Status: Inactive (6) Opioid dependence on maintenance agonist therapy, no symptoms: Status: Inactive (7) Alcohol use disorder, severe, dependence: Status: Acute Reason for Visit Reason for Visit: ETOH Brief History: HPI NPU History of Present Illness Cameron Smallwood is a 49 year old male recently discharged from the neuropsychiatric unit with a history of alcohol dependence after a 10-day stay here in November 2024. The patient presented with a blood alcohol level of 406 to the emergency department and reported that he was feeling suicidal. He had reported that he had been without his methadone and stated that he had been feeling extremely depressed and suicidal and stated that he would run into traffic if he were to leave the hospital. The patient had reported that he has had no significant changes currently as he had indicated that he is currently homeless. The patient had reported having significant pain issues. He reports that he had been noncompliant with outpatient substance abuse treatment and reported that he understands that he needs inpatient substance abuse treatment with continued medical problems associated with alcohol use. He reported no substantial changes since his last hospitalization 1 month ago. He does have a history of significant alcohol withdrawal symptoms including seizures. He was admitted involuntarily to the neuropsychiatric unit for further evaluation and treatment. Current medications: Methadone 50 mg daily Medical history: Hepatitis C, COPD, history of kidney stones, elevated liver enzymes, Allergies: azithromycin, tetanus, Excerpt from NPU Discharge Summary from 11/12/24 Discharge Diagnosis (1) Suicidal ideations: Status: Acute (2) Alcohol intoxication: Status: Acute Qualifiers: Complication of substance-induced condition: uncomplicated Qualified Code(s): F10.920 - Alcohol use, unspecified with intoxication, uncomplicated (3) History of seizure due to alcohol withdrawal: Status: Acute (4) Alcohol withdrawal syndrome: Status: Inactive Qualifiers: Complication of substance-induced condition: with unspecified complication Qualified Code(s): F10.239 - Alcohol dependence with withdrawal, unspecified (5) Opioid dependence on maintenance agonist therapy, no symptoms: Status: Acute (6) Depression: Status: Acute Reason for Visit Found in Ditch Passed out Brief History: History of Present Illness Cameron Smallwood is a 49 year old male who presented to the emergency department with the following report: Chief complaint: Altered Mental Status Stated complaint: Found in Ditch Passed out Time Seen by Provider: 10/31/24 23:08 History of Present Illness: Patient brought in by EMS after patient was found drunk passed out in a ditch. Patient is soaking wet cold and complaining of going through alcohol withdrawals and aching pain all over. Patient does admit to drinking today. Patient is alert oriented can answer all questions coherently. He was admitted to the neuropsychiatric unit for definitive treatment of those issues. He is known to [facility] through inpatient and outpatient services though most of his inpatient services were [id number] with none since then. There have been multiple emergency room and hospital visits and admissions that have been alcohol-related/drug related he presented to the emergency department after being found in a ditch and his blood alcohol was 478. They report he continued to be communicative even in those times that his numbers were high. He had altered mental status and concerns for safety including suicidal concerns. He is unknown to this appeals writer specifically. He presented today reporting that he is doing okay. He was a limited historian as he at times nodded off during the interview. We discussed the fact that we had information on his overall story from records suggesting that he has had challenges with his drinking going way back. He acknowledges that drinking has been a problem off and on. He reports that he has had a couple of stents in rehab 1 fairly recently. He endorsed that he has had a couple DUIs. He reports that his drinking has been significant recently and denied any clear sense of why. We discussed the fact that he has had withdrawal seizures in the past and so we wanted to make sure he was acknowledging to the staff that he was feeling significant withdrawal symptoms. We discussed him being on the CIWA protocol and how that worked. We discussed his opioid addiction and the fact that he is on the methadone but he reports that ultimately he is trying to get off the methadone. We discussed having to do this with caution because this appeals writer has never seen an individual who was not stable on 30 mg of methadone or less that was able to safely detox outside of a controlled environment like intermediate. We discussed that his blood alcohol 478 was close to the number where 50% of people who get that number . He reported that he had been working for [employer] at a [employer] but then lost his job. Then he went to a place called [facility] where he was working but that he has not been working for the last couple months and during that time his drinking had escalated again. He endorses that he has dealt with some depression and suicidal ideation. We discussed considering a medication for depression prior to discharge. He endorses that he has been homeless recently. We reviewed some of the psychosocial history as best we could while he was only capable at times of yes no answers. He denies any current legal challenges. He denies any current or significant medical problems. We discussed the risks, benefits and alternatives of making sure he makes it through the withdrawal process and then introducing antidepressant and he understood and agreed to proceed as documented in this note. Hospital Course He slowly acclimated to the individual, group and milieu therapies provided. He presented much like he did at his previous hospitalization with a greatly elevated blood alcohol level frequently presenting to the emergency department with alcohol levels between 400 and 500. His last hospitalization he had a withdrawal seizure. His medications were continued without issue. He was on a 96-hour hold and we filed for a 21-day hold but the hearing was going to be on the day of his discharge to rehab. He was given Prozac Vistaril and thiamine. He spent much of the last days of his hospitalization trying to lobby to be discharged to go and wash close and take care of his animals and there was significant concern that he would not follow through with rehab. He was placed on the CIWA protocol and received Ativan for management of his withdrawal symptoms. Many days after his active withdrawal was greatly diminished he continued to have tremulousness and seemed at times a little unsteady on his feet. He had continued to minimize the severity of his alcohol use and refused any inpatient substance abuse treatment. He worked with the social work team who was able to obtain a bed for him at [facility] on 12/24/2024. He had significant improvement during the hospitalization but continued to clearly need a higher level of care to continue his improvement. He was able to contract for safety outside the hospital prior to discharge. During the hospitalization, patient had routine laboratory studies which were within normal limits. Additionally, there was a general medical evaluation which was also within normal limits and revealed no new acute processes. At the time of discharge, he denied psychosis or lethality. Mood and anxiety were well managed. The patient endorsed a plan to avoid all drugs of abuse and follow up with the aftercare recommendations of the treatment team. The patient was evaluated and deemed to be absent credible lethality and had achieved the maximum benefit from an inpatient hospitalization, and so was discharged. It was noted after discharge that he did not arrive for his at [facility] for rehab. Meds NPU Home Medications ?Medication ?Instructions ?Recorded ?Confirmed ?Last Taken ?Type albuterol sulfate 90 mcg/actuation 2 puff inhalation Q4H PRN 03/12/25 03/27/25 Unknown Rx aerosol inhaler (Ventolin HFA) shortness of breath or wheezing #8.5 grams methadone 5 mg tablet 5 mg PO DAILY 03/20/25 03/27/25 Unknown History methadone 40 mg soluble tablet 20 mg PO DAILY 03/27/25 04/23/25 Unknown History Allergies Allergy/AdvReac Type Severity Reaction Status Date / Time tetanus immune globulin Allergy Mild ALGY-Anaphy Verified 03/27/25 08:29 laxis azithromycin Allergy ADR-Gastrointestinal Verified 03/27/25 08:29 Upset Tetanus Vaccines and Toxoid Allergy Unknown Verified 03/27/25 08:29 PFS NPU PFSH: Medical History (Updated 04/21/25 @ 18:17 by Christofer Hung MD) Nicotine dependence, cigarettes, with other nicotine-induced disorders History of traumatic injury to musculoskeletal system crush injury to RLE History of pancreatitis History of rhabdomyolysis History of suicidal ideation Chronic alcohol abuse Methadone maintenance therapy patient Hepatitis C Depression History of kidney stones Pulmonary nodule History of seizure due to alcohol withdrawal COPD (chronic obstructive pulmonary disease) Surgical History History of hip surgery Family History Father Cancer throat Other Alcohol dependence Psychiatric illness Social History Smoking and tobacco/nicotine status: current some day tobacco/nicotine user cigarettes [ Other cigarette details: 2 packs per day] Alcohol intake: current Substance/Drug Use: former Mental Status Exam MSE Comments: This is a well-nourished well-developed white male in hospital scrubs with poor grooming and intermittent eye contact looking much older than his stated age. No abnormal movements were appreciated except for significant psychomotor retardation along with tremulousness. He was mostly cooperative with exam in moderate to extreme distress. Speech was decreased in rate and normal in volume. Mood described as depressed. His affect was restricted in range and mood congruent. Thought process was linear and organized. Thought contact: Patient endorsed suicidal ideation and no homicidal ideation. There were no delusions reported or noted, patient denied auditory or visual hallucinations. Attention and concentration appeared intact and memory appeared mostly reliable but none were formally tested. Patient is alert and oriented to person, place, time and situation. Insight was poor. Judgment and impulse control appears impaired. Vitals/I&O/Wt Last Vital Signs Temp 99.1 F 04/21/25 22:46 Pulse 114 H 04/22/25 06:00 Resp 20 H 04/22/25 06:00 BP 180/108 04/22/25 06:25 Pulse Ox 93 04/22/25 06:00 O2 Del Method Room Air 04/22/25 06:00 Weight last 48 hrs Weight 68.039 kg Data NPU 04/21/25 17:28 04/21/25 17:28 A&P Assessment and plan 1. Suicidal ideations: 2. Alcohol withdrawal syndrome: 3. Alcohol intoxication: 4. History of seizure due to alcohol withdrawal: 5. Opioid dependence on maintenance agonist therapy, no symptoms: 6. Depression: 7. Alcohol use disorder, severe, dependence: Plan: This is a 49-year-old male known through past hospitalizations with depression, anxiety, and significant alcohol dependence admitted with blood alcohol of 421 and a history of withdrawal seizures. 1. Review his medication and consider which ones to restart and at what doses versus consider any new medications. 2. Continue every 15 minute checks for safety. 3. Encourage individual, group and milieu therapies. 4. Encourage sober living treatment after discharge at the highest level of care to which he is willing to commit. 5. [facility] protocol with significant attention to the fact that he has a history of withdrawal seizures. Restart methadone at 20 mg given he has been off of it for about 10 days. 6. Evaluate against the backdrop of the 96-hour hold. 7. Obtain collateral information. PDMP PDMP Reviewed: Not Reviewed Involuntary Hold Information Hold Status: Legal Status: 96 Hour Hold Date/Time Hold Expires: 04/25/25 @1717 96 Hour Hold: 96 Hour Involuntary Admission: Yes Attestations NPU Medical Necessity Statement*: Inpatient hospitalization is medically necessary and?the clinically appropriate intervention at this time.? We will monitor/initiate medications and make changes as indicated.? The patient will be in the hospital for over 2 midnights.? The patient?s likely length of stay is 4-6 days. Coding Level of Care Code Acute Code for g Fwd Diagnoses Suicidal ideations R45.851 Alcohol withdrawal syndrome F10.239 Complication of substance-induced condition: with unspecified complication Alcohol intoxication F10.920 Complication of substance-induced condition: uncomplicated History of seizure due to alcohol withdrawal Z87.898; Z86.59 Opioid dependence on maintenance agonist therapy, no symptoms F11.20 Depression F32.A Alcohol use disorder, severe, dependence F10.20
--- NOTE | 2025-04-22 07:09 | PC.NURSE ---
this nurse contacted Dr. Lynch about pts high blood pressures throughout the night. this nurse informed provider that pt had received 2mg of Ativan at 0000, 0400 and 0500 due to high CIWA scores and high BPs. Provider ordered to continue with the Ativan per protocol and to give an extra 2mg if needed. This nurse reported this to [facility] day shift charge nurse
[2025-04-22] MEDS: multivitamin therapeutic Tablet 1 TAB PO (08:35)
[2025-04-22 09:55] LABS: Alcohol Level < 10 mg/dL (0-10)
[2025-04-23] VITALS (7 sets, daily range): BP systolic 127–182; BP diastolic 86–108; PULSE 83–110; RESP 17–18; TEMP 36.6–37.1; O2SAT 94–98
[2025-04-23] MEDS: multivitamin therapeutic Tablet 1 TAB PO (08:11)
--- NOTE | 2025-04-23 08:31 | PC.NURSE ---
Dr. Lynch said to keep pt medicated to the point sleep is reach d/t history and present withdrawal symptoms including seizures.
--- NOTE | 2025-04-23 08:39 | PC.NURSE ---
Sight wheezing in right lung.
--- NOTE | 2025-04-23 20:23 | P.NPUPN_ITS ---
Subjective NPU 2 Subjective: Patient presents today reporting that things are getting better. We talked about his plan which once again showed significant ambivalence about actually treating his alcohol addiction or getting better. He has returned to his desires to make sure his Cats are being managed properly. We discussed his clear health risks and the need to focus on being well does not help his cats or his son. He denied any side effects of the medication. Mental Status Exam 2 MSE Comments: This is a well-nourished well-developed white male in hospital scrubs with poor grooming and intermittent eye contact looking much older than his stated age. No abnormal movements were appreciated except for significant psychomotor retardation along with tremulousness. He was mostly cooperative with exam in moderate to extreme distress. Speech was decreased in rate and normal in volume. Mood described as depressed. His affect was restricted in range and mood congruent. Thought process was linear and organized. Thought contact: Patient endorsed suicidal ideation and no homicidal ideation. There were no delusions reported or noted, patient denied auditory or visual hallucinations. Attention and concentration appeared intact and memory appeared mostly reliable but none were formally tested. Patient is alert and oriented to person, place, time and situation. Insight was poor. Judgment and impulse control appears impaired. Vitals/I&O/Wt Last Vital Signs Temp 98.5 F 04/23/25 20:00 Pulse 98 04/23/25 20:00 Resp 18 04/23/25 20:00 BP 127/89 04/23/25 20:00 Pulse Ox 98 04/23/25 20:00 O2 Del Method Room Air 04/23/25 20:00 Data NPU 04/21/25 17:28 04/21/25 17:28 A&P Assessment and plan 1. Suicidal ideations: 2. Alcohol withdrawal syndrome: 3. Alcohol intoxication: 4. History of seizure due to alcohol withdrawal: 5. Opioid dependence on maintenance agonist therapy, no symptoms: 6. Depression: 7. Alcohol use disorder, severe, dependence: Plan: This is a 49-year-old male known through past hospitalizations with depression, anxiety, and significant alcohol dependence admitted with blood alcohol of 421 and a history of withdrawal seizures. 1. Review his medication and consider which ones to restart and at what doses versus consider any new medications. 2. Continue every 15 minute checks for safety. 3. Encourage individual, group and milieu therapies. 4. Encourage sober living treatment after discharge at the highest level of care to which he is willing to commit. 5. CIWA protocol with significant attention to the fact that he has a history of withdrawal seizures. Restarted methadone at 20 mg given he has been off of it for about 10 days. 6. Evaluate against the backdrop of the 96-hour hold. 7. Obtain collateral information. PDMP PDMP Reviewed: Not Reviewed Involuntary Hold Information 2 Hold Status: Legal Status: 96 Hour Hold Date/Time Hold Expires: 04/25/25 @1717 96 Hour Hold: 96 Hour Involuntary Admission: Yes Attestations NPU 2 Medical Necessity Statement*: Inpatient hospitalization is medically necessary and?the clinically appropriate intervention at this time.? We will monitor/initiate medications and make changes as indicated.? The patient?s likely length of stay is 4-6 days. Coding Level of Care Code Acute Code for Chg Fwd Diagnoses Suicidal ideations R45.851 Alcohol withdrawal syndrome F10.239 Complication of substance-induced condition: with unspecified complication Alcohol intoxication F10.920 Complication of substance-induced condition: uncomplicated History of seizure due to alcohol withdrawal Z87.898; Z86.59 Opioid dependence on maintenance agonist therapy, no symptoms F11.20 Depression F32.A Alcohol use disorder, severe, dependence F10.20
[2025-04-24 04:00] VITALS: BP 132/90; PULSE 89; RESP 17; O2SAT 94
[2025-04-24 08:00] VITALS: BP 113/73; PULSE 81; RESP 16
[2025-04-24] MEDS: multivitamin therapeutic Tablet 1 TAB PO (09:41)
[2025-04-24 12:00] VITALS: BP 100/68; PULSE 118; RESP 19; TEMP 36.7; O2SAT 94
[2025-04-24 16:00] VITALS: BP 97/71; PULSE 100; RESP 18; TEMP -12.4; TEMP 9.7; O2SAT 97
--- NOTE | 2025-04-24 17:45 | W.PM.NPUPNS ---
Subjective NPU Subjective: Patient presented today reporting that he is doing fine. He continued to have lessening signs of withdrawal per staff reports and direct observation. We started him on Librium 25 mg p.o. 3 times daily which has given him some relief and reduction in tremulousness per staff reports and direct observation. Continues to have limited insight into his condition with more focus on his cats and discharge that his recovery for sobriety. He denied any side effects of the medication. Mental Status Exam MSE Comments: This is a well-nourished well-developed white male in hospital scrubs with poor grooming and intermittent eye contact looking much older than his stated age. No abnormal movements were appreciated except for significant psychomotor retardation along with tremulousness. He was mostly cooperative with exam in moderate to extreme distress. Speech was decreased in rate and normal in volume. Mood described as depressed. His affect was restricted in range and mood congruent. Thought process was linear and organized. Thought contact: Patient endorsed suicidal ideation and no homicidal ideation. There were no delusions reported or noted, patient denied auditory or visual hallucinations. Attention and concentration appeared intact and memory appeared mostly reliable but none were formally tested. Patient is alert and oriented to person, place, time and situation. Insight was poor. Judgment and impulse control appears impaired. Vitals/I&O/Wt Last Vital Signs Temp 9.7 F L 04/24/25 16:00 Pulse 100 04/24/25 16:00 Resp 18 04/24/25 16:00 BP 97/71 04/24/25 16:00 Pulse Ox 97 04/24/25 16:00 O2 Del Method Room Air 04/24/25 16:00 Data NPU 04/21/25 17:28 04/21/25 17:28 A&P Assessment and plan 1. Suicidal ideations: 2. Alcohol withdrawal syndrome: 3. Alcohol intoxication: 4. History of seizure due to alcohol withdrawal: 5. Opioid dependence on maintenance agonist therapy, no symptoms: 6. Depression: 7. Alcohol use disorder, severe, dependence: Plan: This is a 49-year-old male known through past hospitalizations with depression, anxiety, and significant alcohol dependence admitted with blood alcohol of 421 and a history of withdrawal seizures. 1. Review his medication and consider which ones to restart and at what doses versus consider any new medications. Initiate Librium taper initially with 25 mg p.o. 3 times daily. He will not discharge on that medication 2. Continue every 15 minute checks for safety. 3. Encourage individual, group and milieu therapies. 4. Encourage sober living treatment after discharge at the highest level of care to which he is willing to commit. 5. CIWA protocol with significant attention to the fact that he has a history of withdrawal seizures. Restarted methadone at 20 mg given he has been off of it for about 10 days. 6. Evaluate against the backdrop of the 96-hour hold. 7. Obtain collateral information. PDMP PDMP Reviewed: Not Reviewed Involuntary Hold Information Hold Status: Legal Status: 96 Hour Hold Date/Time Hold Expires: 04/25/25 @1717 96 Hour Hold: 96 Hour Involuntary Admission: Yes Attestations NPU Medical Necessity Statement*: Inpatient hospitalization is medically necessary and?the clinically appropriate intervention at this time.? We will monitor/initiate medications and make changes as indicated.? The patient?s likely length of stay is 4-6 days. Coding Level of Care Code Acute Code for [facility] Fwd Diagnoses Suicidal ideations R45.851 Alcohol withdrawal syndrome F10.239 Complication of substance-induced condition: with unspecified complication Alcohol intoxication F10.920 Complication of substance-induced condition: uncomplicated History of seizure due to alcohol withdrawal Z87.898; Z86.59 Opioid dependence on maintenance agonist therapy, no symptoms F11.20 Depression F32.A Alcohol use disorder, severe, dependence F10.20
[2025-04-24 19:23] LABS: Glucose Urine UA Negative (Normal); Nitrate Urine Negative (Negative); Specific Gravity, Urine 1.017 (1.005-1.030)
[2025-04-24 19:34] LABS: PCP Screen Urine Negative (Negative)
[2025-04-24 19:42] LABS: UA Slide Review UA Slide Review Perf
[2025-04-24 19:55] VITALS: BP 143/92; PULSE 110; RESP 18; TEMP 36.5; O2SAT 96
[2025-04-24 23:57] VITALS: BP 107/71; PULSE 103; RESP 18; O2SAT 96
[2025-04-25 04:00] VITALS: BP 111/70; PULSE 103; RESP 18; O2SAT 96
[2025-04-25] MEDS: multivitamin therapeutic Tablet 1 TAB PO (07:18)
[2025-04-25 07:21] VITALS: RESP 18
[2025-04-25 14:00] VITALS: BP 127/77; PULSE 87; RESP 18; TEMP 36.8; O2SAT 94
--- NOTE | 2025-04-25 18:52 | P.NPUPN_ITS ---
Subjective NPU 2 Subjective: Patient presented today appearing less tremulous per staff report and direct observation. He endorsed doing a lot better with the Librium taper that was started. He continues to be focused on his And discharged last on sober living. He reported that he had been to lots of rehab we discussed that having limited relevance now. Any side effects to medication. Mental Status Exam 2 MSE Comments: This is a well-nourished well-developed white male in hospital scrubs with poor grooming and intermittent eye contact looking much older than his stated age. No abnormal movements were appreciated except for significant psychomotor retardation but less tremulousness. He was mostly cooperative with exam in moderate distress. Speech was decreased in rate and normal in volume. Mood described as depressed. His affect was restricted in range and mood congruent. Thought process was linear and organized. Thought contact: Patient endorsed suicidal ideation and no homicidal ideation. There were no delusions reported or noted, patient denied auditory or visual hallucinations. Attention and concentration appeared intact and memory appeared mostly reliable but none were formally tested. Patient is alert and oriented to person, place, time and situation. Insight was poor. Judgment and impulse control appears impaired. Vitals/I&O/Wt Last Vital Signs Temp 99.1 F 04/25/25 20:46 Pulse 92 04/25/25 20:46 Resp 16 04/25/25 20:46 BP 121/79 04/25/25 20:46 Pulse Ox 98 04/25/25 20:46 O2 Del Method Room Air 04/25/25 20:46 Data NPU 04/21/25 17:28 04/21/25 17:28 A&P Assessment and plan 1. Suicidal ideations: 2. Alcohol withdrawal syndrome: 3. Alcohol intoxication: 4. History of seizure due to alcohol withdrawal: 5. Opioid dependence on maintenance agonist therapy, no symptoms: 6. Depression: 7. Alcohol use disorder, severe, dependence: Plan: This is a 49-year-old male known through past hospitalizations with depression, anxiety, and significant alcohol dependence admitted with blood alcohol of 421 and a history of withdrawal seizures. 1. Review his medication and consider which ones to restart and at what doses versus consider any new medications. Initiate Librium taper initially with 25 mg p.o. 3 times daily. He will not discharge on that medication 2. Continue every 15 minute checks for safety. 3. Encourage individual, group and milieu therapies. 4. Encourage sober living treatment after discharge at the highest level of care to which he is willing to commit. 5. CIWA protocol with significant attention to the fact that he has a history of withdrawal seizures. Restarted methadone at 20 mg given he has been off of it for about 10 days. 6. Evaluate against the backdrop of the 96-hour hold. 7. Obtain collateral information. PDMP PDMP Reviewed: Not Reviewed Involuntary Hold Information 2 Hold Status: Legal Status: 96 Hour Hold Date/Time Hold Expires: 04/25/25 @1717 96 Hour Hold: 96 Hour Involuntary Admission: Yes Attestations NPU 2 Medical Necessity Statement*: Inpatient hospitalization is medically necessary and?the clinically appropriate intervention at this time.? We will monitor/initiate medications and make changes as indicated.? The patient?s likely length of stay is 4-6 days. Coding Level of Care Code Acute Code for [facility] Fwd Diagnoses Suicidal ideations R45.851 Alcohol withdrawal syndrome F10.239 Complication of substance-induced condition: with unspecified complication Alcohol intoxication F10.920 Complication of substance-induced condition: uncomplicated History of seizure due to alcohol withdrawal Z87.898; Z86.59 Opioid dependence on maintenance agonist therapy, no symptoms F11.20 Depression F32.A Alcohol use disorder, severe, dependence F10.20
[2025-04-25 20:46] VITALS: BP 121/79; PULSE 92; RESP 16; TEMP 37.3; O2SAT 98
--- NOTE | 2025-04-26 06:38 | PC.NURSE ---
pt refused vs, charge nurse notified, resp 17
[2025-04-26] MEDS: multivitamin therapeutic Tablet 1 TAB PO (08:57)
[2025-04-26 14:00] VITALS: BP 137/84; PULSE 67; RESP 18; TEMP 36.6; O2SAT 99
[2025-04-26 19:56] VITALS: BP 115/87; PULSE 96; RESP 17; TEMP 36.4; O2SAT 98
[2025-04-26] MEDS: fluticasone nasal spray 16gm Btl 2 SPRAY NASAL (21:19)
--- NOTE | 2025-04-26 21:27 | W.PM.NPUPNS ---
Subjective NPU Subjective: Patient presented today reporting that he is feeling okay. We discussed that his anxiety is likely reduced secondary to the Librium. He went on to say that his anxiety is likely not from withdrawal but the fact that his cats are not being managed right now. We discussed that that may be true that withdrawal from alcohol has lingering issues and we are addressing it with the Librium. We continue to discussed that the Librium would not be prescribed at discharge. Continue to be ambivalent about his plans for sober living treatment after discharge. He denied any side effects of the medication. Mental Status Exam MSE Comments: This is a well-nourished well-developed white male in hospital scrubs with poor grooming and intermittent eye contact looking much older than his stated age. No abnormal movements were appreciated except for significant psychomotor retardation but less tremulousness. He was mostly cooperative with exam in moderate distress. Speech was decreased in rate and normal in volume. Mood described as depressed. His affect was restricted in range and mood congruent. Thought process was linear and organized. Thought contact: Patient endorsed suicidal ideation and no homicidal ideation. There were no delusions reported or noted, patient denied auditory or visual hallucinations. Attention and concentration appeared intact and memory appeared mostly reliable but none were formally tested. Patient is alert and oriented to person, place, time and situation. Insight was poor. Judgment and impulse control appears impaired. Vitals/I&O/Wt Last Vital Signs Temp 97.5 F L 04/26/25 19:56 Pulse 96 04/26/25 19:56 Resp 17 04/26/25 19:56 BP 115/87 04/26/25 19:56 Pulse Ox 98 04/26/25 19:56 O2 Del Method Room Air 04/26/25 19:56 Weight last 48 hrs Weight 72.665 kg Data NPU 04/21/25 17:28 04/21/25 17:28 A&P Assessment and plan 1. Suicidal ideations: 2. Alcohol withdrawal syndrome: 3. Alcohol intoxication: 4. History of seizure due to alcohol withdrawal: 5. Opioid dependence on maintenance agonist therapy, no symptoms: 6. Depression: 7. Alcohol use disorder, severe, dependence: Plan: This is a 49-year-old male known through past hospitalizations with depression, anxiety, and significant alcohol dependence admitted with blood alcohol of 421 and a history of withdrawal seizures. 1. Review his medication and consider which ones to restart and at what doses versus consider any new medications. Initiate Librium taper initially with 25 mg p.o. 3 times daily. He will not discharge on that medication. Will switch to Librium 25 mg p.o. twice daily tomorrow. 2. Continue every 15 minute checks for safety. 3. Encourage individual, group and milieu therapies. 4. Encourage sober living treatment after discharge at the highest level of care to which he is willing to commit. 5. CIWA protocol with significant attention to the fact that he has a history of withdrawal seizures. Restarted methadone at 20 mg given he has been off of it for about 10 days. 6. Evaluate against the backdrop of the 96-hour hold. 7. Obtain collateral information. PDMP PDMP Reviewed: Not Reviewed Involuntary Hold Information Hold Status: Legal Status: 96 Hour Hold Date/Time Hold Expires: 04/25/25 @1717 96 Hour Hold: 96 Hour Involuntary Admission: Yes Attestations NPU Medical Necessity Statement*: Inpatient hospitalization is medically necessary and?the clinically appropriate intervention at this time.? We will monitor/initiate medications and make changes as indicated.? The patient?s likely length of stay is 3-5 days. Coding Level of Care Code Acute Code for [facility] Fwd Diagnoses Suicidal ideations R45.851 Alcohol withdrawal syndrome F10.239 Complication of substance-induced condition: with unspecified complication Alcohol intoxication F10.920 Complication of substance-induced condition: uncomplicated History of seizure due to alcohol withdrawal Z87.898; Z86.59 Opioid dependence on maintenance agonist therapy, no symptoms F11.20 Depression F32.A Alcohol use disorder, severe, dependence F10.20
--- NOTE | 2025-04-27 06:49 | PC.NURSE ---
vs not collected resp 18 charge notified
--- NOTE | 2025-04-27 08:41 | P.NPUPN_ITS ---
Subjective NPU 2 Subjective: Patient presented today reporting that things are going okay. He seemed a little more positive per staff reports and direct observation. He continues to express and demonstrate ambivalence about treatment with no firm commitment to do anything but discharged in care for his cats. We discussed how his cats seem to be his means by which he diverts from the significance of his addiction and the need for some kind of active intervention. We discussed that Dr. Dalal would be here tomorrow and make decisions per his assessments. He denied any side effects of the medication. Mental Status Exam 2 MSE Comments: This is a well-nourished well-developed white male in hospital scrubs with poor grooming and intermittent eye contact looking much older than his stated age. No abnormal movements were appreciated except for significant psychomotor retardation but less tremulousness. He was mostly cooperative with exam in moderate distress. Speech was decreased in rate and normal in volume. Mood described as depressed. His affect was restricted in range and mood congruent. Thought process was linear and organized. Thought contact: Patient endorsed suicidal ideation and no homicidal ideation. There were no delusions reported or noted, patient denied auditory or visual hallucinations. Attention and concentration appeared intact and memory appeared mostly reliable but none were formally tested. Patient is alert and oriented to person, place, time and situation. Insight was poor. Judgment and impulse control appears impaired. Vitals/I&O/Wt Last Vital Signs Temp 97.5 F L 04/26/25 19:56 Pulse 96 04/26/25 19:56 Resp 17 04/26/25 19:56 BP 115/87 04/26/25 19:56 Pulse Ox 98 04/26/25 19:56 O2 Del Method Room Air 04/26/25 19:56 Weight last 48 hrs Weight 72.665 kg Data NPU 04/21/25 17:28 04/21/25 17:28 A&P Assessment and plan 1. Suicidal ideations: 2. Alcohol withdrawal syndrome: 3. Alcohol intoxication: 4. History of seizure due to alcohol withdrawal: 5. Opioid dependence on maintenance agonist therapy, no symptoms: 6. Depression: 7. Alcohol use disorder, severe, dependence: Plan: This is a 49-year-old male known through past hospitalizations with depression, anxiety, and significant alcohol dependence admitted with blood alcohol of 421 and a history of withdrawal seizures. 1. Review his medication and consider which ones to restart and at what doses versus consider any new medications. Initiate Librium taper initially with 25 mg p.o. 3 times daily. He will not discharge on that medication. Switched to Librium 25 mg p.o. twice daily. With likely switch to daily Librium on 04/29/2025. And would ultimately discharge off of Librium. 2. Continue every 15 minute checks for safety. 3. Encourage individual, group and milieu therapies. 4. Encourage sober living treatment after discharge at the highest level of care to which he is willing to commit. He continues to be ambivalent about sober living treatment. 5. CIWA protocol with significant attention to the fact that he has a history of withdrawal seizures. Restarted methadone at 20 mg given he has been off of it for about 10 days. 6. Evaluate against the backdrop of the 96-hour hold. 7. Obtain collateral information. PDMP PDMP Reviewed: Not Reviewed Involuntary Hold Information 2 Hold Status: Legal Status: 96 Hour Hold Date/Time Hold Expires: 04/25/25 @1717 96 Hour Hold: 96 Hour Involuntary Admission: Yes Attestations NPU 2 Medical Necessity Statement*: Inpatient hospitalization is medically necessary and?the clinically appropriate intervention at this time.? We will monitor/initiate medications and make changes as indicated.? The patient?s likely length of stay is 3-5 days. Coding Level of Care Code Acute Code for [facility] Fwd Diagnoses Suicidal ideations R45.851 Alcohol withdrawal syndrome F10.239 Complication of substance-induced condition: with unspecified complication Alcohol intoxication F10.920 Complication of substance-induced condition: uncomplicated History of seizure due to alcohol withdrawal Z87.898; Z86.59 Opioid dependence on maintenance agonist therapy, no symptoms F11.20 Depression F32.A Alcohol use disorder, severe, dependence F10.20
[2025-04-27] MEDS: multivitamin therapeutic Tablet 1 TAB PO (08:59)
[2025-04-27] MEDS: fluticasone nasal spray 16gm Btl 2 SPRAY NASAL (10:30)
[2025-04-27 14:00] VITALS: BP 101/56; PULSE 129; RESP 18; TEMP 36.5; O2SAT 93
[2025-04-27 21:42] VITALS: BP 117/80; PULSE 98; RESP 18; TEMP 36.4; O2SAT 99
--- NOTE | 2025-04-28 06:55 | PC.NURSE ---
pt refused, nurse notified resp 18
[2025-04-28] MEDS: multivitamin therapeutic Tablet 1 TAB PO (08:55)
[2025-04-28 14:00] VITALS: BP 115/76; PULSE 93; RESP 18; TEMP 36.6; O2SAT 98
--- NOTE | 2025-04-28 16:29 | P.NPUDS_ITS ---
Diagnoses at Discharge Discharge Diagnosis 1. Suicidal ideations: 2. Alcohol intoxication: 3. History of seizure due to alcohol withdrawal: 4. Opioid dependence on maintenance agonist therapy, no symptoms: 5. Depression: 6. Alcohol use disorder, severe, dependence: Reason for Visit Reason for Visit: SI Brief History: History of Present Illness Cameron Smallwood is a 50 year old male who presented to the emergency department with the following report: Chief Complaint: Psychiatric Symptoms Stated Complaint: SI Time Seen by Provider: 04/21/25 16:46 Source: patient Mode of arrival: ambulatory Limitations: no limitations History of Present Illness: 50-year-old male states he has been havi ng suicidal thoughts for the last 2 days. He states that he no longer wants to live he is an alcoholic states he has been drinking very heavy. He denies any worse improving factors. Associated symptoms: Reports depression and suicidal ideation. He was admitted to the neuropsychiatric unit for definitive treatment of those issues. He is known to [facility] psychiatry through inpatient and outpatient services but his last inpatient hospitalization was in November of this year. An excerpt of that discharge summary is included below for context. It is noteworthy that he was assisted in getting a bed at [facility] at the conclusion of the hospitalization and he did not show up to that intake. He p resents today reporting that he has not had sobriety except for maybe a couple weeks since he left in November. We discussed that it is probably unlikely that that is true either. He presented to the emergency department with a blood alcohol of 421 and did not give a UDS. He presents in profound withdrawal and is receiving significant Ativan through the CIWA protocol and does not look well per staff reports and direct observation. He reports that his vision is to get back on his medication. He reports that he knows he did better with that. He reports he also needs to regain his sobriety as his goal is to go back down to [place] to help his son who he reports is suffering from schizophrenia. As he described it situation it is clear that his son has addiction issues and it is unclear whether he has psychosis which is called schizophrenia by some is not a result of his inability to maintain sobriety from those 2 mood altering substances. Nonetheless his plan is to get sober and go down and help his son. We discussed how critical it might be for him to go to some sober living treatment which he seems already ambivalent about. We agreed to restart his medication and assist him in getting through his withdrawal symptoms and taking that a day at a time. He denied any side effects to the medications thus far. Per his 12/24/2024 [facility] inpatient psychiatric discharge summary: Discharge Diagnosis (1) Depression: Status: Chronic (2) Suicidal ideations: Status: Acute (3) Alcohol withdrawal syndrome: Status: Inactive Qualifiers: Complication of substance-induced condition: with unspecified complication Qualified Code(s): F10.239 - Alcohol dependence with withdrawal, unspecified (4) Alcohol intoxication: Status: Resolved Qualifiers: Complication of substance-induced condition: uncomplicated Qualified Code(s): F10.920 - Alcohol use, unspecified with intoxication, uncomplicated (5) History of seizure due to alcohol wi thdrawal: Status: Inactive (6) Opioid dependence on maintenance ago nist therapy, no symptoms: Status: Inactive (7) Alcohol use disorder, severe, depend ence: Status: Acute Reason for Visit Reason for Visit: ETOH Brief History: HPI NPU History of Present Illness Cameron Smallwood is a 49 year old male recently discharged from the neuropsychiatric unit with a history of alcohol dependence after a 10-day stay here in November 2024. The patient presented with a blood alcohol level of 406 to the emergency department and reported that he was feeling suicidal. He had reported that he had been without his methadone and stated that he had been feeling extremely depressed and suicidal and stated that he would run into traffic if he were to leave the hospital. The patient had reported that he has had no significant changes currently as he had indicated that he is currently homeless. The patient had reported having significant pain issues. He reports that he had been noncompliant with outpatient substance abuse treatment and reported that he understands that he needs inpatient substance abuse treatment with continued medical problems associated with alcohol use. He reported no substantial changes since his last hospitalization 1 month ago. He does have a history of significant alcohol withdrawal symptoms including seizures. He was admitted involuntarily to the neuropsychiatric unit for further evaluation and treatment. Current medications: Methadone 50 mg daily Medical history: Hepatitis C, COPD, history of kidney stones, elevated liver enzymes, Allergies: azithromycin, tetanus, Excerpt from NPU Discharge Summary from 11/12/24 Discharge Diagnosis (1) Suicidal ideations: Status: Acute (2) Alcohol intoxication: Status: Acute Qualifiers: Complication of substance-induced condition: uncomplicated Qualified Code(s): F10.920 - Alcohol use, unspecified with intoxication, uncomplicated (3) History of seizure due to alcohol wi thdrawal: Status: Acute (4) Alcohol withdrawal syndrome: Status: Inactive Qualifiers: Complication of substance-induced condition: with unspecified complication Qualified Code(s): F10.239 - Alcohol dependence with withdrawal, unspecified (5) Opioid dependence on maintenance ago nist therapy, no symptoms: Status: Acute (6) Depression: Status: Acute Reason for Visit Found in Ditch Passed out Brief History: History of Present Illness Cameron Smallwood is a 49 year old male who presented to the emergency department with the following report: Chief complaint: Altered Mental Status Stated complaint: Found in Ditch Passed out Time Seen by Provider: 10/31/24 23:08 History of Present Illness: Patient brought in by EMS after patient was found drunk passed out in a ditch. Patient is soaking wet cold and complaining of going through alcohol withdrawals and aching pain all over. Patient does admit to drinking today. Patient is alert oriented can answer all questions coherently. He was admitted to the neuropsychiatric unit for definitive treatment of those issues. He is known to [facility] through inpatient and outpatient services though most of his inpatient services were [phone] with none since then. There have been multiple emergency room and hospital visits and admissions that have been alcohol-related/drug related he presented to the emergency department after being found in a ditch and his blood alcohol was 478. They report he continued to be communicative even in those times that his numbers were high. He had altered mental status and concerns for safety including suicidal concerns. He is unknown to this sign writer hand specifically. He presented today reporting that he is doing okay. He was a limited historian as he at times nodded off during the interview. We discussed the fact that we had information on his overall story from records suggesting that he has had challenges with his drinking going way back. He acknowledges that drinking has been a problem off and on. He reports that he has had a couple of stents in rehab 1 fairly recently. He endorsed that he has had a couple DUIs. He reports that his drinking has been significant recently and denied any clear sense of why. We discussed the fact that he has had withdrawal seizures in the past and so we wanted to make sure he was acknowledging to the staff that he was feeling significant withdrawal symptoms. We discussed him being on the CIWA protocol and how that worked. We discussed his opioid addiction and the fact that he is on the methadone but he reports that ultimately he is trying to get off the methadone. We discussed having to do this with caution because this sign writer hand has never seen an individual who was not stable on 30 mg of methadone or less that was able to safely detox outside of a controlled environment like snf. We discussed that his blood alcohol 478 was close to the number where 50% of people who get that number . He reported that he had been working for [employer] at a [employer] but then lost his job. Then he went to a place called [facility] where he was working but that he has not been working for the last couple months and during that time his drinking had escalated again. He endorses that he has dealt with some depression and suicidal ideation. We discussed considering a medication for depression prior to discharge. He endorses that he has been homeless recently. We reviewed some of the psychosocial history as best we could while he was only capable at times of yes no answers. He denies any current legal challenges. He denies any current or significant medical problems. We discussed the risks, benefits and alternatives of making sure he makes it through the withdrawal process and then introducing antidepressant and he understood and agreed to proceed as documented in this note. Hospital Course He slowly acclimated to the individual, group and milieu therapies provided. He presented much like he did at his previous hospitalization with a greatly elevated blood alcohol level frequently presenting to the emergency department w ith alcohol levels between 400 and 500. His last hospitalization he had a withdrawal seizure. His medications were continued without issue. He was on a 96-hour hold and we filed for a 21-day hold but the hearing was going to be on the day of his discharge to rehab. He was given Prozac Vistaril and thiamine. He spent much of the last days of his hospitalization trying to lobby to be discharged to go and wash close and take care of his animals and there was significant concern that he would not follow through with rehab. He was placed on the CIWA protocol and received Ativan for management of his withdrawal symptoms. Many days after his active withdrawal was greatly diminished he continued to have tremulousness and seemed at times a little unsteady on his feet. He had continued to minimize the severity of his alcohol use and refused any inpatient substance abuse treatment. He worked with the social work team who was able to obtain a bed for him at [facility] on 12/24/2024. He had significant improvement during the hospitalization but continued to clearly need a higher level of care to continue his improvement. He was able to contract for safety outside the hospital prior to discharge. During the hospitalization, patient had routine laboratory studies which were within normal limits. Additionally, there was a general medical evaluation which was also within normal limits and revealed no new acute processes. At the time of discharge, he denied psychosis or lethality. Mood and anxiety were well managed. The patient endorsed a plan to avoid all drugs of abuse and follow up with the aftercare recommendations of the treatment team. The patient was evaluated and deemed to be absent credible lethality and had achieved the maximum benefit from an inpatient hospitalization, and so was discharged. It was noted after discharge that he did not arrive for his at [facility] for rehab. Hospital Course Hospital Course During the hospitalization, the patient had routine laboratory studies which were within normal limits except for a few outliers.? Additionally, there was a general medical evaluation which was also within normal limits and revealed no new acute processes.? At the time of discharge, lethality was denied. ? Mood and anxiety were well managed.? The patient endorsed a plan to avoid all drugs of abuse and follow up with the aftercare recommendations of the treatment team.? The patient was evaluated and deemed to be absent credible lethality and had achieved the maximum benefit from an inpatient hospitalization, and so was discharged. ?The patient did not wish to consider inpatient substance abuse treatment particularly for her alcoholism. He had expressed desire to go back to his current home. He had been started on Librium to help with alcohol withdrawal and was given a 3-day supply of Librium to be taken nightly for the next 3 days after discharge. Involuntary Hold Information Hold Status: Legal Status: 96 Hour Hold Date/Time Hold Expires: 04/25/25 @1711 96 Hour Hold: 96 Hour Involuntary Admission: Yes Mental Status Exam MSE Comments: This is a well-nourished well-developed white male in hospital scrubs with improved grooming and intermittent eye contact looking much older than his stated age. No abnormal movements were appreciated except for significant psychomotor retardation but less tremulousness. He was mostly cooperative with exam in moderate distress. Speech was normal in rate and normal in volume. Mood described as depressed. His affect was restricted in range and mood congruent. Thought process was linear and organized. Thought contact: Patient denied suicidal ideation and no homicidal ideation. There were no delusions reported or noted, patient denied auditory or visual hallucinations. Attention and concentration appeared intact and memory appeared mostly reliable but none were formally tested. Patient is alert and oriented to person, place, time and situation. Insight was poor. Judgment was fair and impulse control appears limited. Discharge Data Studies Completed and Pending: Laboratory Results WBC 4.69 10^3/uL (3.2 9-11.43) 04/21/25 17: RBC 4.27 10^6/uL (3.8 5-5.65) 04/21/25 17: Hgb 14.90 g/dL (11.27 -16.99) 04/21/25 17: Hct 43.7 % (37-53) 04/21/25 17: MCV 102.3 fl (82-101) H 04/21/25 17: MCH 34.9 pg (27-33) H 04/21/25 17: MCHC 34.1 g/dL (30-55) 04/21/25 17: RDW 13.4 % (12.1-15.1 ) 04/21/25 17: Plt Count 97 10^3/cmm (157- 399) L 04/21/25 17: MPV 10.3 fL (7.4-10.4 ) 04/21/25 17: Neut % (Auto) 41.1 % 04/21/25 17: Lymph % (Auto) 49.0 % 04/21/25 17: Wilcox % (Auto) 7.5 % 04/21/25 17: Eos % (Auto) 0.9 % 04/21/25 17: Baso % (Auto) 1.3 % 04/21/25: Neut # (Auto) 1.93 10^3/uL (1.8 -7.7) 04/21/25 17: Lymph # (Auto) 2.3 10^3/uL (0.8- 4.8) 04/21/25 17:28 Wilcox # (Auto) 0.4 10^3/uL (0.2- 0.9) 04/21/25 17:28 Eos # (Auto) 0.0 10^3/uL (0.0- 0.8) 04/21/25 17:28 Baso # (Auto) 0.1 10^3/uL (0.0- 0.1) 04/21/25 17:28 Nucleated RBC % (a uto) 0 % 04/21/25 17: Nucleated RBCs # 0.0 /100WBC 04/21/25 17:28 Sodium 145 mmol/L (136-1 45) 04/21/25 17:28 Potassium 3.7 mmol/L (3.5-5 .1) 04/21/25 17: Chloride 102 mmol/L (98-10 7) 04/21/25 17: Carbon Dioxide 22 mmol/L (22-29) 04/21/25 17: Anion Gap 24.7 (5-19) H 04/21/25 17:28 BUN 13 mg/dL (6-20) 04/21/25 17: Creatinine 0.6 mg/dL (0.7-1. 2) L 04/21/25 17:28 GFR Calculation 141.5 mL/min (90- 130) H 04/21/25 17:28 Glucose 93 mg/dL (65-115) 04/21/25 17:28 Calculated Osmolal ity 300 mOsm/kg (285- 295) H 04/21/25 17:28 Calcium 8.7 mg/dL (8.5-10 .5) 04/21/25 17: Total Bilirubin 0.9 mg/dL (0.15-1 .2) 04/21/25 17:28 AST 144 U/L (0-40) H 04/21/25 17:28 ALT 53 U/L (0-41) H 04/21/25 17:28 Alkaline Phosphata se 77 U/L (40-130) 04/21/25 17:28 Total Protein 7.4 g/dL (6.6-8.7 ) 04/21/25 17: Albumin 4.4 g/dL (3.5-5.2 ) 04/21/25 17: Globulin 3.0 g/dL (1.3-4.6 ) 04/21/25 17:28 Urine Color Yellow (Yellow) 04/24/25 19:00 Urine Appearance Cloudy (CLEAR) A 04/24/25 19:00 Urine pH 7.0 (5-7) 04/24/25 19:00 Ur Specific Gravit y 1.017 (1.005-1.0 30) 04/24/25 19:00 Urine Protein Negative (Negati ve) 04/24/25 19:00 Urine Glucose (UA) Negative (Normal ) 04/24/25 19:00 Urine Ketones Negative (Negati ve) 04/24/25 19:00 Urine Blood Negative (Negati ve) 04/24/25 19:00 Urine Nitrate Negative (Negati ve) 04/24/25 19:00 Urine Bilirubin Negative (Negati ve) 04/24/25 19:00 Urine Urobilinogen 1.0 mg/dL (Negati ve) 04/24/25 19:00 Ur Leukocyte Madie ase Negative (Negati ve) 04/24/25 19:00 Urine RBC 0-2 /hpf (0-2) 04/24/25 19:00 Urine WBC 0-5 /hpf (0-5) 04/24/25 19:00 Ur Squamous Epith Cells 0-5 /hpf (0-5) 04/24/25 19:00 Amorphous Sediment Not Reportable 04/24/25 19:00 Urine Bacteria None seen /hpf (N ONE) 04/24/25 19:00 Hyaline Casts 0.81 /lpf 04/24/25 19:00 Urine Sperm 1+ /hpf 04/24/25 19:00 Salicylates < 0.3 mg/dL (3-10 ) L 04/21/25 17:28 Urine Opiates Scre en Negative ng/mL (N egative) 04/24/25 19:00 Acetaminophen < 5.0 ug/mL (10-3 0) L 04/21/25 17:28 Ur Barbiturates Sc reen Negative ng/mL (N egative) 04/24/25 19:00 Ur Phencyclidine S crn Negative ng/mL (N egative) 04/24/25 19:00 Ur Amphetamines Sc reen Negative ng/mL (N egative) 04/24/25 19:00 U Benzodiazepines Scrn Positive ng/mL (N egative) H 04/24/25 19:00 Urine Cocaine Scre en Negative ng/mL (N egative) 04/24/25 19:00 U Marijuana (THC) Screen Negative ng/mL (N egative) 04/24/25 19:00 Ethyl Alcohol < 10 mg/dL (0-10) 04/22/25 08:55 Vitals: Last Vital Signs Temp 98 F 04/28/25 14:00 Pulse 93 04/28/25 14:00 Resp 18 04/28/25 14:00 BP 115/76 04/28/25 14:00 Pulse Ox 98 04/28/25 14:00 O2 Del Method Room Air 04/27/25 21:42 Discharge Plan Discharge Patient Disposition: Home Condition: Stable Prescriptions: New thiamine mononitrate (vit B1) [Vitamin B-1 (mononitrate)] 100 mg Tablet 100 mg PO DAILY 30 Days Qty: 30 1RF multivitamin with folic acid [Thera] 400 mcg Tablet 1 tab PO DAILY 30 Days Qty: 30 1RF folic acid 1 mg Tablet 1 mg PO DAILY 30 Days Qty: 30 1RF fluticasone propionate 50 mcg/actuation Berthold,Suspension 2 spray nasal DAILY 30 Days Qty: 30 1RF cetirizine 10 mg Tablet 10 mg PO DAILY 30 Days Qty: 30 1RF chlordiazepoxide HCl 25 mg capsule 25 mg PO .at night Qty: 3 0RF Rx Instructions: Take one tablet at 6PM beginning on 04/29/25 x3 days then discontinue. Continued albuterol sulfate [Ventolin HFA] 90 mcg/actuation HFA aerosol inhaler 2 puff inhalation Q4H PRN (Reason: shortness of breath or wheezing) Qty: 8.5 2RF methadone 40 mg tablet,soluble 20 mg PO DAILY Discharge Order = DC NOW: Discharge Order (Routine); Ordered 04/28/25 Ordered By: Van Dalal Referrals: Bolivar Olvera [facility] [Other] [facility] [Other] - 04/29/25 6:00 am Referral Note: Arrive any time after 6am regarding your methadone script [facility] [Outside, Counselor - Professional] - 1-3 days Referral Note: You will be contacted regarding a [facility] assessment. Faby Lynch, CONSTRUCTION ESTIMATOR [Primary Care Provider, Family Practice] Discharge Diet: Usual diet Discharge Activity: Resume usual activity Patient Instructions: Opioid Safety, Patient Portal & Vanessa Instructions Discharge Attestations NPU Time Spent in Discharge Care*: less than 30 min Coding Level of Care Code Acute Code for Chg Fwd Diagnoses Suicidal ideations R45.851 Alcohol withdrawal syndrome F10.239 Complication of substance-induced condition: with unspecified complication Alcohol intoxication F10.920 Complication of substance-induced condition: uncomplicated History of seizure due to alcohol withdrawal Z87.898; Z86.59 Opioid dependence on maintenance agonist therapy, no symptoms F11.20 Depression F32.A Alcohol use disorder, severe, dependence F10.20
[2025-04-28] MEDS: artificial tears Op Soln 15 mL Btl 1 DROP EYE-BOTH (16:55)
[2025-04-28 17:17] VITALS: BP 115/76; PULSE 93; RESP 18; TEMP 36.7; O2SAT 98
== END 2025-04-28 18:00 | disposition home or self-care (01) | DRG 897 ==
LOC: ER 18:17 → ER IP 18:41 → NP 22:07
PROVIDERS: Admitting Provider Psychiatry & Neurology Psychiatry; Emergency Provider Emergency Medicine; Visit Provider Psychiatry & Neurology Psychiatry
DX: F10.229 Alcohol dependence with intoxication, unspecified (principal); R45.851 Suicidal ideations; F11.20 Opioid dependence, uncomplicated; F10.239 Alcohol dependence with withdrawal, unspecified; Y90.8 Blood alcohol level of 240 mg/100 ml or more; F32.A Depression, unspecified; F17.210 Nicotine dependence, cigarettes, uncomplicated; J44.9 Chronic obstructive pulmonary disease, unspecified
CPT/HCPCS: 36415; 80053; 80306; 80307; 81001; 85025; 96372; 97150; 97165; 99285; J3411; J9999; Q0162

== ENCOUNTER 2025-05-07 14:53 | Emergency (ER) | payer MEDICAID, SELFPAY ==
--- NOTE | 2025-05-07 15:22 | ED_ITS ---
HPI - General Adult 2 General: Chief complaint: General Medical Stated complaint: etoh withdrawal / generalized pain Time Seen by Provider: 05/07/25 15:03 Source: patient Mode of arrival: ambulatory Limitations: no limitations History of Present Illness: 50-year-old male has a history of alcoho lism states he drank last night states he feels like he is having some withdrawal today states he is having some tremors states he also is ran out of cigarettes and feels like he is withdrawing from nicotine and wants nicotine patch. Patient is currently homeless he denies any vomiting denies any diarrhea. He states that he has pain all over his body. Associated symptoms: Deny chest pain, dyspnea, headache(s), nausea, rash or vomiting Related Data Home Medications ?Medication ?Instructions ?Recorded ?Confirmed multivitamin with folic acid 400 1 tab PO DAILY 05/07/25 mcg tablet (Tab-A-Zeny) Previous Rx's ?Medication ?Instructions ?Recorded albuterol sulfate 90 mcg/actuation 2 puff inhalation Q 4H PRN 03/12/25 aerosol inhaler (Ventolin HFA) shortness of breath or wheezing #8.5 grams cetirizine 10 mg tablet 10 mg PO DAILY 30 days #30 t abs 04/28/25 chlordiazepoxide HCl 25 mg capsule 25 mg PO .at night #3 caps 04/28/25 fluticasone propionate 50 2 spray nasal DAILY 30 days #30 04/28/25 mcg/actuation nasal grams spray,suspension folic acid 1 mg tablet 1 mg PO DAILY 30 days #30 ta bs 04/28/25 thiamine mononitrate (vit B1) 100 100 mg PO DAILY 30 d ays #30 tabs 04/28/25 mg tablet (Vitamin B-1 (mononitrate)) Allergies Allergy/AdvReac Type Severity Reaction Status Date / Time tetanus immune globulin Allergy Mild ALGY-Anaphy Verified 03/27/25 08:29 laxis azithromycin Allergy ADR-Gastrointestinal Verified 03/27/25 08:29 Upset Tetanus Vaccines and Toxoid Allergy Unknown Verified 03/27/25 08:29 Review of Systems 2 Const: Denies: fever(s), chills, body aches or change in appetite ENMT: Denies: throat pain or dental pain Card: Denies: chest pain Resp: Denies: dyspnea GI: Denies: abdominal pain, nausea, vomiting or diarrhea Musc: Denies: neck pain or back pain Skin/Breast: Denies: rash Neuro: Denies: headache(s) PFSH ED 2 PFSH: Medical History (Updated 05/07/25 @ 16:43 by Christofer Hung MD) Nicotine dependence, cigarettes, with other nicotine-induced disorders History of traumatic injury to musculoskeletal system crush injury to RLE History of pancreatitis History of rhabdomyolysis History of suicidal ideation Chronic alcohol abuse Methadone maintenance therapy patient Hepatitis C Depression History of kidney stones Pulmonary nodule History of seizure due to alcohol withdrawal COPD (chronic obstructive pulmonary disease) Surgical History History of hip surgery Family History Father Cancer throat Other Alcohol dependence Psychiatric illness Social History Smoking and tobacco/nicotine status: current some day tobacco/nicotine user cigarettes [ Other cigarette details: 2 packs per day] Alcohol intake: current Substance/Drug Use: former Physical Exam 2 Const: COMMON NORMALS: no acute distress, patient oriented x3 and healthy appearing HENMT: COMMON NORMALS: normocephalic and atraumatic HEAD & SCALP: n ormocephalic and atraumatic Eye: COMMON NORMALS: Equal, round and reactive pupils present and EOMs intact bilaterally PUPIL: Yes Equal, round and reactive pupils present Neck/C-Spine: COMMON NORMALS: full ROM and supple Chest: COMMONS NORMALS: normal inspection of the chest and normal palpation of entire chest wall Resp: COMMON NORMALS: normal respiratory effort, No retractions, No use of accessory muscles and clear to auscultation bilaterally AUSCULTATION: clear to auscultation bilaterally Cardio: COMMON NORMALS: regular rate, regular rhythm and No murmurs present (Cardio) RATE: regular rate RHYTHM: regular rhythm GI: COMMON NORMALS: Normal to inspection, nondistended, normoactive bowel sounds present, Soft to palpation, non-tender and no masses PALPATION: Yes Soft to palpation Extremity: COMMON NORMALS: normal to inspection and full ROM Neuro: COMMON NORMALS: patient oriented x3, moves all extremities and no focal motor deficits Psych: COMMON NORMALS: mental status grossly normal, Normal thought process present and cooperative THOUGHT PROCESS: Normal thought process present Skin: COMMON NORMALS: no rashes or lesions noted and no wounds GENERAL SKIN EXAM: no rashes or lesions noted Course 2 Vital Signs: Vital signs: Vital Signs Temperature 98.9 F 05/07/25 15:25 Pulse Rate 121 H 05/07/25 15:25 Respiratory Rate 18 05/07/25 15:47 Blood Pressure 113/73 05/07/25 15:25 Pulse Oximetry 95 05/07/25 15:47 Oxygen Delivery Me thod Room Air 05/07/25 15:25 MDM - General Adult Medical Decision Making Patient presents with alcohol intoxication he has no signs of withdrawal here his heart rate here is improved he stable for discharge follow-up PCP return if worsening. Lab Data I reviewed the patient's lab results. 05/07/25 16:02 05/07/25 16:02 Radiology Impressions Chest X-Ray 05/07/25 15:31 IMPRESSION: Stable chest without acute abnormality as above. Laboratory Results WBC 7.05 10^3/uL (3.29-11.43) 05/07/25 16:02 RBC 4.35 10^6/uL (3.85-5.65) 05/07/25 16:02 Hgb 15.60 g/dL (11.27-16.99) 05/07/25 16:02 Hct 44.9 % (37-53) 05/07/25 16:02 MCV 103.2 fl (82-101) H 05/07/25 16:02 MCH 35.9 pg (27-33) H 05/07/25 16:02 MCHC 34.7 g/dL (30-55) 05/07/25 16:02 RDW 12.7 % (12.1-15.1) 05/07/25 16:02 Plt Count 237 10^3/cmm (157-399) 05/07/25 16:02 MPV 9.0 fL (7.4-10.4) 05/07/25 16:02 Neut % (Auto) 61.3 % 05/07/25 16:02 Lymph % (Auto) 29.1 % 05/07/25 16:02 [place] % (Auto) 7.0 % 05/07/25 16:02 Eos % (Auto) 0.6 % 05/07/25 16:02 Baso % (Auto) 1.7 % 05/07/25 16:02 Neut # (Auto) 4.33 10^3/uL (1.8-7.7) 05/07/25 16:02 Lymph # (Auto) 2.1 10^3/uL (0.8-4.8) 05/07/25 16:02 [place] # (Auto) 0.5 10^3/uL (0.2-0.9) 05/07/25 16:02 Eos # (Auto) 0.0 10^3/uL (0.0-0.8) 05/07/25 16:02 Baso # (Auto) 0.1 10^3/uL (0.0-0.1) 05/07/25 16:02 Nucleated RBC % (auto) 0 % 05/07/25 16:02 Nucleated RBCs # 0.0 /100WBC 05/07/25 16:02 Sodium 143 mmol/L (136-145) 05/07/25 16:02 Potassium 3.0 mmol/L (3.5-5.1) L 05/07/25 16:02 Chloride 105 mmol/L (98-107) 05/07/25 16:02 Carbon Dioxide 20 mmol/L (22-29) L 05/07/25 16:02 Anion Gap 21.0 (5-19) H 05/07/25 16:02 BUN 6 mg/dL (6-20) 05/07/25 16:02 Creatinine 0.7 mg/dL (0.7-1.2) 05/07/25 16:02 GFR Calculation 118.4 mL/min (90-130) 05/07/25 16:02 Glucose 119 mg/dL (65-115) H 05/07/25 16:02 Calculated Osmolality 295 mOsm/kg (285-295) 05/07/25 16:02 Calcium 9.2 mg/dL (8.5-10.5) 05/07/25 16:02 Total Bilirubin 0.5 mg/dL (0.15-1.2) 05/07/25 16:02 AST 69 U/L (0-40) H 05/07/25 16:02 ALT 41 U/L (0-41) 05/07/25 16:02 Alkaline Phosphatase 64 U/L (40-130) 05/07/25 16:02 Total Protein 7.6 g/dL (6.6-8.7) 05/07/25 16:02 Albumin 4.3 g/dL (3.5-5.2) 05/07/25 16:02 Globulin 3.3 g/dL (1.3-4.6) 05/07/25 16:02 Ethyl Alcohol 312 mg/dL (0-10) H* 05/07/25 16:02 No radiology studies performed this visit EKG Data EKG 1: I personally reviewed and interpreted this EKG as follows: EKG interpretation date: 05/07/25 EKG interpretation time: 15:25 Interpretation: sinus tach hr [address] elevation qrs 82 qtc 495 Computer generated interpretation: Chest X-Ray 05/07/25 15:31 IMPRESSION: Stable chest without acute abnormality as above. Discharge Plan Discharge Patient Disposition: Home Clinical Impression: Chronic alcohol abuse Condition: Stable Prescriptions: No Action albuterol sulfate [Ventolin HFA] 90 mcg/actuation HFA aerosol inhaler 2 puff inhalation Q4H PRN (Reason: shortness of breath or wheezing) Qty: 8.5 2RF thiamine mononitrate (vit B1) [Vitamin B-1 (mononitrate)] 100 mg Tablet 100 mg PO DAILY 30 Days Qty: 30 1RF folic acid 1 mg Tablet 1 mg PO DAILY 30 Days Qty: 30 1RF fluticasone propionate 50 mcg/actuation [place],Suspension 2 spray nasal DAILY 30 Days Qty: 30 1RF cetirizine 10 mg Tablet 10 mg PO DAILY 30 Days Qty: 30 1RF chlordiazepoxide HCl 25 mg capsule 25 mg PO .at night Qty: 3 0RF Rx Instructions: Take one tablet at 6PM beginning on 04/29/25 x3 days then discontinue. multivitamin with folic acid [Tab-A-Zeny] 400 mcg tablet 1 tab PO DAILY Discharge Orders: Discharge ED (Routine); Ordered 05/07/25 Ordered By: Christofer Hung Referrals: Faby Lynch, BERNARDINO [Primary Care Provider, Family Practice] Discharge Diet: Advance as tolerated Discharge Activity: Resume usual activity Patient Instructions: Abuse of Alcohol (ED) Print Language: [place] Islander Coding Level of Care Code ED Cement Sack Breaker for Santy Villanueva
[2025-05-07 15:25] VITALS: BP 113/73; PULSE 121; RESP 18; TEMP 37.2; O2SAT 94
--- NOTE | 2025-05-07 15:25 | ECG_ITS ---
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 Measurements Intervals [place] Rate: 119 P: 78 RI: 160 QRS: 81 QRSD: 82 T: 78 QT: 424 QTc: 598 Interpretive Statements SINUS TACHYCARDIA NONSPECIFIC ST & T-WAVE ABNORMALITY ABNORMAL RHYTHM ECG Compared to ECG 09/15/2024 17:05:28 No significant changes Electronically Signed On 05-07-2025 22:46:56 CDT by Collin Briggs M.D. [email or web address]
[2025-05-07] MEDS: LORazepam 1 MG/0.5 ML injection IVP (15:28)
--- NOTE | 2025-05-07 15:31 | XR_ITS ---
WS: [id number] XR chest 1V portable [id number] REASON FOR EXAM: rib pain FINDINGS: The chest is unchanged compared to 03/12/2025. There is mild tortuosity of the thoracic aorta. Normal heart size. Calcified granulomatous disease bilaterally. The lungs are hyperexpanded. No acute pulmonary parenchymal or pleural abnormality is identified. XR/XR chest 1V portable [id number] IMPRESSION: Stable chest without acute abnormality as above.
[2025-05-07 15:47] VITALS: RESP 18; O2SAT 95
[2025-05-07] MEDS: thiamine 100 mg/mL 2mL SDV IM (15:47)
[2025-05-07] MEDS: morphine 4 mg/mL SDV 1 mL IM (15:47)
[2025-05-07 16:24] LABS: Hematocrit 44.9 % (37-53); Hemoglobin 15.60 g/dL (11.27-16.99); Mean Corpuscular HGB Conc 34.7 g/dL (30-55); Mean Corpuscular Hemoglobin 35.9 pg (27-33); Mean Corpuscular Volume 103.2 fl (82-101); Nucleated Red Blood Cells % 0 %; Platelet Count 237 10^3/cmm (157-399); Red Blood Count 4.35 10^6/uL (3.85-5.65); White Blood Count 7.05 10^3/uL (3.29-11.43)
[2025-05-07 16:47] LABS: Alanine Aminotransferase 41 U/L (0-41); Albumin Level 4.3 g/dL (3.5-5.2); Alkaline Phosphatase 64 U/L (40-130); Anion Gap 21.0 (5-19); Aspartate Amino Transferase 69 U/L (0-40); Blood Urea Nitrogen 6 mg/dL (6-20); Calcium 9.2 mg/dL (8.5-10.5); Carbon Dioxide 20 mmol/L (22-29); Chloride 105 mmol/L (98-107); Creatinine Clr Calc Pharmacy 124.7540; Globulin 3.3 g/dL (1.3-4.6); Glucose 119 mg/dL (65-115); Osmolality Calculated 295 mOsm/kg (285-295); Potassium 3.0 mmol/L (3.5-5.1); Sodium 143 mmol/L (136-145); Total Protein 7.6 g/dL (6.6-8.7)
[2025-05-07 16:50] LABS: Alcohol Level 312 mg/dL (0-10)
== END 2025-05-07 16:51 | disposition home or self-care (01) ==
PROVIDERS: Emergency Provider Emergency Medicine
DX: F10.10 Alcohol abuse, uncomplicated (principal); Y90.8 Blood alcohol level of 240 mg/100 ml or more; F17.210 Nicotine dependence, cigarettes, uncomplicated; J44.9 Chronic obstructive pulmonary disease, unspecified
CPT/HCPCS: 36415; 71045; 80053; 80307; 85025; 93005; 96372; 96374; 99285; J2060; J2270; J3411; J9999

== ENCOUNTER 2025-05-10 08:36 | Emergency (ER) | payer MEDICAID, SELFPAY ==
--- NOTE | 2025-05-10 08:36 | ECG_ITS ---
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
[2025-05-10 08:42] VITALS: BP 142/92; PULSE 90; RESP 10; TEMP 36.8; O2SAT 98
--- NOTE | 2025-05-10 08:56 | ED_ITS ---
HPI - General Adult 2 General: Chief complaint: General Medical Stated complaint: chest pain; etoh withdrawal Time Seen by Provider: 05/10/25 08:39 History of Present Illness: HPI: Patient well-known to this emergency department presenting for alcohol withdrawal symptoms. Patient states his last drink was 48 hours ago and he has had some seizures over the intervening timeframe. States has not had a drink in the last 48 hours. No fevers, chills, shortness of breath. Patient states he has felt right-sided rib pain over open rib fracture that is bothersome to him. He comes in by EMS requesting help for his withdrawal symptoms. He states he would like to quit and stop using alcohol entirely. No auditory visual hallucinations presently. REVIEW OF SYSTEMS: 10 systems reviewed and otherwise unrema rkable except for those noted in HPI. PHYSCIAL EXAM: Triage vital signs reviewed Gen: A&O NAD, smells of alcohol HEENT: NCAT, EOMI, not icteric. External ears normal. No rhinorrhea. Moist mucous membranes. Neck: Supple, full range of motion, no observable masses, No meningeal sign. Lungs: No Respiratory distress. CV: Tachycardic, no edema. Abdomen: Soft, nondistended, No rebound tenderness. MSK: No joint swelling, no redness. Skin: No rashes, petechiae, lesions. Normal color per patient. Neuro: Normal Gait, Grossly intact. Mildly tremulous with extension of his hands. Psych: Appropriate for situation. PROCEDURES: N/A Related Data Home Medications ?Medication ?Instructions ?Recorded ?Confirmed multivitamin with folic acid 400 1 tab PO DAILY 05/07/25 mcg tablet (Tab-A-Zeny) Previous Rx's ?Medication ?Instructions ?Recorded albuterol sulfate 90 mcg/actuation 2 puff inhalation Q 4H PRN 03/12/25 aerosol inhaler (Ventolin HFA) shortness of breath or wheezing #8.5 grams cetirizine 10 mg tablet 10 mg PO DAILY 30 days #30 t abs 04/28/25 chlordiazepoxide HCl 25 mg capsule 25 mg PO .at night #3 caps 04/28/25 fluticasone propionate 50 2 spray nasal DAILY 30 days #30 04/28/25 mcg/actuation nasal grams spray,suspension folic acid 1 mg tablet 1 mg PO DAILY 30 days #30 ta bs 04/28/25 thiamine mononitrate (vit B1) 100 100 mg PO DAILY 30 d ays #30 tabs 04/28/25 mg tablet (Vitamin B-1 (mononitrate)) Allergies Allergy/AdvReac Type Severity Reaction Status Date / Time tetanus immune globulin Allergy Mild ALGY-Anaphy Verified 03/27/25 08:29 laxis azithromycin Allergy ADR-Gastrointestinal Verified 03/27/25 08:29 Upset Tetanus Vaccines and Toxoid Allergy Unknown Verified 03/27/25 08:29 [facility] ED 2 PFS: Medical History (Updated 05/10/25 @ 09:02 by Quintin Dominguez MD) Nicotine dependence, cigarettes, with other nicotine-induced disorders History of traumatic injury to musculoskeletal system crush injury to RLE History of pancreatitis History of rhabdomyolysis History of suicidal ideation Chronic alcohol abuse Methadone maintenance therapy patient Hepatitis C Depression History of kidney stones Pulmonary nodule History of seizure due to alcohol withdrawal COPD (chronic obstructive pulmonary disease) Surgical History History of hip surgery Family History Father Cancer throat Other Alcohol dependence Psychiatric illness Social History Smoking and tobacco/nicotine status: current some day tobacco/nicotine user cigarettes [ Other cigarette details: 2 packs per day] Alcohol intake: current Substance/Drug Use: former Course 2 Vital Signs: Vital signs: Vital Signs Temperature 98.2 F 05/10/25 08:42 Pulse Rate 90 05/10/25 08:42 Respiratory Rate 10 L 05/10/25 08:42 Blood Pressure 142/92 05/10/25 08:42 Pulse Oximetry 98 05/10/25 08:42 Oxygen Delivery Me thod Room Air 05/10/25 08:42 MDM - General Adult Medical Decision Making MEDICAL DECISION MAKING: Differential diagnoses considered but not limited to: Acute alcohol withdrawal, electrolyte derangement, ACS, delirium tremens, others. Vitals nonactionable. Given history, examination, and pretest risk factors, feel patient is suffering from alcohol withdrawal symptoms. Patient 48 hours from last drink per history. Patient mildly tremulous in the department. Will load patient with phenobarbital given history of withdrawal symptoms and recent seizures with expected admission to the hospital. Also obtain broad screening labs and provide thiamine supplementation. Unfortunately, patient states that he no longer wishes to stay in the emergency department shortly after arriving by EMS. He states that he would like to leave. Patient states loudly in the department that if i leave I might . Patient ordered for phenobarbital to reduce withdrawal symptoms but patient states he cannot comfortably stay in the room because the bed is uncomfortable. He pulls out his IV and begins walking for the door. Nursing signed him out AGAINST MEDICAL ADVICE. Unfortunately I was unable to convince patient to stay to receive treatment. DISPO: FELICIA Dominguez MD Staff physician, [facility] Emergency Department [phone] Lab Data 05/10/25 08:41 05/10/25 08:41 No radiology studies performed this visit Discharge Plan Discharge Patient Disposition: Left Against Medical Advice Clinical Impression: Alcohol withdrawal Condition: Stable Prescriptions: No Action albuterol sulfate [Ventolin HFA] 90 mcg/actuation HFA aerosol inhaler 2 puff inhalation Q4H PRN (Reason: shortness of breath or wheezing) Qty: 8.5 2RF thiamine mononitrate (vit B1) [Vitamin B-1 (mononitrate)] 100 mg Tablet 100 mg PO DAILY 30 Days Qty: 30 1RF folic acid 1 mg Tablet 1 mg PO DAILY 30 Days Qty: 30 1RF fluticasone propionate 50 mcg/actuation [place],Suspension 2 spray nasal DAILY 30 Days Qty: 30 1RF cetirizine 10 mg Tablet 10 mg PO DAILY 30 Days Qty: 30 1RF chlordiazepoxide HCl 25 mg capsule 25 mg PO .at night Qty: 3 0RF Rx Instructions: Take one tablet at 6PM beginning on 04/29/25 x3 days then discontinue. multivitamin with folic acid [Tab-A-Zeny] 400 mcg tablet 1 tab PO DAILY Referrals: Faby Lynch, BERNARDINO [Primary Care Provider, Family Practice] Print Language: Palestinian Coding Level of Care Code ED Contract Project Manager for Santy Villanueva
[2025-05-10 08:59] LABS: Hematocrit 45.6 % (37-53); Hemoglobin 15.80 g/dL (11.27-16.99); Mean Corpuscular HGB Conc 34.6 g/dL (30-55); Mean Corpuscular Hemoglobin 34.4 pg (27-33); Mean Corpuscular Volume 99.3 fl (82-101); Nucleated Red Blood Cells % 0 %; Platelet Count 205 10^3/cmm (157-399); Red Blood Count 4.59 10^6/uL (3.85-5.65); White Blood Count 5.28 10^3/uL (3.29-11.43)
--- NOTE | 2025-05-10 08:59 | PC.NURSE ---
This nurse was waiting for pharmacy to verify meds and PT removed his IV and came to nurses station stating that he wanted to leave. PT states I want to leave i feel like i am in [facility] here just let me go PT was asked multiple times if he would like to return to room and be medicated by this nurse and ED physician, PT declined any further care and signed AMA paperwork.
[2025-05-10 09:13] LABS: Alanine Aminotransferase 57 U/L (0-41); Albumin Level 4.3 g/dL (3.5-5.2); Alkaline Phosphatase 65 U/L (40-130); Anion Gap 20.4 (5-19); Aspartate Amino Transferase 127 U/L (0-40); Blood Urea Nitrogen 10 mg/dL (6-20); Calcium 8.7 mg/dL (8.5-10.5); Carbon Dioxide 22 mmol/L (22-29); Chloride 106 mmol/L (98-107); Globulin 3.3 g/dL (1.3-4.6); Glucose 97 mg/dL (65-115); Lipase 67 U/L (13-60); Magnesium 2.1 mg/dL (1.7-2.3); Osmolality Calculated 299 mOsm/kg (285-295); Potassium 3.4 mmol/L (3.5-5.1); Sodium 145 mmol/L (136-145); Total Protein 7.6 g/dL (6.6-8.7)
[2025-05-10 09:17] LABS: Alcohol Level 313 mg/dL (0-10)
== END 2025-05-10 09:02 | disposition left against medical advice (07) ==
PROVIDERS: Emergency Provider General Practice
DX: F10.239 Alcohol dependence with withdrawal, unspecified (principal); F10.229 Alcohol dependence with intoxication, unspecified; F17.210 Nicotine dependence, cigarettes, uncomplicated; J44.9 Chronic obstructive pulmonary disease, unspecified
CPT/HCPCS: 36415; 80053; 80307; 83690; 83735; 85025; 93005; 99284

== ENCOUNTER 2025-05-23 07:51 | Inpatient (IN) | payer MEDICAID, SELFPAY ==
[2025-05-23] VITALS (11 sets, daily range): BP systolic 131–167; BP diastolic 85–101; PULSE 77–118; RESP 14–20; TEMP 36.6–37.4; O2SAT 93–97; BMI 23.6; BMI 24.4
--- NOTE | 2025-05-23 08:04 | ECG_ITS ---
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 Measurements Intervals [place] Rate: 96 P: 79 [place]: 162 QRS: 77 QRSD: 86 T: 81 QT: 356 QTc: 451 Interpretive Statements SINUS RHYTHM Compared to ECG 05/10/2025 08:36:43 Ventricular premature complex(es) no longer present Electronically Signed On 05-23-2025 14:06:27 CDT by Collin Briggs M.D. [email or web address]
--- NOTE | 2025-05-23 08:05 | XRR_ITS ---
PROCEDURE INFORMATION: Exam: XR Chest Exam date and time: 05/23/2025 8:21 AM Age: 50 years old Clinical indication: Angina pectoris; Chest pain; ETOH; Weakness; RT side rib pain TECHNIQUE: Imaging protocol: Radiologic exam of the chest. Views: 1 view. Total images: 1575 COMPARISON: CR XR chest 1V portable [id number] 05/07/2025 3:35 PM FINDINGS: Lungs: Unremarkable. No consolidation. Pleural spaces: Unremarkable. No pleural effusion. No pneumothorax. Heart/Mediastinum: Unremarkable. No cardiomegaly. Bones/joints: Unremarkable. XR/XR chest 1V portable [id number] IMPRESSION: No acute findings.
[2025-05-23 08:09] LABS: Hematocrit 45.9 % (37-53); Hemoglobin 16.20 g/dL (11.27-16.99); Mean Corpuscular HGB Conc 35.3 g/dL (30-55); Mean Corpuscular Hemoglobin 35.4 pg (27-33); Mean Corpuscular Volume 100.2 fl (82-101); Nucleated Red Blood Cells % 0 %; Platelet Count 146 10^3/cmm (157-399); Red Blood Count 4.58 10^6/uL (3.85-5.65); White Blood Count 4.22 10^3/uL (3.29-11.43)
--- NOTE | 2025-05-23 08:22 | W.ED.CHESTPA ---
HPI - Chest Pain General: Chief Complaint: Chest Pain Stated Complaint: cp Time Seen by Provider: 05/23/25 08:04 History of Present Illness: 50-year-old male presents emergency room complaining of generally not feeling well anxious tremulous. He has not had any seizures patient admits to drinking half a gallon of vodka per day for several years he has gone through treatment in the past. He is expressing interest in going again. He is having some moderate abdominal discomfort some of it radiating to his chest. He has not had any hematemesis or coffee-ground emesis he denies any previous diagnosis of liver cirrhosis. Associated symptoms: Deny abdominal pain, dyspnea or fever(s) Related Data Home Medications ?Medication ?Instructions ?Recorded ?Confirmed multivitamin with folic acid 400 1 tab PO DAILY 05/07/25 05/23/25 mcg tablet (Tab-A-Zeny) Previous Rx's ?Medication ?Instructions ?Recorded albuterol sulfate 90 mcg/actuation 2 puff inhalation Q4H PRN 03/12/25 aerosol inhaler (Ventolin HFA) shortness of breath or wheezing #8.5 grams cetirizine 10 mg tablet 10 mg PO DAILY 30 days #30 tabs 04/28/25 fluticasone propionate 50 2 spray nasal DAILY 30 days #30 04/28/25 mcg/actuation nasal grams spray,suspension folic acid 1 mg tablet 1 mg PO DAILY 30 days #30 tabs 04/28/25 thiamine mononitrate (vit B1) 100 100 mg PO DAILY 30 days #30 tabs 04/28/25 mg tablet (Vitamin B-1 (mononitrate)) Allergies Allergy/AdvReac Type Severity Reaction Status Date / Time tetanus immune globulin Allergy Mild ALGY-Anaphy Verified 03/27/25 08:29 laxis azithromycin Allergy ADR-Gastrointestinal Verified 03/27/25 08:29 Upset Tetanus Vaccines and Toxoid Allergy Unknown Verified 03/27/25 08:29 Review of Systems Const: Denies: fever(s) or chills Card: Denies: chest pain Resp: Denies: dyspnea GI: Denies: abdominal pain : Denies: dysuria, urinary frequency or urinary urgency Musc: Denies: neck pain or back pain Skin/Breast: Denies: rash PFSH ED PFSH: Medical History Nicotine dependence, cigarettes, with other nicotine-induced disorders History of traumatic injury to musculoskeletal system crush injury to RLE History of pancreatitis History of rhabdomyolysis History of suicidal ideation Chronic alcohol abuse Methadone maintenance therapy patient Hepatitis C Depression History of kidney stones Pulmonary nodule History of seizure due to alcohol withdrawal COPD (chronic obstructive pulmonary disease) Surgical History History of hip surgery Family History Father Cancer throat Other Alcohol dependence Psychiatric illness Social History Smoking and tobacco/nicotine status: current some day tobacco/nicotine user cigarettes [ Other cigarette details: 2 packs per day] Alcohol intake: current Alcohol intake frequency: 3 or more drinks per day Substance/Drug Use: current Substance/Drug use frequency: Special occassions/opportunity only Substance/Drug use type: Marijuana Physical Exam Const: COMMON NORMALS: no acute distress GENERAL APPEARANCE: cooperative and comfortable ORIENTATION/CONSCIOUSNESS: Yes awake, Yes oriented to person, Yes oriented to place and Yes oriented to time HENMT: COMMON NORMALS: normocephalic, atraumatic and hearing grossly normal bilaterally HEAD & SCALP: normocephalic and atraumatic Resp: COMMON NORMALS: normal respiratory effort, No retractions, No use of accessory muscles and clear to auscultation bilaterally AUSCULTATION: clear to auscultation bilaterally Cardio: COMMON NORMALS: regular rhythm and No murmurs present (Cardio) RATE: tachycardic RHYTHM: regular rhythm GI: COMMON NORMALS: Soft to palpation and No hepatosplenomegaly present AUSCULTATION: Yes normoactive bowel sounds PALPATION: Yes Soft to palpation, No Tenderness to palpation present (GI), No Guarding due to palpation present (GI) and Yes No hepatosplenomegaly present Extremity: COMMON NORMALS: normal to inspection, capillary refill normal, no clubbing, cyanosis or edema, no calf tenderness and no pedal edema Neuro: SENSORIUM/ORIENTATION: Yes oriented to person, Yes oriented to place and Yes oriented to time OTHER: Tremulous Skin: COMMON NORMALS: no rashes or lesions noted GENERAL SKIN EXAM: no rashes or lesions noted Course Vital Signs: Vital signs: Vital Signs Temperature 98.7 F 05/25/25 14:16 Pulse Rate 79 05/25/25 14:16 Respiratory Rate 17 05/25/25 14:16 Blood Pressure 175/115 05/25/25 14:16 Pulse Oximetry 99 05/25/25 14:16 Oxygen Delivery Me thod Room Air 05/25/25 07:26 MDM - Chest Pain Medical Decision Making Cardiac enzymes trending negative. EKG does not show any acute changes. Patient is tachycardic and tremulous. This despite his blood alcohol being 204. He improved with Ativan. Patient reports he has had seizures in the past when he started to stop drinking he wishes to try to stop. Will admit on a [facility] protocol. Had discussion with the patient about for this to be effective he will need to be well-motivated and stay motivated to stop he endorses he willing to do this. He has been in treatment before and wishes to try again. Medical Records I reviewed the patient's medical records. Lab Data I reviewed the patient's lab results. 05/25/25 04:00 05/25/25 04:00 Radiology Impressions Chest X-Ray 05/23/25 08:05 IMPRESSION: No acute findings. Laboratory Results WBC 4.71 10^3/uL (3.29-11.43) 05/24/25 04:59 RBC 3.88 10^6/uL (3.85-5.65) 05/24/25 04:59 Hgb 14.00 g/dL (11.27-16.99) 05/24/25 04:59 Hct 39.8 % (37-53) 05/24/25 04:59 MCV 102.6 fl (82-101) H 05/24/25 04:59 MCH 36.1 pg (27-33) H 05/24/25 04:59 MCHC 35.2 g/dL (30-55) 05/24/25 04:59 RDW 12.3 % (12.1-15.1) 05/24/25 04:59 Plt Count 106 10^3/cmm (157-399) L 05/24/25 04:59 MPV 9.3 fL (7.4-10.4) 05/24/25 04:59 Neut % (Auto) 55.4 % 05/24/25 04:59 Lymph % (Auto) 31.2 % 05/24/25 04:59 Republic % (Auto) 10.0 % 05/24/25 04:59 Eos % (Auto) 1.9 % 05/24/25 04:59 Baso % (Auto) 1.3 % 05/24/25 04:59 Neut # (Auto) 2.61 10^3/uL (1.8-7.7) 05/24/25 04:59 Lymph # (Auto) 1.5 10^3/uL (0.8-4.8) 05/24/25 04:59 Republic # (Auto) 0.5 10^3/uL (0.2-0.9) 05/24/25 04:59 Eos # (Auto) 0.1 10^3/uL (0.0-0.8) 05/24/25 04:59 Baso # (Auto) 0.1 10^3/uL (0.0-0.1) 05/24/25 04:59 Nucleated RBC % (auto) 0 % 05/24/25 04:59 Nucleated RBCs # 0.0 /100WBC 05/24/25 04:59 PT 13.80 SECONDS (12.1-14.9) 05/23/25 07:45 INR 0.99 (0.8-1.2) 05/23/25 07:45 D-Dimer 0.42 ug/mLFEU (0-0.59) 05/24/25 11:17 Sodium 141 mmol/L (136-145) 05/24/25 04:59 Potassium 3.5 mmol/L (3.5-5.1) 05/24/25 04:59 Chloride 104 mmol/L (98-107) 05/24/25 04:59 Carbon Dioxide 26 mmol/L (22-29) 05/24/25 04:59 Anion Gap 14.5 (5-19) 05/24/25 04:59 BUN 8 mg/dL (6-20) 05/24/25 04:59 Creatinine 0.5 mg/dL (0.7-1.2) L 05/24/25 04:59 GFR Calculation 174.6 mL/min (90-130) H 05/24/25 04:59 Glucose 111 mg/dL (65-115) 05/24/25 04:59 Calculated Osmolality 291 mOsm/kg (285-295) 05/24/25 04:59 Calcium 7.6 mg/dL (8.5-10.5) L 05/24/25 04:59 Magnesium 2.0 mg/dL (1.7-2.3) 05/23/25 07:45 Total Bilirubin 1.0 mg/dL (0.15-1.2) 05/24/25 04:59 AST 79 U/L (0-40) H 05/24/25 04:59 ALT 35 U/L (0-41) 05/24/25 04:59 Alkaline Phosphatase 64 U/L (40-130) 05/24/25 04:59 Ammonia 34 umol/L (16-60) 05/23/25 07:45 Troponin T Baseline 11 ng/L (0-15) 05/23/25 07:45 Troponin T 120 Minute 8.92 ng/L (0-15) 05/23/25 09:35 Delta Troponin T -2.08 ABS# (0-10) L 05/23/25 09:35 Troponin T Hi Sens 6Hr 9.12 ng/L (0-15) 05/23/25 13:50 Troponin T Hi Sens 6Hr Delta -1.88 ng/L (0-12) L 05/23/25 13:50 Total Protein 5.9 g/dL (6.6-8.7) L D 05/24/25 04:59 Albumin 3.7 g/dL (3.5-5.2) 05/24/25 04:59 Globulin 2.2 g/dL (1.3-4.6) 05/24/25 04:59 Lipase 38 U/L (13-60) 05/23/25 07:45 Urine Color [place] (Yellow) A 05/23/25 08:18 Urine Appearance Cloudy (CLEAR) A 05/23/25 08:18 Urine pH 5.5 (5-7) 05/23/25 08:18 Ur Specific [place] 1.023 (1.005-1.030) 05/23/25 08:18 Urine Protein 2+ (Negative) A 05/23/25 08:18 Urine Glucose (UA) Negative (Normal) 05/23/25 08:18 Urine Ketones Trace (Negative) 05/23/25 08:18 Urine Blood Non-haemolysed trace (Negative) 05/23/25 08:18 Urine Nitrate Negative (Negative) 05/23/25 08:18 Urine Bilirubin Negative (Negative) 05/23/25 08:18 Urine Urobilinogen 1.0 mg/dL (Negative) 05/23/25 08:18 Ur Leukocyte Esterase Trace (Negative) A 05/23/25 08:18 Urine RBC 3-5 /hpf (0-2) 05/23/25 08:18 Urine WBC 0-5 /hpf (0-5) 05/23/25 08:18 Ur Squamous Epith Cells 0-5 /hpf (0-5) 05/23/25 08:18 Calcium Oxalate Crystal 25-40 /hpf H 05/23/25 08:18 Amorphous Sediment Not Reportable 05/23/25 08:18 Urine Bacteria None seen /hpf (NONE) 05/23/25 08:18 Hyaline Casts 13.22 /lpf 05/23/25 08:18 Urine Mucus 2+ /hpf 05/23/25 08:18 Ethyl Alcohol 204 mg/dL (0-10) H 05/23/25 07:45 C. difficile (PCR) Negative (Negative) 05/24/25 11:12 Influenza A (PCR) Negative (Negative) 05/23/25 11:37 Influenza Type B (PCR) Negative (Negative) 05/23/25 11:37 RSV (PCR) Negative (Negative) 05/23/25 11:37 SARS-CoV-2 (PCR) Negative (Negative) 05/23/25 11:37 All radiology interpretation(s) finalized by discharge EKG Data EKG 1: Interpretation: 05/23/2025 7:56 AM EKG shows sinus rhythm rate of 96. Normal 162 QTc [address] changes noted. EKG compared to EKG from 05/10/2025 no significant changes EKG 2: Interpretation: 05/23/2025 10:13 AM sinus tachycardia rate of 108 parable 178 QTc [address] changes noted no significant change from EKG done earlier on same day Discharge Plan Discharge Patient Disposition: Placed in Observation Admit Provider: Jovanni Melgar Clinical Impression: Alcohol use disorder, severe, dependence, Alcoholic gastritis Alcohol withdrawal Qualifiers: Complication of substance-induced condition: with unspecified complication Qualified Code(s): F10.939 - Alcohol use, unspecified with withdrawal, unspecified Coding Level of Care Code ED Emergency Operator for Santy Villanueva
[2025-05-23 08:23] LABS: Alanine Aminotransferase 46 U/L (0-41); Albumin Level 4.5 g/dL (3.5-5.2); Alkaline Phosphatase 81 U/L (40-130); Anion Gap 18.4 (5-19); Aspartate Amino Transferase 124 U/L (0-40); Blood Urea Nitrogen 8 mg/dL (6-20); Calcium 8.6 mg/dL (8.5-10.5); Carbon Dioxide 27 mmol/L (22-29); Chloride 99 mmol/L (98-107); Creatinine Clr Calc Pharmacy 145.5463; Globulin 3.1 g/dL (1.3-4.6); Glucose 96 mg/dL (65-115); Osmolality Calculated 290 mOsm/kg (285-295); Potassium 3.4 mmol/L (3.5-5.1); Sodium 141 mmol/L (136-145); Total Protein 7.6 g/dL (6.6-8.7); Troponin(5th) Baseline 11 ng/L (0-15)
[2025-05-23 08:48] LABS: INR 0.99 (0.8-1.2); Prothrombin Time 13.80 SECONDS (12.1-14.9)
[2025-05-23 08:53] LABS: Alcohol Level 204 mg/dL (0-10); Lipase 38 U/L (13-60)
[2025-05-23 08:54] LABS: Add Urine Microscopic? NO
[2025-05-23 08:54] LABS: Ammonia 34 umol/L (16-60)
[2025-05-23 08:56] LABS: Glucose Urine UA Negative (Normal); Nitrate Urine Negative (Negative); Specific Gravity, Urine 1.023 (1.005-1.030)
[2025-05-23] MEDS: dextrose 5%-sod chloride 0.9% 1,000 ML 250 ML IV ×3 (08:58→20:33)
[2025-05-23] MEDS: lidocaine 2% viscous 15 ML, aluminum-mag hydrox-simethicon 30 ML, sucralfate oral liq 1 GM PO (08:58)
[2025-05-23] MEDS: LORazepam 1 MG/0.5 ML injection 2 MG IVP (08:59)
[2025-05-23 09:33] LABS: UA Slide Review UA Slide Review Perf
[2025-05-23 09:34] LABS: Charge for UA Resulting for Rev
--- NOTE | 2025-05-23 09:36 | PC.NURSE ---
pt provided with sandwich, water
[2025-05-23 10:03] LABS: Troponin 5 2HR 8.92 ng/L (0-15)
[2025-05-23 10:04] LABS: Troponin 5 2HR Delta -2.08 ABS# (0-10)
--- NOTE | 2025-05-23 10:05 | ECG_ITS ---
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 Measurements Intervals [place] Rate: 108 P: 71 [place]: 178 QRS: 69 QRSD: 81 T: 56 QT: 328 QTc: 441 Interpretive Statements SINUS TACHYCARDIA NONSPECIFIC T-WAVE ABNORMALITY Compared to ECG 05/23/2025 07:56:23 T-wave abnormality now present Sinus rhythm no longer present Electronically Signed On 05-24-2025 09:39:15 CDT by Santino Lopez M.D. [email or web address]
--- NOTE | 2025-05-23 10:19 | PC.NURSE ---
provided pt with another sandwich, water.
--- NOTE | 2025-05-23 11:35 | P.HP_ITS ---
Providers/Chief Complaint 2 Primary Care Provider: Faby Lynch NP Chief Complaint: cp History of Present Illness Cameron Smallwood is a 50 year old gentleman with a history of alcohol use disorder, pancreatitis, chronic obstructive pulmonary disease (COPD), pulmonary nodule, hepatitis C, alcohol-withdrawal seizure, and depression with prior suicidal ideation who presented to the emergency department (ED) with chest pain. In the ED he was noted to be tremulous and tachycardic (heart rate 112 bpm) with an elevated blood-alcohol level of 204 mg/dL, consistent with acute alcohol withdrawal. Last alcohol intake was the night before presentation; typical use is approximately half a gallon of liquor daily. Reports dry heaves, poor oral intake for two days, and diarrhea for the past 2?3 weeks, attributing gastrointestinal symptoms to heavy drinking. States possible blood in urine and upper abdominal discomfort; denies visible rashes or lower-extremity swelling. Flu-like symptoms (cough, malaise) began 4?5 days ago. Marijuana used occasionally; smokes ~1.5 packs/day. Lives alone; sister Laverne Silva is named surrogate decision-maker. No established primary-care provider; expresses some interest in alcohol cessation and has completed a prior one-year period of sobriety. Review of Systems 2 Const: Reports: malaise and other (Tremors); Denies: fever(s) or body aches ENMT: Denies: throat pain Card: Denies: chest pain, edema, pre-syncope or dyspnea on exertion Resp: Denies: dyspnea, productive cough, change in phlegm color or hemoptysis GI: Reports: diarrhea and other (Dry heaves); Denies: abdominal pain, nausea, vomiting, constipation, hematochezia or melena : Denies: flank pain, difficulty urinating, urinary frequency or hematuria Musc: Denies: back pain, joint swelling or joint redness Skin/Breast: Denies: rash or new lesions Neuro: Denies: headache(s) or confusion Medications/Allergies Home Medications ?Medication ?Instructions ?Recorded ?Confirmed ?Last Taken ?Type albuterol sulfate 90 mcg/actuation 2 puff inhalation Q 4H PRN 03/12/25 05/07/25 05/06/25 20:00 Rx aerosol inhaler (Ventolin HFA) shortness of breath or wheezing #8.5 grams cetirizine 10 mg tablet 10 mg PO DAILY 30 days #30 t abs 04/28/25 05/07/25 Unknown Rx fluticasone propionate 50 2 spray nasal DAILY 30 days #30 04/28/25 05/07/25 Unknown Rx mcg/actuation nasal grams spray,suspension folic acid 1 mg tablet 1 mg PO DAILY 30 days #30 ta bs 04/28/25 05/07/25 Unknown Rx thiamine mononitrate (vit B1) 100 100 mg PO DAILY 30 d ays #30 tabs 04/28/25 05/07/25 Unknown Rx mg tablet (Vitamin B-1 (mononitrate)) multivitamin with folic acid 400 1 tab PO DAILY 05/07/25 05/02/25 History mcg tablet (Tab-A-Zeny) Allergies Allergy/AdvReac Type Severity Reaction Status Date / Time tetanus immune globulin Allergy Mild ALGY-Anaphy Verified 03/27/25 08:29 laxis azithromycin Allergy ADR-Gastrointestinal Verified 03/27/25 08:29 Upset Tetanus Vaccines and Toxoid Allergy Unknown Verified 03/27/25 08:29 PFSH Acute 2 PFSH: Medical History Nicotine dependence, cigarettes, with other nicotine-induced disorders History of traumatic injury to musculoskeletal system crush injury to RLE History of pancreatitis History of rhabdomyolysis History of suicidal ideation Chronic alcohol abuse Methadone maintenance therapy patient Hepatitis C Depression History of kidney stones Pulmonary nodule History of seizure due to alcohol withdrawal COPD (chronic obstructive pulmonary disease) Surgical History History of hip surgery Family History Father Cancer throat Other Alcohol dependence Psychiatric illness Social History (Updated 05/23/25 @ 11:37 by Jovanni Melgar MD) Smoking and tobacco/nicotine status: current some day tobacco/nicotine user cigarettes [ Other cigarette details: 2 packs per day] Alcohol intake: current Alcohol intake frequency: 3 or more drinks per day Substance/Drug Use: current Substance/Drug use frequency: Special occassions/opportunity only Substance/Drug use type: Marijuana Vitals/I&O/Wt Last Vital Signs Temp 97.8 F 05/23/25 07:59 Pulse 112 H 05/23/25 09:23 Resp 19 H 05/23/25 07:59 BP 134/94 05/23/25 09:23 Pulse Ox 93 05/23/25 09:23 O2 Del Method Room Air 05/23/25 07:59 Weight last 48 hrs Weight 72.575 kg Physical Exam 2 Const: COMMON NORMALS: patient oriented x3 and alert GENERAL APPEARANCE: c ooperative and other (Tremulous) ORIENTATION/CONSCIOUSNESS: Yes awake HENMT: COMMON NORMALS: oropharynx normal Neck/C-Spine: COMMON NORMALS: no JVD Resp: COMMON NORMALS: normal respiratory effort and clear to auscultation bilaterally AUSCULTATION: clear to auscultation bilaterally Cardio: COMMON NORMALS: no JVD, regular rhythm, S1 normal heart sound present, S2 normal heart sound present and No murmurs present (Cardio) RHYTHM: regular rhythm HEART SOUNDS: S1 normal heart sound present and S2 normal heart sound present GI: COMMON NORMALS: Normal to inspection, nondistended, normoactive bowel sounds present, Soft to palpation and non-tender PALPATION: Yes Soft to palpation Extremity: COMMON NORMALS: no joint enlargement and no pedal edema Neuro: COMMON NORMALS: patient oriented x3 and moves all extremities S ENSORIUM/ORIENTATION: Yes alert Skin: COMMON NORMALS: no rashes or lesions noted GENERAL SKIN EXAM: no rashes or lesions noted OTHER: Healing insect bites on legs Data 05/23/25 07:45 05/23/25 07:45 A&P Assessment and plan 1. Alcohol withdrawal: Presenting with tremors, tachycardia, elevated blood-alcohol level (204 mg/dL) and prior history of withdrawal seizure, indicating high-risk withdrawal course. Concern for severe alcohol drawl with history of alcohol withdrawal seizure. Reviewed vitals, CBC, INR, CMP, UA, lipase, serum EtOH, chest x-ray, EKG, ED provider note, discussed with ED provider. - Admit to hospital for monitored withdrawal management. - Administer phenobarbital loading dose with maintenance dosing for withdrawal control. - Provide lorazepam (Ativan) as needed per protocol for breakthrough symptoms. - Continue thiamine, folic acid, and multivitamin because of risk of Wernicke encephalopathy and nutritional deficits. - Provide intravenous hydration. - Monitor on telemetry for arrhythmia risk. - Track withdrawal severity scores per protocol. - Arrange inpatient bed placement. Seizure precautions. 2. Chest pain: Reported initial presenting complaint, although when asked again about chest pain, patient does not have it as a major complaint and rather states came in due to the significant alcohol withdrawal. Reports some pain on the right lower chest with recent dry heaves and cough and thinks due to possibly rib injury. Gastritis is another possibility with dry heaving, heavy alcohol consumption. Possible alcohol induced gastritis. Complete troponin EKG series as he does have cardiac risk factors. Encouraged alcohol cessation. Will give PPI. Trial of oral diet. Tylenol as needed. 3. Chronic alcohol abuse: Heavy daily alcohol consumption (~? gallon), prior rehabilitation attempt, expresses interest in quitting. - Encourage cessation and discuss long-term risks (dementia, cancers, cirrhosis). - Request case-management consultation to explore rehabilitation options. - Recommend follow-up with primary-care provider to consider pharmacotherapy such as naltrexone for craving reduction. Will need to be set up with the PCP. Plan: Flu-like illness : Cough, malaise beginning 4?5 days prior; concern for influenza. - Obtain nasal swab for influenza testing. Diarrhea : Ongoing loose stools for 2?3 weeks, attributed by patient to heavy alcohol use. Encouraged alcohol cessation. Check C. difficile. Nicotine dependence : Long-standing tobacco use (~1.5 packs/day). - Initiate nicotine patch. - Provide nicotine lozenges as needed. - Advise cessation. Follow-up : Needs longitudinal care for multiple chronic issues once stabilized. - Case management to help establish primary-care provider for post-discharge follow-up. Chronic/past problems: - Alcohol use disorder - Pancreatitis - Chronic obstructive pulmonary disease - Hepatitis C - Pulmonary nodule - Seizure secondary to alcohol withdrawal - Depression - History of suicidal ideation PDMP PDMP Reviewed: Not Reviewed Attestations 2 Medical Necessity Statement*: Place in observation for additional assessment management of alcohol withdrawal with concern for severe alcohol drawl with prior history of severe alcohol drawl with seizure and gentleman with alcohol use disorder, alcohol-related gastritis, additional comorbidities. and High MDM includes amount and/or complexity of data reviewed/ordered [ previous or external records, resulted lab(s)/test(s), ordered lab(s)/test(s) and other healthcare professional discussion] and described risk of complication, morbidity or mortality of management as documented Diagnoses Alcohol withdrawal F10.939 Chest pain R07.9 Chronic alcohol abuse F10.10
[2025-05-23] MEDS: multivitamin therapeutic Tablet 1 TAB PO (12:19)
[2025-05-23] MEDS: thiamine 100 mg/mL 2mL SDV IM (12:20)
[2025-05-23 12:22] LABS: Respiratory Syncytial Virus Ce NEGATIVE (Negative); SARS-CoV-2 PCR NEGATIVE (Negative)
[2025-05-23] MEDS: PHENobarbital 130 mg/mL SDV 1 mL 300 MG IVP (12:24)
--- NOTE | 2025-05-23 12:54 | PC.PHAR ---
Patient states that he isn't sure when he took any of his Medications.
--- NOTE | 2025-05-23 13:51 | PC.NURSE ---
report called to Dari on [place], no further questions.
--- NOTE | 2025-05-23 14:05 | ECG_ITS ---
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 Measurements Intervals [place] Rate: 110 P: 75 [place]: 166 QRS: 76 QRSD: 82 T: 69 QT: 317 QTc: 430 Interpretive Statements SINUS TACHYCARDIA Compared to ECG 05/23/2025 10:13:53 T-wave abnormality no longer present Electronically Signed On 05-24-2025 09:38:57 CDT by Santino Lopez M.D. [id number]
[2025-05-23 14:22] LABS: Magnesium 2.0 mg/dL (1.7-2.3)
[2025-05-23 14:34] LABS: Troponin 5 6HR 9.12 ng/L (0-15)
[2025-05-23 14:38] LABS: Troponin 5 6HR Delta -1.88 ng/L (0-12)
[2025-05-23] MEDS: pantoprazole 40 mg SDV IVP (15:04)
[2025-05-23] MEDS: PHENobarbital 130 mg/mL SDV 1 mL 200 MG IVP ×2 (15:05→17:11)
--- NOTE | 2025-05-23 22:55 | ECG_ITS ---
[facility] Date: 2025-05-23 Pat Name: Cameron Smallwood Department: Room: 267 Gender: Male Diabetes Manager: : 1975 Requested By: Elder Choi Order Number: [id number] Carrizales MD: Santino Lopez M.D. Measurements Intervals [place] Rate: 83 P: 71 [place]: 168 QRS: 77 QRSD: 85 T: 73 QT: 360 QTc: 425 Interpretive Statements SINUS RHYTHM Compared to ECG 05/23/2025 14:40:31 Sinus tachycardia no longer present Electronically Signed On 05-24-2025 08:40:10 CDT by Santino Lopez M.D. [email or web address] [id number]
[2025-05-24] VITALS (9 sets, daily range): BP systolic 137–155; BP diastolic 81–98; PULSE 81–96; RESP 16–18; TEMP 36.7–37.3; O2SAT 94–98
[2025-05-24] MEDS: pantoprazole 40 mg SDV IVP ×2 (00:46→14:15)
[2025-05-24] MEDS: dextrose 5%-sod chloride 0.9% 1,000 ML 250 ML IV ×2 (00:47→04:20)
[2025-05-24] MEDS: PHENobarbital 130 mg/mL SDV 1 mL 64.8 MG IVP ×2 (04:19→16:14)
[2025-05-24 05:17] LABS: Hematocrit 39.8 % (37-53); Hemoglobin 14.00 g/dL (11.27-16.99); Mean Corpuscular HGB Conc 35.2 g/dL (30-55); Mean Corpuscular Hemoglobin 36.1 pg (27-33); Mean Corpuscular Volume 102.6 fl (82-101); Nucleated Red Blood Cells % 0 %; Platelet Count 106 10^3/cmm (157-399); Red Blood Count 3.88 10^6/uL (3.85-5.65); White Blood Count 4.71 10^3/uL (3.29-11.43)
[2025-05-24 05:53] LABS: Alanine Aminotransferase 35 U/L (0-41); Albumin Level 3.7 g/dL (3.5-5.2); Alkaline Phosphatase 64 U/L (40-130); Anion Gap 14.5 (5-19); Aspartate Amino Transferase 79 U/L (0-40); Blood Urea Nitrogen 8 mg/dL (6-20); Calcium 7.6 mg/dL (8.5-10.5); Carbon Dioxide 26 mmol/L (22-29); Chloride 104 mmol/L (98-107); Globulin 2.2 g/dL (1.3-4.6); Glucose 111 mg/dL (65-115); Osmolality Calculated 291 mOsm/kg (285-295); Potassium 3.5 mmol/L (3.5-5.1); Sodium 141 mmol/L (136-145); Total Protein 5.9 g/dL (6.6-8.7)
[2025-05-24 06:14] LABS: Creatinine Clr Calc Pharmacy 177.0951
[2025-05-24] MEDS: multivitamin therapeutic Tablet 1 TAB PO (08:18)
--- NOTE | 2025-05-24 09:20 | PC.NURSE ---
pt was given ativan 2mg oral for score of 26 I went to reasses and pt was sleeping
--- NOTE | 2025-05-24 11:30 | PC.CHAP ---
Pastoral Care Encounter/Spiritual Assessment Type of Contact [x] Declined farm service consultant visit [] Patient/Family/Request visit [] Outpatient visit [] Follow-up visit [] Physician referral [] Code/Alert [x] Routine visit [] Staff referral [] Actively dying [] Patient sleeping [] Family support [] [] Out of room [] Palliative care [] [] Receiving care in room [] Pre-surgical visit [] Trauma [] Long length of stay [] ICU visit [] Other: Relational/Emotional Strength [] Patient feels connected with others/family/visitors/staff [] Distress [] Loneliness/isolation [] Abandonment Spirituality of Patient [] Person of Altagracia [] Attends Gnosticist of their Altagracia [] Believes in Prayer [] Reads Bible or Bahai materials [] There are Spiritual issues to be addressed Corrections Corporal Interventions [] Prayer [] Active listening [] Non-anxious presence [] Spiritual/emotional support [] Crisis/trauma care [] Spiritual counseling [] Bereavement support [] Provided bereavement packet [] Provided Bible/devotional materials [] Provided toy/stuffed animal, coloring book to patient or family member [] Provided Communion [] Anointing/Welsh [] Salvation [] Completed spiritual assessment [] Other: Impact on Illness or Injury [] Angry [] Fearful [] Anxious [] Often cries [] Exhaustion [] Unable to work [] Unable to attend hindu [] Unable to walk/stand [] Unable to read [] Unable to drive [] Unable to eat/drink [] Unable to sleep [] Unable to be with family [] Patient intubated [] Other: Summary Time spent with patient
[2025-05-24 12:23] LABS: C.Diff PCR (Lab) NEGATIVE (Negative)
--- NOTE | 2025-05-24 14:14 | P.PN_ITS ---
Subjective 2 Subjective: Complains of pain along the right chest wall. Patient states he fell recently and his ribs have been sore since then. Chest x-ray reviewed from 05/23/2025 without any fractures.. Very high CIWA scores of 21 this morning. Vitals/I&O/Wt Last Vital Signs Temp 98.4 F 05/24/25 11:41 Pulse 88 05/24/25 11:41 Resp 18 05/24/25 11:41 BP 154/98 05/24/25 11:41 Pulse Ox 97 05/24/25 11:41 O2 Del Method Room Air 05/24/25 11:41 05/23/25 05/24/25 05/24/25 22:59 06:59 14:59 Intake Total 1600 / 2600 2127.5 / 4727.5 850 / 850 Balance 1600 / 2600 2127.5 / 4727.5 850 / 850 Weight last 48 hrs Weight 74.843 kg Weight 75.07 kg Weight 72.575 kg Physical Exam 2 Narrative: General: No acute distress, AO x3 HEENT: PERRLA, pupils bilaterally equal and reactive, pallors not present Chest: Normal vesicular breath sounds, no added sounds, equal good air entry bilaterally CVS: S1-S2 regular, no murmurs, no tachycardia, no gallops, no rubs Abdomen: Soft, nontender, no organomegaly, bowel sounds present Neuro: No focal deficits, no facial deformity, AO x3, power 5/5 in all limbs Data 05/24/25 04:59 05/24/25 04:59 A&P Assessment and plan 1. Alcohol withdrawal: Presenting with tremors, tachycardia, elevated blood-alcohol level (204 mg/dL) and prior history of withdrawal seizure, indicating high-risk withdrawal course. Concern for severe alcohol drawl with history of alcohol withdrawal seizure. Reviewed vitals, CBC, INR, CMP, UA, lipase, serum EtOH, chest x-ray, EKG, ED provider note, discussed with ED provider. - Admit to hospital for monitored withdrawal management. - Administer phenobarbital loading dose with maintenance dosing for withdrawal control. - Provide lorazepam (Ativan) as needed per protocol for breakthrough symptoms. - Continue thiamine, folic acid, and multivitamin because of risk of Wernicke encephalopathy and nutritional deficits. - Provide intravenous hydration. - Monitor on telemetry for arrhythmia risk. - Track withdrawal severity scores per protocol. - Arrange inpatient bed placement. Seizure precautions. 2. Chest pain: Reported initial presenting complaint, although when asked again about chest pain, patient does not have it as a major complaint and rather states came in due to the significant alcohol withdrawal. Reports some pain on the right lower chest with recent dry heaves and cough and thinks due to possibly rib injury. Gastritis is another possibility with dry heaving, heavy alcohol consumption. Possible alcohol induced gastritis. Complete troponin EKG series as he does have cardiac risk factors. Encouraged alcohol cessation. Will give PPI. Trial of oral diet. Tylenol as needed. 3. Chronic alcohol abuse: Heavy daily alcohol consumption (~? gallon), prior rehabilitation attempt, expresses interest in quitting. - Encourage cessation and discuss long-term risks (dementia, cancers, cirrhosis). - Request case-management consultation to explore rehabilitation options. - Recommend follow-up with primary-care provider to consider pharmacotherapy such as naltrexone for craving reduction. Will need to be set up with the PCP. Plan: Flu-like illness : Cough, malaise beginning 4?5 days prior; concern for influenza. - Obtain nasal swab for influenza testing. Diarrhea : Ongoing loose stools for 2?3 weeks, attributed by patient to heavy alcohol use. Encouraged alcohol cessation. Check C. difficile. Nicotine dependence : Long-standing tobacco use (~1.5 packs/day). - Initiate nicotine patch. - Provide nicotine lozenges as needed. - Advise cessation. Follow-up : Needs longitudinal care for multiple chronic issues once stabilized. - Case management to help establish primary-care provider for post-discharge follow-up. Chronic/past problems: - Alcohol use disorder - Pancreatitis - Chronic obstructive pulmonary disease - Hepatitis C - Pulmonary nodule - Seizure secondary to alcohol withdrawal - Depression - History of suicidal ideation May 24, 2025 Very high CIWA scores of 21. Will continue with CIWA protocol and Ativan per protocol for alcohol withdrawal. Complaining of pain over the right chest wall. Added lidocaine patch for pain management. Discussed with him that we are unable to use opiates and high dose of benzodiazepines as he is getting now concomitantly at has been want to avoid respiratory depression. Lidocaine patch has been added to his pain regimen. Continue with Tylenol. Chest x-ray reviewed without any rib fracture. This is unlikely to be cardiac pain is reproducible on palpation. Patient had a recent stress test in April 2025 which did not show any reversible signs of ischemia. D-dimer screen negative for PE. PDMP PDMP Reviewed: Not Reviewed Attestations 2 Medical Necessity Statement*: Continued admission for alcohol withdrawal management. Coding Level of Care Code [facility] Diagnoses Alcohol withdrawal F10.939 Complication of substance-induced condition: with unspecified complication Chest pain R07.9 Chronic alcohol abuse F10.10
[2025-05-25] VITALS: BP 168/84; PULSE 73; RESP 16; O2SAT 95
[2025-05-25] MEDS: pantoprazole 40 mg SDV IVP (01:02)
[2025-05-25 01:03] VITALS: RESP 17
[2025-05-25] MEDS: morphine 4 mg/mL SDV 1 mL 2 MG IVP (01:03)
[2025-05-25] MEDS: PHENobarbital 130 mg/mL SDV 1 mL 64.8 MG IVP (04:43)
[2025-05-25 04:45] LABS: Hematocrit 44.0 % (37-53); Hemoglobin 15.20 g/dL (11.27-16.99); Mean Corpuscular HGB Conc 34.5 g/dL (30-55); Mean Corpuscular Hemoglobin 35.9 pg (27-33); Mean Corpuscular Volume 104.0 fl (82-101); Nucleated Red Blood Cells % 0 %; Platelet Count 111 10^3/cmm (157-399); Red Blood Count 4.23 10^6/uL (3.85-5.65); White Blood Count 4.69 10^3/uL (3.29-11.43)
--- NOTE | 2025-05-25 04:50 | PC.NURSE ---
patient has asked for something for pain multiple times. Patient is crying in pain rating it a 9/10. nurse has reached out to multiple times. ordered 2mg morphine ONCE and has said to monitor pain for now. Patient pain is in his hips and back. It's chronic pain from an accident. patient notified of order to monitor for now. patient aggitated
[2025-05-25 05:01] LABS: Alanine Aminotransferase 35 U/L (0-41); Albumin Level 3.9 g/dL (3.5-5.2); Alkaline Phosphatase 74 U/L (40-130); Anion Gap 15.2 (5-19); Aspartate Amino Transferase 60 U/L (0-40); Blood Urea Nitrogen 6 mg/dL (6-20); Calcium 8.9 mg/dL (8.5-10.5); Carbon Dioxide 24 mmol/L (22-29); Chloride 97 mmol/L (98-107); Globulin 2.8 g/dL (1.3-4.6); Glucose 102 mg/dL (65-115); Osmolality Calculated 274 mOsm/kg (285-295); Potassium 3.2 mmol/L (3.5-5.1); Sodium 133 mmol/L (136-145); Total Protein 6.7 g/dL (6.6-8.7)
[2025-05-25 05:07] LABS: Creatinine Clr Calc Pharmacy 147.3943
[2025-05-25 06:00] VITALS: BP 156/102; PULSE 93; RESP 17; TEMP 36.9; O2SAT 96
[2025-05-25 07:26] VITALS: BP 175/115; PULSE 79; RESP 17; TEMP 37.1; O2SAT 99
[2025-05-25] MEDS: multivitamin therapeutic Tablet 1 TAB PO (08:27)
--- NOTE | 2025-05-25 11:26 | PM.DCS ---
Discharge Providers Date of Admission: 05/24/25 14:00 Date of Discharge: May 25, 2025 Attending Provider at Admission: Jovanni Melgar Attending Provider at Discharge: Elizabeth Quick MD Primary Care Provider: Faby Lynch NP Diagnoses at Discharge Discharge Diagnosis 1. Alcohol withdrawal: 2. Chest pain: 3. Chronic alcohol abuse: Reason for Visit Reason for Visit: cp Brief History: 50 year old gentleman with a history of alcohol use disorder, pancreatitis, chronic obstructive pulmonary disease (COPD), pulmonary nodule, hepatitis C, alcohol-withdrawal seizure, and depression with prior suicidal ideation who presented to the emergency department (ED) with chest pain. In the ED he was noted to be tremulous and tachycardic (heart rate 112 bpm) with an elevated blood-alcohol level of 204 mg/dL, consistent with acute alcohol withdrawal. Last alcohol intake was the night before presentation; typical use is approximately half a gallon of liquor daily. He complained of right sided chest pain after a fall few days ago with right chest wall tenderness corelating with musculoskeletal pain. D dimer was nagtive, as were EKG and TRoponins for acute ischemia. Lipase normal, unlikely pancreatitis. He was admitted and monitored in view of alcohol withdrawal. He was unhappy at not receiving pain medications, in spite of counseling that combination of Ativan as he is getting 4 alcohol withdrawal and opiates is not recommended at this time. Offered lidocaine patch, Tylenol and Toradol for pain management instead, however he stated we were not addressing his pain adequately and decided to leave AMA Physical Exam Narrative: General: No acute distress, AO x3 HEENT: PERRLA, pupils bilaterally equal and reactive, pallors not present Chest: Normal vesicular breath sounds, no added sounds, equal good air entry bilaterally CVS: S1-S2 regular, no murmurs, no tachycardia, no gallops, no rubs Abdomen: Soft, nontender, no organomegaly, bowel sounds present Neuro: No focal deficits, no facial deformity, AO x3, power 5/5 in all limbs Discharge Data Studies Completed and Pending Completed Studies During Hospitalization Category Date Time Status XR chest 1V portable [id number] Stat Exams 05/23/25 08:05 Completed Pending at discharge Category Date Time Status Complete Blood Count w/Auto AM LABS Lab 05/26/25 04:00 Ordered Comprehensive Metabolic Panel AM LABS Lab 05/26/25 04:00 Ordered Radiology Impressions Chest X-Ray 05/23/25 08:05 IMPRESSION: No acute findings. Laboratory Results WBC 4.69 10^3/uL (3.29-11.43) 05/25/25 04:00 RBC 4.23 10^6/uL (3.85-5.65) 05/25/25 04:00 Hgb 15.20 g/dL (11.27-16.99) 05/25/25 04:00 Hct 44.0 % (37-53) 05/25/25 04:00 MCV 104.0 fl (82-101) H 05/25/25 04:00 MCH 35.9 pg (27-33) H 05/25/25 04:00 MCHC 34.5 g/dL (30-55) 05/25/25 04:00 RDW 12.1 % (12.1-15.1) 05/25/25 04:00 Plt Count 111 10^3/cmm (157-399) L 05/25/25 04:00 MPV 10.9 fL (7.4-10.4) H 05/25/25 04:00 Neut % (Auto) 49.8 % 05/25/25 04:00 Lymph % (Auto) 35.6 % 05/25/25 04:00 [place] % (Auto) 10.2 % 05/25/25 04:00 Eos % (Auto) 2.3 % 05/25/25 04:00 Baso % (Auto) 1.7 % 05/25/25 04:00 Neut # (Auto) 2.33 10^3/uL (1.8-7.7) 05/25/25 04:00 Lymph # (Auto) 1.7 10^3/uL (0.8-4.8) 05/25/25 04:00 [place] # (Auto) 0.5 10^3/uL (0.2-0.9) 05/25/25 04:00 Eos # (Auto) 0.1 10^3/uL (0.0-0.8) 05/25/25 04:00 Baso # (Auto) 0.1 10^3/uL (0.0-0.1) 05/25/25 04:00 Nucleated RBC % (auto) 0 % 05/25/25 04:00 Nucleated RBCs # 0.0 /100WBC 05/25/25 04:00 PT 13.80 SECONDS (12.1-14.9) 05/23/25 07:45 INR 0.99 (0.8-1.2) 05/23/25 07:45 D-Dimer 0.42 ug/mLFEU (0-0.59) 05/24/25 11:17 Sodium 133 mmol/L (136-145) L 05/25/25 04:00 Potassium 3.2 mmol/L (3.5-5.1) L 05/25/25 04:00 Chloride 97 mmol/L (98-107) L 05/25/25 04:00 Carbon Dioxide 24 mmol/L (22-29) 05/25/25 04:00 Anion Gap 15.2 (5-19) 05/25/25 04:00 BUN 6 mg/dL (6-20) 05/25/25 04:00 Creatinine 0.6 mg/dL (0.7-1.2) L 05/25/25 04:00 GFR Calculation 141.5 mL/min (90-130) H 05/25/25 04:00 Glucose 102 mg/dL (65-115) 05/25/25 04:00 Calculated Osmolality 274 mOsm/kg (285-295) L 05/25/25 04:00 Calcium 8.9 mg/dL (8.5-10.5) 05/25/25 04:00 Magnesium 2.0 mg/dL (1.7-2.3) 05/23/25 07:45 Total Bilirubin 0.7 mg/dL (0.15-1.2) 05/25/25 04:00 AST 60 U/L (0-40) H 05/25/25 04:00 ALT 35 U/L (0-41) 05/25/25 04:00 Alkaline Phosphatase 74 U/L (40-130) 05/25/25 04:00 Ammonia 34 umol/L (16-60) 05/23/25 07:45 Troponin T Baseline 11 ng/L (0-15) 05/23/25 07:45 Troponin T 120 Minute 8.92 ng/L (0-15) 05/23/25 09:35 Delta Troponin T -2.08 ABS# (0-10) L 05/23/25 09:35 Troponin T Hi Sens 6Hr 9.12 ng/L (0-15) 05/23/25 13:50 Troponin T Hi Sens 6Hr Delta -1.88 ng/L (0-12) L 05/23/25 13:50 Total Protein 6.7 g/dL (6.6-8.7) 05/25/25 04:00 Albumin 3.9 g/dL (3.5-5.2) 05/25/25 04:00 Globulin 2.8 g/dL (1.3-4.6) 05/25/25 04:00 Lipase 38 U/L (13-60) 05/23/25 07:45 Urine Color [place] (Yellow) A 05/23/25 08:18 Urine Appearance Cloudy (CLEAR) A 05/23/25 08:18 Urine pH 5.5 (5-7) 05/23/25 08:18 Ur Specific [place] 1.023 (1.005-1.030) 05/23/25 08:18 Urine Protein 2+ (Negative) A 05/23/25 08:18 Urine Glucose (UA) Negative (Normal) 05/23/25 08:18 Urine Ketones Trace (Negative) 05/23/25 08:18 Urine Blood Non-haemolysed trace (Negative) 05/23/25 08:18 Urine Nitrate Negative (Negative) 05/23/25 08:18 Urine Bilirubin Negative (Negative) 05/23/25 08:18 Urine Urobilinogen 1.0 mg/dL (Negative) 05/23/25 08:18 Ur Leukocyte Esterase Trace (Negative) A 05/23/25 08:18 Urine RBC 3-5 /hpf (0-2) 05/23/25 08:18 Urine WBC 0-5 /hpf (0-5) 05/23/25 08:18 Ur Squamous Epith Cells 0-5 /hpf (0-5) 05/23/25 08:18 Calcium Oxalate Crystal 25-40 /hpf H 05/23/25 08:18 Amorphous Sediment Not Reportable 05/23/25 08:18 Urine Bacteria None seen /hpf (NONE) 05/23/25 08:18 Hyaline Casts 13.22 /lpf 05/23/25 08:18 Urine Mucus 2+ /hpf 05/23/25 08:18 Ethyl Alcohol 204 mg/dL (0-10) H 05/23/25 07:45 C. difficile (PCR) Negative (Negative) 05/24/25 11:12 Influenza A (PCR) Negative (Negative) 05/23/25 11:37 Influenza Type B (PCR) Negative (Negative) 05/23/25 11:37 RSV (PCR) Negative (Negative) 05/23/25 11:37 SARS-CoV-2 (PCR) Negative (Negative) 05/23/25 11:37 Vitals Last Vital Signs Temp 98.7 F 05/25/25 07:26 Pulse 79 05/25/25 07:26 Resp 17 05/25/25 07:26 BP 175/115 05/25/25 07:26 Pulse Ox 99 05/25/25 07:26 O2 Del Method Room Air 05/25/25 07:26 Discharge Plan Discharge Patient Disposition: Left Against Medical Advice Condition: Stable Prescriptions: No Action albuterol sulfate [Ventolin HFA] 90 mcg/actuation HFA aerosol inhaler 2 puff inhalation Q4H PRN (Reason: shortness of breath or wheezing) Qty: 8.5 2RF thiamine mononitrate (vit B1) [Vitamin B-1 (mononitrate)] 100 mg Tablet 100 mg PO DAILY 30 Days Qty: 30 1RF folic acid 1 mg Tablet 1 mg PO DAILY 30 Days Qty: 30 1RF fluticasone propionate 50 mcg/actuation [place],Suspension 2 spray nasal DAILY 30 Days Qty: 30 1RF cetirizine 10 mg Tablet 10 mg PO DAILY 30 Days Qty: 30 1RF multivitamin with folic acid [Tab-A-Zeny] 400 mcg tablet 1 tab PO DAILY Referrals: Faby Lynch NP [Primary Care Provider, Family Practice] Patient Instructions: Pain Management Discharge Attestations Time Spent in Discharge Care*: greater than 30 min Quality Metrics Clinical Quality Measures [ No reported AMI, CVA or VTE this stay] Coding Level of Care Code Acute Code for [facility] Diagnoses Alcohol withdrawal F10.939 Complication of substance-induced condition: with unspecified complication Chest pain R07.9 Chronic alcohol abuse F10.10
[2025-05-25 14:16] VITALS: BP 175/115; PULSE 79; RESP 17; TEMP 37.1; O2SAT 99
--- NOTE | 2025-05-25 14:16 | PC.NURSE ---
AMA patient signed paper after being educated in regards to leaving without medical advise.
== END 2025-05-25 13:30 | disposition left against medical advice (07) | DRG 894 ==
LOC: ER 11:44 → MEDSURG 13:45
PROVIDERS: Admitting Provider Internal Medicine; Emergency Provider Family Medicine; Visit Provider Student in an Organized Health Care Education/Training Program
DX: F10.239 Alcohol dependence with withdrawal, unspecified (principal); T51.0X1A Toxic effect of ethanol, accidental (unintentional), initial encounter; F10.229 Alcohol dependence with intoxication, unspecified; Y90.7 Blood alcohol level of 200-239 mg/100 ml; R07.89 Other chest pain; Z53.29 Procedure and treatment not carried out because of patient's decision for other reasons; R19.7 Diarrhea, unspecified; J44.9 Chronic obstructive pulmonary disease, unspecified; B19.20 Unspecified viral hepatitis C without hepatic coma; R91.1 Solitary pulmonary nodule; F32.A Depression, unspecified; F17.210 Nicotine dependence, cigarettes, uncomplicated
CPT/HCPCS: 36415; 71045; 80053; 80307; 81003; 82140; 83690; 83735; 84484; 85025; 85378; 85610; 87493; 87637; 93005; 96372; 96374; 96375; 96376; 99285; G0378; J2060; J2270; J2470; J2560; J3411; J7042; J9999

== ENCOUNTER 2025-06-02 16:42 | Inpatient (IN) | payer MEDICAID, SELFPAY ==
[2025-06-02 16:43] VITALS: BP 123/82; PULSE 121; RESP 19; TEMP 36.6; O2SAT 92; BMI 23.6
--- NOTE | 2025-06-02 17:21 | W.ED.BACK ---
HPI - Back Pain/Injury General: Chief Complaint: Psychiatric Symptoms Stated Complaint: leg/back pain - alcoholism History of Present Illness: Cameron Smallwood is a 50 year old gentleman with a history of alcohol use disorder, pancreatitis, chronic obstructive pulmonary disease (COPD), pulmonary nodule, hepatitis C, alcohol-withdrawal seizure, homelessness, chronic L hip pain from injury at 12y of age w/multiple complaints. Patient states that he drinks due to chronic hip pain. He has not had anything for pain today. He states that his last drink was around 10 AM this morning. He has not suffered any new injury and denies a fever though he reports generalized body pain. Patient has had a cough of productive/clear sputum and feels a little short of breath. Patient is also complaining of abdominal pain and nausea but has not vomited. Denies dysuria or hematuria. He states that today he has had 2 loose bowel movements without blood. He has not vomited blood. Patient does not have any lower extremity swelling or asymmetry. Of note, patient also states that he is feeling suicidal today. Patient states that he has been thinking about shooting himself with a gun and has access to 1. He states he does not have a support system as his family will not have anything to do with him. He has previously been admitted to the psychiatric unit and states it has helped but he was not compliant with medications. Related Data Home Medications ?Medication ?Instructions ?Recorded ?Confirmed multivitamin with folic acid 400 1 tab PO DAILY 05/07/25 05/23/25 mcg tablet (Tab-A-Zeny) Previous Rx's ?Medication ?Instructions ?Recorded albuterol sulfate 90 mcg/actuation 2 puff inhalation Q4H PRN 03/12/25 aerosol inhaler (Ventolin HFA) shortness of breath or wheezing #8.5 grams cetirizine 10 mg tablet 10 mg PO DAILY 30 days #30 tabs 04/28/25 fluticasone propionate 50 2 spray nasal DAILY 30 days #30 04/28/25 mcg/actuation nasal grams spray,suspension folic acid 1 mg tablet 1 mg PO DAILY 30 days #30 tabs 04/28/25 thiamine mononitrate (vit B1) 100 100 mg PO DAILY 30 days #30 tabs 04/28/25 mg tablet (Vitamin B-1 (mononitrate)) Allergies Allergy/AdvReac Type Severity Reaction Status Date / Time tetanus immune globulin Allergy Mild ALGY-Anaphy Verified 03/27/25 08:29 laxis azithromycin Allergy ADR-Gastrointestinal Verified 03/27/25 08:29 Upset Tetanus Vaccines and Toxoid Allergy Unknown Verified 03/27/25 08:29 [facility] ED PFSH: Medical History Nicotine dependence, cigarettes, with other nicotine-induced disorders History of traumatic injury to musculoskeletal system crush injury to RLE History of pancreatitis History of rhabdomyolysis History of suicidal ideation Chronic alcohol abuse Methadone maintenance therapy patient Hepatitis C Depression History of kidney stones Pulmonary nodule History of seizure due to alcohol withdrawal COPD (chronic obstructive pulmonary disease) Surgical History History of hip surgery Family History Father Cancer throat Other Alcohol dependence Psychiatric illness Social History Smoking and tobacco/nicotine status: current some day tobacco/nicotine user cigarettes [ Other cigarette details: 2 packs per day] Alcohol intake: current Alcohol intake frequency: 3 or more drinks per day Substance/Drug Use: current Substance/Drug use frequency: Special occassions/opportunity only Physical Exam Narrative: EXAM NARRATIVE: Vitals were reviewed. Patient is alert. EOMI, PERRL. Clear speech. Patient has diffuse wheezing on expiration but no crackles or rhonchi noted. Patient has normal heart sounds though he is tachycardic. Patient has a nondistended abdomen, has some tenderness in the epigastrium and periumbilical region. Patient does not have any lower extremity swelling or asymmetry or erythema/streaks. He has +2 DP and PT pulses. Patient is mildly tremulous to touch. Course Vital Signs: Vital signs: Vital Signs Temperature 97.9 F 06/02/25 16:43 Pulse Rate 111 H 06/02/25 18:26 Respiratory Rate 20 H 06/02/25 17:33 Blood Pressure 148/80 06/02/25 18:26 Pulse Oximetry 92 06/02/25 18:26 Oxygen Delivery Me thod Room Air 06/02/25 18:26 MDM - Back Pain/Injury Medical Decision Making 50-year-old male with multiple complaints including concern for DTs, suicidal ideation, shortness of breath, generalized body pain and chronic left hip pain. Differential diagnosis includes but is limited to, mild, moderate to severe alcohol withdrawal, alcohol intoxication, alcoholic ketoacidosis, electrolyte abnormality, COPD exacerbation/pneumonia, acute versus chronic hip pain, SI, HI, other. On initial exam, patient is alert and able to provide history. Patient is tachycardic and has diffuse wheezing in all lung diaz. He was evaluated basic lab work and toxicology screen and placed on a hold due to reported suicidal ideation. Lab work demonstrates mild decrease in potassium which was replaced orally. Patient also has an elevation in anion gap which I expect is due to alcohol. Patient does not appear to be suffering from a medical emergency and may be appropriate for inpatient admission. Discussed w/Dr. Dalal who was agreeable to admission. Labs 06/02/25 17:43 06/02/25 17:43 Laboratory Results WBC 4.90 10^3/uL (3.29-11.43) 06/02/25 17:43 RBC 4.15 10^6/uL (3.85-5.65) 06/02/25 17:43 Hgb 14.90 g/dL (11.27-16.99) 06/02/25 17:43 Hct 42.7 % (37-53) 06/02/25 17:43 MCV 102.9 fl (82-101) H 06/02/25 17:43 MCH 35.9 pg (27-33) H 06/02/25 17:43 MCHC 34.9 g/dL (30-55) 06/02/25 17:43 RDW 12.7 % (12.1-15.1) 06/02/25 17:43 Plt Count 178 10^3/cmm (157-399) 06/02/25 17:43 MPV 9.2 fL (7.4-10.4) 06/02/25 17:43 Neut % (Auto) 46.6 % 06/02/25 17:43 Lymph % (Auto) 38.6 % 06/02/25 17:43 [place] % (Auto) 11.2 % 06/02/25 17:43 Eos % (Auto) 1.2 % 06/02/25 17:43 Baso % (Auto) 2.2 % 06/02/25 17:43 Neut # (Auto) 2.28 10^3/uL (1.8-7.7) 06/02/25 17:43 Lymph # (Auto) 1.9 10^3/uL (0.8-4.8) 06/02/25 17:43 [place] # (Auto) 0.6 10^3/uL (0.2-0.9) 06/02/25 17:43 Eos # (Auto) 0.1 10^3/uL (0.0-0.8) 06/02/25 17:43 Baso # (Auto) 0.1 10^3/uL (0.0-0.1) 06/02/25 17:43 Nucleated RBC % (auto) 0 % 06/02/25 17:43 Nucleated RBCs # 0.0 /100WBC 06/02/25 17:43 Sodium 147 mmol/L (136-145) H 06/02/25 17:43 Potassium 3.3 mmol/L (3.5-5.1) L 06/02/25 17:43 Chloride 105 mmol/L (98-107) 06/02/25 17:43 Carbon Dioxide 24 mmol/L (22-29) 06/02/25 17:43 Anion Gap 21.3 (5-19) H 06/02/25 17:43 BUN 9 mg/dL (6-20) 06/02/25 17:43 Creatinine 0.6 mg/dL (0.7-1.2) L 06/02/25 17:43 GFR Calculation 141.5 mL/min (90-130) H 06/02/25 17:43 Glucose 120 mg/dL (65-115) H 06/02/25 17:43 Calculated Osmolality 304 mOsm/kg (285-295) H 06/02/25 17:43 Calcium 9.6 mg/dL (8.5-10.5) 06/02/25 17:43 Total Bilirubin 0.4 mg/dL (0.15-1.2) 06/02/25 17:43 AST 96 U/L (0-40) H 06/02/25 17:43 ALT 47 U/L (0-41) H 06/02/25 17:43 Alkaline Phosphatase 73 U/L (40-130) 06/02/25 17:43 Total Protein 7.2 g/dL (6.6-8.7) 06/02/25 17:43 Albumin 4.3 g/dL (3.5-5.2) 06/02/25 17:43 Globulin 2.9 g/dL (1.3-4.6) 06/02/25 17:43 Salicylates < 0.3 mg/dL (3-10) L 06/02/25 17:43 Acetaminophen < 5.0 ug/mL (10-30) L 06/02/25 17:43 Ethyl Alcohol 324 mg/dL (0-10) H* 06/02/25 17:43 No radiology studies performed this visit ED provider radiology interpretation(s): N/A Discharge Plan Discharge Condition: Stable Prescriptions: No Action albuterol sulfate [Ventolin HFA] 90 mcg/actuation HFA aerosol inhaler 2 puff inhalation Q4H PRN (Reason: shortness of breath or wheezing) Qty: 8.5 2RF thiamine mononitrate (vit B1) [Vitamin B-1 (mononitrate)] 100 mg Tablet 100 mg PO DAILY 30 Days Qty: 30 1RF folic acid 1 mg Tablet 1 mg PO DAILY 30 Days Qty: 30 1RF fluticasone propionate 50 mcg/actuation [place],Suspension 2 spray nasal DAILY 30 Days Qty: 30 1RF cetirizine 10 mg Tablet 10 mg PO DAILY 30 Days Qty: 30 1RF multivitamin with folic acid [Tab-A-Zeny] 400 mcg tablet 1 tab PO DAILY Referrals: Faby Lynch NP [Primary Care Provider, Family Practice] Print Language: [place]ian Coding Level of Care Code ED Human Resources Intern for Santy Villanueva
[2025-06-02 17:33] VITALS: PULSE 110; RESP 20; O2SAT 95
[2025-06-02 17:52] LABS: Hematocrit 42.7 % (37-53); Hemoglobin 14.90 g/dL (11.27-16.99); Mean Corpuscular HGB Conc 34.9 g/dL (30-55); Mean Corpuscular Hemoglobin 35.9 pg (27-33); Mean Corpuscular Volume 102.9 fl (82-101); Nucleated Red Blood Cells % 0 %; Platelet Count 178 10^3/cmm (157-399); Red Blood Count 4.15 10^6/uL (3.85-5.65); White Blood Count 4.90 10^3/uL (3.29-11.43)
--- NOTE | 2025-06-02 17:54 | PC.NURSE ---
Involuntary 96 hour hold rights read and reviewed with patient. Renzo from security present during reading of rights. Patient verbalized understandings and copy of rights given to patient.
[2025-06-02] MEDS: LORazepam 1 MG/0.5 ML injection 2 MG IVP (18:11)
[2025-06-02 18:18] LABS: Alanine Aminotransferase 47 U/L (0-41); Albumin Level 4.3 g/dL (3.5-5.2); Alkaline Phosphatase 73 U/L (40-130); Anion Gap 21.3 (5-19); Aspartate Amino Transferase 96 U/L (0-40); Blood Urea Nitrogen 9 mg/dL (6-20); Calcium 9.6 mg/dL (8.5-10.5); Carbon Dioxide 24 mmol/L (22-29); Chloride 105 mmol/L (98-107); Creatinine Clr Calc Pharmacy 150.2054; Globulin 2.9 g/dL (1.3-4.6); Glucose 120 mg/dL (65-115); Osmolality Calculated 304 mOsm/kg (285-295); Potassium 3.3 mmol/L (3.5-5.1); Sodium 147 mmol/L (136-145); Total Protein 7.2 g/dL (6.6-8.7)
[2025-06-02 18:26] VITALS: BP 148/80; PULSE 111; O2SAT 92
[2025-06-02 18:27] LABS: Acetaminophen < 5.0 ug/mL (10-30); Salicylate < 0.3 mg/dL (3-10)
[2025-06-02 18:30] LABS: Alcohol Level 324 mg/dL (0-10)
[2025-06-02 21:03] VITALS: BP 149/83; PULSE 116; O2SAT 94
--- NOTE | 2025-06-02 23:02 | PC.NURSE ---
PPt. was put in restraintsaat 1801. During report this nurse was told he had been in seclusion for 4hoours
--- NOTE | 2025-06-02 23:04 | PC.ADMIT ---
[id number] Admission Note: The patient,Cameron Smallwood,50 y/o, was given written information regarding hospital policies, unit procedures and contact persons. Patient's smoking status: current some day smoker. Vital Signs - 8 hr 06/02/25 16:43 06/02/25 17:33 06/02/25 18:26 Temperature 97.9 F Pulse Rate 121 H 110 H 111 H Respiratory Rate 19 H 20 H Blood Pressure 123/82 148/80 Pulse Oximetry 92 95 92 Oxygen Delivery Method Room Air Room Air Room Air 06/02/25 21:03 Temperature Pulse Rate 116 H Respiratory Rate Blood Pressure 149/83 Pulse Oximetry 94 Oxygen Delivery Method Room Air Pt. was put in restraintsaat 1802. During report this nurse was told he had been in seclusion for 4hoours
--- NOTE | 2025-06-02 23:07 | PC.NURSE ---
Pt skin was unremarkable. Assessment went smoothe although Pt is on ciwa and scored an 11 and was given 2mg ativan .
[2025-06-02 23:18] VITALS: BP 164/101; PULSE 117; RESP 22; TEMP 37.1; O2SAT 94
[2025-06-02 23:41] VITALS: BP 174/107; PULSE 112; RESP 24; TEMP 37.4; O2SAT 97
[2025-06-03 03:41] VITALS: BP 160/92; PULSE 96; RESP 22; TEMP 37.2; O2SAT 94
[2025-06-03] MEDS: thiamine 100 mg/mL 2mL SDV IM (04:00)
[2025-06-03 07:41] VITALS: BP 167/103; PULSE 108; RESP 20; TEMP 36.9; O2SAT 97
[2025-06-03 09:48] LABS: Hematocrit 40.2 % (37-53); Hemoglobin 14.00 g/dL (11.27-16.99); Mean Corpuscular HGB Conc 34.8 g/dL (30-55); Mean Corpuscular Hemoglobin 35.6 pg (27-33); Mean Corpuscular Volume 102.3 fl (82-101); Nucleated Red Blood Cells % 0 %; Platelet Count 154 10^3/cmm (157-399); Red Blood Count 3.93 10^6/uL (3.85-5.65); White Blood Count 6.14 10^3/uL (3.29-11.43)
[2025-06-03 10:04] LABS: Alanine Aminotransferase 52 U/L (0-41); Albumin Level 4.0 g/dL (3.5-5.2); Alkaline Phosphatase 69 U/L (40-130); Anion Gap 14.4 (5-19); Aspartate Amino Transferase 118 U/L (0-40); Blood Urea Nitrogen 10 mg/dL (6-20); Calcium 9.3 mg/dL (8.5-10.5); Carbon Dioxide 26 mmol/L (22-29); Chloride 99 mmol/L (98-107); Creatinine Clr Calc Pharmacy 225.3081; Globulin 2.8 g/dL (1.3-4.6); Glucose 93 mg/dL (65-115); Osmolality Calculated 281 mOsm/kg (285-295); Potassium 3.4 mmol/L (3.5-5.1); Sodium 136 mmol/L (136-145); Total Protein 6.8 g/dL (6.6-8.7)
[2025-06-03 10:42] LABS: PCP Screen Urine Negative (Negative)
[2025-06-03 11:05] VITALS: BP 157/103; PULSE 103; RESP 18; TEMP 36.9; O2SAT 96
--- NOTE | 2025-06-03 13:39 | W.PM.NPUH&PS ---
Providers/Chief Complaint Admitting Physician: Van Dalal MD Primary Care Provider: Faby Lynch NP Chief Complaint: leg/back pain - alcoholism HPI NPU History of Present Illness Cameron Smallwood is a 50 year old male who presented with a blood alcohol level of 324 with a history of alcohol dependence, pancreatitis, COPD, and alcohol related withdrawal seizures recently discharged AGAINST MEDICAL ADVICE from the hospital on 05/25/2025. The patient in the emergency department reported that he was feeling suicidal with a plan to shoot himself. He reports continued concerns about chronic pain and reported having a history of depression as well. The patient was admitted to the neuropsychiatric unit for further evaluation and treatment. He reports no substantial changes since his last discharge from the neuropsychiatric unit on April 28, 2025. He reports that he has been compliant with his medication regimen. He continues to report active alcohol use despite adverse consequences. He denied any hematemesis. He had endorsed some feelings of hopelessness. He denied any psychotic symptoms. The patient reported no desire to consider inpatient substance abuse treatment as he continued to state that they would not allow his cats to remain there while he was in treatment. Current medications: Zyrtec, folic acid, thiamine, albuterol, Allergies: Z-Lefty, tetanus NPU Discharge Summary Excerpt from 04/28/25 Discharge Diagnosis 1. Suicidal ideations: 2. Alcohol intoxication: 3. History of seizure due to alcohol withdrawal: 4. Opioid dependence on maintenance agonist therapy, no symptoms: 5. Depression: 6. Alcohol use disorder, severe, dependence: Reason for Visit SI Brief History: History of Present Illness Cameron Smallwood is a 50 year old male who presented to the emergency department with the following report: Chief Complaint: Psychiatric Symptoms Stated Complaint: SI Time Seen by Provider: 04/21/25 16:46 Source: patient Mode of arrival: ambulatory Limitations: no limitations History of Present Illness: 50-year-old male states he has been having suicidal thoughts for the last 2 days. He states that he no longer wants to live he is an alcoholic states he has been drinking very heavy. He denies any worse improving factors. Associated symptoms: Reports depression and suicidal ideation. He was admitted to the neuropsychiatric unit for definitive treatment of those issues. He is known to [facility] psychiatry through inpatient and outpatient services but his last inpatient hospitalization was in November of this year. An excerpt of that discharge summary is included below for context. It is noteworthy that he was assisted in getting a bed at [facility] at the conclusion of the hospitalization and he did not show up to that intake. He presents today reporting that he has not had sobriety except for maybe a couple weeks since he left in November. We discussed that it is probably unlikely that that is true either. He presented to the emergency department with a blood alcohol of 421 and did not give a UDS. He presents in profound withdrawal and is receiving significant Ativan through the CIWA protocol and does not look well per staff reports and direct observation. He reports that his vision is to get back on his medication. He reports that he knows he did better with that. He reports he also needs to regain his sobriety as his goal is to go back down to [place] to help his son who he reports is suffering from schizophrenia. As he described it situation it is clear that his son has addiction issues and it is unclear whether he has psychosis which is called schizophrenia by some is not a result of his inability to maintain sobriety from those 2 mood altering substances. Nonetheless his plan is to get sober and go down and help his son. We discussed how critical it might be for him to go to some sober living treatment which he seems already ambivalent about. We agreed to restart his medication and assist him in getting through his withdrawal symptoms and taking that a day at a time. He denied any side effects to the medications thus far. Per his 12/24/2024 [facility] inpatient psychiatric discharge summary: Discharge Diagnosis (1) Depression: Status: Chronic (2) Suicidal ideations: Status: Acute (3) Alcohol withdrawal syndrome: Status: Inactive Qualifiers: Complication of substance-induced condition: with unspecified complication Qualified Code(s): F10.239 - Alcohol dependence with withdrawal, unspecified (4) Alcohol intoxication: Status: Resolved Qualifiers: Complication of substance-induced condition: uncomplicated Qualified Code(s): F10.920 - Alcohol use, unspecified with intoxication, uncomplicated (5) History of seizure due to alcohol withdrawal: Status: Inactive (6) Opioid dependence on maintenance agonist therapy, no symptoms: Status: Inactive (7) Alcohol use disorder, severe, dependence: Status: Acute Reason for Visit Reason for Visit: ETOH Brief History: HPI NPU History of Present Illness Cameron Smallwood is a 49 year old male recently discharged from the neuropsychiatric unit with a history of alcohol dependence after a 10-day stay here in November 2024. The patient presented with a blood alcohol level of 406 to the emergency department and reported that he was feeling suicidal. He had reported that he had been without his methadone and stated that he had been feeling extremely depressed and suicidal and stated that he would run into traffic if he were to leave the hospital. The patient had reported that he has had no significant changes currently as he had indicated that he is currently homeless. The patient had reported having significant pain issues. He reports that he had been noncompliant with outpatient substance abuse treatment and reported that he understands that he needs inpatient substance abuse treatment with continued medical problems associated with alcohol use. He reported no substantial changes since his last hospitalization 1 month ago. He does have a history of significant alcohol withdrawal symptoms including seizures. He was admitted involuntarily to the neuropsychiatric unit for further evaluation and treatment. Current medications: Methadone 50 mg daily Medical history: Hepatitis C, COPD, history of kidney stones, elevated liver enzymes, Allergies: azithromycin, tetanus, Excerpt from NPU Discharge Summary from 11/12/24 Discharge Diagnosis (1) Suicidal ideations: Status: Acute (2) Alcohol intoxication: Status: Acute Qualifiers: Complication of substance-induced condition: uncomplicated Qualified Code(s): F10.920 - Alcohol use, unspecified with intoxication, uncomplicated (3) History of seizure due to alcohol withdrawal: Status: Acute (4) Alcohol withdrawal syndrome: Status: Inactive Qualifiers: Complication of substance-induced condition: with unspecified complication Qualified Code(s): F10.239 - Alcohol dependence with withdrawal, unspecified (5) Opioid dependence on maintenance agonist therapy, no symptoms: Status: Acute (6) Depression: Status: Acute Reason for Visit Found in Ditch Passed out Brief History: History of Present Illness Cameron Smallwood is a 49 year old male who presented to the emergency department with the following report: Chief complaint: Altered Mental Status Stated complaint: Found in Ditch Passed out Time Seen by Provider: 10/31/24 23:08 History of Present Illness: Patient brought in by EMS after patient was found drunk passed out in a ditch. Patient is soaking wet cold and complaining of going through alcohol withdrawals and aching pain all over. Patient does admit to drinking today. Patient is alert oriented can answer all questions coherently. He was admitted to the neuropsychiatric unit for definitive treatment of those issues. He is known to [facility] through inpatient and outpatient services though most of his inpatient services were [id number] with none since then. There have been multiple emergency room and hospital visits and admissions that have been alcohol-related/drug related he presented to the emergency department after being found in a ditch and his blood alcohol was 478. They report he continued to be communicative even in those times that his numbers were high. He had altered mental status and concerns for safety including suicidal concerns. He is unknown to this creative services writer specifically. He presented today reporting that he is doing okay. He was a limited historian as he at times nodded off during the interview. We discussed the fact that we had information on his overall story from records suggesting that he has had challenges with his drinking going way back. He acknowledges that drinking has been a problem off and on. He reports that he has had a couple of stents in rehab 1 fairly recently. He endorsed that he has had a couple DUIs. He reports that his drinking has been significant recently and denied any clear sense of why. We discussed the fact that he has had withdrawal seizures in the past and so we wanted to make sure he was acknowledging to the staff that he was feeling significant withdrawal symptoms. We discussed him being on the CIWA protocol and how that worked. We discussed his opioid addiction and the fact that he is on the methadone but he reports that ultimately he is trying to get off the methadone. We discussed having to do this with caution because this creative services writer has never seen an individual who was not stable on 30 mg of methadone or less that was able to safely detox outside of a controlled environment like care home. We discussed that his blood alcohol 478 was close to the number where 50% of people who get that number . He reported that he had been working for [employer] at a [employer] but then lost his job. Then he went to a place called [employer] where he was working but that he has not been working for the last couple months and during that time his drinking had escalated again. He endorses that he has dealt with some depression and suicidal ideation. We discussed considering a medication for depression prior to discharge. He endorses that he has been homeless recently. We reviewed some of the psychosocial history as best we could while he was only capable at times of yes no answers. He denies any current legal challenges. He denies any current or significant medical problems. We discussed the risks, benefits and alternatives of making sure he makes it through the withdrawal process and then introducing antidepressant and he understood and agreed to proceed as documented in this note. Hospital Course He slowly acclimated to the individual, group and milieu therapies provided. He presented much like he did at his previous hospitalization with a greatly elevated blood alcohol level frequently presenting to the emergency department with alcohol levels between 400 and 500. His last hospitalization he had a withdrawal seizure. His medications were continued without issue. He was on a 96-hour hold and we filed for a 21-day hold but the hearing was going to be on the day of his discharge to rehab. He was given Prozac Vistaril and thiamine. He spent much of the last days of his hospitalization trying to lobby to be discharged to go and wash close and take care of his animals and there was significant concern that he would not follow through with rehab. He was placed on the CIWA protocol and received Ativan for management of his withdrawal symptoms. Many days after his active withdrawal was greatly diminished he continued to have tremulousness and seemed at times a little unsteady on his feet. He had continued to minimize the severity of his alcohol use and refused any inpatient substance abuse treatment. He worked with the social work team who was able to obtain a bed for him at [facility] on 12/24/2024. He had significant improvement during the hospitalization but continued to clearly need a higher level of care to continue his improvement. He was able to contract for safety outside the hospital prior to discharge. During the hospitalization, patient had routine laboratory studies which were within normal limits. Additionally, there was a general medical evaluation which was also within normal limits and revealed no new acute processes. At the time of discharge, he denied psychosis or lethality. Mood and anxiety were well managed. The patient endorsed a plan to avoid all drugs of abuse and follow up with the aftercare recommendations of the treatment team. The patient was evaluated and deemed to be absent credible lethality and had achieved the maximum benefit from an inpatient hospitalization, and so was discharged. It was noted after discharge that he did not arrive for his at [facility] for rehab. Hospital Course Hospital Course During the hospitalization, the patient had routine laboratory studies which were within normal limits except for a few outliers.? Additionally, there was a general medical evaluation which was also within normal limits and revealed no new acute processes.? At the time of discharge, lethality was denied. ? Mood and anxiety were well managed.? The patient endorsed a plan to avoid all drugs of abuse and follow up with the aftercare recommendations of the treatment team.? The patient was evaluated and deemed to be absent credible lethality and had achieved the maximum benefit from an inpatient hospitalization, and so was discharged. ?The patient did not wish to consider inpatient substance abuse treatment particularly for her alcoholism. He had expressed desire to go back to his current home. He had been started on Librium to help with alcohol withdrawal and was given a 3-day supply of Librium to be taken nightly for the next 3 days after discharge. Meds NPU Home Medications ?Medication ?Instructions ?Recorded ?Confirmed ?Last Taken ?Type albuterol sulfate 90 mcg/actuation 2 puff inhalation Q4H PRN 03/12/25 06/03/25 05/06/25 20:00 Rx aerosol inhaler (Ventolin HFA) shortness of breath or wheezing #8.5 grams cetirizine 10 mg tablet 10 mg PO DAILY 30 days #30 tabs 04/28/25 06/03/25 Unknown Rx fluticasone propionate 50 2 spray nasal DAILY 30 days #30 04/28/25 06/03/25 Unknown Rx mcg/actuation nasal grams spray,suspension folic acid 1 mg tablet 1 mg PO DAILY 30 days #30 tabs 04/28/25 06/03/25 Unknown Rx thiamine mononitrate (vit B1) 100 100 mg PO DAILY 30 days #30 tabs 04/28/25 06/03/25 Unknown Rx mg tablet (Vitamin B-1 (mononitrate)) multivitamin with folic acid 400 1 tab PO DAILY 05/07/25 06/03/25 05/02/25 History mcg tablet (Tab-A-Zeny) Allergies Allergy/AdvReac Type Severity Reaction Status Date / Time tetanus immune globulin Allergy Mild ALGY-Anaphy Verified 03/27/25 08:29 laxis azithromycin Allergy ADR-Gastrointestinal Verified 03/27/25 08:29 Upset Tetanus Vaccines and Toxoid Allergy Unknown Verified 03/27/25 08:29 [facility] NPU PFSH: Medical History (Updated 06/02/25 @ 20:00 by Angie Oneil MD) Nicotine dependence, cigarettes, with other nicotine-induced disorders History of traumatic injury to musculoskeletal system crush injury to RLE History of pancreatitis History of rhabdomyolysis History of suicidal ideation Chronic alcohol abuse Methadone maintenance therapy patient Hepatitis C Depression History of kidney stones Pulmonary nodule History of seizure due to alcohol withdrawal COPD (chronic obstructive pulmonary disease) Surgical History History of hip surgery Family History Father Cancer throat Other Alcohol dependence Psychiatric illness Social History Smoking and tobacco/nicotine status: current some day tobacco/nicotine user cigarettes [ Other cigarette details: 2 packs per day] Alcohol intake: current Alcohol intake frequency: 3 or more drinks per day Substance/Drug Use: current Substance/Drug use frequency: Special occassions/opportunity only Mental Status Exam MSE Comments: This is a well-nourished well-developed white male in hospital scrubs with poor grooming and intermittent eye contact looking much older than his stated age. No abnormal involuntary motor movements were appreciated except for significant psychomotor retardation along with tremulousness. He was cooperative with exam in moderate distress. Speech was decreased in rate and normal in volume. Mood described as okay. His affect was restricted in range and mood congruent. Thought process was linear and organized. Thought contact: Patient endorsed suicidal ideation and no homicidal ideation. There were no delusions reported or noted, patient denied auditory or visual hallucinations. Attention and concentration appeared intact and memory appeared mostly reliable but none were formally tested. Patient is alert and oriented to person, place, time and situation. Insight was poor. Judgment and impulse control appears impaired. Vitals/I&O/Wt Last Vital Signs Temp 98.4 F 06/03/25 11:05 Pulse 103 H 06/03/25 11:05 Resp 18 06/03/25 11:05 BP 157/103 06/03/25 11:05 Pulse Ox 96 06/03/25 11:05 O2 Del Method Room Air 06/03/25 11:05 06/02/25 06/03/25 06/03/25 22:59 06:59 14:59 Intake Total 1000 / 1000 Balance 1000 / 1000 Weight last 48 hrs Weight 74.843 kg Data NPU 06/03/25 09:32 06/03/25 09:32 A&P Assessment and plan 1. Suicidal ideations: 2. Alcohol withdrawal syndrome: 3. Alcohol intoxication: 4. History of seizure due to alcohol withdrawal: 5. Opioid dependence on maintenance agonist therapy, no symptoms: 6. Depression: 7. Alcohol use disorder, severe, dependence: Plan: This is a 50-year-old male known through past hospitalizations with depression, anxiety, and significant alcohol dependence admitted with blood alcohol of 324 and a history of withdrawal seizures. 1. Restart outpatient medications 2. Continue every 15 minute checks for safety. 3. Encourage individual, group and milieu therapies. 4. Encourage sober living treatment after discharge at the highest level of care to which he is willing to commit. He continues to be ambivalent about sober living treatment. 5. CIWA protocol with significant attention to the fact that he has a history of withdrawal seizures. 6. Evaluate against the backdrop of the 96-hour hold. 7. Obtain collateral information. PDMP PDMP Reviewed: Not Reviewed Involuntary Hold Information Hold Status: Legal Status: 96 Hour Hold Date/Time Hold Expires: 96^06/09/25@0930 96 Hour Hold: 96 Hour Involuntary Admission: Yes Attestations NPU Medical Necessity Statement*: Inpatient hospitalization is medically necessary and?the clinically appropriate intervention at this time.? We will monitor/initiate medications and make changes as indicated.? The patient will be in the hospital for over 2 midnights.? The patient?s likely length of stay is 4-6 days. Coding Level of Care Code Acute Code for [facility] Fwd Diagnoses Suicidal ideations R45.851 Alcohol withdrawal syndrome F10.239 Complication of substance-induced condition: with unspecified complication Alcohol intoxication F10.920 Complication of substance-induced condition: uncomplicated History of seizure due to alcohol withdrawal Z87.898; Z86.59 Opioid dependence on maintenance agonist therapy, no symptoms F11.20 Depression F32.A Alcohol use disorder, severe, dependence F10.20
[2025-06-03 14:24] VITALS: BP 150/99; PULSE 100; RESP 20; TEMP 36.4; O2SAT 98
[2025-06-03 19:00] VITALS: BP 130/88; PULSE 96; RESP 18; TEMP 36.7; O2SAT 96
[2025-06-03 23:47] VITALS: BP 125/80; PULSE 85; RESP 16; O2SAT 95
[2025-06-04 04:00] VITALS: BP 133/91; PULSE 90; RESP 18; O2SAT 94
[2025-06-04 07:07] VITALS: BP 143/96; PULSE 93; RESP 16; TEMP 36.9; O2SAT 94
[2025-06-04 11:07] VITALS: BP 133/87; PULSE 110; RESP 18; TEMP 37.2; O2SAT 92
[2025-06-04 14:10] VITALS: BP 138/86; PULSE 110; RESP 18; TEMP 37; O2SAT 97
--- NOTE | 2025-06-04 16:00 | P.NPUPN_ITS ---
Subjective NPU 2 Subjective: 50-year-old male with alcohol dependence once again admitted with suicidal ideation with a blood alcohol level of over 300. He had reported ambivalence about wanting to go to an inpatient substance abuse treatment program as his cats were essential part of the deal in order to be placed in a preferred facility. He had remained ambivalent about receiving any treatment. He had denied any suicidal thoughts but reported that he had remained concerned that he may eventually succumbed to the sequela of his continued unfettered use of alcohol. He had continued to receive Ativan as part of his alcohol withdrawal protocol. He had reported that he did not wish to return to the use of methadone at this time. He had continued to report having pain issues. He denied any side effects of the medication. Mental Status Exam 2 MSE Comments: This is a well-nourished well-developed white male in hospital scrubs with poor grooming and intermittent eye contact looking much older than his stated age. No abnormal involuntary motor movements were appreciated except for significant psychomotor retardation along with tremulousness. He was cooperative with exam in mild distress. Speech was decreased in rate and normal in volume. Mood described as allright. His affect was restricted in range and mood congruent. Thought process was linear and organized. Thought contact: Patient endorsed no suicidal ideation and no homicidal ideation. There were no delusions reported or noted, patient denied auditory or visual hallucinations. Attention and concentration appeared intact and memory appeared mostly reliable but none were formally tested. Patient is alert and oriented to person, place, time and situation. Insight was poor. Judgment and impulse control appears impaired. Vitals/I&O/Wt Last Vital Signs Temp 98.6 F 06/04/25 14:10 Pulse 110 H 06/04/25 14:10 Resp 18 06/04/25 14:10 BP 138/86 06/04/25 14:10 Pulse Ox 97 06/04/25 14:10 O2 Del Method Room Air 06/04/25 14:10 Weight last 48 hrs Weight 74.843 kg Data NPU 06/03/25 09:32 06/03/25 09:32 A&P Assessment and plan 1. Suicidal ideations: 2. Alcohol withdrawal syndrome: 3. Alcohol intoxication: 4. History of seizure due to alcohol withdrawal: 5. Opioid dependence on maintenance agonist therapy, no symptoms: 6. Depression: 7. Alcohol use disorder, severe, dependence: Plan: This is a 50-year-old male known through past hospitalizations with depression, anxiety, and significant alcohol dependence admitted with blood alcohol of 324 and a history of withdrawal seizures. 1. Restart outpatient medications. Consider Vivitrol to reduce cravings for alcohol as patient no longer on opioid at this time. 2. Continue every 15 minute checks for safety. 3. Encourage individual, group and milieu therapies. 4. Encourage sober living treatment after discharge at the highest level of care to which he is willing to commit. He continues to be ambivalent about sober living treatment. 5. CIWA protocol with significant attention to the fact that he has a history of withdrawal seizures. 6. Evaluate against the backdrop of the 96-hour hold. 7. Obtain collateral information. PDMP PDMP Reviewed: Not Reviewed Involuntary Hold Information 2 Hold Status: Legal Status: 96 Hour Hold Date/Time Hold Expires: 9 6^06/09/25@0930 96 Hour Hold: 96 Hour Involuntary Admission: Yes Attestations NPU 2 Medical Necessity Statement*: Inpatient hospitalization is medically necessary and?the clinically appropriate intervention at this time.? We will monitor/initiate medications and make changes as indicated.? ? The patient?s likely length of stay is 3-4 days. Coding Level of Care Code Acute Code for [facility] Fwd Diagnoses Suicidal ideations R45.851 Alcohol withdrawal syndrome F10.239 Complication of substance-induced condition: with unspecified complication Alcohol intoxication F10.920 Complication of substance-induced condition: uncomplicated History of seizure due to alcohol withdrawal Z87.898; Z86.59 Opioid dependence on maintenance agonist therapy, no symptoms F11.20 Depression F32.A Alcohol use disorder, severe, dependence F10.20
[2025-06-04 20:00] VITALS: BP 124/82; PULSE 120; RESP 20; TEMP 36.4; O2SAT 96
[2025-06-04 23:17] VITALS: BP 157/96; PULSE 94; RESP 18; TEMP 37.1; O2SAT 96
[2025-06-05] VITALS (7 sets, daily range): BP systolic 142–172; BP diastolic 93–111; PULSE 97–110; RESP 16–20; TEMP 36.4–36.7; O2SAT 96–99
--- NOTE | 2025-06-05 04:13 | PC.NURSE ---
4AM VITALS SIGNS PATIENT REQUESTED HE NOT BE WOKE UP FOR VITALS IF HE IS SLEEPING. RESPIRATIONS 16 AT THIS TIME.
--- NOTE | 2025-06-05 07:25 | PC.NURSE ---
pt blood pressure 171/111 pt refusing manual bp states we do not need to take it three times maybe it will be down after I eat.
--- NOTE | 2025-06-05 15:37 | PC.NURSE ---
Vivitrol 380 mg IM injection every 28 days. One refill called into outpatient pharmacy pharmacist
--- NOTE | 2025-06-05 18:06 | P.NPUPN_ITS ---
Subjective NPU 2 Subjective: 50-year-old male with alcohol dependence once again admitted with suicidal ideation with a blood alcohol level of over 300. The patient had indicated interest in consideration of Vivitrol now that he was no longer on methadone. The patient continued to have alcohol-related withdrawal symptoms. He reported no side effects from his medications. He had continued to insist on the need to have his cats live with him or go with family members in order for him to go to an inpatient substance abuse treatment facility. He had denied any suicidal thoughts at this time. Mental Status Exam 2 MSE Comments: This is a well-nourished well-developed white male in hospital scrubs with poor grooming and intermittent eye contact looking much older than his stated age. No abnormal involuntary motor movements were appreciated except for significant psychomotor retardation along with tremulousness. He was cooperative with exam in mild distress. Speech was decreased in rate and normal in volume. Mood described as okay. His affect was restricted in range and mood congruent. Thought process was linear and organized. Thought contact: Patient endorsed no suicidal ideation and no homicidal ideation. There were no delusions reported or noted, patient denied auditory or visual hallucinations. Attention and concentration appeared intact and memory appeared mostly reliable but none were formally tested. Patient is alert and oriented to person, place, time and situation. Insight was poor. Judgment and impulse control appears impaired. MMSE was 30/30. Vitals/I&O/Wt Last Vital Signs Temp 98.1 F 06/05/25 12:00 Pulse 99 06/05/25 16:00 Resp 20 H 06/05/25 16:00 BP 148/102 06/05/25 16:00 Pulse Ox 97 06/05/25 16:00 O2 Del Method Room Air 06/05/25 16:00 Data NPU 06/03/25 09:32 06/03/25 09:32 A&P Assessment and plan 1. Suicidal ideations: 2. Alcohol withdrawal syndrome: 3. Alcohol intoxication: 4. History of seizure due to alcohol withdrawal: 5. Opioid dependence on maintenance agonist therapy, no symptoms: 6. Depression: 7. Alcohol use disorder, severe, dependence: Plan: This is a 50-year-old male known through past hospitalizations with depression, anxiety, and significant alcohol dependence admitted with blood alcohol of 324 and a history of withdrawal seizures. 1. Restart outpatient medications. Consider Vivitrol to reduce cravings for alcohol as patient no longer on opioid at this time. librium 25mg tid to begin as patient struggling with withdrawal symptoms. 2. Continue every 15 minute checks for safety. 3. Encourage individual, group and milieu therapies. 4. Encourage sober living treatment after discharge at the highest level of care to which he is willing to commit. He continues to be ambivalent about sober living treatment. 5. CIWA protocol with significant attention to the fact that he has a history of withdrawal seizures. 6. Evaluate against the backdrop of the 96-hour hold. 7. Obtain collateral information. PDMP PDMP Reviewed: Not Reviewed Involuntary Hold Information 2 Hold Status: Legal Status: 96 Hour Hold Date/Time Hold Expires: 9 6^06/09/25@0930 96 Hour Hold: 96 Hour Involuntary Admission: Yes Attestations NPU 2 Medical Necessity Statement*: Inpatient hospitalization is medically necessary and?the clinically appropriate intervention at this time.? We will monitor/initiate medications and make changes as indicated.? ? The patient?s likely length of stay is 3-4 days. Coding Level of Care Code Acute Code for [facility] Fwd Diagnoses Suicidal ideations R45.851 Alcohol withdrawal syndrome F10.239 Complication of substance-induced condition: with unspecified complication Alcohol intoxication F10.920 Complication of substance-induced condition: uncomplicated History of seizure due to alcohol withdrawal Z87.898; Z86.59 Opioid dependence on maintenance agonist therapy, no symptoms F11.20 Depression F32.A Alcohol use disorder, severe, dependence F10.20
[2025-06-06] VITALS: BP 142/94; PULSE 109; RESP 18; TEMP 36.7; O2SAT 95
--- NOTE | 2025-06-06 04:31 | PC.NURSE ---
pt requested to be allowed to sleep
[2025-06-06 08:00] VITALS: BP 158/94; PULSE 94
[2025-06-06 12:00] VITALS: BP 136/83; PULSE 108; RESP 17; TEMP 36.4; O2SAT 98
--- NOTE | 2025-06-06 15:00 | P.NPUPN_ITS ---
Subjective NPU 2 Subjective: Patient presented today reporting that things are fine. He endorsed that he wants to leave and he does not believe there is any reason for him to stay. Then he was able to identify that he would benefit from a 1 year program and we discussed him using the weekend to contact this individual and get this arranged. We continue to discuss our concerns given that the last time we scheduled him to a program he got to the location and then walked away without ever entering the building and that led to him having 2 more hospitalizations at least since then. We discussed the fact that he needs to spend more time here as well as he has had seizures over a week after his alcohol use discontinues. He denied any side effects of the medication. Mental Status Exam 2 MSE Comments: This is a well-nourished well-developed white male in hospital scrubs with poor grooming and intermittent eye contact looking much older than his stated age. No abnormal involuntary motor movements were appreciated except for significant psychomotor retardation along with tremulousness. He was cooperative with exam in mild distress. Speech was decreased in rate and normal in volume. Mood described as okay. His affect was restricted in range and mood congruent. Thought process was linear and organized. Thought contact: Patient endorsed no suicidal ideation and no homicidal ideation. There were no delusions reported or noted, patient denied auditory or visual hallucinations. Attention and concentration appeared intact and memory appeared mostly reliable but none were formally tested. Patient is alert and oriented to person, place, time and situation. Insight was poor. Judgment and impulse control appears impaired. MMSE was 30/30. Vitals/I&O/Wt Last Vital Signs Temp 97.5 F L 06/06/25 12:00 Pulse 108 H 06/06/25 12:00 Resp 17 06/06/25 12:00 BP 136/83 06/06/25 12:00 Pulse Ox 98 06/06/25 12:00 O2 Del Method Room Air 06/06/25 00:00 Data NPU 06/03/25 09:32 06/03/25 09:32 A&P Assessment and plan 1. Suicidal ideations: 2. Alcohol withdrawal syndrome: 3. Alcohol intoxication: 4. History of seizure due to alcohol withdrawal: 5. Opioid dependence on maintenance agonist therapy, no symptoms: 6. Depression: 7. Alcohol use disorder, severe, dependence: Plan: This is a 50-year-old male known through past hospitalizations with depression, anxiety, and significant alcohol dependence admitted with blood alcohol of 324 and a history of withdrawal seizures. 1. Restart outpatient medications. Consider Vivitrol to reduce cravings for alcohol as patient no longer on opioid at this time. librium 25mg tid to begin as patient struggling with withdrawal symptoms. 2. Continue every 15 minute checks for safety. 3. Encourage individual, group and milieu therapies. 4. Encourage sober living treatment after discharge at the highest level of care to which he is willing to commit. He continues to be ambivalent about sober living treatment. 5. CIWA protocol with significant attention to the fact that he has a history of withdrawal seizures. 6. Evaluate against the backdrop of the 96-hour hold. Follow-up for 21-day hold. 7. Obtain collateral information. PDMP PDMP Reviewed: Not Reviewed Involuntary Hold Information 2 Hold Status: Legal Status: 96 Hour Hold Date/Time Hold Expires: 9 6^06/09/25@0930 96 Hour Hold: 96 Hour Involuntary Admission: Yes Attestations NPU 2 Medical Necessity Statement*: Inpatient hospitalization is medically necessary and?the clinically appropriate intervention at this time.? We will monitor/initiate medications and make changes as indicated.? ? The patient?s likely length of stay is 3-4 days. Coding Level of Care Code Acute Code for [facility] Diagnoses Suicidal ideations R45.851 Alcohol withdrawal syndrome F10.239 Complication of substance-induced condition: with unspecified complication Alcohol intoxication F10.920 Complication of substance-induced condition: uncomplicated History of seizure due to alcohol withdrawal Z87.898; Z86.59 Opioid dependence on maintenance agonist therapy, no symptoms F11.20 Depression F32.A Alcohol use disorder, severe, dependence F10.20
[2025-06-06 16:00] VITALS: BP 151/60; PULSE 100; RESP 17; O2SAT 98
[2025-06-06] MEDS: fluticasone nasal spray 16gm Btl 1 SPRAY NASAL ×2 (17:00→20:52)
[2025-06-06 19:59] VITALS: BP 143/92; PULSE 102; RESP 18; TEMP 36.6; O2SAT 94
--- NOTE | 2025-06-06 23:18 | PC.NURSE ---
pt asleep no vitals per nurse, resp 16, will do vitals when pt wakes up
[2025-06-07] VITALS (7 sets, daily range): BP systolic 135–161; BP diastolic 83–105; PULSE 77–101; RESP 17–20; TEMP 34.8–37.1; O2SAT 95–99
--- NOTE | 2025-06-07 05:32 | PC.NURSE ---
vitals will be done at a later time due to pt request to allow sleep per nurse, resp 16, pt asleep currently
[2025-06-07] MEDS: artificial tears Op Soln 15 mL Btl 1 DROP EYE-BOTH (10:51)
[2025-06-07] MEDS: fluticasone nasal spray 16gm Btl 1 SPRAY NASAL (17:15)
--- NOTE | 2025-06-07 19:00 | P.NPUPN_ITS ---
Subjective NPU 2 Subjective: Patient presented today reporting that he is doing okay. He reports that he is acknowledging that he needs to go to a rehab and is calling programs including [facility] to do a 30-day program. We discussed the fact that we have been down this road before and he ends up not walking through the door. He reports that he understands that he has to do that and that the most important thing is in a person going to rehab and treatment as them to change and he now wants to change. He denied any side effects of his medication. Mental Status Exam 2 MSE Comments: This is a well-nourished well-developed white male in hospital scrubs with poor grooming and intermittent eye contact looking much older than his stated age. No abnormal involuntary motor movements were appreciated except for significant psychomotor retardation along with tremulousness. He was cooperative with exam in mild distress. Speech was decreased in rate and normal in volume. Mood described as okay. His affect was restricted in range and mood congruent. Thought process was linear and organized. Thought contact: Patient endorsed no suicidal ideation and no homicidal ideation. There were no delusions reported or noted, patient denied auditory or visual hallucinations. Attention and concentration appeared intact and memory appeared mostly reliable but none were formally tested. Patient is alert and oriented to person, place, time and situation. Insight was poor. Judgment and impulse control appears impaired. MMSE was 30/30. Vitals/I&O/Wt Last Vital Signs Temp 97.7 F 06/07/25 19:38 Pulse 101 H 06/07/25 19:38 Resp 20 H 06/07/25 19:38 BP 146/92 06/07/25 19:38 Pulse Ox 99 06/07/25 19:38 O2 Del Method Room Air 06/07/25 19:38 Weight last 48 hrs Weight 78.109 kg Data NPU 06/03/25 09:32 06/03/25 09:32 A&P Assessment and plan 1. Suicidal ideations: 2. Alcohol withdrawal syndrome: 3. Alcohol intoxication: 4. History of seizure due to alcohol withdrawal: 5. Opioid dependence on maintenance agonist therapy, no symptoms: 6. Depression: 7. Alcohol use disorder, severe, dependence: Plan: This is a 50-year-old male known through past hospitalizations with depression, anxiety, and significant alcohol dependence admitted with blood alcohol of 324 and a history of withdrawal seizures. 1. Restart outpatient medications. Consider Vivitrol to reduce cravings for alcohol as patient no longer on opioid at this time. librium 25mg tid to begin as patient struggling with withdrawal symptoms. 2. Continue every 15 minute checks for safety. 3. Encourage individual, group and milieu therapies. 4. Encourage sober living treatment after discharge at the highest level of care to which he is willing to commit. He continues to be ambivalent about sober living treatment. 5. CIWA protocol with significant attention to the fact that he has a history of withdrawal seizures. 6. Evaluate against the backdrop of the 96-hour hold. Follow-up for 21-day hold. 7. Obtain collateral information. PDMP PDMP Reviewed: Not Reviewed Involuntary Hold Information 2 Hold Status: Legal Status: 96 Hour Hold Date/Time Hold Expires: 9 6^06/09/25@0930 96 Hour Hold: 96 Hour Involuntary Admission: Yes Attestations NPU 2 Medical Necessity Statement*: Inpatient hospitalization is medically necessary and?the clinically appropriate intervention at this time.? We will monitor/initiate medications and make changes as indicated.? ? The patient?s likely length of stay is 3-4 days. Coding Level of Care Code Acute Code for [facility] Fwd Diagnoses Suicidal ideations R45.851 Alcohol withdrawal syndrome F10.239 Complication of substance-induced condition: with unspecified complication Alcohol intoxication F10.920 Complication of substance-induced condition: uncomplicated History of seizure due to alcohol withdrawal Z87.898; Z86.59 Opioid dependence on maintenance agonist therapy, no symptoms F11.20 Depression F32.A Alcohol use disorder, severe, dependence F10.20
[2025-06-08] VITALS: BP 129/84; PULSE 88; RESP 20; TEMP 36.8; O2SAT 93
[2025-06-08 04:00] VITALS: BP 153/92; PULSE 75; RESP 20; TEMP 36.8; O2SAT 97
--- NOTE | 2025-06-08 05:22 | PC.NURSE ---
CIWA/BEHAVIORAL Pt requested that nursing staff not take his vitals at 4am and wait until 6am so he can get some sleep. This nurse told ROUTE INSPECTOR to meet pt in the middle and take his vitals at 5am. Pts blood pressure at 0500 was 153/92. This nurse scored the pt a 10 on the CIWA scale at this time. This nurse pulled 1mg Ativan PO. When this nurse went to administer the med to the pt he stated you couldn't have fucking waited until 6? This nurse informed the pt that the order is for Q4h and that we did not feel comfortable waiting until 0600. Pt stated that he wanted a cup of coffee and that we should have waited to take his vitals until he could have one. This nurse told pt that his BP and CIWA score qualified him to have an Ativan if he would like to take it. Pt stated that he did not want that ativan at this time and that he would wait until he could have coffee. After a few minutes nursing staff heard pt cursing in his room. Pt then walked up to the nurses station and stated you could have fucking waited until 6. pt then walked away and into the dayroom. He then came back up and asked what is the temperature outside? Nursing staff informed him that it was 56 degrees and pt then shouts so why is the fucking AC on?! Pt then stated that this is a form of torture that they use in the to freeze people out. Nursing staff attempted to calm pt down and explain why we could not wait until 0600 to take his vitals and that we apologize. Pt then agreed to take the 1mg Ativan PO. After the Ativan was administered pt has came up to the window several times to yell at staff members and has occasionally yelled everybody wake up in an attempt to wake up other pts on the floor. Behavioral monitoring continues.
[2025-06-08] MEDS: artificial tears Op Soln 15 mL Btl 1 DROP EYE-BOTH ×2 (08:51→17:36)
[2025-06-08] MEDS: fluticasone nasal spray 16gm Btl 1 SPRAY NASAL ×2 (08:54→17:36)
[2025-06-08 12:00] VITALS: BP 139/101; PULSE 93; RESP 17; TEMP 36.6; O2SAT 97
--- NOTE | 2025-06-08 15:05 | P.NPUPN_ITS ---
Subjective NPU 2 Subjective: Patient presents today reporting that he is doing all right. He identified that he was trying to get a hold of both the and the individual in [place] other months to 1 year program but seems to be lower as the fact he believes he is going get into [facility]. We discussed the fact that his previous behavior in relation to [facility] by being excepted but not walking in the door and walking across the street from them instead of going and beginning his treatment may have soured them to accepting him moving forward. Otherwise we agreed that a rehab is the best next step. And we discussed working on that with the social work team tomorrow. And side effects of medication. Mental Status Exam 2 MSE Comments: This is a well-nourished well-developed white male in hospital scrubs with poor grooming and intermittent eye contact looking much older than his stated age. No abnormal involuntary motor movements were appreciated except for significant psychomotor retardation along with tremulousness. He was cooperative with exam in mild distress. Speech was decreased in rate and normal in volume. Mood described as okay. His affect was restricted in range and mood congruent. Thought process was linear and organized. Thought contact: Patient endorsed no suicidal ideation and no homicidal ideation. There were no delusions reported or noted, patient denied auditory or visual hallucinations. Attention and concentration appeared intact and memory appeared mostly reliable but none were formally tested. Patient is alert and oriented to person, place, time and situation. Insight was poor. Judgment and impulse control appears impaired. Vitals/I&O/Wt Last Vital Signs Temp 98.1 F 06/08/25 16:00 Pulse 107 H 06/08/25 16:00 Resp 17 06/08/25 16:00 BP 112/79 06/08/25 16:00 Pulse Ox 97 06/08/25 16:00 O2 Del Method Room Air 06/08/25 16:00 Weight last 48 hrs Weight 78.109 kg Data NPU 06/03/25 09:32 06/03/25 09:32 A&P Assessment and plan 1. Suicidal ideations: 2. Alcohol withdrawal syndrome: 3. Alcohol intoxication: 4. History of seizure due to alcohol withdrawal: 5. Opioid dependence on maintenance agonist therapy, no symptoms: 6. Depression: 7. Alcohol use disorder, severe, dependence: Plan: This is a 50-year-old male known through past hospitalizations with depression, anxiety, and significant alcohol dependence admitted with blood alcohol of 324 and a history of withdrawal seizures. 1. Restart outpatient medications. Consider Vivitrol to reduce cravings for alcohol as patient no longer on opioid at this time. librium 25mg tid to begin as patient struggling with withdrawal symptoms. 2. Continue every 15 minute checks for safety. 3. Encourage individual, group and milieu therapies. 4. Encourage sober living treatment after discharge at the highest level of care to which he is willing to commit. He continues to be ambivalent about sober living treatment. 5. CIWA protocol with significant attention to the fact that he has a history of withdrawal seizures. 6. Evaluate against the backdrop of the 96-hour hold. Follow-up for 21-day hold. 7. Obtain collateral information. PDMP PDMP Reviewed: Not Reviewed Involuntary Hold Information 2 Hold Status: Legal Status: 96 Hour Hold Date/Time Hold Expires: 9 6^06/09/25@0930 96 Hour Hold: 96 Hour Involuntary Admission: Yes Attestations NPU 2 Medical Necessity Statement*: Inpatient hospitalization is medically necessary and?the clinically appropriate intervention at this time.? We will monitor/initiate medications and make changes as indicated.? ? The patient?s likely length of stay is 3-4 days. Coding Level [facility] Care [facility] Diagnoses Suicidal ideations R45.851 Alcohol withdrawal syndrome F10.239 Complication of substance-induced condition: with unspecified complication Alcohol intoxication F10.920 Complication of substance-induced condition: uncomplicated History of seizure due to alcohol withdrawal Z87.898; Z86.59 Opioid dependence on maintenance agonist therapy, no symptoms F11.20 Depression F32.A Alcohol use disorder, severe, dependence F10.20
[2025-06-08 16:00] VITALS: BP 112/79; PULSE 107; RESP 17; TEMP 36.7; O2SAT 97
[2025-06-08 20:00] VITALS: BP 121/89; PULSE 102; RESP 102; TEMP 36.6; O2SAT 97
--- NOTE | 2025-06-08 22:00 | PC.NURSE ---
[facility] VITALS Pt requested that we not wake him up for 0400 vitals this am. This nurse notified Dr. Lynch and Dr. Lynch okay. Vitals will be taken once pt wakes up
[2025-06-08 23:34] VITALS: BP 129/90; PULSE 101; RESP 22; TEMP 36.5; O2SAT 96
[2025-06-09 05:50] VITALS: BP 163/112; PULSE 101; RESP 20; O2SAT 96
[2025-06-09 08:00] VITALS: BP 133/86; PULSE 114; RESP 17; O2SAT 99
[2025-06-09 12:00] VITALS: RESP 19
--- NOTE | 2025-06-09 13:42 | P.NPUPN_ITS ---
Subjective NPU 2 Subjective: Patient presented today reporting that he is doing okay. He was able to get a interview with [facility] and they appear to be planning on excepting him for rehab tomorrow. He did not appear very happy about the process and began focusing on the fact that his cats will be when he returns. We discussed with this nice weather for the next 2 weeks at least they will be able to survive as they had before they met him. He was frustrated and seeing this typewriter tester as the reason he is having to go to rehab. We discussed the fact that sometimes he have to do things differently if you want a different outcome. We discussed this being the right removed for his recovery. He denied any side effects of the medication. Mental Status Exam 2 MSE Comments: This is a well-nourished well-developed white male in hospital scrubs with poor grooming and intermittent eye contact looking much older than his stated age. No abnormal involuntary motor movements were appreciated except for significant psychomotor retardation along with tremulousness. He was cooperative with exam in mild to moderate distress. Speech was decreased in rate and normal in volume. Mood described as okay. His affect was irritable. Thought process was linear and organized. Thought contact: Patient endorsed no suicidal ideation and no homicidal ideation. There were no delusions reported or noted, patient denied auditory or visual hallucinations. Attention and concentration appeared intact and memory appeared mostly reliable but none were formally tested. Patient is alert and oriented to person, place, time and situation. Insight was poor. Judgment and impulse control appears impaired. Vitals/I&O/Wt Last Vital Signs Temp 97.7 F 06/08/25 23:34 Pulse 114 H 06/09/25 08:00 Resp 19 H 06/09/25 12:00 BP 133/86 06/09/25 08:00 Pulse Ox 99 06/09/25 08:00 O2 Del Method Room Air 06/08/25 23:34 Weight last 48 hrs Weight 78.109 kg Data NPU 06/03/25 09:32 06/03/25 09:32 A&P Assessment and plan 1. Suicidal ideations: 2. Alcohol withdrawal syndrome: 3. Alcohol intoxication: 4. History of seizure due to alcohol withdrawal: 5. Opioid dependence on maintenance agonist therapy, no symptoms: 6. Depression: 7. Alcohol use disorder, severe, dependence: Plan: This is a 50-year-old male known through past hospitalizations with depression, anxiety, and significant alcohol dependence admitted with blood alcohol of 324 and a history of withdrawal seizures. 1. Restart outpatient medications. Consider Vivitrol to reduce cravings for alcohol as patient no longer on opioid at this time. librium 25mg tid to begin as patient struggling with withdrawal symptoms. 2. Continue every 15 minute checks for safety. 3. Encourage individual, group and milieu therapies. 4. Encourage sober living treatment after discharge at the highest level of care to which he is willing to commit. He continues to be ambivalent about sober living treatment. He got a return call from [facility] and the tentative plan is for discharge tomorrow morning to inpatient rehab there. 5. CIWA protocol with significant attention to the fact that he has a history of withdrawal seizures. 6. Evaluate against the backdrop of the 96-hour hold. Follow-up for 21-day hold. 7. Obtain collateral information. PDMP PDMP Reviewed: Not Reviewed Involuntary Hold Information 2 Hold Status: Legal Status: 96 Hour Hold Date/Time Hold Expires: 9 6^06/09/25@0930 96 Hour Hold: 96 Hour Involuntary Admission: Yes Attestations NPU 2 Medical Necessity Statement*: Inpatient hospitalization is medically necessary and?the clinically appropriate intervention at this time.? We will monitor/initiate medications and make changes as indicated.? ? The patient?s likely length of stay is 1 day. Coding Level of Care Code Acute Code for [facility] Fwd Diagnoses Suicidal ideations R45.851 Alcohol withdrawal syndrome F10.239 Complication of substance-induced condition: with unspecified complication Alcohol intoxication F10.920 Complication of substance-induced condition: uncomplicated History of seizure due to alcohol withdrawal Z87.898; Z86.59 Opioid dependence on maintenance agonist therapy, no symptoms F11.20 Depression F32.A Alcohol use disorder, severe, dependence F10.20
[2025-06-09 14:29] VITALS: BP 125/73; PULSE 99; RESP 18; TEMP 36.9; O2SAT 97
[2025-06-09 16:00] VITALS: BP 131/87; PULSE 104; RESP 18; TEMP 36.5; O2SAT 95
[2025-06-09 19:57] VITALS: BP 116/87; PULSE 99; RESP 14; TEMP 36.6; O2SAT 96
[2025-06-10 08:08] VITALS: BP 116/87; PULSE 99; RESP 14; TEMP 36.6; O2SAT 96
== END 2025-06-10 08:48 | disposition home or self-care (01) | DRG 881 ==
LOC: ER 20:42 → NP 21:35
PROVIDERS: Admitting Provider Psychiatry & Neurology Psychiatry; Emergency Provider Emergency Medicine; Visit Provider Psychiatry & Neurology Psychiatry
DX: F32.A Depression, unspecified (principal); R45.851 Suicidal ideations; F41.9 Anxiety disorder, unspecified; F10.229 Alcohol dependence with intoxication, unspecified; Y90.8 Blood alcohol level of 240 mg/100 ml or more; F17.210 Nicotine dependence, cigarettes, uncomplicated; J44.9 Chronic obstructive pulmonary disease, unspecified; Z88.1 Allergy status to other antibiotic agents; B19.20 Unspecified viral hepatitis C without hepatic coma; R00.0 Tachycardia, unspecified; Z86.69 Personal history of other diseases of the nervous system and sense organs
CPT/HCPCS: 36415; 80053; 80306; 80307; 85025; 94640; 96361; 96372; 96374; 96375; 97150; 97165; 99285; J1100; J1885; J2060; J3411; J7120; J9999

== ENCOUNTER 2025-07-07 05:19 | Inpatient (IN) | payer MEDICAID, SELFPAY ==
[2025-07-07] VITALS (9 sets, daily range): BP systolic 142–167; BP diastolic 96–117; PULSE 92–118; RESP 16–18; TEMP 36.8–37.1; O2SAT 94–98; BMI 26.2
--- NOTE | 2025-07-07 05:24 | PC.NURSE ---
reports hx of hep c
--- OUTSIDE RECORDS SUMMARY | 2025-07-07 05:30 | XMS_ITS | Patient Health Record ---
[facility] Organization [facility] Address [address] [place] [address] Care Team Providers Care Syrup Maker Cook Name Role Phone No, PCP Primary Care Provider UnavailTiffanie Betancourt Unavailable [phone] Yudelka Shepherd Unavailable [phone] Allergies Allergen (clinical drug ingredient) Drug/Non Drug Allergy documented on EMR Reaction Allergy Type Onset Date Status azithromycin Azithromycin Unknown Drug Allergy A ctive Substance with sulfonamide structure and antibacterial mechanism of action (substance) Sulfa Antibiotics Unknown Drug Allergy Active Tetanus Toxoids Unknown Drug Allergy A ctive Reason For Referral No Information Medications Medication SIG (Take, Route, Frequency, Duration) Notes Start Date End Date Status Folic Acid Active Vivitrol 380 MG INJECT EVERY FOUR WE EKS take TO [facility] for administration Intramuscular; Duration: 30 Days Active Cetirizine HCl 10 MG 1 tablet Orally Onc e a day; Duration: 30 days 06/11/2025 Active Ventolin HFA 108 (90 Base) MCG/ACT 1 puff as needed Inhalation every 4 hrs; Duration: 10 days 06/11/2025 Active ZyrTEC Active hydrOXYzine HCl Acti ve Ventolin HFA Active Fluticasone Furoate Active Problems Problem Type SNOMED Code ICD Code Onset Dates Problem Status W/U Status Risk Notes Problem Allergic rhinitis (55822543) Chronic allergic rhinitis (J30.9) Active confirmed Vital Signs Heart Rate 104 /min 06/11/2025 Temperature 97.6 degrees Fahrenheit 06/11/2025 Oximetry 96 % 06/11/2025 Blood pressure diastolic 64 mm Hg 06/11/2025 Blood pressure systolic 110 mm Hg 06/11/2025 Encounters Encounter Location Date Provider Diagnosis [facility] [address] [place] [address] 06/11/2025 Yudelka Shepherd Physical exam Z00.00 ; Chronic allergic rhinitis J30.9 and Unspecified asthma J45.909 Assessments Encounter Date Diagnosis (ICD Code) Assessment Notes Treatment Notes Treatment Clinical Notes Section Notes 06/11/2025 Chronic allergic rhinitis (ICD-10 - J30.9) 06/11/2025 Physical exam (ICD-10 - Z00.00) patient is cleared for inpatient treatment at substance abuse treatment center. Prescriptions for chronic conditions has been sent to pharmacy for pickup. social history reviewed. 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
--- NOTE | 2025-07-07 05:35 | ECG_ITS ---
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 Measurements Intervals Logan Rate: 103 P: 75 TN: 162 QRS: 73 QRSD: 81 T: 70 QT: 353 QTc: 463 Interpretive Statements SINUS TACHYCARDIA ABNORMAL RHYTHM ECG Compared to ECG 05/23/2025 22:55:05 Sinus rhythm no longer present Electronically Signed On 07-07-2025 23:26:59 CDT by Collin Briggs M.D. [email or web address]
--- NOTE | 2025-07-07 05:46 | W.ED.NEUROSD ---
Documented by User: Boubacar Vidal [place], 07/08/25 20:08 HPI - Neuro Symptoms/Deficit General: Chief Complaint: Neuro Symptoms/Deficit Stated Complaint: SEIZURE Time Seen by Provider: 07/07/25 05:42 History of Present Illness: Patient is a 50-year-old male presenting with symptoms consistent with alcohol withdrawal syndrome. He reports his last alcoholic drink was yesterday afternoon, approximately 24 hours prior to presentation. The patient describes experiencing significant tremors ( the shakes ) and temperature dysregulation, stating one minute I'm hot, and one minute I'm cold. He also reports that his head's shaking. The patient denies current hallucinations when specifically asked. He mentions having received Ativan in the past to manage withdrawal symptoms with good effect. Patient expresses a desire to stop drinking, stating I just can't drink no more. He also reports having experienced an asthma attack recently. Related Data Home Medications ?Medication ?Instructions ?Recorded ?Confirmed multivitamin with folic acid 400 1 tab PO DAILY 05/07/25 07/07/25 mcg tablet (Tab-A-Zeny) Previous Rx's ?Medication ?Instructions ?Recorded albuterol sulfate 90 mcg/actuation 2 puff inhalation Q4H PRN 06/10/25 aerosol inhaler (Ventolin HFA) shortness of breath or wheezing #8.5 grams cetirizine 10 mg tablet 10 mg PO DAILY 30 days #30 tabs 06/10/25 fluticasone propionate 50 2 spray nasal DAILY 30 days #30 06/10/25 mcg/actuation nasal grams spray,suspension folic acid 1 mg tablet 1 mg PO DAILY 30 days #30 tabs 06/10/25 hydroxyzine pamoate 25 mg capsule 50 mg (2 x 25 mg) PO Q6H PRN 06/10/25 Anxiety 30 days #120 caps thiamine mononitrate (vit B1) 100 100 mg PO DAILY 30 days #30 tabs 06/10/25 mg tablet (Vitamin B-1 (mononitrate)) Allergies Allergy/AdvReac Type Severity Reaction Status Date / Time tetanus immune globulin Allergy Mild ALGY-Anaphy Verified 07/07/25 05:23 laxis azithromycin Allergy ADR-Gastrointestinal Verified 07/07/25 05:23 Upset Tetanus Vaccines and Toxoid Allergy Unknown Verified 07/07/25 05:23 [facility] ED PFSH: Medical History Nicotine dependence, cigarettes, with other nicotine-induced disorders History of traumatic injury to musculoskeletal system crush injury to RLE History of pancreatitis History of rhabdomyolysis History of suicidal ideation Chronic alcohol abuse Methadone maintenance therapy patient Hepatitis C Depression History of kidney stones Pulmonary nodule History of seizure due to alcohol withdrawal COPD (chronic obstructive pulmonary disease) Surgical History History of hip surgery Family History Father Cancer throat Other Alcohol dependence Psychiatric illness Social History Smoking and tobacco/nicotine status: heavy tobacco/nicotine user cigarettes [ Other cigarette details: 2 packs per day] Alcohol intake: current Alcohol intake frequency: 3 or more drinks per day Substance/Drug Use: current Substance/Drug use frequency: Special occassions/opportunity only Course Vital Signs: Vital signs: Vital Signs Temperature 97.9 F 07/08/25 19:41 Pulse Rate 113 H 07/08/25 19:41 Respiratory Rate 17 07/08/25 19:41 Blood Pressure 131/85 07/08/25 19:41 Pulse Oximetry 97 07/08/25 19:41 Oxygen Delivery Me thod Room Air 07/08/25 19:41 MDM - Neuro Symptoms/Deficit Lab Data 07/07/25 05:28 07/07/25 05:28 Laboratory Results WBC 3.95 10^3/uL (3.29-11.43) 07/07/25 05:28 RBC 4.39 10^6/uL (3.85-5.65) 07/07/25 05:28 Hgb 15.20 g/dL (11.27-16.99) 07/07/25 05:28 Hct 43.2 % (37-53) 07/07/25 05:28 MCV 98.4 fl (82-101) 07/07/25 05:28 MCH 34.6 pg (27-33) H 07/07/25 05:28 MCHC 35.2 g/dL (30-55) 07/07/25 05:28 RDW 11.9 % (12.1-15.1) L 07/07/25 05:28 Plt Count 96 10^3/cmm (157-399) L 07/07/25 05:28 MPV 10.1 fL (7.4-10.4) 07/07/25 05:28 Neut % (Auto) 49.6 % 07/07/25 05:28 Lymph % (Auto) 38.5 % 07/07/25 05:28 Anderson % (Auto) 9.6 % 07/07/25 05:28 Eos % (Auto) 1.0 % 07/07/25 05:28 Baso % (Auto) 1.0 % 07/07/25 05:28 Neut # (Auto) 1.96 10^3/uL (1.8-7.7) 07/07/25 05:28 Lymph # (Auto) 1.5 10^3/uL (0.8-4.8) 07/07/25 05:28 Anderson # (Auto) 0.4 10^3/uL (0.2-0.9) 07/07/25 05:28 Eos # (Auto) 0.0 10^3/uL (0.0-0.8) 07/07/25 05:28 Baso # (Auto) 0.0 10^3/uL (0.0-0.1) 07/07/25 05:28 Nucleated RBC % (auto) 0 % 07/07/25 05:28 Nucleated RBCs # 0.0 /100WBC 07/07/25 05:28 PT 12.50 SECONDS (12.1-14.9) 07/07/25 05:28 INR 0.87 (0.8-1.2) 07/07/25 05:28 Sodium 137 mmol/L (136-145) 07/07/25 05:28 Potassium 3.2 mmol/L (3.5-5.1) L 07/07/25 05:28 Chloride 95 mmol/L (98-107) L 07/07/25 05:28 Carbon Dioxide 21 mmol/L (22-29) L 07/07/25 05:28 Anion Gap 24.2 (5-19) H 07/07/25 05:28 BUN 8 mg/dL (6-20) 07/07/25 05:28 Creatinine 0.5 mg/dL (0.7-1.2) L 07/07/25 05:28 GFR Calculation 174.6 mL/min (90-130) H 07/07/25 05:28 Glucose 97 mg/dL (65-115) 07/07/25 05:28 Calculated Osmolality 282 mOsm/kg (285-295) L 07/07/25 05:28 Lactic Acid Cancelled 07/07/25 05: Lactate 2.5 mmol/L (0.5-2.2) H 07/07/25 06: Calcium 8.2 mg/dL (8.5-10.5) L 07/07/25 05:28 Magnesium 1.7 mg/dL (1.7-2.3) 07/07/25 05:28 Total Bilirubin 0.9 mg/dL (0.15-1.2) 07/07/25 05:28 AST 118 U/L (0-40) H 07/07/25 05:28 ALT 62 U/L (0-41) H 07/07/25 05:28 Alkaline Phosphatase 66 U/L (40-130) 07/07/25 05:28 Creatine Kinase 92 U/L (39-308) 07/07/25 05:28 C-Reactive Protein 3.0 mg/L (0.0-4.9) 07/07/25 05:28 Total Protein 7.2 g/dL (6.6-8.7) 07/07/25 05:28 Albumin 4.4 g/dL (3.5-5.2) 07/07/25 05:28 Globulin 2.8 g/dL (1.3-4.6) 07/07/25 05:28 Urine Color Yellow (Yellow) 07/07/25 05:55 Urine Appearance Slightly cloudy (CLEAR) 07/07/25 05:55 Urine pH 8 (5-7) A 07/07/25 05:55 Ur Specific Mack 1.015 (1.005-1.030) 07/07/25 05:55 Urine Protein Trace (Negative) 07/07/25 05:55 Urine Glucose (UA) Norm (Normal) 07/07/25 05:55 Urine Ketones 1+ (Negative) H 07/07/25 05:55 Urine Blood Neg (Negative) 07/07/25 05:55 Urine Nitrate Negative (Negative) 07/07/25 05:55 Urine Bilirubin Neg (Negative) 07/07/25 05:55 Urine Urobilinogen 1 mg/dL (Negative) H 07/07/25 05:55 Ur Leukocyte Esterase Negative (Negative) 07/07/25 05:55 Urine RBC None /hpf (0-2) 07/07/25 05:55 Urine WBC None /hpf (0-5) 07/07/25 05:55 Ur Squamous Epith Cells Rare /hpf (0-5) 07/07/25 05:55 Amorphous Sediment Not Reportable 07/07/25 05:55 Urine Bacteria R /hpf (NONE) 07/07/25 05:55 Hyaline Casts Rare /lpf 07/07/25 05:55 Salicylates < 0.3 mg/dL (3-10) L 07/07/25 05:28 Urine Opiates Screen Negative ng/mL (Negative) 07/07/25 05:55 Acetaminophen < 5.0 ug/mL (10-30) L 07/07/25 05:28 Ur Barbiturates Screen Negative ng/mL (Negative) 07/07/25 05:55 Ur Phencyclidine Scrn Negative ng/mL (Negative) 07/07/25 05:55 Ur Amphetamines Screen Negative ng/mL (Negative) 07/07/25 05:55 U Benzodiazepines Scrn Positive ng/mL (Negative) H 07/07/25 05:55 Urine Cocaine Screen Negative ng/mL (Negative) 07/07/25 05:55 U Marijuana (THC) Screen Positive ng/mL (Negative) H 07/07/25 05:55 Ethyl Alcohol 55 mg/dL (0-10) H 07/07/25 05:28 Discharge Plan Discharge Patient Disposition: Admitted As Inpatient Admit Provider: Tobin Lynch Clinical Impression: Alcohol withdrawal, Chronic alcohol abuse COPD (chronic obstructive pulmonary disease) Qualifiers: COPD type: chronic bronchitis Chronic bronchitis type: mixed simple and mucopurulent Qualified Code(s): J41.8 - Mixed simple and mucopurulent chronic bronchitis Hepatitis C Qualifiers: Viral hepatitis chronicity: chronic Hepatic coma status: without hepatic coma Qualified Code(s): B18.2 - Chronic viral hepatitis C Condition: Stable Sign Out Sign Out Data: Patient Sign Out occurred on 07/07/25 at 06:44. Patient's care was discussed, and care was transferred from Boubacar Griggs DO to Ruddy Quach DO. Coding Level of Care Code ED Analytical Laboratory Technician for Chg Fwd Documented by User: Ruddy Quach DO 07/07/25 09:08 HPI - Neuro Symptoms/Deficit General: Chief Complaint: Neuro Symptoms/Deficit Stated Complaint: SEIZURE Time Seen by Provider: 07/07/25 05:42 Related Data Home Medications ?Medication ?Instructions ?Recorded ?Confirmed multivitamin with folic acid 400 1 tab PO DAILY 05/07/25 07/07/25 mcg tablet (Tab-A-Zeny) Previous Rx's ?Medication ?Instructions ?Recorded albuterol sulfate 90 mcg/actuation 2 puff inhalation Q4H PRN 06/10/25 aerosol inhaler (Ventolin HFA) shortness of breath or wheezing #8.5 grams cetirizine 10 mg tablet 10 mg PO DAILY 30 days #30 tabs 06/10/25 fluticasone propionate 50 2 spray nasal DAILY 30 days #30 06/10/25 mcg/actuation nasal grams spray,suspension folic acid 1 mg tablet 1 mg PO DAILY 30 days #30 tabs 06/10/25 hydroxyzine pamoate 25 mg capsule 50 mg (2 x 25 mg) PO Q6H PRN 06/10/25 Anxiety 30 days #120 caps thiamine mononitrate (vit B1) 100 100 mg PO DAILY 30 days #30 tabs 06/10/25 mg tablet (Vitamin B-1 (mononitrate)) Allergies Allergy/AdvReac Type Severity Reaction Status Date / Time tetanus immune globulin Allergy Mild ALGY-Anaphy Verified 07/07/25 05:23 laxis azithromycin Allergy ADR-Gastrointestinal Verified 07/07/25 05:23 Upset Tetanus Vaccines and Toxoid Allergy Unknown Verified 07/07/25 05:23 [facility] ED PFSH: Medical History Nicotine dependence, cigarettes, with other nicotine-induced disorders History of traumatic injury to musculoskeletal system crush injury to RLE History of pancreatitis History of rhabdomyolysis History of suicidal ideation Chronic alcohol abuse Methadone maintenance therapy patient Hepatitis C Depression History of kidney stones Pulmonary nodule History of seizure due to alcohol withdrawal COPD (chronic obstructive pulmonary disease) Surgical History History of hip surgery Family History Father Cancer throat Other Alcohol dependence Psychiatric illness Social History Smoking and tobacco/nicotine status: heavy tobacco/nicotine user cigarettes [ Other cigarette details: 2 packs per day] Alcohol intake: current Alcohol intake frequency: 3 or more drinks per day Substance/Drug Use: current Substance/Drug use frequency: Special occassions/opportunity only Physical Exam Const: GENERAL APPEARANCE: cooperative ORIENTATION/CONSCIOUSNESS: Yes awake, Yes oriented to person, Yes oriented to place and Yes oriented to time HENMT: COMMON NORMALS: normocephalic, atraumatic and hearing grossly normal bilaterally HEAD & SCALP: normocephalic and atraumatic Resp: COMMON NORMALS: normal respiratory effort, No retractions, No use of accessory muscles and clear to auscultation bilaterally AUSCULTATION: clear to auscultation bilaterally Cardio: COMMON NORMALS: regular rhythm and No murmurs present (Cardio) RATE: tachycardic RHYTHM: regular rhythm GI: COMMON NORMALS: Soft to palpation and No hepatosplenomegaly present AUSCULTATION: Yes normoactive bowel sounds PALPATION: Yes Soft to palpation, No Tenderness to palpation present (GI), No Guarding due to palpation present (GI) and Yes No hepatosplenomegaly present Extremity: COMMON NORMALS: normal to inspection, capillary refill normal, no clubbing, cyanosis or edema, no calf tenderness and no pedal edema Neuro: SENSORIUM/ORIENTATION: Yes oriented to person, Yes oriented to place and Yes oriented to time OTHER: Tremulous Skin: COMMON NORMALS: no rashes or lesions noted GENERAL SKIN EXAM: no rashes or lesions noted Course Vital Signs: Vital signs: Vital Signs Temperature 97.9 F 07/08/25 19:41 Pulse Rate 113 H 07/08/25 19:41 Respiratory Rate 17 07/08/25 19:41 Blood Pressure 131/85 07/08/25 19:41 Pulse Oximetry 97 07/08/25 19:41 Oxygen Delivery Me thod Room Air 07/08/25 19:41 MDM - Neuro Symptoms/Deficit Medical Decision Making Patient has a known history of severe alcoholism he is been functional and in the past at alcohol levels in the upper 400 range. His blood alcohol today is 55 he is tremulous showing signs of withdrawal drawl he is tachycardic. He was given Ativan and 2 mg doses 3 doses. Reviewed his old records including recent hospitalization within the last month. Time discharge he went to an inpatient alcohol unit at [facility] [facility] began drinking again immediately after he left. Discussed with Dr. Lynch he is willing to take the patient again in the [facility]. Patient started on a CIWA protocol orders written for admission. Patient has had seizures in the past reported having a seizure earlier this morning before arriving in the emergency room. Time of the seizure unknown to patient. His lactic is elevated there is no sign of an infection and believe his lactic acidosis is due to his alcohol use. Medical Records I reviewed the patient's medical records. Lab Data I reviewed the patient's lab results. 07/07/25 05:28 07/07/25 05:28 Laboratory Results WBC 3.95 10^3/uL (3.29-11.43) 07/07/25 05:28 RBC 4.39 10^6/uL (3.85-5.65) 07/07/25 05:28 Hgb 15.20 g/dL (11.27-16.99) 07/07/25 05: Hct 43.2 % (37-53) 07/07/25 05:28 MCV 98.4 fl (82-101) 07/07/25 05: MCH 34.6 pg (27-33) H 07/07/25 05: MCHC 35.2 g/dL (30-55) 07/07/25 05:28 RDW 11.9 % (12.1-15.1) L 07/07/25 05:28 Plt Count 96 10^3/cmm (157-399) L 07/07/25 05:28 MPV 10.1 fL (7.4-10.4) 07/07/25 05:28 Neut % (Auto) 49.6 % 07/07/25 05:28 Lymph % (Auto) 38.5 % 07/07/25 05:28 Anderson % (Auto) 9.6 % 07/07/25 05:28 Eos % (Auto) 1.0 % 07/07/25 05:28 Baso % (Auto) 1.0 % 07/07/25 05:28 Neut # (Auto) 1.96 10^3/uL (1.8-7.7) 07/07/25 05:28 Lymph # (Auto) 1.5 10^3/uL (0.8-4.8) 07/07/25 05:28 Anderson # (Auto) 0.4 10^3/uL (0.2-0.9) 07/07/25 05:28 Eos # (Auto) 0.0 10^3/uL (0.0-0.8) 07/07/25 05:28 Baso # (Auto) 0.0 10^3/uL (0.0-0.1) 07/07/25 05:28 Nucleated RBC % (auto) 0 % 07/07/25 05:28 Nucleated RBCs # 0.0 /100WBC 07/07/25 05:28 PT 12.50 SECONDS (12.1-14.9) 07/07/25 05:28 INR 0.87 (0.8-1.2) 07/07/25 05:28 Sodium 137 mmol/L (136-145) 07/07/25 05:28 Potassium 3.2 mmol/L (3.5-5.1) L 07/07/25 05:28 Chloride 95 mmol/L (98-107) L 07/07/25 05:28 Carbon Dioxide 21 mmol/L (22-29) L 07/07/25 05:28 Anion Gap 24.2 (5-19) H 07/07/25 05:28 BUN 8 mg/dL (6-20) 07/07/25 05:28 Creatinine 0.5 mg/dL (0.7-1.2) L 07/07/25 05:28 GFR Calculation 174.6 mL/min (90-130) H 07/07/25 05:28 Glucose 97 mg/dL (65-115) 07/07/25 05:28 Calculated Osmolality 282 mOsm/kg (285-295) L 07/07/25 05:28 Lactic Acid Cancelled 07/07/25 05:28 Lactate 2.5 mmol/L (0.5-2.2) H 07/07/25 06:25 Calcium 8.2 mg/dL (8.5-10.5) L 07/07/25 05:28 Magnesium 1.7 mg/dL (1.7-2.3) 07/07/25 05:28 Total Bilirubin 0.9 mg/dL (0.15-1.2) 07/07/25 05:28 AST 118 U/L (0-40) H 07/07/25 05:28 ALT 62 U/L (0-41) H 07/07/25 05:28 Alkaline Phosphatase 66 U/L (40-130) 07/07/25 05:28 Creatine Kinase 92 U/L (39-308) 07/07/25 05:28 C-Reactive Protein 3.0 mg/L (0.0-4.9) 07/07/25 05:28 Total Protein 7.2 g/dL (6.6-8.7) 07/07/25 05:28 Albumin 4.4 g/dL (3.5-5.2) 07/07/25 05:28 Globulin 2.8 g/dL (1.3-4.6) 07/07/25 05:28 Urine Color Yellow (Yellow) 07/07/25 05:55 Urine Appearance Slightly cloudy (CLEAR) 07/07/25 05:55 Urine pH 8 (5-7) A 07/07/25 05:55 Ur Specific Mack 1.015 (1.005-1.030) 07/07/25 05:55 Urine Protein Trace (Negative) 07/07/25 05:55 Urine Glucose (UA) Norm (Normal) 07/07/25 05:55 Urine Ketones 1+ (Negative) H 07/07/25 05:55 Urine Blood Neg (Negative) 07/07/25 05:55 Urine Nitrate Negative (Negative) 07/07/25 05:55 Urine Bilirubin Neg (Negative) 07/07/25 05:55 Urine Urobilinogen 1 mg/dL (Negative) H 07/07/25 05:55 Ur Leukocyte Esterase Negative (Negative) 07/07/25 05:55 Urine RBC None /hpf (0-2) 07/07/25 05:55 Urine WBC None /hpf (0-5) 07/07/25 05:55 Ur Squamous Epith Cells Rare /hpf (0-5) 07/07/25 05:55 Amorphous Sediment Not Reportable 07/07/25 05:55 Urine Bacteria R /hpf (NONE) 07/07/25 05:55 Hyaline Casts Rare /lpf 07/07/25 05:55 Salicylates < 0.3 mg/dL (3-10) L 07/07/25 05:28 Urine Opiates Screen Negative ng/mL (Negative) 07/07/25 05:55 Acetaminophen < 5.0 ug/mL (10-30) L 07/07/25 05:28 Ur Barbiturates Screen Negative ng/mL (Negative) 07/07/25 05:55 Ur Phencyclidine Scrn Negative ng/mL (Negative) 07/07/25 05:55 Ur Amphetamines Screen Negative ng/mL (Negative) 07/07/25 05:55 U Benzodiazepines Scrn Positive ng/mL (Negative) H 07/07/25 05:55 Urine Cocaine Screen Negative ng/mL (Negative) 07/07/25 05:55 U Marijuana (THC) Screen Positive ng/mL (Negative) H 07/07/25 05:55 Ethyl Alcohol 55 mg/dL (0-10) H 07/07/25 05:28 No radiology studies performed this visit EKG Data EKG 1: Interpretation: EKG 07/07/2025 sinus tachycardia rate of 103. [place] 162 QTc 463. Compared to EKG 05/23/2025 no acute changes noted. Discharge Plan Discharge Patient Disposition: Admitted As Inpatient Admit Provider: Tobin Lynch Clinical Impression: Alcohol withdrawal, Chronic alcohol abuse COPD (chronic obstructive pulmonary disease) Qualifiers: COPD type: chronic bronchitis Chronic bronchitis type: mixed simple and mucopurulent Qualified Code(s): J41.8 - Mixed simple and mucopurulent chronic bronchitis Hepatitis C Qualifiers: Viral hepatitis chronicity: chronic Hepatic coma status: without hepatic coma Qualified Code(s): B18.2 - Chronic viral hepatitis C Condition: Stable Sign Out Sign Out Data: Patient Sign Out occurred on 07/07/25 at 06:44. Patient's care was discussed, and care was transferred from Boubacar Griggs DO to Ruddy Quach DO. Coding Level of Care Code ED Analytical Laboratory Technician for Santy Villanueva
[2025-07-07 05:59] LABS: Hematocrit 43.2 % (37-53); Hemoglobin 15.20 g/dL (11.27-16.99); Mean Corpuscular HGB Conc 35.2 g/dL (30-55); Mean Corpuscular Hemoglobin 34.6 pg (27-33); Mean Corpuscular Volume 98.4 fl (82-101); Nucleated Red Blood Cells % 0 %; Platelet Count 96 10^3/cmm (157-399); Red Blood Count 4.39 10^6/uL (3.85-5.65); White Blood Count 3.95 10^3/uL (3.29-11.43)
[2025-07-07 06:02] LABS: INR 0.87 (0.8-1.2); Prothrombin Time 12.50 SECONDS (12.1-14.9)
[2025-07-07] MEDS: LORazepam 1 MG/0.5 ML injection 2 MG IVP ×2 (06:04→09:47)
[2025-07-07] MEDS: thiamine 100 mg/mL 2mL SDV IVP (06:04)
[2025-07-07 06:14] LABS: Alanine Aminotransferase 62 U/L (0-41); Albumin Level 4.4 g/dL (3.5-5.2); Alcohol Level 55 mg/dL (0-10); Alkaline Phosphatase 66 U/L (40-130); Anion Gap 24.2 (5-19); Aspartate Amino Transferase 118 U/L (0-40); Blood Urea Nitrogen 8 mg/dL (6-20); Calcium 8.2 mg/dL (8.5-10.5); Carbon Dioxide 21 mmol/L (22-29); Chloride 95 mmol/L (98-107); Globulin 2.8 g/dL (1.3-4.6); Glucose 97 mg/dL (65-115); Magnesium 1.7 mg/dL (1.7-2.3); Osmolality Calculated 282 mOsm/kg (285-295); Potassium 3.2 mmol/L (3.5-5.1); Sodium 137 mmol/L (136-145); Total Protein 7.2 g/dL (6.6-8.7)
[2025-07-07 06:15] LABS: Acetaminophen < 5.0 ug/mL (10-30); Creatinine Clr Calc Pharmacy 182.6381; Salicylate < 0.3 mg/dL (3-10)
[2025-07-07 06:18] LABS: PCP Screen Urine Negative (Negative)
[2025-07-07 06:29] LABS: Glucose Urine UA Norm (Normal); Nitrate Urine Negative (Negative); Specific Gravity, Urine 1.015 (1.005-1.030)
[2025-07-07 06:30] LABS: Add Urine Microscopic? YES; UA Manual Slide Review YES; UA Slide Review UA Slide Review Perf
[2025-07-07 06:45] LABS: Lactate (Lactic Acid level) 2.5 mmol/L (0.5-2.2)
[2025-07-08] VITALS (7 sets, daily range): BP systolic 120–158; BP diastolic 56–99; PULSE 94–113; RESP 16–18; TEMP 36.6–37.2; O2SAT 95–97
--- NOTE | 2025-07-08 07:50 | P.NPUHP_ITS ---
Providers/Chief Complaint 2 Admitting Physician: Tobin Lynch MD Primary Care Provider: Faby Lynch NP Chief Complaint: SEIZURE HPI NPU History of Present Illness Cameron Smallwood is a 50 year old male who presented to the ED with the following report: Chief Complaint: Neuro Symptoms/Deficit Stated Complaint: SEIZURE Time Seen by Provider: 07/07/25 05:42 History of Present Illness: Patient is a 50-year-old male presenting with symptoms consistent with alcohol withdrawal syndrome. He reports his last alcoholic drink was yesterday afternoon, approximately 24 hours prior to presentation. The patient describes experiencing significant tremors ( the shakes ) and temperature dysregulation, stating one minute I'm hot, and one minute I'm cold. He also reports that his head's shaking. The patient denies current hallucinations when specifically asked. He mentions having received Ativan in the past to manage withdrawal symptoms with good effect. Patient expresses a desire to stop drinking, stating I just can't drink no more. He also reports having experienced an asthma attack recently. He was admitted to the neuropsychiatric unit for definitive treatment of those issues. He is known to [facility] inpatient and outpatient services but mostly inpatient services recently. This constitutes his fifth hospitalization this year with his last hospitalization ending in the beginning of June where he went to a rehab but reports now that he left somewhat early and is struggling with his recovery again. He left the rehab and very shortly began drinking again and drunk both of alcohol reportedly that a couple days ago leading to a seizure yesterday prior to coming to the hospital. His blood alcohol was 55 and he was positive for cannabis as well. An excerpt of his June discharge summary included below for context and history of the fact that there have been no substantive changes. He reports an openness to starting medication/restarting his medication. We also discussed the risks, benefits and alternatives of initiating naltrexone and he understood and agreed to proceed as is documented in this note. He has been resistant to aggressive/intensive sober living treatment in the past but he just went to a short rehab and is now at least acknowledging that a long-term sober living option is probably his only path to improvement at this point. Per his 06/10/2025 [facility] inpatient psychiatric discharge summary: Discharge Diagnosis 1. Suicidal ideations: 2. Alcohol withdrawal syndrome: 3. Alcohol intoxication: 4. History of seizure due to alcohol withdrawal: 5. Opioid dependence on maintenance agonist therapy, no symptoms: 6. Depression: 7. Alcohol use disorder, severe, dependence: Reason for Visit Reason for Visit: leg/back pain - alcoholism Brief History: Chief Complaint: leg/back pain - alcoholism HPI NPU History of Present Illness Cameron Smallwood is a 50 year old male who presented with a blood alcohol level of 324 with a history of alcohol dependence, pancreatitis, COPD, and alcohol related withdrawal seizures recently discharged AGAINST MEDICAL ADVICE from the hospital on 05/25/2025. The patient in the emergency department reported that he was feeling suicidal with a plan to shoot himself. He reports continued concerns about chronic pain and reported having a history of depression as well. The patient was admitted to the neuropsychiatric unit for further evaluation and treatment. He reports no substantial changes since his last discharge from the neuropsychiatric unit on April 28, 2025. He reports that he has been compliant with his medication regimen. He continues to report active alcohol use despite adverse consequences. He denied any hematemesis. He had endorsed some feelings of hopelessness. He denied any psychotic symptoms. The patient reported no desire to consider inpatient substance abuse treatment as he continued to state that they would not allow his cats to remain there while he was in treatment. Current medications: Zyrtec, folic acid, thiamine, albuterol, Allergies: Z-Lefty, tetanus NPU Discharge Summary Excerpt from 04/28/25 Discharge Diagnosis 1. Suicidal ideations: 2. Alcohol intoxication: 3. History of seizure due to alcohol withdrawal: 4. Opioid dependence on maintenance agonist therapy, no symptoms: 5. Depression: 6. Alcohol use disorder, severe, dependence: Reason for Visit SI Brief History: History of Present Illness Cameron Smallwood is a 50 year old male who presented to the emergency department with the following report: Chief Complaint: Psychiatric Symptoms Stated Complaint: SI Time Seen by Provider: 04/21/25 16:46 Source: patient Mode of arrival: ambulatory Limitations: no limitations History of Present Illness: 50-year-old male states he has been having suicidal thoughts for the last 2 days. He states that he no longer wants to live he is an alcoholic states he has been drinking very heavy. He denies any worse improving factors. Associated symptoms: Reports depression and suicidal ideation. He was admitted to the neuropsychiatric unit for definitive treatment of those issues. He is known to [facility] psychiatry through inpatient and outpatient services but his last inpatient hospitalization was in November of this year. An excerpt of that discharge summary is included below for context. It is noteworthy that he was assisted in getting a bed at [facility] at the conclusion of the hospitalization and he did not show up to that intake. He presents today reporting that he has not had sobriety except for maybe a couple weeks since he left in November. We discussed that it is probably unlikely that that is true either. He presented to the emergency department with a blood alcohol of 421 and did not give a UDS. He presents in profound withdrawal and is receiving significant Ativan through the CIWA protocol and does not look well per staff reports and direct observation. He reports that his vision is to get back on his medication. He reports that he knows he did better with that. He reports he also needs to regain his sobriety as his goal is to go back down to [place] to help his son who he reports is suffering from schizophrenia. As he described it situation it is clear that his son has addiction issues and it is unclear whether he has psychosis which is called schizophrenia by some is not a result of his inability to maintain sobriety from those 2 mood altering substances. Nonetheless his plan is to get sober and go down and help his son. We discussed how critical it might be for him to go to some sober living treatment which he seems already ambivalent about. We agreed to restart his medication and assist him in getting through his withdrawal symptoms and taking that a day at a time. He denied any side effects to the medications thus far. Per his 12/24/2024 [facility] inpatient psychiatric discharge summary: Discharge Diagnosis (1) Depression: Status: Chronic (2) Suicidal ideations: Status: Acute (3) Alcohol withdrawal syndrome: Status: Inactive Qualifiers: Complication of substance-induced condition: with unspecified complication Qualified Code(s): F10.239 - Alcohol dependence with withdrawal, unspecified (4) Alcohol intoxication: Status: Resolved Qualifiers: Complication of substance-induced condition: uncomplicated Qualified Code(s): F10.920 - Alcohol use, unspecified with intoxication, uncomplicated (5) History of seizure due to alcohol withdrawal: Status: Inactive (6) Opioid dependence on maintenance agonist therapy, no symptoms: Status: Inactive (7) Alcohol use disorder, severe, dependence: Status: Acute Reason for Visit Reason for Visit: ETOH Brief History: [facility] NPU History of Present Illness Cameron Smallwood is a 49 year old male recently discharged from the neuropsychiatric unit with a history of alcohol dependence after a 10-day stay here in November 2024. The patient presented with a blood alcohol level of 406 to the emergency department and reported that he was feeling suicidal. He had reported that he had been without his methadone and stated that he had been feeling extremely depressed and suicidal and stated that he would run into traffic if he were to leave the hospital. The patient had reported that he has had no significant changes currently as he had indicated that he is currently homeless. The patient had reported having significant pain issues. He reports that he had been noncompliant with outpatient substance abuse treatment and reported that he understands that he needs inpatient substance abuse treatment with continued medical problems associated with alcohol use. He reported no substantial changes since his last hospitalization 1 month ago. He does have a history of significant alcohol withdrawal symptoms including seizures. He was admitted involuntarily to the neuropsychiatric unit for further evaluation and treatment. Current medications: Methadone 50 mg daily Medical history: Hepatitis C, COPD, history of kidney stones, elevated liver enzymes, Allergies: azithromycin, tetanus, Excerpt from NPU Discharge Summary from 11/12/24 Discharge Diagnosis (1) Suicidal ideations: Status: Acute (2) Alcohol intoxication: Status: Acute Qualifiers: Complication of substance-induced condition: uncomplicated Qualified Code(s): F10.920 - Alcohol use, unspecified with intoxication, uncomplicated (3) History of seizure due to alcohol withdrawal: Status: Acute (4) Alcohol withdrawal syndrome: Status: Inactive Qualifiers: Complication of substance-induced condition: with unspecified complication Qualified Code(s): F10.239 - Alcohol dependence with withdrawal, unspecified (5) Opioid dependence on maintenance agonist therapy, no symptoms: Status: Acute (6) Depression: Status: Acute Reason for Visit Found in Ditch Passed out Brief History: History of Present Illness Cameron Smallwood is a 49 year old male who presented to the emergency department with the following report: Chief complaint: Altered Mental Status Stated complaint: Found in Ditch Passed out Time Seen by Provider: 10/31/24 23:08 History of Present Illness: Patient brought in by EMS after patient was found drunk passed out in a ditch. Patient is soaking wet cold and complaining of going through alcohol withdrawals and aching pain all over. Patient does admit to drinking today. Patient is alert oriented can answer all questions coherently. He was admitted to the neuropsychiatric unit for definitive treatment of those issues. He is known to [facility] through inpatient and outpatient services though most of his inpatient services were [id number] with none since then. There have been multiple emergency room and hospital visits and admissions that have been alcohol-related/drug related he presented to the emergency department after being found in a ditch and his blood alcohol was 478. They report he continued to be communicative even in those times that his numbers were high. He had altered mental status and concerns for safety including suicidal concerns. He is unknown to this engineering writer specifically. He presented today reporting that he is doing okay. He was a limited historian as he at times nodded off during the interview. We discussed the fact that we had information on his overall story from records suggesting that he has had challenges with his drinking going way back. He acknowledges that drinking has been a problem off and on. He reports that he has had a couple of stents in rehab 1 fairly recently. He endorsed that he has had a couple DUIs. He reports that his drinking has been significant recently and denied any clear sense of why. We discussed the fact that he has had withdrawal seizures in the past and so we wanted to make sure he was acknowledging to the staff that he was feeling significant withdrawal symptoms. We discussed him being on the CIWA protocol and how that worked. We discussed his opioid addiction and the fact that he is on the methadone but he reports that ultimately he is trying to get off the methadone. We discussed having to do this with caution because this engineering writer has never seen an individual who was not stable on 30 mg of methadone or less that was able to safely detox outside of a controlled environment like jail. We discussed that his blood alcohol 478 was close to the number where 50% of people who get that number . He reported that he had been working for [employer] at a [employer] but then lost his job. Then he went to a place called [employer] where he was working but that he has not been working for the last couple months and during that time his drinking had escalated again. He endorses that he has dealt with some depression and suicidal ideation. We discussed considering a medication for depression prior to discharge. He endorses that he has been homeless recently. We reviewed some of the psychosocial history as best we could while he was only capable at times of yes no answers. He denies any current legal challenges. He denies any current or significant medical problems. We discussed the risks, benefits and alternatives of making sure he makes it through the withdrawal process and then introducing antidepressant and he understood and agreed to proceed as documented in this note. Hospital Course During the hospitalization, the patient had routine laboratory studies which were within normal limits except for a few outliers. Additionally, there was a general medical evaluation which was also within normal limits and revealed no new acute processes. At the time of discharge, lethality was denied. Mood and anxiety were well managed. The patient endorsed a plan to avoid all drugs of abuse and follow up with the aftercare recommendations of the treatment team. The patient was evaluated and deemed to be absent credible lethality and had achieved the maximum benefit from an inpatient hospitalization, and so was discharged. The patient did not wish to consider inpatient substance abuse treatment particularly for her alcoholism. He had expressed desire to go back to his current home. He had been started on Librium to help with alcohol withdrawal and was given a 3-day supply of Librium to be taken nightly for the next 3 days after discharge. Hospital Course Hospital Course He slowly acclimated to the individual, group and milieu therapies provided. He presented much like he did at his previous hospitalization with a greatly elevated blood alcohol level frequently presenting to the emergency department with alcohol levels between 400 and 500. His last couple visits his blood alcohol was between 300 and 400. And 2 hospitalizations ago he had a withdrawal seizure over a week after he had been in the hospital. His medications were continued without issue. He was on a 96-hour hold and we filed for a 21-day hold. He was only given Vistaril along with thiamine, multivitamin and folate. Once again he began his stay reporting that he would participate in treatment only through began to backtrack and talk about the things that were in his mind more important which generally meant he wanted to return to his shed which he more or less lives in with a homeowners permission and the animals he is discussing are essentially stray cats. He was placed on the CIWA protocol and received Ativan for management of his withdrawal symptoms. He continued to be quite tremulous and so he was put on some Librium after he stopped scoring on the CIWA. He worked with the social work team who was able to obtain a bed for him at [facility] 06/10/2025 in [place]. He had significant improvement during the hospitalization period he was able to contract for safety outside the hospital prior to discharge. During the hospitalization, patient had routine laboratory studies which were within normal limits. Additionally, there was a general medical evaluation which was also within normal limits and revealed no new acute processes. At the time of discharge, he denied psychosis or lethality. Mood and anxiety were well managed. The patient endorsed a plan to avoid all drugs of abuse and follow up with the aftercare recommendations of the treatment team. The patient was evaluated and deemed to be absent credible lethality and had achieved the maximum benefit from an inpatient hospitalization, and so was discharged. Meds NPU Home Medications ?Medication ?Instructions ?Recorded ?Confirmed ?Last Taken ?Type multivitamin with folic acid 400 1 tab PO DAILY 07/07/25 05/02/25 History mcg tablet (Tab-A-Zeny) albuterol sulfate 90 mcg/actuation 2 puff inhalation Q 4H PRN 06/10/25 07/07/25 Unknown Rx aerosol inhaler (Ventolin HFA) shortness of breath or wheezing #8.5 grams cetirizine 10 mg tablet 10 mg PO DAILY 30 days #30 t abs 06/10/25 07/07/25 Unknown Rx fluticasone propionate 50 2 spray nasal DAILY 30 days #30 06/10/25 07/07/25 Unknown Rx mcg/actuation nasal grams spray,suspension folic acid 1 mg tablet 1 mg PO DAILY 30 days #30 ta bs 06/10/25 07/07/25 Unknown Rx hydroxyzine pamoate 25 mg capsule 50 mg (2 x 25 mg) PO Q6H PRN 06/10/25 07/07/25 Unknown Rx Anxiety 30 days #120 caps thiamine mononitrate (vit B1) 100 100 mg PO DAILY 30 d ays #30 tabs 06/10/25 07/07/25 Unknown Rx mg tablet (Vitamin B-1 (mononitrate)) Allergies Allergy/AdvReac Type Severity Reaction Status Date / Time tetanus immune globulin Allergy Mild ALGY-Anaphy Verified 07/07/25 05:23 laxis azithromycin Allergy ADR-Gastrointestinal Verified 07/07/25 05:23 Upset Tetanus Vaccines and Toxoid Allergy Unknown Verified 07/07/25 05:23 PFSH NPU 2 PFSH: Medical History (Updated 07/07/25 @ 09:08 by Ruddy Quach DO) Nicotine dependence, cigarettes, with other nicotine-induced disorders History of traumatic injury to musculoskeletal system crush injury to RLE History of pancreatitis History of rhabdomyolysis History of suicidal ideation Chronic alcohol abuse Methadone maintenance therapy patient Hepatitis C Depression History of kidney stones Pulmonary nodule History of seizure due to alcohol withdrawal COPD (chronic obstructive pulmonary disease) Surgical History History of hip surgery Family History Father Cancer throat Other Alcohol dependence Psychiatric illness Social History Smoking and tobacco/nicotine status: heavy tobacco/nicotine user cigarettes [ Other cigarette details: 2 packs per day] Alcohol intake: current Alcohol intake frequency: 3 or more drinks per day Substance/Drug Use: current Substance/Drug use frequency: Special occassions/opportunity only Mental Status Exam 2 MSE Comments: This is a well-nourished well-developed white male in hospital scrubs with poor grooming and intermittent eye contact looking much older than his stated age. No abnormal involuntary motor movements were appreciated except for significant psychomotor retardation along with tremulousness. He was cooperative with exam in moderate distress. Speech was decreased in rate and normal in volume. Mood described as okay. His affect was restricted in range and mood congruent. Thought process was linear and organized. Thought contact: Patient endorsed suicidal ideation and no homicidal ideation. There were no delusions reported or noted, patient denied auditory or visual hallucinations. Attention and concentration appeared intact and memory appeared mostly reliable but none were formally tested. Patient is alert and oriented to person, place, time and situation. Insight was poor. Judgment and impulse control appears impaired. Vitals/I&O/Wt Last Vital Signs Temp 97.9 F 07/08/25 04:00 Pulse 94 07/08/25 04:00 Resp 16 07/08/25 04:00 BP 141/92 07/08/25 04:00 Pulse Ox 96 07/08/25 04:00 O2 Del Method Room Air 07/08/25 04:00 07/07/25 07/08/25 07/08/25 22:59 06:59 14:59 Intake Total 240 / 240 Balance 240 / 240 Weight last 48 hrs Weight 80.739 kg Data NPU 07/07/25 05:28 07/07/25 05:28 A&P Assessment and plan 1. Suicidal ideations: 2. Alcohol withdrawal syndrome: 3. Alcohol intoxication: 4. History of seizure due to alcohol withdrawal: 5. Opioid dependence on maintenance agonist therapy, no symptoms: 6. Depression: 7. Alcohol use disorder, severe, dependence: Plan: This is a 50-year-old male known through past hospitalizations with depression, anxiety, and significant alcohol dependence admitted with blood alcohol of 324 and a history of withdrawal seizures. 1. Restart outpatient medications 2. Continue every 15 minute checks for safety. 3. Encourage individual, group and milieu therapies. 4. Encourage sober living treatment after discharge at the highest level of care to which he is willing to commit. 5. CIWA protocol with significant attention to the fact that he has a history of withdrawal seizures. 6. Evaluate against the backdrop of the 96-hour hold. 7. Obtain collateral information. PDMP PDMP Reviewed: Not Reviewed Involuntary Hold Information 2 Hold Status: Date/Time Hold Expires: voluntary 96 Hour Hold: 96 Hour Involuntary Admission: Yes Attestations NPU 2 Medical Necessity Statement*: Inpatient hospitalization is medically necessary and?the clinically appropriate intervention at this time.? We will monitor/initiate medications and make changes as indicated.? The patient will be in the hospital for over 2 midnights.? The patient?s likely length of stay is 4-6 days. Coding Level of Care Code Acute [facility] Diagn[facility] Suicidal ideations R45.851 Alcohol withdrawal syndrome F10.239 Complication of substance-induced condition: with unspecified complication Alcohol intoxication F10.920 Complication of substance-induced condition: uncomplicated History of seizure due to alcohol withdrawal Z87.898; Z86.59 Opioid dependence on maintenance agonist therapy, no symptoms F11.20 Depression F32.A Alcohol use disorder, severe, dependence F10.20
[2025-07-08] MEDS: multivitamin therapeutic Tablet 1 TAB PO (08:04)
[2025-07-08] MEDS: fluticasone nasal spray 16gm Btl 2 SPRAY NASAL (08:04)
--- NOTE | 2025-07-08 16:47 | PC.NURSE ---
Pt. stated he would like to take the naltrexone medication for his alcohol disorder. Signee informed Dr. Lynch and he gave the verbal order for Naltrexone 50mg PO QD.
[2025-07-09 04:00] VITALS: BP 146/96; PULSE 80; RESP 17; TEMP 36.7; O2SAT 95
[2025-07-09 08:00] VITALS: BP 115/80; PULSE 126; RESP 18; TEMP 36.5; O2SAT 95
--- NOTE | 2025-07-09 08:32 | NUR.SHIFT ---
Pt states that he didn't sleep great last night. He states that his anxiety is high and his depression is moderate. He denies SI/Hi or hallucinations. No pain is reported. He is wanting to know if we have orders for him to be released at two and I informed him that we did not have orders yet. He feels that Dr. Lynch is just trying to sabotage his placement.
[2025-07-09] MEDS: multivitamin therapeutic Tablet 1 TAB PO (09:05)
[2025-07-09 16:00] VITALS: BP 130/84; PULSE 92; RESP 18; TEMP 36.7; O2SAT 97
[2025-07-09 16:36] VITALS: BP 130/84; PULSE 92; RESP 18; TEMP 36.7; O2SAT 97
== END 2025-07-09 17:15 | disposition home or self-care (01) | DRG 897 ==
LOC: ER 06:44 → NP 08:54
PROVIDERS: Emergency Medicine; Admitting Provider Psychiatry & Neurology Psychiatry; Emergency Provider Family Medicine; Visit Provider Psychiatry & Neurology Psychiatry
DX: F10.239 Alcohol dependence with withdrawal, unspecified (principal); F11.20 Opioid dependence, uncomplicated; E87.20 Acidosis, unspecified; Y90.2 Blood alcohol level of 40-59 mg/100 ml; F32.A Depression, unspecified; F17.210 Nicotine dependence, cigarettes, uncomplicated; B18.2 Chronic viral hepatitis C; J41.8 Mixed simple and mucopurulent chronic bronchitis; R00.0 Tachycardia, unspecified
CPT/HCPCS: 36415; 80053; 80306; 80307; 81001; 82550; 83605; 83735; 85025; 85610; 86140; 93005; 96374; 96375; 97150; 97165; 99285; J2060; J3411; J7030; J9999